=== PATIENT | female | born 1945 | race Caucasian/White ===

== ENCOUNTER 2024-08-07 09:09 | Outpatient (AMB) | payer MEDICARE, SELFPAY ==
--- OUTSIDE RECORDS SUMMARY | 2024-08-07 09:11 | XMS_ITS | Clinical Summary ---
Author Organization Unknown Care Team Providers Care Rewinder Operator Helper Name Role Phone ABNER MANUEL, MARTINE Unavailable Unavailable EFRAIN HERNANDEZ, ARLENE Unavailable Unavailable SPAFFORD OT, MALATHI Unavailable Unavailable ADIEL PT, LISETTE Unavailable Unavailable CLOONAN CASHIER TICKET SELLING, EDWARD Unavailable Unavailable CONDINO CORE MAKER/PICKENS, SOCORRO Unavailable Unav ailable FLORENCIA CONCRETE BATCH PLANT OPERATOR, KARLA Unavailable Unavailable ALONSO CONCRETE BATCH PLANT OPERATOR, CHI Unavailable Unavailable MBURU CASHIER TICKET SELLING, FRANKI Unavailable Unavailable LUIPPOLD CASHIER TICKET SELLING, RAINA Unavailable Unavailable Payers Payer Name Policy Type Policy Number Effective Date Expira tion Date [facility] [id number] Problems Condition Name Condition Details Condition Category Status Onset Date Resolution Date Last Treatment Date Treating Clinician Comments DISPL INTERTROCH FX R FEMUR, SUBS FOR CLOS FX W ROUTN HEAL Active 03-31 00:00: 00 PERIPROSTH FRACTURE AROUND INTERNAL PROSTH R HIP JT, SUBS Active 03-31 00:00: 00 OTH FRACTURE OF RIGHT PUBIS, SUBS FOR FX W ROUTN HEAL Active 03-31 00:00: 00 ACUTE PAIN DUE TO TRAUMA Active 03-31 00:00: 00 FIBROMYALGIA Active 03-31 00:00: 00 RHEUMATOID ARTHRITIS, UNSPECIFIED Active 08-08 00:00: 00 OTHER INTERVERTEBR AL DISC DEGENERATION , LUMBAR REGION Active 08-08 00:00: 00 HYPERTENSIVE CHRONIC KIDNEY DISEASE W STG 1-4/UNSP CHR KDNY Active 08-08 00:00: 00 CHRONIC KIDNEY DISEASE, STAGE 3 UNSPECIFIED Active 08-08 00:00: 00 IRON DEFICIENCY ANEMIA, UNSPECIFIED Active 08-08 00:00: 00 GASTRO-ESOPH AGEAL REFLUX DISEASE WITHOUT ESOPHAGITIS Active 08-08 00:00: 00 VITAMIN D DEFICIENCY, UNSPECIFIED Active 08-08 00:00: 00 HYPERLIPIDEM IA, UNSPECIFIED Active 08-08 00:00: 00 HYPOTHYROIDI SM, UNSPECIFIED Active 08-08 00:00: 00 HISTORY OF FALLING Active 03-31 00:00: 00 PERSONAL HISTORY OF URINARY (TRACT) INFECTIONS Active 03-31 00:00: 00 PRSNL HX OF TIA (TIA), AND CEREB INFRC W/O RESID DEFICITS Active 08-08 00:00: 00 PRESENCE OF ARTIFICIAL KNEE JOINT, BILATERAL Active 08-08 00:00: 00 PRESENCE OF ARTIFICIAL HIP JOINT, BILATERAL Active 08-08 00:00: 00 Allergies, Adverse Reactions, Alerts Allergy Name Allergy Type Status Severity Reaction(s) Onset Date Inactive Date Treating Clinician Comments PENICIILIN Propensity to adverse reactions Active 03-31 23:42: 40 MORPHINE SULFATE..... .. Propensity to adverse reactions Active 03-31 23:42: 53 ATORVASTATIN Propensity to adverse reactions Active 03-31 23:43: 16 PREGABALIN Propensity to adverse reactions Active 03-31 23:43: 34 CHLORTHALIDO NE Propensity to adverse reactions Active 03-31 23:43: 55 Medications Ordered Medication Name Filled Medication Name Start Date Stop Date Current Medication? Ordering Clinician Indication Dosage Frequency Signature (SIG) Comments Components Acetaminoph en Extra Strength 500 mg tablet 03-31 00:00: 00 Yes [id number] PAIN 2 tablet DIRECTED 2 tablet DIRECTED (route: oral) Med Classific ation: Analgesic , Anti-infl ammatory or Antipyret ic amlodipine 5 mg tablet 03-31 00:00: 00 Yes [id number] HTN 1 tablet DAILY 1 tablet DAILY (route: oral) Med Classific ation: Cardiovas cular Therapy Agents aspirin 25 mg-dipyrida mole 200 mg capsule,ext .release 12 hr multiphase 03-31 00:00: 00 Yes [id number] BLOOD THINNER 1 capsule 2 TIMES DAILY 1 capsule 2 TIMES DAILY (route: oral) Med Classific ation: Hematolog ical Agents baclofen 10 mg tablet 03-31 00:00: 00 Yes [id number] MUSCLE RELAXANT 1 tablet 2 TIMES DAILY 1 tablet 2 TIMES DAILY (route: oral) Med Classific ation: Locomotor System duloxetine 30 mg capsule,del ayed release 03-31 00:00: 00 Yes [id number] ANTIDEPRESS ANT 1 capsule DAILY 1 capsule DAILY (route: oral) Med Classific ation: Central Nervous System Agents esomeprazol e magnesium 40 mg capsule,del ayed release 03-31 00:00: 00 Yes [id number] GERD 1 capsule DAILY 1 capsule DAILY (route: oral) Med Classific ation: Gastroint estinal Therapy Agents furosemide 20 mg tablet 03-31 00:00: 00 05-08 23:59 :00 No [id number] WATER PILL 1 tablet DAILY 1 tablet DAILY (route: oral) Med Classific ation: Cardiovas cular Therapy Agents levothyroxi ne 137 mcg tablet 03-31 00:00: 00 Yes [id number] SUPPLEMENT 1 tablet DAILY 1 tablet DAILY (route: oral) Med Classific ation: Endocrine loratadine 10 mg tablet 03-31 00:00: 00 Yes [id number] ALLERGIES 1 tablet DAILY 1 tablet DAILY (route: oral) Med Classific ation: Respirato ry Therapy Agents mecobalamin (vitamin B12) 1,000 mcg disintegrat ing tablet,subl ingual 03-31 00:00: 00 Yes [id number] SUPPLEMENT 1 tablet DAILY 1 tablet DAILY (route: sublingual ) Med Classific ation: Electroly te Balance-N utritiona l Products pravastatin 40 mg tablet 03-31 00:00: 00 Yes [id number] LOWER CHOLESTEROL 1 tablet DAILY 1 tablet DAILY (route: oral) Med Classific ation: Cardiovas cular Therapy Agents Senna Lax 8.6 mg tablet 03-31 00:00: 00 Yes [id number] LAXATIVE 2 tablet BEDTIME 2 tablet BEDTIME (route: oral) Med Classific ation: Gastroint estinal Therapy Agents trimethopri m 100 mg tablet 03-31 00:00: 00 04-29 23:59 :00 No [id number] ANTIBIOTIC 1 tablet 2 TIMES DAILY 1 tablet 2 TIMES DAILY (route: oral) Med Classific ation: Anti-Infe ctive Agents amlodipine 5 mg tablet 04-29 00:00: 00 05-08 00:00 :00 No [id number] HTN 1 tablet DAILY 1 tablet DAILY (route: oral) Med Classific ation: Cardiovas cular Therapy Agents Celebrex 100 mg capsule 04-29 00:00: 00 Yes [id number] PAIN MANAGEMENT 1 capsule EVERY OTHER DAY 1 capsule EVERY OTHER DAY (route: oral) Med Classific ation: Analgesic , Anti-infl ammatory or Antipyret ic torsemide 20 mg tablet 2020-08 00:00: 00 Yes [id number] EDEMA 1 tablet DAILY 1 tablet DAILY (route: oral) Med Classific ation: Cardiovas cular Therapy Agents LIDOCAINE TOPICAL 10-18 00:00: 00 10-19 10:46 :11 No 5 % 5 % (route: ) Med Classific ation: ANESTHETI CS TELMISARTAN ORAL 09-15 00:00: 00 10-18 10:48 :00 No 40 mg 40 mg (route: ) Med Classific ation: CARDIOVAS CULAR THERAPY AGENTS Immunizations Ordered Immunization Name Filled Immunization Name Date Status Comments Refusal Reason DOSE #2, COVID-19 VACCINE 2020-11-06 00:00:00 DOSE #1, COVID-19 VACCINE 2020-10-06 00:00:00 Vital Signs Vital Name Observation Time Observation Value Commen ts Temperature 2021-05-27 11:27:00.000 97.8 [degF] Temperature 2021-05-21 16:21:00.000 97.5 [degF] Temperature 2021-05-19 07:41:00.000 97.7 [degF] Temperature 2021-05-15 13:09:00.000 97.9 [degF] Temperature 2021-05-08 10:27:00.000 97.4 [degF] Temperature 2021-05-05 09:28:00.000 98 [degF] Temperature 2021-04-30 12:31:00.000 98.2 [degF] Temperature 2021-04-29 12:21:00.000 97.8 [degF] Temperature 2021-04-23 10:20:00.000 97.5 [degF] Temperature 2021-04-22 11:09:00.000 98.5 [degF] Temperature 2021-04-21 08:30:56.000 97.3 [degF] Temperature 2021-04-15 12:37:00.000 97.8 [degF] Temperature 2021-04-10 09:20:09.000 97.6 [degF] Temperature 2021-04-07 13:19:14.000 97.8 [degF] Temperature 2021-04-06 14:01:10.000 98 [degF] Temperature 2021-04-03 10:58:00.000 96.8 [degF] Temperature 2021-04-02 13:59:40.000 97.4 [degF] Temperature 2021-04-02 11:37:10.000 97.7 [degF] Temperature 2021-03-31 13:20:00.000 97.8 [degF] Temperature 2021-03-31 09:52:00.000 98.2 [degF] Height 2021-03-31 13:20:00.000 63 [in_us] Pulse 2021-05-27 11:27:00.000 72 /min Pulse 2021-05-21 16:21:00.000 78 /min Pulse 2021-05-19 07:41:00.000 77 /min Pulse 2021-05-15 13:09:00.000 73 /min Pulse 2021-05-08 10:27:00.000 80 /min Pulse 2021-05-05 09:28:00.000 80 /min Pulse 2021-04-30 12:31:00.000 85 /min Pulse 2021-04-29 12:21:00.000 78 /min Pulse 2021-04-23 10:20:00.000 84 /min Pulse 2021-04-22 11:09:00.000 84 /min Pulse 2021-04-21 08:31:06.000 72 /min Pulse 2021-04-15 12:37:00.000 74 /min Pulse 2021-04-10 09:20:16.000 75 /min Pulse 2021-04-07 13:19:22.000 77 /min Pulse 2021-04-06 14:01:22.000 84 /min Pulse 2021-04-03 10:58:00.000 70 /min Pulse 2021-04-02 13:59:49.000 76 /min Pulse 2021-04-02 11:37:22.000 74 /min Pulse 2021-03-31 13:20:00.000 78 /min Pulse 2021-03-31 09:52:00.000 69 /min O2 Saturation (%) 2021-05-27 11:27:00.000 97 % O2 Saturation (%) 2021-05-21 16:21:00.000 98 % O2 Saturation (%) 2021-05-19 07:41:00.000 97 % O2 Saturation (%) 2021-05-08 10:27:00.000 97 % O2 Saturation (%) 2021-04-29 12:21:00.000 98 % O2 Saturation (%) 2021-04-22 11:09:00.000 97 % O2 Saturation (%) 2021-04-21 08:31:17.000 97 % O2 Saturation (%) 2021-04-10 09:20:29.000 97 % O2 Saturation (%) 2021-04-06 14:02:05.000 98 % O2 Saturation (%) 2021-04-03 10:58:00.000 99 % O2 Saturation (%) 2021-04-02 14:00:38.000 97 % O2 Saturation (%) 2021-03-31 13:20:00.000 99 % O2 Saturation (%) 2021-03-31 09:52:00.000 97 % Respirations 2021-05-27 11:27:00.000 17 /min Respirations 2021-05-21 16:21:00.000 17 /min Respirations 2021-05-19 07:41:00.000 18 /min Respirations 2021-05-15 13:09:00.000 18 /min Respirations 2021-05-08 10:27:00.000 17 /min Respirations 2021-05-05 09:28:00.000 18 /min Respirations 2021-04-30 12:31:00.000 18 /min Respirations 2021-04-29 12:21:00.000 17 /min Respirations 2021-04-23 10:20:00.000 18 /min Respirations 2021-04-22 11:09:00.000 17 /min Respirations 2021-04-21 08:31:11.000 18 /min Respirations 2021-04-15 12:37:00.000 18 /min Respirations 2021-04-10 09:20:22.000 18 /min Respirations 2021-04-07 13:19:41.000 18 /min Respirations 2021-04-06 14:01:33.000 17 /min Respirations 2021-04-03 10:58:00.000 18 /min Respirations 2021-04-02 13:59:55.000 18 /min Respirations 2021-04-02 11:37:29.000 18 /min Respirations 2021-03-31 13:20:00.000 18 /min Respirations 2021-03-31 09:52:00.000 18 /min Weight (lbs) 2021-04-29 12:21:00.000 172 [lb_av] Weight (lbs) 2021-03-31 13:20:00.000 179 [lb_av] Systolic Blood Pressure 2021-05-27 11:27:00.000 144 mm [Hg] Systolic Blood Pressure 2021-05-21 16:21:00.000 164 mm [Hg] Systolic Blood Pressure 2021-05-19 07:41:00.000 154 mm [Hg] Systolic Blood Pressure 2021-05-15 13:09:00.000 166 mm [Hg] Systolic Blood Pressure 2021-05-08 10:27:00.000 156 mm [Hg] Systolic Blood Pressure 2021-05-05 09:28:00.000 162 mm [Hg] Systolic Blood Pressure 2021-04-30 12:31:00.000 180 mm [Hg] Systolic Blood Pressure 2021-04-29 12:21:00.000 160 mm [Hg] Systolic Blood Pressure 2021-04-23 10:20:00.000 160 mm [Hg] Systolic Blood Pressure 2021-04-22 11:09:00.000 158 mm [Hg] Systolic Blood Pressure 2021-04-21 08:31:34.000 148 mm [Hg] Systolic Blood Pressure 2021-04-15 12:37:00.000 162 mm [Hg] Systolic Blood Pressure 2021-04-10 09:20:53.000 162 mm [Hg] Systolic Blood Pressure 2021-04-07 13:19:54.000 162 mm [Hg] Systolic Blood Pressure 2021-04-06 13:58:06.000 168 mm [Hg] Systolic Blood Pressure 2021-04-03 10:58:00.000 162 mm [Hg] Systolic Blood Pressure 2021-04-02 14:00:27.000 170 mm [Hg] Systolic Blood Pressure 2021-04-02 14:00:13.000 172 mm [Hg] Systolic Blood Pressure 2021-04-02 11:37:50.000 168 mm [Hg] Systolic Blood Pressure 2021-03-31 13:20:00.000 154 mm [Hg] Systolic Blood Pressure 2021-03-31 09:52:00.000 132 mm [Hg] Diastolic Blood Pressure 2021-05-27 11:27:00.000 84 mm [Hg] Diastolic Blood Pressure 2021-05-21 16:21:00.000 78 mm [Hg] Diastolic Blood Pressure 2021-05-19 07:41:00.000 76 mm [Hg] Diastolic Blood Pressure 2021-05-15 13:09:00.000 90 mm [Hg] Diastolic Blood Pressure 2021-05-08 10:27:00.000 86 mm [Hg] Diastolic Blood Pressure 2021-05-05 09:28:00.000 80 mm [Hg] Diastolic Blood Pressure 2021-04-30 12:31:00.000 84 mm [Hg] Diastolic Blood Pressure 2021-04-29 12:21:00.000 62 mm [Hg] Diastolic Blood Pressure 2021-04-23 10:20:00.000 88 mm [Hg] Diastolic Blood Pressure 2021-04-22 11:09:00.000 72 mm [Hg] Diastolic Blood Pressure 2021-04-21 08:31:34.000 86 mm [Hg] Diastolic Blood Pressure 2021-04-15 12:37:00.000 80 mm [Hg] Diastolic Blood Pressure 2021-04-10 09:20:53.000 80 mm [Hg] Diastolic Blood Pressure 2021-04-07 13:19:54.000 86 mm [Hg] Diastolic Blood Pressure 2021-04-06 13:58:06.000 94 mm [Hg] Diastolic Blood Pressure 2021-04-03 10:58:00.000 90 mm [Hg] Diastolic Blood Pressure 2021-04-02 14:00:27.000 82 mm [Hg] Diastolic Blood Pressure 2021-04-02 14:00:13.000 80 mm [Hg] Diastolic Blood Pressure 2021-04-02 11:37:50.000 88 mm [Hg] Diastolic Blood Pressure 2021-03-31 13:20:00.000 84 mm [Hg] Diastolic Blood Pressure 2021-03-31 09:52:00.000 70 mm [Hg] Plan of Treatment Planned Activity Planned Date Details Comments Future Scheduled Test SKILLED NU RSE TO ASSESS, EVALUATE, AND DEVELOP AN INDIVIDUALIZED PLAN OF CARE. AGENCY MAY ACCEPT ORDERS FROM CONSULTING PHYSICIANS MARTINE EMERSON TO OBSERVE/ASSESS RISK FOR FALLS AND INSTRUCT IN FALL PREVENTION, HOME SAFETY, MEDICATION MANAGEMENT, INFECTION PREVENTION, AND NUTRITION MANAGEMENT. SN MAY PERFORM O2 SATURATION LEVEL ON ADMISSION AND PRN FOR RESP CHANGES TO ASSESS PATIENT, WITH NOTIFICATION TO THE PHYSICIAN IF SATURATION IS 90% IN THE ABSENCE OF MORE SPECIFIC PARAMETERS FROM THE PHYSICIAN. AGENCY MAY PERFORM A RESUMPTION OF CARE VISIT FOLLOWING ANY HOSPITAL ADMISSION. SKILLED NURSE TO ASSESS/EVALUATE CO-MORBID CONDITIONS AND ANY NEW CONDITIONS THAT PRESENT THEMSELVES DURING THIS EPISODE TO IDENTIFY CHANGES AND INTERVENE TO MINIMIZE COMPLICATIONS. [code = SKILLED NURSE TO ASSESS, EVALUATE, AND DEVELOP AN INDIVIDUALIZED PLAN OF CARE. AGENCY MAY ACCEPT ORDERS FROM CONSULTING PHYSICIANS MARTINE EMERSON TO OBSERVE/ASSESS RISK FOR FALLS AND INSTRUCT IN FALL PREVENTION, HOME SAFETY, MEDICATION MANAGEMENT, INFECTION PREVENTION, AND NUTRITION MANAGEMENT. SN MAY PERFORM O2 SATURATION LEVEL ON ADMISSION AND PRN FOR RESP CHANGES TO ASSESS PATIENT, WITH NOTIFICATION TO THE PHYSICIAN IF SATURATION IS 90% IN THE ABSENCE OF MORE SPECIFIC PARAMETERS FROM THE PHYSICIAN. AGENCY MAY PERFORM A RESUMPTION OF CARE VISIT FOLLOWING ANY HOSPITAL ADMISSION. SKILLED NURSE TO ASSESS/EVALUATE CO-MORBID CONDITIONS AND ANY NEW CONDITIONS THAT PRESENT THEMSELVES DURING THIS EPISODE TO IDENTIFY CHANGES AND INTERVENE TO MINIMIZE COMPLICATIONS.] Future Scheduled Test MEDICATION MANAGEMENT; SKILLED NURSE TO REVIEW MEDICATIONS FOR INTERACTIONS, EFFECTIVENESS OF DRUG THERAPY, AND SIGNS/SYMPTOMS OF ADVERSE REACTIONS. MAY INSTRUCT AND REINFORCE MEDICATION TEACHING RELATED TO THE USE OF MEDICATIONS, DOSAGE, FREQUENCY, PURPOSE, SIDE EFFECTS, AND TO REPORT COMPLICATIONS. [code = MEDICATION MANAGEMENT; SKILLED NURSE TO REVIEW MEDICATIONS FOR INTERACTIONS, EFFECTIVENESS OF DRUG THERAPY, AND SIGNS/SYMPTOMS OF ADVERSE REACTIONS. MAY INSTRUCT AND REINFORCE MEDICATION TEACHING RELATED TO THE USE OF MEDICATIONS, DOSAGE, FREQUENCY, PURPOSE, SIDE EFFECTS, AND TO REPORT COMPLICATIONS.] Future Scheduled Test RISK FOR H OSPITALIZATION; SKILLED NURSE TO INSTRUCT PATIENT/CAREGIVER ON RISK FOR HOSPITALIZATION, TEACH SIGNS AND SYMPTOMS THAT PUT PATIENT AT RISK, WHEN TO NOTIFY NURSE OF COMPLICATIONS/DECLINE, AND WHEN TO CALL 911. SKILLED NURSE TO INSTRUCT PATIENT/CAREGIVER ON: SIGNS AND SYMPTOMS TO BE ON ALERT FOR EARLY INTERVENTION, PRIOR TO NEEDING EMERGENCY SERVICES CALL [facility] NURSE TO KEEP ELECTRICAL LINEMAN SYMPTOM REPORT FOR VISIBLE REFERENCE NOTIFY SKILLED NURSE/PHYSICIAN FOR DECLINE IN STATS WHEN AND HOW TO CALL HOME HEALTH AGENCY FACILITATE PHYSICIAN FOLLOW UP APPOINTMENT IDENTIFY SOCIOECONOMIC CONCERNS AND MAKE APPROPRIATE REFERRAL NEEDED [code = RISK FOR HOSPITALIZATION; SKILLED NURSE TO INSTRUCT PATIENT/CAREGIVER ON RISK FOR HOSPITALIZATION, TEACH SIGNS AND SYMPTOMS THAT PUT PATIENT AT RISK, WHEN TO NOTIFY NURSE OF COMPLICATIONS/DECLINE, AND WHEN TO CALL 911. SKILLED NURSE TO INSTRUCT PATIENT/CAREGIVER ON: SIGNS AND SYMPTOMS TO BE ON ALERT FOR EARLY INTERVENTION, PRIOR TO NEEDING EMERGENCY SERVICES CALL [facility] NURSE TO KEEP ELECTRICAL LINEMAN SYMPTOM REPORT FOR VISIBLE REFERENCE NOTIFY SKILLED NURSE/PHYSICIAN FOR DECLINE IN STATS WHEN AND HOW TO CALL HOME HEALTH AGENCY FACILITATE PHYSICIAN FOLLOW UP APPOINTMENT IDENTIFY SOCIOECONOMIC CONCERNS AND MAKE APPROPRIATE REFERRAL NEEDED] Future Scheduled Test CARDIOVASC ULAR SYSTEM; SKILLED NURSE TO ASSESS AND TEACH RELATED TO ALTERED CARDIOVASCULAR STATUS TO MINIMIZE COMPLICATIONS AND REDUCE HOSPITALIZATION. [code = CARDIOVASCULAR SYSTEM; SKILLED NURSE TO ASSESS AND TEACH RELATED TO ALTERED CARDIOVASCULAR STATUS TO MINIMIZE COMPLICATIONS AND REDUCE HOSPITALIZATION.] Future Scheduled Test HYPERTENSI ON MANAGEMENT; SKILLED NURSE TO ASSESS/TEACH WARNING SIGNS AND SYMPTOMS TO AVOID HOSPITALIZATION. [code = HYPERTENSION MANAGEMENT; SKILLED NURSE TO ASSESS/TEACH WARNING SIGNS AND SYMPTOMS TO AVOID HOSPITALIZATION.] Future Scheduled Test SKILLED NU RSE TO ASSESS FOR SIGNS AND SYMPTOMS OF SEPSIS AND/OR POST-SEPSIS SYNDROME AND INTERVENE TO MINIMIZE COMPLICATIONS. SKILLED NURSE TO PROVIDE SKILLED TEACHING TO PATIENT/CAREGIVER ON SEPSIS AND SELF-MANAGEMENT TECHNIQUES. SKILLED NURSE TO MONITOR PATIENT/CAREGIVER ADHERENCE TO MONITOR AND RECORD VITALS SIGNS INCLUDING TEMPERATURE, HEART RATE, RESPIRATIONS, AND SYMPTOMS. SKILLED NURSE TO PROVIDE CUSTODIAL TO ACCOMPLISH THE PATIENTS PERSONAL GOAL OF PREVENTION OF INFECTION [code = SKILLED NURSE TO ASSESS FOR SIGNS AND SYMPTOMS OF SEPSIS AND/OR POST-SEPSIS SYNDROME AND INTERVENE TO MINIMIZE COMPLICATIONS. SKILLED NURSE TO PROVIDE SKILLED TEACHING TO PATIENT/CAREGIVER ON SEPSIS AND SELF-MANAGEMENT TECHNIQUES. SKILLED NURSE TO MONITOR PATIENT/CAREGIVER ADHERENCE TO MONITOR AND RECORD VITALS SIGNS INCLUDING TEMPERATURE, HEART RATE, RESPIRATIONS, AND SYMPTOMS. SKILLED NURSE TO PROVIDE CUSTODIAL TO ACCOMPLISH THE PATIENTS PERSONAL GOAL OF PREVENTION OF INFECTION ] Future Scheduled Test PAIN MANAG EMENT; SKILLED NURSE TO OBSERVE, ASSESS, AND PROVIDE EDUCATION ON PAIN MANAGEMENT TECHNIQUES. [code = PAIN MANAGEMENT; SKILLED NURSE TO OBSERVE, ASSESS, AND PROVIDE EDUCATION ON PAIN MANAGEMENT TECHNIQUES.] Future Scheduled Test FALL REDUC TION MANAGEMENT; NURSING TO PROVIDE SKILLED ASSESSMENT, EDUCATION, AND INTERVENTION TO IDENTIFY FALL RISK FACTORS SUCH MEDICATIONS THAT MAY CAUSE DIZZINESS, CHRONIC DISEASES, PSYCHOLOGICAL FACTORS, AND EMPOWER/EDUCATE PATIENT/CAREGIVER TO MINIMIZE FALL RISK. [code = FALL REDUCTION MANAGEMENT; NURSING TO PROVIDE SKILLED ASSESSMENT, EDUCATION, AND INTERVENTION TO IDENTIFY FALL RISK FACTORS SUCH MEDICATIONS THAT MAY CAUSE DIZZINESS, CHRONIC DISEASES, PSYCHOLOGICAL FACTORS, AND EMPOWER/EDUCATE PATIENT/CAREGIVER TO MINIMIZE FALL RISK.] Future Scheduled Test PRN VISITS : PATIENT REQUIRES 2 PRN CUSTODIAL VISITS FOR COMPLICATIONS RELATED TO HYPERTENSION [code = PRN VISITS: PATIENT REQUIRES 2 PRN CUSTODIAL VISITS FOR COMPLICATIONS RELATED TO HYPERTENSION ] Future Scheduled Test AGENCY MAY PERFORM A RESUMPTION OF CARE VISIT FOLLOWING ANY HOSPITAL ADMISSION. PHYSICAL THERAPY TO EVALUATE, ASSESS AND MONITOR, PROVIDE SKILLED THERAPEUTIC INTERVENTION, ACTIVITY, EDUCATION, AND TRAINING TO ADDRESS: BED MOBILITY TRAINING (PT); TRANSFER TRAINING (PT) GAIT TRAINING (PT) NEUROMUSCULAR RE-EDUCATION / BALANCE RETRAINING (PT) THERAPEUTIC EXERCISES (PT) OXYGEN SATURATION (PT). NOTIFY MD IF 02SATS BELOW 90% AFTER 10 MIN OF REST. PELVIC FRACTURE SELF MANAGEMENT (PT) [code = AGENCY MAY PERFORM A RESUMPTION OF CARE VISIT FOLLOWING ANY HOSPITAL ADMISSION. PHYSICAL THERAPY TO EVALUATE, ASSESS AND MONITOR, PROVIDE SKILLED THERAPEUTIC INTERVENTION, ACTIVITY, EDUCATION, AND TRAINING TO ADDRESS: BED MOBILITY TRAINING (PT); TRANSFER TRAINING (PT) GAIT TRAINING (PT) NEUROMUSCULAR RE-EDUCATION / BALANCE RETRAINING (PT) THERAPEUTIC EXERCISES (PT) OXYGEN SATURATION (PT). NOTIFY MD IF 02SATS BELOW 90% AFTER 10 MIN OF REST. PELVIC FRACTURE SELF MANAGEMENT (PT)] Future Scheduled Test OCCUPATION AL THERAPY EVALUATION PERFORMED. NO ADDITIONAL VISITS REQUIRED. PROVIDED SKILLED INTERVENTION INCLUDING EDUCATION REGARDING ENERGY CONSERVATION TECHNIQUES, FALL PREVENTION STRATEGIES, AND CALL US FIRST PROCEDURES. [code = OCCUPATIONAL THERAPY EVALUATION PERFORMED. NO ADDITIONAL VISITS REQUIRED. PROVIDED SKILLED INTERVENTION INCLUDING EDUCATION REGARDING ENERGY CONSERVATION TECHNIQUES, FALL PREVENTION STRATEGIES, AND CALL US FIRST PROCEDURES. ] Goal 2021-05-27 Patient Goal - I WANT TO GET STRONGER Goal Provider Goal - A PLAN OF CARE WILL BE ESTABLISHED THAT MEETS THE PATIENTS NEEDS. PATIENT WILL DEMONSTRATE OXYGEN SATURATION WITHIN NORMAL LIMITS OR PATIENTS OPTIMAL LEVEL ESTABLISHED BY THE PHYSICIAN THROUGHOUT CARE. CHANGES TO CO-MORBID CONDITIONS AND ANY NEW CONDITIONS WILL BE IDENTIFIED AND REPORTED TO THE PHYSICIAN. Goal Provider Goal - PATIENT/CAREGIVER TO VERBALIZE, AND CONSISTENTLY DEMONSTRATE EFFECTIVE, SAFE MANAGEMENT OF MEDICATION INCLUDING KNOWLEDGE OF EFFECTIVENESS, POTENTIAL SIDE EFFECTS AND DRUG REACTIONS AND WHEN TO CONTACT THE APPROPRIATE CARE PROVIDER. PATIENT/CAREGIVER WILL BE ABLE TO VERBALIZE UNDERSTANDING OF MEDICATION REGIMEN AND ACCURATELY TAKE MEDICATIONS PRESCRIBED WITHOUT ADVERSE EFFECTS BY 05/29 Goal Provider Goal - PATIENT/CAREGIVER WILL VERBALIZE UNDERSTANDING OF SIGNS AND SYMPTOMS THAT PUT THE PATIENT AT RISK FOR HOSPITALIZATION, WHEN TO NOTIFY SN OF COMPLICATIONS/DECLINE AND WHEN TO CALL 911. Goal Provider Goal - PATIENT / CAREGIVER WILL VERBALIZE/DEMONSTRATE UNDERSTANDING OF MEASURES TO MANAGE ALTERED CARDIOVASCULAR STATUS BY 05/29 Goal Provider Goal - PATIENT / CAREGIVER WILL VERBALIZE/DEMONSTRATE AN ABILITY TO ADHERE TO SELF-MANAGEMENT OF HTN TO MINIMIZE COMPLICATIONS AND AVOID HOSPITALIZATION BY END OF EPISODE. Goal Provider Goal - SIGNS OF SEPSIS WILL BE IDENTIFIED PROMPTLY, AND INTERVENTIONS INITIATED TO MINIMIZE SEVERITY AND RISK OF HOSPITALIZATION. POST-SEPSIS SYNDROME INTERVENTIONS WILL BE REVIEWED WITH THE PATIENT/CAREGIVER, IF APPLICABLE. PATIENT / CAREGIVER WILL VERBALIZE/DEMONSTRATE AN ABILITY TO ADHERE TO SELF-MANAGEMENT AT DISCHARGE BY 05/29 Goal Provider Goal - PATIENT / CAREGIVER WILL VERBALIZE / DEMONSTRATE UNDERSTANDING OF PAIN CONTROL MEASURES BY 05/29 Goal Provider Goal - PATIENT/CAREGIVER ABLE TO IDENTIFY FALL RISK FACTORS AND IMPLEMENT STRATEGIES TO MINIMIZE FALL RISK. PATIENT/CAREGIVER WILL VERBALIZE/DEMONSTRATE AN ABILITY TO ADHERE TO FALL REDUCTION SELF MANAGEMENT AND LIFE-STYLE CHANGES AT DISCHARGE. PERSONAL GOAL(S) STATED BY PATIENT/CAREGIVER WILL BE MET BY 05/29 Goal Provider Goal - Goal Provider Goal - PATIENT WILL DEMO INDEP PERFORMANCE OF BED TRANSFER IN 4 WEEKS TO ALLOW SAFE RETURN TO PLOF PATIENT WILL DEMO INDEP PERFORMANCE OF HOUSEHOLD TRANSFERS WITH 4WW USE IN 4 WEEKS TO ALLOW SAFE NAVIGATION THROUGHOUT HOME ENVIRONMENT PATIENT WILL DEMO INDEP PERFORMANCE OF HOUSEHOLD GAIT UP TO 300 FEET IN 8 WEEKS WITH 4WW TO ALLOW SAFE NAVIGATION THROUGHOUT HOME ENVIRONMENT PATIENT WILL DEMO IMPROVED TUG SCORE TO 15 SECONDS AND 19 TINETTI SCORE IN 8 WEEKS TO PROMOTE IMPROVED BALANCE INPUT INTEGRATION PATIENT WILL DEMO INDEP PERFORMANCE OF STANDING THEREX AND BALANCE ACTIVITY IN 4 WEEKS TO PROMOTE LE STABILITY AND ACTIVITY TOLERANCE PATIENT WILL MAINTAIN OXYGEN SATURATION WITHIN PHYSICIAN ORDERED PARAMETERS THROUGHOUT EPISODE OF CARE PT GOAL: PATIENT WILL DEMONSTRATE OPTIMAL OUTCOMES INCLUDING DECREASED PAIN WITH NO COMPLICATIONS FOLLOWING PELVIC FRACTURE BY DISCHARGE. Goal Provider Goal - Reason for Visit INDEPENDENT WITH USE OF ASSISTIVE DEVICE Encounters Start Date/Time End Date/Time Encounter Type Admission Type Attending [facility] Care Department Encounter ID Discharge Date Discharge Status Discharge Condition Discharge Reason Percent Goals Met 2021-03-31 00:00:00 2021-05-27 00:00:00 Outpatient ARLENE FLOYD [facility] [id number] 2021-05-27 00:00:00 DISCHARGE TO HOME OR SELF CARE INDEPENDEN T WITH USE OF ASSISTIVE DEVICE HH OR PAL- GOALS MET 96.55
[2024-08-07 09:12] VITALS: BP 130/74; PULSE 86; O2SAT 94; BMI 27.7
--- NOTE | 2024-08-07 09:12 | MHC.OFFVIS ---
Vital Signs 08/07/24 09:12 Height 5 ft 4 in Weight 161 lb 6.054 oz BMI 27.7 BP 130/74 Blood Pressure Location Lt brachial Position Sitting Pulse 86 Pulse Source Pulse Oximeter Pulse Oximetry (%) 94 Oxygen Delivery Method Room Air Intake Visit Reasons: arthritis Intake Note: Patient presents for follow up on RA and fibromyalgia. Accompanied by: Daughter Allergies Latex, Natural Rubber Allergy (Mild, Verified 08/07/24 09:19) rash, itching morphine Allergy (Unknown, Unverified 08/07/24 09:19) Unknown pregabalin [From Lyrica] Allergy (Unknown, Unverified 08/07/24 09:19) Unknown Penicillins Adverse Reaction (Unknown, Unverified 08/07/24 09:19) Unknown warfarin Adverse Reaction (Unknown, Unverified 08/07/24 09:19) Unknown bee stings Allergy (Intermediate, Uncoded 08/07/24 09:19) Anaphylaxis lovonox Allergy (Mild, Uncoded 08/07/24 09:19) Hives HPI HPI arthritis: Details: She had eventiy number 7 on 07/26/2024. She had labs recently at [facility]. Morning stiffness hours. She has joint pains in her hands and elbows. Last prednisone prescription was in January. She saw provider [facility] in between appointments who did not make any changes with her regimen. She does not feel that Orencia is working. She has been on Orencia since 10/2023. [facility] Medical History (Updated 08/07/24 @ 23:09 by Teto Tran MD) History of blood transfusion Fibromyalgia Rheumatoid arthritis TIA (transient ischemic attack) Hypercholesterolemia Hypothyroid Systemic primary arterial hypertension Surgical History (Updated 08/03/24 @ 11:05 by Courtney Jean CMA) Hx of colonoscopy H/O: hysterectomy H/O total knee replacement History of total hip replacement Hx of cholecystectomy Social History (Updated 08/03/24 @ 11:09 by Courtney Jean CMA) Alcohol intake: current Patient Tobacco Use Status: Never used Tobacco Review of Systems Const All systems reviewed & are unremarkable except as noted in HPI and below Physical Exam Vital Signs: Last Vital Signs Pulse 86 08/07/24 09:12 BP 130/74 08/07/24 09:12 Pulse Ox 94 08/07/24 09:12 Oxygen Delivery Method Room Air 08/07/24 09:12 BMI result Body Mass Index 27.7 Const Other: General: Comfortable CVS: RRR Respiratory: clear to auscultation bilaterally. Good respiratory effort Skin: No lesions seen MSK: Tender to palpate bilateral MCPs. Chronic synovial thickening bilateral MCPs. Tender PIPs. Tender bilateral wrist. Tender bilateral elbows and bilateral shoulders. She had limited full flexion of bilateral elbows. Shoulder abduction right 90 degrees and left 110 degrees with good internal rotation and external rotation. Tender bilateral knees. Tender bilateral MTPs. Tender bilateral ankles. She was examined in wheelchair. Assessment & Plan Assessment & Plan (1) Rheumatoid arthritis: Comment: Diagnosed in 1994. She has been on Orencia subcutaneous injection since 11/26/2023. Previously failed sulfasalazine, hydroxychloroquine, methotrexate, Humira and Enbrel. Uncontrolled on Orencia subcutaneous injection. We discussed next steps in DMARD therapy. I will treat current symptoms of uncontrolled inflammatory arthritis with the prednisone course. She has history of requiring iron infusions. She recently saw retirement sales consultant and reports that H and H is stable in she will not need an iron infusion at this time. History of hyperlipidemia. We discussed DMARD therapy. Rinvoq is indicated. Discussed side effects, benefits and drug monitoring. Code(s): M06.9 - Rheumatoid arthritis, unspecified Category: Medical Qualifiers: Rheumatoid arthritis location: multiple sites Plan: Requesting recent lab results from [facility] Continue Orencia subcutaneous injection When lab results are back, I will start PA process for Rinvoq Prednisone course prescribed Return to clinic in 3 months (2) Other assisted (current) drug therapy: Code(s): Z79.899 - Other terminal manager (current) drug therapy Category: Medical Plan: See above (3) Osteoporosis: Comment: History of multiple compression fractures: Right humeral fracture and bilateral wrist fractures. Evenity was started 01/2024. She recently had 7th Evenity injection. Code(s): M81.0 - Age-related osteoporosis without current pathological fracture Category: Medical Qualifiers: Osteoporosis type: age-related Presence of current pathological fracture: without current pathological fracture Qualified Code(s): M81.0 - Age-related osteoporosis without current pathological fracture Plan: Recent labs requested from [facility] PA. Evenity we will need to be scheduled every 4 weeks with nurse visit Return to clinic in 3 months Need to request bone densities from [facility] next visit Medications: New prednisone Take 4 tablets daily 3 days, 3 tablets daily 3 days, 2 tablets daily 3 days, 1 tablet daily 3 days. Take prednisone with food. 5 mg PO DIRECTED 30 tabs 0RF Coding Level of Care Code Est Pt Level 4 (90172) Complex EM visit Add On G2211 Diagnoses Rheumatoid arthritis M06.9 Rheumatoid arthritis location: multiple sites Other terminal manager (current) drug therapy Z79.899 Age-related osteoporosis without current pathological fracture M81.0 Osteoporosis type: age-related Presence of current pathological fracture: without current pathological fracture
== END 2024-08-07 10:08 | disposition home or self-care (01) ==
PROVIDERS: PCP Family Medicine; Visit Provider Internal Medicine Rheumatology
DX: M06.9 Rheumatoid arthritis, unspecified (principal); Z79.899 Other long term (current) drug therapy; M81.0 Age-related osteoporosis without current pathological fracture
CPT/HCPCS: 99214; G2211

== ENCOUNTER → 2024-08-07 09:09 | Outpatient (BNVA) | payer MEDICARE, SELFPAY | PROVIDERS: PCP Family Medicine; Visit Provider Internal Medicine Rheumatology | DX: M06.9 Rheumatoid arthritis, unspecified (principal); M81.0 Age-related osteoporosis without current pathological fracture; Z79.899 Other long term (current) drug therapy | CPT/HCPCS: 99212 ==

== ENCOUNTER 2024-09-21 07:47 | Outpatient (AMB) | payer MEDICARE, SELFPAY ==
--- OUTSIDE RECORDS SUMMARY | 2024-09-21 07:49 | XMS_ITS | Encounter Summary ---
Author Organization [facility] Address [address] [place] [address] Care Team Providers Care Tank Builder Name Role Phone Elsy Sloan MD Primary Care Pr ovider Reason for Referral * Consultation (Routine) - Authorized Specialty Diagnoses / Procedures Referred By Yefri montgomery Referred To Contact Neurosurgery Diagnoses Facet arthropathy, cervical Alonzo Muniz PA [address] [place] [address] Phone: tel: fax: Jeanne Serra MD [address] [place] [address] Phone: tel: fax: Referral ID Status Reason Start Date Expiration Date Visits Requested Visits Authorized [id number] Authorized Specialty Services Required 09/19/2024 09/19/2025 12 12 * Imaging (Routine) - Pending Review Specialty Diagnoses / Procedures Referred By Yefri montgomery Referred To Contact Radiology Diagnoses Facet arthropathy, cervical Procedures MR Cervical Spine wo Contrast Alonzo Muniz PA [address] [place] [address] Phone: tel: fax: [facility] [address] [place] [address] Phone: tel: Referral ID Status Reason Start Date Expiration Date V isits Requested Visits Authorized [id number] Pending Review 08/29/2024 08/29/2025 1 1 * Imaging (Routine) - Pending Review Specialty Diagnoses / Procedures Referred By Contac t Referred To Contact Radiology Diagnoses History of transient ischemic attack (TIA) Other migraine without status migrainosus, not intractable Vertigo Procedures MR Brain wo Contrast Alonzo Muniz PA [address] [place] [address] Phone: tel: fax: [address] [address] Phone: tel: Referral ID Status Reason Start Date Expiration Date V isits Requested Visits Authorized [id number] Pending Review 08/29/2024 08/29/2025 1 1 * Consultation (Routine) - Pending Review Specialty Diagnoses / Procedures Referred By Contac t Referred To Contact Ophthalmology Diagnoses History of transient ischemic attack (TIA) Other migraine without status migrainosus, not intractable Vertigo Alonzo Muniz PA [address] [place] [address] Phone: tel: fax: Referral ID Status Reason Start Date Expiration Date Visits Requested Visits Authorized [id number] Pending Review Specialty Services Required 08/29/2024 08/29/2025 1 1 * Consultation (Urgent) - Authorized Specialty Diagnoses / Procedures Referred By Contac t Referred To Contact Neurology Diagnoses History of transient ischemic attack (TIA) Other migraine without status migrainosus, not intractable Vertigo Alonzo Muniz PA [address] [place] [address] Phone: tel: fax: ElYoselyn velasco MD [address] [facility] [address] [place] [address] Phone: tel: fax: Referral ID Status Reason Start Date Expiration Date Visits Requested Visits Authorized [id number] Authorized Specialty Services Required 08/29/2024 08/29/2025 1 1 Reason for Visit * Reason Comments Follow-up Encounter Details Date Type Department Care Team (Late st Contact Info) Description 08/29/2024 3:00 PM EST Office Visit Adult Medicine [facility] [address] [place] [address] Alonzo Muniz PA [address] [place] [address] Vertigo (Primary Dx); Other migraine without status migrainosus, not intractable; History of transient ischemic attack (TIA); History of diplopia; Facet arthropathy, cervical; Primary hypertension; Stage 3 chronic kidney disease, unspecified whether stage 3a or 3b CKD (CMS/HCC); Hypothyroidism, unspecified type; Other hyperlipidemia; Rheumatoid arthritis, involving unspecified site, unspecified whether rheumatoid factor present (CMS/HCC); Fibromyalgia; Spinal stenosis of lumbar region, unspecified whether neurogenic claudication present; Osteoporosis, unspecified osteoporosis type, unspecified pathological fracture presence; Gastroesophageal reflux disease, unspecified whether esophagitis present; Iron deficiency anemia, unspecified iron deficiency anemia type Social History Tobacco Use Types Packs/Day Years Used Date Smoking Tobacco: Never Smokeless Tobacco: Never Tobacco Cessation:Counseling Given: Not Answered Alcohol Use Standard Drinks/Week Comments Yes 0 (1 standard drink = 0.6 oz pur e alcohol) Housing Instability Answer Date Recorde d Are you worried that in the next 2 months you may not have stable housing? No 08/23/2024 Food Access & Nutrition Answer Date Rec orded Do you have access to a vari ety of food including fruits and vegetables? Yes 08/23/2024 Access to Healthcare Answer Date Record ed Within the last 3 months, ho w many times did you visit the emergency department for your medical care? 0 08/23/2024 Health Literacy Answer Date Recorded How often do you need to hav e someone help you when you read instructions, pamphlets, or other written material from your doctor or pharmacy? Never 08/23/2024 Caregiver: How often do you need to have someone help you when you read instructions, pamphlets, or other written material from your doctor or pharmacy? Not on file 08/23/2024 Financial Risk Answer Date Recorded How hard is it for you to pa y for the very basics like food, housing, medical care, and air conditioning / heating? Not very hard 08/23/2024 Transportation Answer Date Recorded Has the lack of transportati on kept you from meetings, work, or from getting things needed for daily living? No Has the lack of transportati on kept you from medical appointments or from getting medications? No 08/23/2024 Social Isolation Answer Date Recorded How often do you feel lonely or isolated from those around you? Sometimes 08/23/2024 Food Risk Answer Date Recorded Within the past 12 months we worried whether our food would run out before we got money to buy more. Never true 08/23/2024 Within the past 12 months th e food we bought just didn't last and we didn't have money to get more. Never true 08/23/2024 Dependent Care Answer Date Recorded Do you need help finding or paying for care for your loved ones. For example, child monitor or elderly care for an older adult? No 08/23/2024 Education Answer Date Recorded Do you think completing more education or training, like finishing a GED, going to college, or learning a trade, would be helpful for you? No 08/23/2024 Employment and Income Answer Date Recor ded During the last four weeks, have you been actively looking for work? No 08/23/2024 Living Situation Answer Date Recorded What is your living situation? 0 08/23/2024 Comments Unknown Sex and Gender Information Value Date Recorded Sex Assigned at Not on file Legal Sex Female 1:47 PM EST Gender Identity Not on file Sexual Orientation Not on file documented as of this encounter Last Filed Vital Signs Vital Sign Reading Time Taken Comments Blood Pressure 138/84 08/29/2024 3:15 PM EST Pulse 102 08/29/2024 2:59 PM EST Temperature 36.7 ??C (98 ??F) 08/29/2024 2:59 PM EST Respiratory Rate 12 08/29/2024 2:59 PM EST Oxygen Saturation 96% 08/29/2024 2:59 PM EST Inhaled Oxygen Concentration - - Weight - - Height 165.1 cm (5' 5 ) 08/29/2024 2:59 PM EST Body Mass Index - - documented in this encounter Ordered Prescriptions Prescription Sig Dispense Quantity Refills Last Filled Start Date End Date levothyroxine (SYNTHROID, LEVOTHROID) 137 mcg tablet Take 1 tablet (137 mcg total) by mouth 1 (one) time each day before breakfast. 90 tablet 1 08/29/2024 losartan (COZAAR) 25 mg tablet Take 1 tablet (25 mg total) by mouth 1 (one) time each day. 90 tablet 1 08/29/2024 pravastatin (PRAVACHOL) 40 mg tablet Take 1 tablet (40 mg total) by mouth at bedtime. 90 tablet 1 08/29/2024 esomeprazole (NexIUM) [address] capsule Take 1 capsule (40 mg total) by mouth 1 (one) time each day. Do not open capsule. 90 capsule 1 08/29/2024 baclofen (LIORESAL) 10 mg tablet Take 1 tablet (10 mg total) by mouth 3 (three) times a day. 270 tablet 1 08/29/2024 meclizine (ANTIVERT) 12.5 mg tablet Take 1 tablet (12.5 mg total) by mouth 3 (three) times a day if needed for dizziness (vertigo). 30 tablet 2 08/29/2024 documented in this encounter Progress Notes * JAIR Redmond - 08/29/2024 3:00 PM ESTAddended by: ALONZO MUNIZ on: 09/14/2024 12:42 PM Modules accepted: Orders * JAIR Redmond - 08/29/2024 3:00 PM EST CHIEF COMPLAINT: Follow-up IDENTIFIER: Payal Calero is a 79 y.o. old female. HPI: 79 year old female presents to office for medication review Last visit in adult medicine in February Patient states she has been attending PT for vertigo. She states she was told she has different types of vertigo (vertigo related to migraines and BPPV). She states she recently had Julio maneuver for BPPV last week and it was helpful. She states she developed vertigo from ear infection/labyrinthitis. She is seeing Tawnya Guerrero DPT at [facility] [place] Patient is requesting vertigo medication to have on hand if needed She is also interested in migraine medication potentially, typically taking Tylenol with some relief. She states she was told to avoid caffeine with headaches as it can cause worsening. She is on Aggrenox and has CKD (avoid NSAIDs) She is also requesting a referral to ophthalmology for an eye exam, she states her Centrifugal Station Operator said she should have eye exam due to history of skin cancer. She has also been noticing some visual changes (double vision) She has history of facet arthropathy, OA cervical spine. Sees Physiatry for injections. She feels her chronic neck pain contributes to migraine symptoms as well. Plans to review if more frequent injections with Physiatry would be an option She denies any visual changes, PEREZ, dizziness, numbness/tingling, CP, SOB in office today Hypertension - BP in office today initially 157/92, repeat 138/84 (manual), on losartan 25 mg dailyand amlodipine 10 mg daily CKD stage 3- recent renal function in normal range in March, follows with Nephrology (Kelley Cordova APRN) Hypothyroidism - last TSH 0.95 last month, on levothyroxine 137 mcg daily Hyperlipidemia - on pravastatin 40mg. Last lipid panel in December, LDL 136, total cholesterol 205 Patient has a history of RA, fibromyalgia, lumbar stenosis/DJD, she sees Rheumatology, Dr. Tran, prescribed Orencia, Cymbalta, baclofen. Also started on Evenity for osteoporosis. She also follows with Physiatry, Dr. Teran, for injections, that do provide relief. She ambulates with walker typically, is in wheelchair today GERD - on Nexium 40mg daily Patient has a history of iron deficiency anemia - last CBC in July with no anemia. Last iron infusion early 2023, recent visit with Dr. Cope last month, return to office as needed and monitoring of CBC/iron studies q4-6 months through primary care ROS: GENERAL: No malaise or fever HEENT: No changes in hearing or vision RESPIRATORY: No cough, wheezing or shortness of breath CARDIOVASCULAR: No chest pain, leg swelling or palpitations GI: No abdominal pain, diarrhea, constipation, blood in stool : No dysuria, frequency, incontinence, hematuria MUSCULOSKELETAL: No joint pain or swelling NEURO: No persistent headache, syncope, numbness All other systems reviewed and negative. PAST MEDICAL HISTORY: Patient Active Problem List Diagnosis Date Noted Migraine without status migrainosus, not intractable 08/30/2024 History of transient ischemic attack (TIA) 08/30/2024 Primary hypertension 08/30/2024 Vertigo 08/14/2024 Diaphragmatic hernia without obstruction or gangrene 02/17/2021 Generalized muscle weakness 02/17/2021 Low back pain 02/17/2021 Nondisplaced intertrochanteric fracture of right femur, sequela 02/17/2021 Other abnormalities of gait and mobility 02/17/2021 Unspecified fall, sequela 02/17/2021 Unspecified fracture of right femur, sequela 02/17/2021 Unsteadiness on feet 02/17/2021 Unspecified osteoarthritis, unspecified site 02/17/2021 Urinary tract infection, site not specified 02/17/2021 Obstructive sleep apnea 10/06/2019 Malignant melanoma ([facility]) 07/09/2019 Cervical stenosis of spinal canal 08/07/2018 Osteoporosis 07/19/2018 Cerebrovascular disease 07/07/2018 CKD (chronic kidney disease) stage 3, GFR 30-59 ml/min ([facility]) 07/07/2018 Diastolic dysfunction 07/07/2018 Facet arthropathy, cervical 07/07/2018 Fibromyalgia 07/07/2018 GERD (gastroesophageal reflux disease) 07/07/2018 Hyperlipidemia 07/07/2018 Hypothyroidism 07/07/2018 Iron deficiency anemia 07/07/2018 RA (rheumatoid arthritis) ([facility]) 07/07/2018 Raynauds disease 07/07/2018 Recurrent UTI 07/07/2018 Spondylosis of lumbar region without myelopathy or radiculopathy 07/07/2018 Thrombocytosis 07/07/2018 Vitamin D deficiency 07/07/2018 ACTIVE MEDICATIONS: Current Outpatient Medications Medication Instructions abatacept 125 mg/mL auto-injector 125 mL (15,625 mg total). acetaminophen (TYLENOL) 325 mg tablet Take 650 mg by mouth. amLODIPine (NORVASC) 10 mg, oral, Daily aspirin-dipyridamole (AGGRENOX) 25-200 mg per 12 hr capsule Take by mouth daily. baclofen (LIORESAL) 10 mg, oral, 3 times daily DULoxetine (CYMBALTA) 60 mg, oral, Daily, Do not crush or chew. EPINEPHrine 0.3 mg/0.3 mL syringe Inject as directed. esomeprazole (NEXIUM) 40 mg, oral, Daily, Do not open capsule. fexofenadine (ELIDA) 180 mg tablet 1 tablet, oral, Daily fluticasone propionate (FLONASE) 50 mcg/actuation nasal spray spray or apply inside Nose. hydrocortisone 1 % topical cream Apply topically. levothyroxine (SYNTHROID, LEVOTHROID) 137 mcg, oral, Every morning before breakfast lidocaine (LIDODERM) 5 % patch Apply topically. losartan (COZAAR) 25 mg, oral, Daily meclizine (ANTIVERT) 12.5 mg, oral, 3 times daily PRN pravastatin (PRAVACHOL) 40 mg, oral, Nightly romosozumab-[id number] (Evenity) Inject under the skin. ALLERGIES: Allergies Allergen Reactions Iodine Anaphylaxis Pregabalin Anaphylaxis, Dizziness, Swelling and Unknown Atorvastatin Other and Unknown Increased liver enzymes Banana Bee Venom Protein (Honey Bee) Itching and Swelling Chlorthalidone Other Hyponatremia Heparin Hives and Itching Other reaction(s): Hives/Urticaria Morphine Hives Penicillin V Hives Enoxaparin Itching and Rash PHYSICAL EXAM: Blood pressure 138/84, pulse 102, temperature 36.7 ??C (98 ??F), temperature source Temporal, resp.rate 12, height 1.651 m (65 ), SpO2 96%. Body mass index is 25.29 kg/m??. APPEARANCE: Alert and in no acute distress EYES: Conjunctiva and sclera normal. HEART: RRR with normal S1 and S2 LUNG: clear to auscultation, no wheezing, rales, or rhonchi EXTREMITIES: Extremities warm and well perfused without clubbing, cyanosis, or edema NEURO: Awake, alert and oriented x 3 LABS/IMAGING: Lab Results Component Value Date WBC 8.3 07/12/2024 HGB 12.5 07/12/2024 HCT 39.8 07/12/2024 MCV 98.8 (H) 07/12/2024 PLT 494 (H) 07/12/2024 IMPRESSION: 1. Vertigo 2. Other migraine without status migrainosus, not intractable 3. History of transient ischemic attack (TIA) 4. History of diplopia 5. Facet arthropathy, cervical 6. Primary hypertension 7. Stage 3 chronic kidney disease, unspecified whether stage 3a or 3b CKD ([facility]) 8. Hypothyroidism, unspecified type 9. Other hyperlipidemia 10. Rheumatoid arthritis, involving unspecified site, unspecified whether rheumatoid factor present([facility]) 11. Fibromyalgia 12. Spinal stenosis of lumbar region, unspecified whether neurogenic claudication present 13. Osteoporosis, unspecified osteoporosis type, unspecified pathological fracture presence 14. Gastroesophageal reflux disease, unspecified whether esophagitis present 15. Iron deficiency anemia, unspecified iron deficiency anemia type PLAN: Vertigo - attending PT with good effect. Prescription for meclizine 12.5mg TID PRN sent, advised medication can cause drowsiness Migraines - she reports migraine symptoms. Imitrex contraindicated due to history of cerebrovascular disease/history of TIA. Due to Aggrenox and CKD, avoid NSAIDs. Discussed given migraine and TIA history, would recommend Neurology consult, order placed Due to migraine symptoms, vertigo, history of TIA and reported diplopia, will place order for MRI head/brain and MRI cervical spine (due to reported chronic neck pain/worsening causing migraines) HTN - BP improved end of visit, continue current regimen (amlodipine and losartan) CKD - follow-up with Nephrology as directed Hypothyroidism - will repeat TSH prior to follow-up, continue levothyroxine Hyperlipidemia - will repeat fasting lipid panel, continue pravastatin RA, fibromyalgia, spinal stenosis, osteoporosis - continue regimen and follow-up with Rheumatology and Physiatry as directed GERD - continue Nexium History of iron deficiency - recent CBC with no anemia, per hematology, follow- up as needed and monitoring of CBC/iron q4-6 months through primary care Follow-up ~3-4 months with PCP Patient verbalized understanding and is in agreement with plan ADDITIONAL ORDERS: Orders Placed This Encounter Procedures MR Brain wo Contrast MR Cervical Spine wo Contrast Basic metabolic panel Complete blood count Ferritin Iron and TIBC Lipid panel with reflex to direct LDL Thyroid stimulating hormone with reflex to free t4 and free t3 Ambulatory referral to Neurology Ambulatory referral to Ophthalmology AMB REFERRAL TO NEUROLOGY AMB REFERRAL TO OPHTHALMOLOGY MR BRAIN WO CONTRAST MR CERVICAL SPINE WO CONTRAST JAIR Redmond on 08/30/2024 at 10:18 AM EST Today's documentation was made using voice recognition software.This note may contain grammatical errors secondary to this software. documented in this encounter Plan of Treatment Upcoming Encounters Date Type Department Care Team (Late st Contact Info) Description 10/04/2024 3:30 PM EST Consult Neurosurgery [facility] [address] [facility] [address] [place] [phone] Jeanne Serra MD [address] [place] [address] 10/16/2024 9:00 AM EDT Consult [facility] [address] [facility] [address] [place] [phone] Yoselyn Dalton MD [address] [phone] 12/27/2024 9:00 AM EDT Office Visit Adult [address] [address] Elsy Sloan MD [address] [place] [address] 07/23/2025 9:00 AM EST Office Visit [facility] Hematology Oncology [address] [place] [phone] Krishan Cope MD [address] [place] [address] Scheduled Orders Name Type Priority Associated Diagnoses Orde r Schedule Basic metabolic panel Lab Routine Primary hypertension Stage 3 chronic kidney disease, unspecified whether stage 3a or 3b CKD (CMS/HCC) Expected: 11/06/2024, Expires: 02/27/2025 Complete blood count Lab Routine Iron deficiency anemia, unspecified iron deficiency anemia type Expected: 11/06/2024, Expires: 02/27/2025 Ferritin Lab Routine Iron deficiency anemia, unspecified iron deficiency anemia type Expected: 11/06/2024, Expires: 02/27/2025 Iron and TIBC Lab Routine Iron deficiency anemia, unspecified iron deficiency anemia type Expected: 11/06/2024, Expires: 02/27/2025 Lipid panel with reflex to direct LDL Lab Routine Other hyperlipidemia Expected: 11/06/2024, Expires: 02/27/2025 Thyroid stimulating hormone with reflex to free t4 and free t3 Lab Routine Hypothyroidism, unspecified type Expected: 11/06/2024, Expires: 02/27/2025 Thyroid stimulating hormone with reflex to free t4 and free t3 Lab Routine Hypothyroidism, unspecified type 1 Occurrences starting 08/30/2024 until 11/28/2024 Scheduled Referrals Name Type Priority Associated Diagnoses Order Schedule Ambulatory referral to Neurology Outpatient Referral Routine History of transient ischemic attack (TIA) Other migraine without status migrainosus, not intractable Vertigo 1 Occurrences starting 08/29/2024 until 08/29/2025 Ambulatory referral to Ophthalmology Outpatient Referral Routine History of transient ischemic attack (TIA) Other migraine without status migrainosus, not intractable Vertigo 1 Occurrences starting 08/29/2024 until 08/29/2025 Ambulatory referral to Neurosurgery Outpatient Referral Routine Facet arthropathy, cervical 1 Occurrences starting 09/14/2024 until 09/14/2025 documented as of this encounter Results * MR Cervical Spine wo Contrast (09/07/2024 4:57 PM EST) Anatomical Region Laterality Modality C-spine, Spine Magnetic Resonan ce 09/08/2024 9:57 AM EST Impressions 09/08/2024 10:15 AM EST 1. ??Prominent anterolisthesis at C3-4, where the endplates and facet joints appear fused. ??There is moderate associated spinal stenosis. ??Assessment of the cord is limited by motion but there is suggestion of subtle associated cord signal abnormality. 2. ??Other degenerative changes at multiple levels as detailed above. -------- FINAL REPORT -------- Dictated By: Eugene Grubbs Dictated Date: 09/08/2024 09:57 ET Assigned Physician: Eugene Grubbs Reviewed and Electronically Signed By: Eugene Grubbs Signed Date: 09/08/2024 10:15 ET Workstation ID: [id number] Transcribed By: Self Edit Transcribed Date: 09/08/2024 10:09 ET Narrative 09/08/2024 10:15 AM EST PROCEDURE: MRI of the cervical spine without intravenous contrast. TECHNIQUE: Sagittal and axial multisequence MRI of the cervical spine without intravenous contrast administration. HISTORY: chronic neck pain, history of cervical DJD COMPARISON: 07/28/2018. FINDINGS: Small foci of T2 signal abnormality in the rula suggestive of chronic microvascular ischemic changes. ??Visualized portions of the brain and skull base are otherwise unremarkable. Tortuous retropharyngeal course of the carotid arteries. ??The paraspinous soft tissues are otherwise unremarkable. ??Prominent reversal of the typical cervical lordosis centered at C4. ??9 mm anterolisthesis at C3-4. ??Mild Modic endplate changes at C5-6 and C6-7. ??No concerning marrow infiltrative lesion. The cord is normal in caliber. ??Motion limits evaluation of the cord; question subtle signal abnormality at C3-4. Cervical disc levels: C2-3: Minimal endplate irregularity. ??Moderate bilateral facet arthropathy. ??Mild posterior ligamentous hypertrophy. ??No significant spinal or foraminal stenosis. C3-4: Prominent anterolisthesis. ??The endplates are partially fused. ??The facet joints are fused. ??Moderate spinal and severe bilateral foraminal stenosis. C4-5: Mild disc space height loss and endplate irregularity with small bilateral uncovertebral spurs and mild degenerative changes of the facet joints. ??Mild spinal stenosis. ??Moderate bilateral foraminal stenosis. C5-6: Moderate disc space height loss and endplate irregularity. ??Moderate anterior endplate osteophytes. ??Small bilateral uncovertebral spurs with a small symmetric disc osteophyte complex. ??Mild left facet arthropathy. ??Moderate left greater than right foraminal stenosis. ??No significant spinal stenosis. C6-7: Moderate disc space height loss and endplate irregularity. ??Small anterior endplate osteophytes. ??Minimal bilateral uncovertebral spurs, right greater than left, and a small symmetric disc osteophyte complex. ??Mild left facet arthropathy. ??Mild posterior ligamentous hypertrophy. ??No significant spinal stenosis. ??Moderate bilateral foraminal stenosis. C7-T1: Minimal anterolisthesis. ??Minimal endplate irregularity. ??Moderate right facet arthropathy. ??No spinal or foraminal stenosis. Procedure Note Eugene Grubbs MD - 09/08/2024 PROCEDURE: MRI of the cervical spine without intravenous contrast. TECHNIQUE: Sagittal and axial multisequence MRI of the cervical spinewithout intravenous contrast administration. HISTORY: chronic neck pain, history of cervical DJD COMPARISON: 07/28/2018. FINDINGS: Small foci of T2 signal abnormality in the rula suggestive of chronicmicrovascular ischemic changes. Visualized portions of the brain andskull base are otherwise unremarkable. Tortuous retropharyngeal course of the carotid arteries. The paraspinoussoft tissues are otherwise unremarkable. Prominent reversal of thetypical cervical lordosis centered at C4. 9 mm anterolisthesis at C3-4.Mild Modic endplate changes at C5-6 and C6-7. No concerning marrowinfiltrative lesion. The cord is normal in caliber. Motion limits evaluation of the cord;question subtle signal abnormality at C3-4. Cervical disc levels: C2-3: Minimal endplate irregularity. Moderate bilateral facetarthropathy. Mild posterior ligamentous hypertrophy. No significantspinal or foraminal stenosis. C3-4: Prominent anterolisthesis. The endplates are partially fused. Thefacet joints are fused. Moderate spinal and severe bilateral foraminalstenosis. C4-5: Mild disc space height loss and endplate irregularity with smallbilateral uncovertebral spurs and mild degenerative changes of the facetjoints. Mild spinal stenosis. Moderate bilateral foraminal stenosis. C5-6: Moderate disc space height loss and endplate irregularity. Moderateanterior endplate osteophytes. Small bilateral uncovertebral spurs with asmall symmetric disc osteophyte complex. Mild left facet arthropathy.Moderate left greater than right foraminal stenosis. No significantspinal stenosis. C6-7: Moderate disc space height loss and endplate irregularity. Smallanterior endplate osteophytes. Minimal bilateral uncovertebral spurs,right greater than left, and a small symmetric disc osteophyte complex.Mild left facet arthropathy. Mild posterior ligamentous hypertrophy. Nosignificant spinal stenosis. Moderate bilateral foraminal stenosis. C7-T1: Minimal anterolisthesis. Minimal endplate irregularity. Moderateright facet arthropathy. No spinal or foraminal stenosis. IMPRESSION: 1. Prominent anterolisthesis at C3-4, where the endplates and facetjoints appear fused. There is moderate associated spinal stenosis.Assessment of the cord is limited by motion but there is suggestion ofsubtle associated cord signal abnormality. 2. Other degenerative changes at multiple levels as detailed above. -------- FINAL REPORT -------- Dictated By: Eugene Grubbs Dictated Date: 09/08/2024 09:57 ET Assigned Physician: Eugene Grubbs Reviewed and Electronically Signed By: Eugene Grubbs Signed Date: 09/08/2024 10:15 ET Workstation ID: [id number] Transcribed By: Self Edit Transcribed Date: 09/08/2024 10:09 ET Alonzo [facility] IMG MRI PROCEDURES Final Resu lt * MR Brain wo Contrast (09/07/2024 4:57 PM EST) Anatomical Region Laterality Modality Head and Neck Magnetic Resonan ce 09/07/2024 5:16 PM EST Impressions 09/07/2024 5:24 PM EST NO MASS, HEMORRHAGE OR INFARCT. ?? -------- FINAL REPORT -------- Dictated By: Emmanuel Tran Dictated Date: 09/07/2024 17:16 ET Assigned Physician: Emmanuel Tran Reviewed and Electronically Signed By: Emmanuel Tran Signed Date: 09/07/2024 17:24 ET Workstation ID: [id number] Transcribed By: Self Edit Transcribed Date: 09/07/2024 17:16 ET Narrative 09/07/2024 5:24 PM EST PROCEDURE: MR BRAIN WO CONTRAST INDICATION: vertigo, migraines, history of TIA (2010) TECHNIQUE: ??Axial diffusion weighted, as well as T1 and T2-weighted multiplanar imaging without intravenous contrast. COMPARISON: ??No priors available. FINDINGS: ??There is no mass, mass effect, midline shift, intracranial hemorrhage, or acute infarction. No hydrocephalus. Normal flow voids. There are extensive T2/flair hyperintensities in the supratentorial white matter compatible with chronic microvascular ischemic changes. ??Internal auditory canals are unremarkable. Unremarkable orbits, orbital soft tissues, mastoid air cells. No acute calvarial abnormality. Unremarkable paranasal sinuses. ??Midline structures unremarkable. ??There is significant anterolisthesis of C3 on C4 with probable spinal stenosis at this level. Procedure Note Emmanuel Tran MD - 09/07/2024 PROCEDURE: MR BRAIN WO CONTRAST INDICATION: vertigo, migraines, history of TIA (2010) TECHNIQUE: Axial diffusion weighted, as well as T1 and T2-weightedmultiplanar imaging without intravenous contrast. COMPARISON: No priors available. FINDINGS: There is no mass, mass effect, midline shift, intracranialhemorrhage, or acute infarction. No hydrocephalus. Normal flow voids.There are extensive T2/flair hyperintensities in the supratentorial whitematter compatible with chronic microvascular ischemic changes. Internalauditory canals are unremarkable. Unremarkable orbits, orbital soft tissues, mastoid air cells. No acutecalvarial abnormality. Unremarkable paranasal sinuses. Midline structuresunremarkable. There is significant anterolisthesis of C3 on C4 withprobable spinal stenosis at this level. IMPRESSION: NO MASS, HEMORRHAGE OR INFARCT. -------- FINAL REPORT -------- Dictated By: Emmanuel Tran Dictated Date: 09/07/2024 17:16 ET Assigned Physician: Emmanuel Tran Reviewed and Electronically Signed By: Emmanuel Tran Signed Date: 09/07/2024 17:24 ET Workstation ID: [id number] Transcribed By: Self Edit Transcribed Date: 09/07/2024 17:16 ET [facility]on[facility] [place] PROCEDURES Final Resu lt documented in this encounter Visit Diagnoses Diagnosis Vertigo- Primary Dizziness and giddiness Other migraine without status migrainosus, not intractable History of transient ischemic attack (TIA) Transient ischemic attack (TIA), and cerebral infarction without residual deficits History of diplopia Facet arthropathy, cervical Primary hypertension Unspecified essential hypertension Stage 3 chronic kidney disease, unspecified whether stage 3a or 3b CKD ([facility]) Hypothyroidism, unspecified type Other hyperlipidemia Rheumatoid arthritis, involving unspecified site, unspecified whether rheumatoid factor present ([facility]) Fibromyalgia Unspecified myalgia and myositis Spinal stenosis of lumbar region, unspecified whether neurogenic claudication present Osteoporosis, unspecified osteoporosis type, unspecified pathological fracture presence Gastroesophageal reflux disease, unspecified whether esophagitis present Iron deficiency anemia, unspecified iron deficiency anemia type History of transient ischemic attack (TIA) Transient ischemic attack (TIA), and cerebral infarction without residual deficits Other migraine without status migrainosus, not intractable Vertigo Dizziness and giddiness Facet arthropathy, cervical documented in this encounter Discontinued Medications Medication Sig Discontinue Reason Start Date End Da te amLODIPine (NORVASC) 5 mg tablet Take 2 tablets (10 mg total) by mouth. 12/24/2020 08/29/2024 DULoxetine (CYMBALTA) [address] capsule Take 2 Capsules by mouth. 12/24/2020 08/29/2024 baclofen (LIORESAL) 10 mg tablet Take 1 Tablet by mouth 3 times daily. Reorder 12/24/2020 08/29/2024 esomeprazole (NexIUM) [address] capsule Take by mouth daily. Reorder 01/22/2021 08/29/2024 levothyroxine (SYNTHROID, LEVOTHROID) 137 mcg tablet Reorder 01/03/2024 08/29/2024 losartan (COZAAR) 25 mg tablet Reorder 12/13/2023 08/29/2024 pravastatin (PRAVACHOL) 40 mg tablet Reorder 01/03/2024 08/29/2024 documented as of this encounter Historical Medications * This list may reflect changes made after this encounter. DULoxetine (CYMBALTA) [address] capsule Take 1 capsule (60 mg total) by mouth 1 (one) time each day. Do not crush or chew. 08/29/2024 amLODIPine (NORVASC) 10 mg tablet Take 1 tablet (10 mg total) by mouth 1 (one) time each day. 08/29/2024 added in this encounter Additional Health Concerns Assessment Noted Time PHQ-9 Depression Total Score: 0 08/23/19 25 9:30 AM EST documented as of this encounter Care Teams Tank Builder Relationship Specialty Start Date End Date Elsy Sloan MD [address] [place] [address] PCP - General Internal Medicine 03/16/22 documented as of this encounter
--- OUTSIDE RECORDS SUMMARY | 2024-09-21 07:49 | XMS_ITS | Clinical Summary ---
Author Organization [facility] Address [address] [facility] [address] [place] [address] Phone Care Team Providers Care Probation Manager Name Role Phone Elsy Sloan Primary Care Provider Allergies Active Allergy Reactions Criticality Noted Date Comments Amlodipine Swelling 07/07/2018 Atorvastatin 07/07/2018 Other reaction(s): OTHER, Other (See Comments) Increased liver enzymes Increased liver enzymes Banana 03/04/2021 Chlorthalidone Other (see comments) 07/07/2018 Other reaction(s): OTHER Hyponatremia Hyponatremia Heparin Hives,Itching 04/28/2021 Iodine Anaphylaxis High 07/07/2018 Enoxaparin Rash Low 04/28/2021 Morphine Hives,Other (see comments) 07/07/2018 Other Itching,Swelling 07/07/2018 Penicillin G 04/28/2021 Penicillin V Hives,Other (see comments) 07/07/2018 Pregabalin Anaphylaxis,Other (s ee comments),Swelling High 07/07/2018 Medications acetaminophen (TYLENOL) 325 MG tablet Take 650 mg by mouth if needed 1 Active MULTIPLE VITAMIN PO Take 1 tablet by mouth 1 (one) time each day Active dipyridamole-as pirin (AGGRENOX) 25-200 MG per 12 hr capsule Take 1 capsule by mouth 2 (two) times a day 1 Active baclofen (LIORESAL) 10 MG tablet Take 10 mg by mouth 2 (two) times a day 1 Active DULoxetine (CYMBALTA) [address] capsule Take 60 mg by mouth 1 (one) time each day 1 Active esomeprazole (NexIUM) [address] capsule Take 40 mg by mouth 1 (one) time each day 1 Active pravastatin (PRAVACHOL) 40 MG tablet Take 40 mg by mouth at bed time 1 Active Fexofenadine-Ps eudoephedrine (ELIDA-D 12 HOUR PO) Take 1 tablet by mouth if needed Active hydrocortisone 2.5 % cream Apply 1 application topically 2 (two) times a day Active lidocaine (LIDODERM) 5 % patch Apply 1 patch topically 1 (one) time each day Remove & discard patch within 12 hours or as directed by MD. Active losartan (COZAAR) 25 MG tablet Take 25 mg by mouth 1 (one) time each day Active amLODIPine (NORVASC) 10 MG tabletIndicatio ns:Hypertension Take 1 tablet (10 mg total) by mouth 1 (one) time each day 90 tablet 3 4 12/20/19 25 Active abatacept (ORENCIA) 125 MG/ML injection Inject 125 mg under the skin 1 (one) time per week Active levothyroxine sodium (TIROSINT) 137 MCG capsule Take 137 mcg by mouth 1 (one) time each day Take as directed Active Active Problems Problem Noted Date Diagnosed Date Primary hyperparathyroidism 05/24/2024 Assessment & Plan (05/24/2024 9:36 PM EDT): Normal Ca with elevated PTH 140, increased from 67 Refer to Endocrinology for further evaluation Chronic kidney disease, stage 2 (mild) 4 Overview (05/24/2024): 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 Home Sleep Apnea Test: Date 10/02/2019; Wt 178#; BMI 30; FAUSTO 8, AI 1; HI 7; Unclassified apneas 0; Obstructive apneas 6; Central apneas 1; Mixed apneas 0; hypopneas 41; average oxygen saturation 92% (lowest 79% with saturations <88% for 5% or more of study) - Obstructive Sleep Apnea - mild; mostly hypopneas with some obstructive apneas; with sleep related hypoventilation by 2019 home sleep apnea test. [facility] Home Sleep Apnea Test: Date 10/02/2019; Wt 178#; BMI 30; FAUSTO 8, AI 1; HI 7; Unclassified apneas 0; Obstructive apneas 6; Central apneas 1; Mixed apneas 0; hypopneas 41; average oxygen saturation 92% (lowest 79% with saturations <88% for 5% or more of study) - Obstructive Sleep Apnea - mild; mostly hypopneas with some obstructive apneas; with sleep related hypoventilation by 2019 home sleep apnea test. Malignant melanoma 07/09/2019 Overview (04/28/2021): Jun 2019 MALIGNANT MELANOMA IN SITU, WITH RARE DERMAL MELANOCYTES SUGGESTIVE OF SUPERFICIAL INVASION (ELLA LEVEL I, [place] DEPTH 0.14 MM) Jun 2019 MALIGNANT MELANOMA IN SITU, WITH RARE DERMAL MELANOCYTES SUGGESTIVE OF SUPERFICIAL INVASION (ELLA LEVEL I, [place] DEPTH 0.14 MM) Fibromyalgia 07/07/2018 Gastroesophageal reflux disease 07/07/2018 Hyperlipidemia 07/07/2018 Hypertension 07/07/2018 Overview (12/20/2023): Follow low NA diet Avoid NSAIDs/OTC Decongestant medications Target BP <120/80 Assessment & Plan (05/24/2024 9:23 PM EDT): Blood pressure is elevated in the office, continues to be well controlled at home c/w Amlodipine 10 mg QD c/w Losartan 25 mg QD No Edema No mediations changes made Continue to monitor BP at home and bring in readings to next visit Assessment & Plan (12/20/2023 8:39 PM EDT): Blood pressure well controlled given reported home readings, a little higher in the office today Taking Amlodipine 10 mg QD and Losartan 25 mg QD No Edema No medication changes, continue to the same for now Monitor BP at home, record and bring readings in for review at the visits Iron deficiency anemia 07/07/2018 Overview (12/20/2023): Target Hgb 10-12 Monitor iron studies Assessment & Plan (05/24/2024 9:33 PM EDT): Hgb WNL Low TSAT 14%, Ferritin 51 Followed by Hematology for IV iron protocol prn Assessment & Plan (12/20/2023 8:42 PM EDT): Hgb within target at 10.2 as of today TSAT quite low at 4% - IV iron resuming In Hematology Hypothyroidism 07/07/2018 Recurrent urinary tract infection 07/07/2018 Overview (04/28/2021): Prophylaxis Prophylaxis Vitamin D deficiency 07/07/2018 Assessment & Plan (05/24/2024 9:44 PM EDT): Low Vitamin D 25 level On daily vitamin D3 1,000 unit supp Monitor level annually Assessment & Plan (12/20/2023 8:44 PM EDT): Vitamin D25 level low at 23 Start daily vitamin D3 Check level in 6 months Resolved Problems Problem Noted Date Diagnosed Date Resolved Date Chronic kidney disease stage 3 07/07/2018 12/20/2023 Immunizations Name Administration Dates Next Due Influenza Split High Dose Preservative Free IM 1 08/28/2018,06/10/2017 Influenza, MDCK, PF, Quadrivalent 08/17/2018 Pfizer SARS-COV-2 09/14/2020,08/24/2020 Pneumococcal Conjugate 13-Valent 06/14/2014 Pneumococcal Polysaccharide 06/02/2015 Family History Medical History Relation Comments Autoimmune disease Maternal Grandmother Stroke Maternal Grandmother Cancer Mother Heart disease Mother Hypertension Mother Cancer Mother's Brother Hypertension Mother's Brother Relation Status Comments Maternal Grandmother Mother Mother's Brother Social History Tobacco Use Types Packs/Day Years Used Date Smoking Tobacco: Never Smokeless Tobacco: Never Tobacco Cessation:Counseling Given: Not Answered Alcohol Use Standard Drinks/Week Comments Not Currently 0 (1 standard drink = 0.6 oz pur e alcohol) occasional/special occasions Comments Unknown Sex and Gender Information Value Date Recorded Sex Assigned at Not on file Legal Sex Female 3:23 PM EDT Gender Identity Not on file Sexual Orientation Not on file Last Filed Vital Signs Vital Sign Reading Time Taken Comments Blood Pressure 150/70 05/24/2024 3:59 PM EDT Pulse 91 05/24/2024 3:59 PM EDT Temperature - - Respiratory Rate - - Oxygen Saturation 98% 11/30/2023 8:12 AM EDT Inhaled Oxygen Concentration - - Weight 68.9 kg (152 lb) 05/24/2024 3:59 PM EDT Height - - Body Mass Index - - Plan of Treatment Upcoming Encounters Date Type Department Care Team (Late st Contact Info) Description 09/30/2024 Orders Only [facility] [address] [phone] Kelley Cordova ARNP [address] [phone] Chronic kidney disease, stage 2 (mild); Hypertension 11/19/2024 8:45 AM EDT Office Visit [facility] [address] [phone] Kelley Cordova ARNP [address] [phone] Health Maintenance Due Date Last Done Comments Pneumococcal Vaccine: 65+ Years Completed 06/02/2015, 06/14/2014 Influenza Vaccine Completed 05/02/2024, , 06/28/2019, Additional history exists Hepatitis B Vaccine Aged Out No longe r eligible based on patient's age to complete this topic Insurance [facility] [place] [employer] [place] [employer] Care Teams Probation Manager Relationship Specialty Start Date End Date Elsy Sloan PCP - General 10/27/22
--- OUTSIDE RECORDS SUMMARY | 2024-09-21 07:49 | XMS_ITS | Encounter Summary ---
Author Organization [facility] Address [address] [place] [address] Phone Care Team Providers Care Server Security Administrator Name Role Phone Elsy Sloan Primary Care Provider [phone] Encounter Details Date Type Department Care Team ([facility] Contact Info) Description 07/21/2022 Telephone [facility] [address] [facility] [address] [place] [address] Shaheed Hough MD [address] [place] [address], [address] [phone] Social History Tobacco Use Types Packs/Day Years Used Date Smoking Tobacco: Never Smokeless Tobacco: Never Alcohol Use Standard Drinks/Week Comments Not Currently 0 (1 standard drink = 0.6 oz pur e alcohol) occasional/special occasions Comments Unknown Sex and Gender Information Value Date Recorded Sex Assigned at Not on file Legal Sex Female 3:23 PM EDT Gender Identity Not on file Sexual Orientation Not on file documented as of this encounter Miscellaneous Notes * Telephone Encounter - Sylwia Moore - 07/21/2022 2:13 PM EST Pt called, she needs new lab orders, her's have . She was planning to get them done sometimetomorrow. Please let her know once created thank you documented in this encounter Plan of Treatment Upcoming Encounters Date Type Department Care Team (Late Contact Info) Description 09/30/2024 Orders Only [facility] [address] [phone] Kelley Cordova ARNP [address] [phone] Chronic kidney disease, stage 2 (mild); Hypertension 11/19/2024 8:45 AM EDT Office Visit [facility] [address] [phone] Kelley Cordova ARNP [address] [phone] documented as of this encounter Visit Diagnoses Not on filedocumented in this encounter Care Teams Server Security Administrator Relationship Specialty Start Date End Date Elsy Sloan PCP - General 10/27/22 documented as of this encounter
--- OUTSIDE RECORDS SUMMARY | 2024-09-21 07:49 | XMS_ITS | Encounter Summary ---
Author Organization [facility] Address [address] [place] [address] Care Team Providers Care Bisque Ware Dipper Name Role Phone Elsy Sloan MD Primary Care Pr ovider Encounter Details Date Type Department Care Team Description 02/21/2024 Social Work [facility] [address] [place] [address] [place] [facility] Social History Tobacco Use Types Packs/Day Years Used Date Smoking Tobacco: Never Smokeless Tobacco: Never Alcohol Use Standard Drinks/Week Comments Yes 0 (1 standard drink = 0.6 oz pur e alcohol) A glass of wine occasionally Sex and Gender Information Value Date Recorded Sex Assigned at Not on file Gender Identity Not on file Sexual Orientation Not on file Job Start Date Occupation Industry Not on file Not on file Not on file documented as of this encounter Plan of Treatment Not on file documented as of this encounter Visit Diagnoses Not on filedocumented in this encounter Care Teams Bisque Ware Dipper Relationship Specialty Start Date End Date Elsy Sloan MD [address] [place] [address] PCP - General 01/19/24 documented as of this encounter
--- OUTSIDE RECORDS SUMMARY | 2024-09-21 07:49 | XMS_ITS | Encounter Summary ---
Author Organization [facility] Address [address] [place] [address] Phone Care Team Providers Care Milled Rubber Tender Name Role Phone Srikanthchristo Elsy Primary Care Provider Encounter Details Date Type Department Care Team (Late st Contact Info) Description 12/02/2022 Telephone [facility] [address] [place] [address] Kelley Figueroa Social History Tobacco Use Types Packs/Day Years [...] encounter Miscellaneous Notes * Telephone Encounter - Maggi Santos - 12/02/2022 3:53 PM EDT done * Telephone Encounter - Kelley Figueroa - 12/02/2022 3:29 PM EDT Susan from [facility] says that this PT is scheduled for an iron infusion tomorrow 7am she needs the anaphylaxis form to be faxed to the office please, documented in this encounter Plan of Treatment Upcoming Encounters Date Type Department Care Team (Late st Contact Info) Description 09/30/2024 Orders Only [facility] [address] [phone] Kelley Cordova ARNP [address] [place] [phone] Chronic kidney disease, stage 2 (mild); Hypertension 11/19/2024 8:45 AM EDT Office Visit [facility] [address] [phone] Kelley Cordova ARNP [address] [place] [phone] documented as of this encounter Visit Diagnoses Not on filedocumented in this encounter Care Teams Milled Rubber Tender Relationship Specialty Start Date End Date Elsy Sloan PCP - General 10/27/22 documented as of this encounter
--- OUTSIDE RECORDS SUMMARY | 2024-09-21 07:49 | XMS_ITS | Encounter Summary ---
Author Organization [facility] Address [address] [place] [address] Phone Care Team Providers Care Internet Application Developer Name Role Phone Elsy Sloan Primary Care Provider Encounter Details Date Type Department Care Team (Late st Contact Info) Description 11/01/2022 Telephone [facility] [address] [facility] [address] [place] [phone] Sylwia Moore MA Social History Tobacco Use Types Packs/Day Years [...] Notes * Telephone Encounter - Sylwia Moore MA - 11/01/2022 8:42 AM EDT Pt called to let you know she completed her iron panel this past Tuesday. documented in this encounter Plan of Treatment Upcoming Encounters Date Type Department Care Team (Late st Contact Info) Description 09/30/2024 Orders Only [facility] [address] [facility] [address] [place] [phone] Kelley Cordova ARNP [address] [phone] Chronic kidney disease, stage 2 (mild); Hypertension 11/19/2024 8:45 AM EDT Office Visit [facility] [address] [phone] Kelley Cordova ARNP [address] [phone] documented as of this encounter Visit Diagnoses Not on filedocumented in this encounter Care Teams Internet Application Developer Relationship Specialty Start Date End Date Elsy Sloan PCP - General 10/27/22 documented as of this encounter
--- OUTSIDE RECORDS SUMMARY | 2024-09-21 07:49 | XMS_ITS | Encounter Summary ---
Author Organization [facility] [place] [address] Care Team Providers Care Water Supervisor Name Role Phone Elsy Sloan MD Primary Care Pr ovider Encounter Details Date Type Department Care Team ([facility] Contact Info) Description 09/19/2024 Telephone Adult Medicine [address] [phone] Zara Oconnell MA Social History Tobacco Use Types Packs/Day [...] care for your loved ones. For example, children's librarian or elderly care for an older adult? [...] on file documented as of this encounter Progress Notes * Zara Oconnell MA - 09/19/2024 5:01 PM EST Spoke with patient she is informed of results. She stated she does not want to do surgery. She is whiling to still see the neurosurgery to see what they have to say. * Zara Oconnell MA - 09/19/2024 5:01 PM EST ----- Message from JAIR Antonio sent at 09/14/2024 12:42 PM EST ----- Please inform patient that her recent MRI of the neck showed the vertebral bodies (bones of the neck) at the C3-4 level show abnormal alignment (one of the bones is slipping from position and sittingin a more forward position) and this is causing pressure on nearby structures potentially near the spinal cord. There were also chronic arthritic findings at multiple levels of the neck. There were no broken or compressed bones. Reviewed image with PCP. I have placed a referral to Neurosurgery for a consultation on MRI of the neck and please follow-up with Physiatry as discussed at last visit as well documented in this encounter Plan of Treatment Upcoming Encounters Date Type Department Care Team (Late st Contact Info) Description 10/04/2024 3:30 PM EST Consult Neurosurgery [facility] [address] [facility] [address] [place] [phone] Jeanne Serra MD 175 [place] [address] 10/16/2024 9:00 AM EDT Consult [facility] 175 [facility] [address] [place] [phone] Yoselyn Dalton MD [address] [phone] 12/27/2024 9:00 AM EDT Office Visit Adult Medicine [address] [address] Elsy Sloan MD [address] [place] [address] 07/23/2025 9:00 AM EST Office Visit [facility] Hematology Oncology [address] [place] [phone] Krishan Cope MD [address] [place] [address] documented as of this encounter Visit Diagnoses Not on filedocumented in this encounter Additional Health Concerns Assessment Noted Time PHQ-9 Depression Total Score: 0 08/23/19 25 9:30 AM EST documented as of this encounter Care Teams Water Supervisor Relationship Specialty Start Date End Date Elsy Sloan MD [address] [place], [place] PCP - General Internal Medicine 03/16/22 documented as of this encounter
--- OUTSIDE RECORDS SUMMARY | 2024-09-21 07:49 | XMS_ITS ---
Author Organization [facility] Address Unknown Allergies, Adverse Reactions, Alerts Substance Reaction Status Noted Date Resolved Date Pregabalin active Penicillin active Morphine active Chlorthalidone active Banana active 03/04/2021 Atorvastatin active Problems Problem Status Start Date End Date NONDISPLACED INTERTROCHANTER IC FRACTURE OF RIGHT FEMUR, SEQUELA (Primary) (S72.144S - ICD-10-CM) ACTIVE 02/17/2021 UNSPECIFIED FALL, INITIAL EN COUNTER (W19.XXXA - ICD-10-CM) RESOLVED 02/17/2021 02/18/2021 LOW BACK PAIN (M54.5 - ICD-10-CM) ACTIVE 021 UNSPECIFIED FALL, SEQUELA (W19.XXXS - ICD-10-CM) ACTIV E 02/17/2021 UNSPECIFIED FRACTURE OF RIGH T FEMUR, SEQUELA (S72.91XS - ICD-10-CM) ACTIVE 02/17/2021 RHEUMATOID ARTHRITIS, UNSPECIFIED (M06.9 - ICD-10-CM) ACTIVE 02/17/2021 MUSCLE WEAKNESS (GENERALIZED) (M62.81 - ICD-10-CM) ACT TYLER 02/17/2021 HISTORY OF FALLING (Z91.81 - ICD-10-CM) ACTIVE 0 02/17/2021 UNSTEADINESS ON FEET (R26.81 - ICD-10-CM) ACTIVE 02/17/2021 OTHER ABNORMALITIES OF GAIT AND MOBILITY (R26.89 - ICD-10-CM) ACTIVE 02/17/2021 UNSPECIFIED FRACTURE OF RIGH T FEMUR, INITIAL ENCOUNTER FOR CLOSED FRACTURE (S72.91XA - ICD-10-CM) RESOLVED 02/19/2021 02/20/2021 HYPOTHYROIDISM, UNSPECIFIED (E03.9 - ICD-10-CM) ACTIVE 02/17/2021 HYPERLIPIDEMIA, UNSPECIFIED (E78.5 - ICD-10-CM) ACTIVE 02/17/2021 VITAMIN D DEFICIENCY, UNSPECIFIED (E55.9 - ICD-10-CM) ACTIVE 02/17/2021 URINARY TRACT INFECTION, SIT E NOT SPECIFIED (N39.0 - ICD-10-CM) ACTIVE 02/17/2021 GASTRO-ESOPHAGEAL REFLUX DIS EASE WITHOUT ESOPHAGITIS (K21.9 - ICD-10-CM) ACTIVE 02/17/2021 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 Leftward axis 3. Late RS transition. Normal ECG. Intervals: HR: [address]: 186 ms QRS: 80 ms QT: 404 ms RR: 818 ms QTC: 447 ms Axes: P: 31 Deg QRS: -22 Deg T: 37 DegELECTRONICALLY SIGNED BY RONALD LEWIS M.D. 03/18/2021 1:38:14 PM EDT.Reason for Study: R63.5 ABNORMAL WEIGHT GAINPrincipal Result Goodwill Representative: RONALD LEWIS ([id number])Radio Talk Show Host: MILES KOHLER (MCRUZ)Picking Belt Operator Radio Talk Show Host: JENNIFER 03/18/2021 01:38 pm EDT * XRAY CHEST 1 VIEW Performed by: [facility] Component Value Range Date XRAY CHEST 1 VIEW XRAY CHEST 1 VIEWSee NoteFINDINGS: The heart is normal in size and configuration. The mediastinum is normal without adenopathy. The lung plaza are clear without mass, infiltrate, congestion, or effusion. Bony structures are without acute fracture or destructive lesions. Chronic changes to the right humerus is seen, including healed displaced fracture.CONCLUSION: No acute cardiopulmonary disease seen.ELECTRONICALLY SIGNED BY DINA WHEATLEY M.D. 03/18/2021 12:42:47 PM EDT.Reason for Study: R63.5 ABNORMAL WEIGHT GAINPrincipal Result Goodwill Representative: DINA WHEATLEY ([id number])Radio Talk Show Host: MILES KOHLER (MCRUZ)Picking Belt Operator Radio Talk Show Host: JENNIFER 03/18/2021 12:43 p m EDT Encounters Encounter Performer Performer Role Encounter Diagnoses Location Date Discharge - Discharged to home or self care - Private home/apt. with home health services [facility] 02/17/2021 06:32 pm EDT - 03/30/2021 12:55 pm EDT Immunizations Vaccine Date SARS-COV-2 (COVID-19) 09/14/2020 12:00 a m EST SARS-COV-2 (COVID-19) 08/24/2020 12:00 a m EST Social History
--- OUTSIDE RECORDS SUMMARY | 2024-09-21 07:49 | XMS_ITS | Encounter Summary ---
Author Organization [facility] Address [address] [place] [address] Care Team Providers Care Ceo And President Name Role Phone Elsy Sloan MD Primary Care Pr ovider Reason for Referral * Imaging (Routine) - Pending Review Specialty Diagnoses / Procedures Referred By Yefri montgomery Referred To Contact Radiology Diagnoses Facet arthropathy, cervical Procedures MR Cervical Spine wo Contrast Milady Muniz PA [address] [place] [address] Phone: tel: fax: [address] [address] Phone: tel: Referral ID Status Reason Start Date Expiration Date V isits Requested Visits Authorized [id number] Pending Review 08/29/2024 08/29/2025 1 1 Reason for Visit * Imaging (Routine) - Pending Review Specialty Diagnoses / Procedures Referred By Yefri montgomery Referred To Contact Radiology Diagnoses Facet arthropathy, cervical Procedures MR Cervical Spine wo Contrast Milady Muniz PA [address] [place] [address] Phone: tel: fax: [address] [address] Phone: tel: Referral ID Status Reason Start Date Expiration Date V isits Requested Visits Authorized [id number] Pending Review 08/29/2024 08/29/2025 1 1 Encounter Details Date Type Department Care Team (Latest Contact Info) Description 09/07/2024 3:37 PM EST - 09/07/2024 11:59 PM EST Hospital Encounter [facility] MRI [address] [place] [address] Facet arthropathy, cervical Discharge Disposition: Home or Self Care Social History Tobacco Use Types Packs/Day Years [...] Record ed Within the last 3 months, minal carrillo many times did you visit the emergency [...] care for your loved ones. 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 [...] on file documented as of this encounter Medications at Time of Discharge abatacept 125 mg/mL auto-injector 125 mL (15,625 mg total). 12/13/2023 acetaminophen (TYLENOL) 325 mg tablet Take 650 mg by mouth. 02/20/2021 amLODIPine (NORVASC) 10 mg tablet Take 1 tablet (10 mg total) by mouth 1 (one) time each day. 08/29/2024 aspirin-dipyrida mole (AGGRENOX) 25-200 mg per 12 hr capsule Take by mouth daily. 08/14/2020 baclofen (LIORESAL) 10 mg tablet Take 1 tablet (10 mg total) by mouth 3 (three) times a day. 270 tablet 1 08/29/2024 DULoxetine (CYMBALTA) [address] capsule Take 1 capsule (60 mg total) by mouth 1 (one) time each day. Do not crush or chew. 08/29/2024 EPINEPHrine 0.3 mg/0.3 mL syringe Inject as directed. esomeprazole (NexIUM) [address] capsule Take 1 capsule (40 mg total) by mouth 1 (one) time each day. Do not open capsule. 90 capsule 1 08/29/2024 fexofenadine (ELIDA) 180 mg tablet Take 1 tablet (180 mg total) by mouth 1 (one) time each day. 01/03/2024 fluticasone propionate (FLONASE) 50 mcg/actuation nasal spray spray or apply inside Nose. 02/25/2021 hydrocortisone 1 % topical cream Apply topically. 03/23/2021 levothyroxine (SYNTHROID, LEVOTHROID) 137 mcg tablet Take 1 tablet (137 mcg total) by mouth 1 (one) time each day before breakfast. 90 tablet 1 08/29/2024 lidocaine (LIDODERM) 5 % patch Apply topically. 02/18/2021 losartan (COZAAR) 25 mg tablet Take 1 tablet (25 mg total) by mouth 1 (one) time each day. 90 tablet 1 08/29/2024 meclizine (ANTIVERT) 12.5 mg tablet Take 1 tablet (12.5 mg total) by mouth 3 (three) times a day if needed for dizziness (vertigo). 30 tablet 2 08/29/2024 pravastatin (PRAVACHOL) 40 mg tablet Take 1 tablet (40 mg total) by mouth at bedtime. 90 tablet 1 08/29/2024 romosozumab-aqqg (Evenity) Inject under the skin. 01/03/2024 documented as of this encounter Discharge Disposition Disposition Code Departure Means Destination Home or Self Care documented in this encounter Plan of Treatment Upcoming Encounters Date Type Department Care Team (Late st Contact Info) Description 10/04/2024 3:30 PM EST Consult Neurosurgery [facility] 175 [facility] [address] [place] [phone] Jeanne Serra MD 175 [place] [address] 10/16/2024 9:00 AM EDT Consult [facility] 175 [facility] [address] [place] [phone] Yoselyn Dalton MD 175 [facility] [address] [place] [phone] 12/27/2024 9:00 AM EDT Office Visit Adult Medicine [address] [place] [address] Elsy Sloan MD [address] [place] [address] 07/23/2025 9:00 AM EST Office Visit [facility] Hematology Oncology [address] [place] [phone] Krishan Cope MD [address] [place] [address] documented as of this encounter Procedures Procedure Name Priority Date/Time Associated Diagnosis Comments MR CERVICAL SPINE WO CONTRAST Routine 09/07/2024 4:57 PM EST Facet arthropathy, cervical documented in this encounter Results * MR Cervical Spine [...] Signed Date: 09/08/2024 10:15 ET Workstation ID: [id number] Transcribed By: Self Edit Transcribed Date: 09/08/2024 [...] Signed Date: 09/08/2024 10:15 ET Workstation ID: [id number] Transcribed By: Self Edit Transcribed Date: 09/08/2024 10:09 ET Milady ADAM IMG MRI PROCEDURES Final Resu lt documented in this encounter Visit Diagnoses Diagnosis Facet arthropathy, cervical documented in this encounter Additional Health Concerns Assessment Noted Time PHQ-9 Depression Total Score: 0 08/23/19 25 9:30 AM EST documented as of this encounter Care Teams Ceo And President Relationship Specialty Start Date End Date Elsy Sloan MD [address] [place] [address] PCP - General Internal Medicine 03/16/22 documented as of this encounter
--- OUTSIDE RECORDS SUMMARY | 2024-09-21 07:49 | XMS_ITS | Encounter Summary ---
Author Organization [facility] Address [address] [place] [address] Phone Care Team Providers Care Stock Blender Name Role Phone Lynsey Sloanmaximopete Primary Care Provider Encounter Details Date Type Department Care Team (Late Contact Info) Description 07/26/2022 Telephone [facility] [address] [facility] [address] [place] [address] Shaheed Hough MD [address] [place] [address], [address] [phone] Social History Tobacco Use Types Packs/Day Years [...] * Telephone Encounter - Sylwia Moore - 07/26/2022 1:33 PM EST Pt called, she needs a new lab order for her appt on 10/27/22. Please mail thank you documented in this encounter Plan of Treatment Upcoming Encounters Date Type Department Care Team (Late st Contact Info) Description 09/30/2024 Orders Only [facility] [address] [facility] [address] [place] [address] Kelley Cordova ARNP [address] [phone] Chronic kidney disease, stage 2 (mild); Hypertension 11/19/2024 8:45 AM EDT Office Visit [facility] [address] [phone] Kelley Cordova ARNP [address] [phone] documented as of this encounter Visit Diagnoses Not on filedocumented in this encounter Care Teams Stock Blender Relationship Specialty Start Date End Date Elsy Sloan PCP - General 10/27/22 documented as of this encounter
--- OUTSIDE RECORDS SUMMARY | 2024-09-21 07:49 | XMS_ITS | Encounter Summary ---
Author Organization [facility] Address [address] [place] [address] Care Team Providers Care Dryland Farmer Name Role Phone Elsy Sloan MD Primary Care Pr ovider Reason for Visit * Reason Onset Date Comments Referral 08/30/2024 Encounter Details Date Type Department Care Team (Late st Contact Info) Description 08/30/2024 Telephone Adult Medicine [address] [phone] Elsy Sloan MD [address] [place] [phone] Referral Social History Tobacco Use Types Packs/Day Years [...] for your loved ones. 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 [...] as of this encounter Progress Notes * Pamelaalex Michael - 08/30/2024 10:48 AM EST [facility] is calling in regards to referral. They have stated that the patient has been going to [facility] for PT services and would like a renewal request sent to their AT location [address] [place] [address] [address], [place] [address] with fax number of [phone]. Also provided a phone number of [phone]. Also confirmed with patient that their Dr. Guerrero is at that location and was wondering if the referral canbe resent to [facility]. Please look at current referral (which is why concerns have been addressed). Please Advise. documented in this encounter Plan of Treatment Upcoming Encounters Date Type Department Care Team (Late st Contact Info) Description 10/04/2024 3:30 PM EST Consult Neurosurgery [facility] 175 [facility] [address] [place] [phone] Jeanne Serra MD 175 [place] [address] 10/16/2024 9:00 AM EDT Consult [facility] 175 [facility] [address] [place] [phone] Yoselyn Dalton MD 175 [facility] [address] [place] [phone] 12/27/2024 9:00 AM EDT Office Visit Adult Medicine [address] [phone] Elsy Sloan MD [address] [place] [address] 07/23/2025 9:00 AM EST Office Visit [facility] Hematology Oncology [address] [place] [phone] Krishan Cope MD [address] [place] [address] documented as of this encounter Visit Diagnoses Not on filedocumented in this encounter Additional Health Concerns Assessment Noted Time PHQ-9 Depression Total Score: 0 08/23/19 25 9:30 AM EST documented as of this encounter Care Teams Dryland Farmer Relationship Specialty Start Date End Date Elsy Sloan MD [address] [place] [address] PCP - General Internal Medicine 03/16/22 documented as of this encounter
--- OUTSIDE RECORDS SUMMARY | 2024-09-21 07:49 | XMS_ITS | Clinical Summary ---
Author Organization [address] Address [address] [place] [phone] Phone Care Team Providers Care Maintenance Clerk Name Role Phone Elsy Sloan MD Primary Care Pr ovider Allergies Active Allergy Reactions Criticality Noted Date Comments Atorvastatin Other,Unknown 07/07/2018 Increased liver enzymes Banana 03/04/2021 Bee Venom Protein (Honey Bee) Itching,Swelling 07/07/2018 Chlorthalidone Other 07/07/2018 Hyponatremia Enoxaparin Itching,Rash Low 04/28/2021 Heparin Hives,Itching 04/28/2021 Other reaction(s): Hives/Urticaria Iodine Anaphylaxis High 07/07/2018 Morphine Hives 07/07/2018 Penicillin V Hives 07/07/2018 Pregabalin Anaphylaxis,Dizzines s ,Swelling,Unknown High 07/07/2018 Medications abatacept 125 mg/mL auto-injector 125 mL (15,625 mg total). 12/13/19 24 Active acetaminophen (TYLENOL) 325 mg tablet Take 650 mg by mouth. 02/21/20 21 Active aspirin-dipyri damole (AGGRENOX) 25-200 mg per 12 hr capsule Take by mouth daily. 08/14/19 21 Active EPINEPHrine 0.3 mg/0.3 mL syringe Inject as directed. Active fexofenadine (ELIDA) 180 mg tablet Take 1 tablet (180 mg total) by mouth 1 (one) time each day. 01/03/20 Active fluticasone propionate (FLONASE) 50 mcg/actuation nasal spray spray or apply inside Nose. 02/26/20 Active hydrocortisone 1 % topical cream Apply topically. 03/23/20 Active lidocaine (LIDODERM) 5 % patch Apply topically. 02/19/20 Active romosozumab-aq qg (Evenity) Inject under the skin. 01/03/20 24 Active amLODIPine (NORVASC) 10 mg tablet Take 1 tablet (10 mg total) by mouth 1 (one) time each day. 08/29/19 25 Active meclizine (ANTIVERT) 12.5 mg tablet Take 1 tablet (12.5 mg total) by mouth 3 (three) times a day if needed for dizziness (vertigo). 30 tablet 2 08/29/19 25 Active baclofen (LIORESAL) 10 mg tablet Take 1 tablet (10 mg total) by mouth 3 (three) times a day. 270 tablet 1 08/29/19 25 Active DULoxetine (CYMBALTA) [address] capsule Take 1 capsule (60 mg total) by mouth 1 (one) time each day. Do not crush or chew. 08/29/19 25 Active esomeprazole (NexIUM) [address] capsule Take 1 capsule (40 mg total) by mouth 1 (one) time each day. Do not open capsule. 90 capsule 1 08/29/19 25 Active pravastatin (PRAVACHOL) 40 mg tablet Take 1 tablet (40 mg total) by mouth at bedtime. 90 tablet 1 08/29/19 25 Active losartan (COZAAR) 25 mg tablet Take 1 tablet (25 mg total) by mouth 1 (one) time each day. 90 tablet 1 08/29/19 25 Active levothyroxine (SYNTHROID, LEVOTHROID) 137 mcg tablet Take 1 tablet (137 mcg total) by mouth 1 (one) time each day before breakfast. 90 tablet 1 08/29/19 25 Active amLODIPine (NORVASC) 5 mg tablet Take 2 tablets (10 mg total) by mouth. 12/25/19 025 Discontinued baclofen (LIORESAL) 10 mg tablet Take 1 Tablet by mouth 3 times daily. 12/25/19 025 Discontinued(Re order) DULoxetine (CYMBALTA) [address] capsule Take 2 Capsules by mouth. 12/25/19 21 025 Discontinued esomeprazole (NexIUM) [address] capsule Take by mouth daily. 01/23/20 21 025 Discontinued(Re order) levothyroxine (SYNTHROID, LEVOTHROID) 137 mcg tablet 01/03/20 24 025 Discontinued(Re order) losartan (COZAAR) 25 mg tablet 12/13/19 24 025 Discontinued(Re order) pravastatin (PRAVACHOL) 40 mg tablet 01/03/20 025 Discontinued(Re order) Active Problems Problem Noted Date Diagnosed Date Migraine without status migrainosus, not intract able 08/30/2024 History of transient ischemic attack (TIA) 08/30 Primary hypertension 08/30/2024 Vertigo 08/14/2024 Diaphragmatic hernia without obstruction or gang naveed 02/17/2021 Generalized muscle weakness 02/17/2021 Low back pain 02/17/2021 Nondisplaced intertrochanter ic fracture of right femur, sequela 02/17/2021 Other abnormalities of gait and mobility 021 Unspecified fall, sequela 02/17/2021 Unspecified fracture of right femur, sequela Unsteadiness on feet 02/17/2021 Unspecified osteoarthritis, unspecified site Urinary tract infection, site not specified 02/05 Obstructive sleep apnea 10/06/2019 Overview (04/05/2024): [facility] Home Sleep Apnea Test: Date 10/02/2019; Wt [...] sleep apnea test. Malignant melanoma 07/09/2019 Overview (04/05/2024): Jun 2019 MALIGNANT MELANOMA IN SITU, WITH RARE DERMAL MELANOCYTES SUGGESTIVE OF SUPERFICIAL INVASION (ELLA LEVEL I, [place] DEPTH 0.14 MM) Cervical stenosis of spinal canal 08/07/2018 Overview (04/05/2024): S/p cervical MRI 07/28/2018 follows with orthopedics Osteoporosis 07/19/2018 Cerebrovascular disease 07/07/2018 Overview (04/05/2024): Moderate R, Moderate-severe L internal carotid stenosis Anterior cerebral art. Stenosis. Mod-severe R MCA stenosis 12/2010 CKD (chronic kidney disease) stage 3, GFR 30-59 ml/min 07/07/2018 Diastolic dysfunction 07/07/2018 Overview (04/05/2024): ECHO 02/2008 - murmur. Aortic sclerosis (NO stenosis) Facet arthropathy, cervical 07/07/2018 Fibromyalgia 07/07/2018 GERD (gastroesophageal reflux disease) 8 Hyperlipidemia 07/07/2018 Hypothyroidism 07/07/2018 Iron deficiency anemia 07/07/2018 Overview (04/05/2024): Unresponsive to oral supplements. Was getting Venofer infusions 2015- IV access problems. Iron infusion 03/2017, transfused 1 unit PRBCs, iron infusion 06/2017 Follows with hematology, many years ago she reports having a bone marrow biopsy done in [place] stating it was normal. 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 Vitamin D deficiency 07/07/2018 Encounters Date Type Department Care Team Description 09/19/2024 Telephone Adult [address] [place] [phone] Zara Oconnell MA 09/07/2024 3:37 PM EST - 09/07/2024 11:59 PM EST Hospital Encounter [facility] MRI [address] [place] [phone] Facet arthropathy, cervical Discharge Disposition: Home or Self Care 09/07/2024 3:36 PM EST - 09/07/2024 11:59 PM EST Hospital Encounter [facility] MRI [address] [place] [id number] History of transient ischemic attack (TIA); Other migraine without status migrainosus, not intractable; Vertigo Discharge Disposition: Home or Self Care 08/30/2024 Telephone Adult Medicine [address] [phone] Elsy Sloan MD Referral 08/29/2024 3:00 PM EST Office Visit Adult [address] [phone] Milady Muniz PA Vertigo (Primary Dx); Other migraine without status [...] deficiency anemia, unspecified iron deficiency anemia type 08/13/2024 Telephone Adult Medicine [address] [phone] Elsy Sloan MD Vertigo 07/19/2024 8:30 AM EST Office Visit [facility] Hematology Oncology [address] [place] [phone] Krishan Cope MD Iron deficiency anemia, unspecified iron deficiency anemia type (Primary Dx) from Last 3 Months Surgical History Surgery Date Site/Laterality Comments CHOLECYSTECTOMY PROCEDURE: HISTORICAL CHOLECYSTECTOMY APPENDECTOMY PROCEDURE: HISTORICAL APPENDECTOMY HYSTERECTOMY PROCEDURE: HISTORICAL HYSTERECTOMY TOTAL KNEE ARTHROPLASTY 1994 & 1995 Bilateral PROCEDURE: HISTORICAL TOTAL KNEE REPLACE HIP ARTHROPLASTY Left PROCEDURE: HISTORICAL HIP REPLACEMENT HIP ARTHROPLASTY 10/2003 Right PROCEDURE: HISTORICAL HIP REPLACEMENT OTHER SURGICAL HISTORY 01/2006 Right PROCEDURE: HISTORY OTHER; COMMENT: hip revision OTHER SURGICAL HISTORY 08/2006 Right PROCEDURE: HISTORY OTHER; COMMENT: closed reduction R hip COLONOSCOPY 11/2001 PROCEDURE: HISTORICAL COLONOSCOPY COLONOSCOPY 06/2016 PROCEDURE: HISTORICAL COLONOSCOPY OTHER SURGICAL HISTORY 02/2016 PROCEDURE: HISTORY OTHER; COMMENT: Capsule Endoscopy TOTAL KNEE ARTHROPLASTY 06/2017 Left PROCEDURE: HISTORICAL TOTAL KNEE REPLACE OTHER SURGICAL HISTORY PROCEDURE: HISTORY OTHER; COMMENT: Hernia repair x 2 Medical History Medical History Date Comments Thrombocytosis 07/07/2018 DX:Thrombocytosi s; COMMENT: Sees Oncology - 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 Stenosis. Mod-severe R MCA stenosis 12/2010 CKD (chronic kidney disease) stage 3, GFR 30-59 ml[facility]min [facility] 07/07/2018 DX:CKD (chronic kidney dise ase) stage 3, GFR 30-59 ml/min ([facility]) Diastolic dysfunction 07/07/2018 DX:Diastol ic dysfunction; COMMENT: ECHO 02/2008 - murmur. Aortic sclerosis (NO stenosis) Facet arthropathy, cervical 07/07/2018 DX:F acet arthropathy, cervical Fibromyalgia 07/07/2018 DX:Fibromyalgia GERD (gastroesophageal reflux disease) 8 DX:GERD (gastroesophageal reflux disease) Hiatal hernia 07/07/2018 DX:Hiatal hernia ; COMMENT: Large. Seen on capsule Endoscopy but not on EGD History of drug overdose 07/07/2018 DX:Hist ory of drug overdose; COMMENT: Narcotic - Lortab 11/2010, 12/2000, 09/2013 History of hip replacement, total, bilateral 07/07/2018 DX:History of hip replacemen t, total, bilateral History of syncope 07/07/2018 DX:History of syncope; COMMENT: 01/07/16 Due to UTI and NPO status History of total knee replac ement, bilateral 07/07/2018 DX:History of total knee replacement, bilateral Hyperlipidemia 07/07/2018 DX:Hyperlipidemi a Hypertension 07/07/2018 DX:Hypertension Hypothyroidism 07/07/2018 DX:Hypothyroidis m Iron deficiency anemia 07/07/2018 DX:Iron d eficiency anemia; COMMENT: Unresponsive to oral supplements. Was getting Venofer infusions 2015- IV access problems. Iron infusion 03/2017, transfused 1 unit PRBCs, iron infusion 06/2017 Osteoarthritis of multiple joints 07/07/2018 DX:Osteoarthritis of multiple joints RA (rheumatoid arthritis) ([facility]) 07/07/2018 DX:RA (rheumatoid arthritis) ([facility]) Raynauds disease 07/07/2018 DX:Raynauds dis ease Recurrent UTI 07/07/2018 DX:Recurrent UTI ; COMMENT: Prophylaxis Spondylosis of lumbar region without myelopathy or radiculopathy 07/07/2018 DX:Spondylosis of lumbar r egion without myelopathy or radiculopathy Vitamin D deficiency 07/07/2018 DX:Vitamin D deficiency Cervical stenosis of spinal canal 08/07/2018 DX:Cervical stenosis of spinal canal; COMMENT: S/p cervical MRI 07/28/2018 follows with orthopedics Malignant melanoma ([facility]) 07/09/2019 DX: Malignant melanoma ([facility]); COMMENT: Jun 2019 MALIGNANT MELANOMA IN SITU, WITH RARE DERMAL MELANOCYTES SUGGESTIVE OF SUPERFICIAL INVASION (ELLA LEVEL I, [place] DEPTH 0.14 MM) Family History Medical History Relation Name Comments Suicide Attempts Father Other: Heart Disease Mother COPD, C HF Relation Name Status Comments Father Mother Social History Tobacco Use Types Packs/Day Years [...] care for your loved ones. For example, professor of early childhood education or elderly care for an older adult? [...] on file Sexual Orientation Not on file Obstetrics History Last Filed Vital Signs Vital Sign Reading Time Taken Comments Blood Pressure 138/84 08/29/2024 3:15 PM EST Pulse 102 08/29/2024 2:59 PM EST Temperature 36.7 ??C (98 ??F) 08/29/2024 2:59 PM EST Respiratory Rate 12 08/29/2024 2:59 PM EST Oxygen Saturation 96% 08/29/2024 2:59 PM EST Inhaled Oxygen Concentration - - Weight 68.9 kg (152 lb) 07/19/2024 8:30 AM EST Height 165.1 cm (5' 5 ) 08/29/2024 2:59 PM EST Body Mass Index 25.29 03/06/2024 2:49 PM EDT Plan of Treatment Upcoming Encounters Date Type Department Care Team (Late st Contact Info) Description 10/04/2024 3:30 PM EST Consult Neurosurgery [facility] [address] [facility] [address] [place] [phone] Jeanne Serra MD [address] [place] [address] 10/16/2024 9:00 AM EDT Consult [facility] [address] [facility] [address] [place] [phone] Yoselyn Dalton MD [address] [phone] 12/27/2024 9:00 AM EDT Office Visit Adult Medicine [address] [phone] Elsy Sloan MD [address] [place] [phone] 07/23/2025 9:00 AM EST Office Visit [facility] Hematology Oncology [address] [place] [phone] Krishan Cope MD [address] [place] [address] Health Maintenance Due Date Last Done Comments Zoster Vaccines (1 of 2) 1966 RSV Immunization Patients 60+ Years Old (1 - 1-dose 75+ series) 2022 Colorectal Cancer Screening: Stool Based Tests (FOBT/FIT) 07/17/2022 Falls Risk Assessment 07/17/2022 Hepatitis C Screening 07/17/2022 Medicare Annual Wellness Visit 07/17/2022 Osteoporosis Screening (Bone Density Screening) 07/17/2022 COVID-19 Vaccine ( season) 2024 01/21/2023, 05/24/2022, 12/02/2021, Additional history exists Influenza Vaccine (#1) 2024 , 06/28/2019, 08/17/2018, Additional history exists Hypertension/CHF/CAD Annual BMP Blood Test 01/02/2025 01/03/2024 Depression Screening 08/23/2025 08/23/2024 Social Influencers of Health Screening 08/23/2025 08/23/2024 Cholesterol Screening (Lipid Panel) 01/02/2029 01/03/2024 DTaP,Tdap,and Td Vaccines (2 - Td or Tdap) 03/09/2033 03/09/2023 Pneumococcal Vaccine: 50+ Years Completed 06/02/2015, 06/14/2014 HIB Vaccines Aged Out No longer eligi ble based on patient's age to complete this topic HPV Vaccines Aged Out No longer eligi ble based on patient's age to complete this topic Hepatitis A Vaccines Aged Out No long er eligible based on patient's age to complete this topic Hepatitis B Vaccines Aged Out No long er eligible based on patient's age to complete this topic IPV Vaccines Aged Out No longer eligi ble based on patient's age to complete this topic MMR Vaccines Aged Out No longer eligi ble based on patient's age to complete this topic Meningococcal ACWY Vaccine Aged Out N o longer eligible based on patient's age to complete this topic Meningococcal B Vacine Aged Out No lo nger eligible based on patient's age to complete this topic RSV Immunization Patients Under 20 months Aged Out No longer eligible based on patient's age to complete this topic Varicella Vaccines Aged Out No longer eligible based on patient's age to complete this topic Procedures Procedure Name Priority Date/Time Associated Diagnosis Comments MR CERVICAL SPINE WO CONTRAST Routine 09/07/2024 4:57 PM EST Facet arthropathy, cervical MR BRAIN WO CONTRAST Routine 09/07/2024 4:57 PM EST History of transient ischemic attack (TIA) Other migraine without status migrainosus, not intractable Vertigo ..MISCELLANEOUS REFERENCE LAB TEST 07/19/2024 VITAMIN B12 Routine 07/12/2024 3:14 PM EST Hypothyroidism, unspecified Iron deficiency anemia secondary to inadequate dietary iron intake COMPLETE BLOOD COUNT Routine 07/12/2024 3:14 PM EST Hypothyroidism, unspecified Iron deficiency anemia secondary to inadequate dietary iron intake FERRITIN Routine 07/12/2024 3:14 PM EST Hypothyroidism, unspecified Iron deficiency anemia secondary to inadequate dietary iron intake IRON Routine 07/12/2024 3:14 PM EST Hypothyroidism, unspecified Iron deficiency anemia secondary to inadequate dietary iron intake RETICULOCYTE COUNT Routine 07/12/2024 3: 14 PM EST Hypothyroidism, unspecified Iron deficiency anemia secondary to inadequate dietary iron intake THYROID STIMULATING HORMONE WITH REFLEX TO FREE T4 AND FREE T3 Routine 07/12/2024 3:14 PM EST Hypothyroidism, unspecified from Last 3 Months Results * MR Cervical Spine wo Contrast [...] Signed Date: 09/08/2024 10:15 ET Workstation ID: [id number] Transcribed By: Self Edit Transcribed Date: 09/08/2024 [...] Signed Date: 09/08/2024 10:15 ET Workstation ID: [id number] Transcribed By: Self Edit Transcribed Date: 09/08/2024 10:09 ET Milady ADAM [facility] MRI PROCEDURES Final Resu lt * MR [...] Signed Date: 09/07/2024 17:24 ET Workstation ID: [id number] Transcribed By: Self Edit Transcribed Date: 09/07/2024 [...] Signed Date: 09/07/2024 17:24 ET Workstation ID: [id number] Transcribed By: Self Edit Transcribed Date: 09/07/2024 17:16 ET Milady ADAM IMG MRI PROCEDURES Final Resu lt * Miscellaneous reference lab test (07/19/2024) us Provider Onbase LAB BLOOD ORDERABLES Final Re sult * Thyroid stimulating hormone with reflex to free t4 and free t3 (07/12/2024 3:14 PM EST) TSH 0.95 0.40 - 4.00 mcIU/mL LAB CHEMISTRY METHOD 07/12/2024 6:53 PM EST [facility] Blood Venous blood specimen / Unknown Venipuncture / Unknown 07/12/2024 3:14 PM EST 07/12/2024 3:14 PM EST us Elsy Sloan MD LAB BLOOD ORDERA BLES Final Result Performing Organization Address City/[facility]/ZIP Co de Phone Number [facility] [address] [place] [address], [place] [phone] * Reticulocyte count (07/12/2024 3:14 PM EST) Retic Ct Abs 0.050 0.030 - 0.090 M/mcL LAB HEMETOLOGY METHOD 07/12/2024 6:37 PM [facility] Retic Ct Pct 1.3 0.7 - 1.7 % LAB HEMETOLOGY METHOD 07/12/2024 6:37 PM EST [facility] Immature Retic Fract 11.7 2.3 - 15.9 % LAB HEMETOLOGY METHOD 07/12/2024 6:37 PM EST [facility] Reticulocyte Hemoglobin 32.6 >29.0 pcg LAB HEMETOLOGY METHOD 07/12/2024 6:37 PM EST [facility] Blood Venous blood specimen / Unknown Venipuncture / Unknown 07/12/2024 3:14 PM EST 07/12/2024 3:14 PM EST us Krishan Cope MD LAB BLOOD ORDERABLES Final R esult [facility] [address] [place] [address], [place] [phone] * (ABNORMAL) Complete blood count (07/12/2024 3:14 PM EST) WBC 8.3 4.8 - 10.8 K/mcL LAB HEMETOLOGY METHOD 07/12/2024 6:37 PM [facility] RBC 4.00 3.80 - 4.80 M/mcL LAB HEMETOLOGY METHOD 07/12/2024 6:37 PM [facility] Hemoglobin 12.5 11.5 - 16.0 g/dL LAB HEMETOLOGY METHOD 07/12/2024 6:37 PM [facility] Hematocrit 39.8 35.0 - 47.0 % LAB HEMETOLOGY METHOD 07/12/2024 6:37 PM [facility] MCV 98.8(H) 79.0 - 98.0 FL LAB HEMETOLOGY METHOD 07/12/2024 6:37 PM [facility] MCH 31.0 27.0 - 32.0 pcg LAB HEMETOLOGY METHOD 07/12/2024 6:37 PM [facility] MCHC 31.4(L) 32.0 - 37.0 g/dL LAB HEMETOLOGY METHOD 07/12/2024 6:37 PM [facility] RDW 14.1 11.0 - 15.0 % LAB HEMETOLOGY METHOD 07/12/2024 6:37 PM [facility] Platelets 494(H) 130 - 400 K/mcL LAB HEMETOLOGY METHOD 07/12/2024 6:37 PM [facility] MPV 8.7 7.0 - 11.0 FL LAB HEMETOLOGY METHOD 07/12/2024 6:37 PM [facility] NRBC 0.0 <1.0 % LAB HEMETOLOGY METHOD 07/12/2024 6:37 PM [facility] NRBC Absolute 0.00 <0.10 K/mcL LAB HEMETOLOGY METHOD 07/12/2024 6:37 PM [facility] Blood Venous blood specimen / Unknown Venipuncture / Unknown 07/12/2024 3:14 PM EST 07/12/2024 3:14 PM EST us Krishan Cope MD LAB BLOOD ORDERABLES Final R esult Performing Organization Address [facility]/ZIP Co de Phone Number [facility] [address] [place] [address], [place] [phone] * (ABNORMAL) Iron (07/12/2024 3:14 PM EST) [facility] Iron 34(L) 40 - 150 mcg/dL LAB CHEMISTRY METHOD 07/12/2024 6:46 PM EST [facility] Blood Venous blood specimen / Unknown Venipuncture / Unknown 07/12/2024 3:14 PM EST 07/12/2024 3:14 PM EST us Krishan Cope MD LAB BLOOD ORDERABLES Final R esult Performing Organization Address [facility]/[place] Co de Phone Number [facility] [address] [place] [address], [place] [phone] * Ferritin (07/12/2024 3:14 PM EST) [facility] Ferritin 15 8 - 252 ng/mL LAB CHEMISTRY METHOD 07/12/2024 7:09 PM EST [facility] Blood Venous blood specimen / Unknown Venipuncture / Unknown 07/12/2024 3:14 PM EST 07/12/2024 3:14 PM EST us Krishan Cope MD LAB BLOOD ORDERABLES Final R esult Performing Organization Address [facility]/ZIP Co de Phone Number [facility] [address] [place] [address], [place] [phone] * Vitamin B12 (07/12/2024 3:14 PM EST) [facility] Vitamin B-12 427 250 - 900 pcg/mL LAB CHEMISTRY METHOD 07/12/2024 7:09 PM EST [facility] Blood Venous blood specimen / Unknown Venipuncture / Unknown 07/12/2024 3:14 PM EST 07/12/2024 3:14 PM EST us Krishan Cope MD LAB BLOOD ORDERABLES Final R esult [facility] [address] [place] [address], from Last 3 Months Insurance [employer] Advance Directives Documents on File Type Date Recorded Patient Service Now Developer Expl anation Health Care Decision (hx) 03/23/2021 AD MEYER DIRECTIVE Health Care Decision (hx) 02/18/2021 AD MEYER DIRECTIVE Health Care Decision (hx) 02/18/2021 AD MEYER DIRECTIVE Health Care Decision (hx) 02/18/2021 AD MEYER DIRECTIVE Health Care Decision (hx) 02/18/2021 AD MEYER DIRECTIVE Health Care Decision (hx) 02/18/2021 AD MEYER DIRECTIVE Health Care Decision (hx) 02/18/2021 AD MEYER DIRECTIVE Health Care Decision (hx) 02/18/2021 AD MEYER DIRECTIVE Health Care Decision (hx) 02/18/2021 AD MEYER DIRECTIVE Health Care Decision (hx) 02/18/2021 AD MEYER DIRECTIVE Health Care Decision (hx) 02/18/2021 AD MEYER DIRECTIVE Health Care Decision (hx) 02/18/2021 EMRY MEYER DIRECTIVE Care Teams Maintenance Clerk Relationship Specialty Start Date End Date Elsy Sloan MD [address] [place] [address] PCP - General Internal Medicine 03/16/22
--- OUTSIDE RECORDS SUMMARY | 2024-09-21 07:49 | XMS_ITS | Encounter Summary ---
Author Organization [facility] Address [address] [place] [address] Care Team Providers Care Paper Tester Name Role Phone Elsy Sloan MD Primary Care Pr ovider Reason for Referral * Imaging (Routine) - Pending Review Specialty Diagnoses / Procedures Referred By Yefri montgomery Referred To Contact Radiology Diagnoses History of transient ischemic attack (TIA) Other migraine without status migrainosus, not intractable Vertigo Procedures MR Brain wo Contrast Milady Muniz PA [address] [place] [address] Phone: tel: fax: [address] [address] Phone: tel: Referral ID Status Reason Start Date Expiration Date V isits Requested Visits Authorized [id number] Pending Review 08/29/2024 08/29/2025 1 1 Reason for Visit * Imaging (Routine) - Pending Review Specialty Diagnoses / Procedures Referred By Yefri montgomery Referred To Contact Radiology Diagnoses History of transient ischemic attack (TIA) Other migraine without status migrainosus, not intractable Vertigo Procedures MR Brain wo Contrast Milady Muniz PA [address] [place] [address] Phone: tel: fax:[phone] [facility] [address] [place] [address] Phone: tel: Referral ID Status Reason Start Date Expiration Date V isits Requested Visits Authorized [id number] Pending Review 08/29/2024 08/29/2025 1 1 Encounter Details Date Type Department Care Team (Latest Contact Info) Description 09/07/2024 3:36 PM EST - 09/07/2024 11:59 PM EST Hospital Encounter [facility] [address] [place] [phone] History of transient ischemic attack (TIA); Other migraine without status migrainosus, not intractable; Vertigo Discharge Disposition: Home or Self Care Social [...] ed Within the last 3 months, ho gerardo many times did you visit the emergency [...] for your loved ones. For example, children's minister or elderly care for an older adult? [...] Description 10/04/2024 3:30 PM EST Consult Neurosurgery [facility] [address] [facility] [address] [place] [address] Jeanne Serra MD [address] [place], [place] [phone] 10/16/2024 9:00 AM EDT Consult [facility] [address] [facility] [address] [place] [address] Yoselyn Dalton MD 175 [facility] [address] [place] [address] 12/27/2024 9:00 AM EDT Office Visit [facility] [address] [place], [place] [phone] Elsy Sloan MD [address] [place] [address] 07/23/2025 9:00 AM EST Office Visit [facility] Hematology Oncology [address] [place] [address] Krishan Cope MD [address] [place] [address] documented as of this encounter Procedures Procedure Name Priority Date/Time Associated Diagnosis Comments MR BRAIN WO CONTRAST Routine 09/07/2024 4:57 PM EST History of transient ischemic attack (TIA) Other migraine without status migrainosus, not intractable Vertigo documented in this encounter Results * MR Brain wo Contrast (09/07/2024 4:57 [...] Signed Date: 09/07/2024 17:24 ET Workstation ID: [id number] Transcribed By: Self Edit Transcribed Date: 09/07/2024 [...] Signed Date: 09/07/2024 17:24 ET Workstation ID: [id number] Transcribed By: Self Edit Transcribed Date: 09/07/2024 17:16 ET Milady ADAM IM MRI PROCEDURES Final Resu lt documented in this encounter Visit Diagnoses Diagnosis History of transient ischemic attack (TIA) Transient ischemic attack (TIA), and cerebral infarction without residual deficits Other migraine without status migrainosus, not intractable Vertigo Dizziness and giddiness documented in this encounter Additional Health Concerns Assessment Noted Time PHQ-9 Depression Total Score: 0 08/23/19 25 9:30 AM EST documented as of this encounter Care Teams Paper Tester Relationship Specialty Start Date End Date Elsy Sloan MD [address] [place], [place] PCP - General Internal Medicine 03/16/22 documented as of this encounter
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
[2024-09-21 07:52] VITALS: BP 124/66; PULSE 95; O2SAT 99; BMI 27.5
== END 2024-09-21 08:36 | disposition home or self-care (01) ==
PROVIDERS: PCP Family Medicine; Visit Provider Internal Medicine Rheumatology
DX: M06.9 Rheumatoid arthritis, unspecified (principal); Z79.899 Other long term (current) drug therapy; M81.0 Age-related osteoporosis without current pathological fracture
CPT/HCPCS: 99214; G2211

== ENCOUNTER → 2024-09-21 07:47 | Outpatient (BNVA) | payer MEDICARE, SELFPAY | PROVIDERS: PCP Family Medicine; Visit Provider Internal Medicine Rheumatology | DX: M06.9 Rheumatoid arthritis, unspecified (principal); M81.0 Age-related osteoporosis without current pathological fracture; Z51.81 Encounter for therapeutic drug level monitoring; Z79.899 Other long term (current) drug therapy; Z86.73 Personal history of transient ischemic attack (TIA), and cerebral infarction without residual deficits | CPT/HCPCS: 99212 ==

== ENCOUNTER → 2024-11-27 11:00 | Outpatient (BNVA) | payer MEDICARE, SELFPAY | PROVIDERS: PCP Family Medicine; Visit Provider Internal Medicine Rheumatology ==

== ENCOUNTER 2024-11-29 08:36 | Outpatient (AMB) | payer MEDICARE, SELFPAY ==
--- OUTSIDE RECORDS SUMMARY | 2024-11-29 09:00 | XMS_ITS | Continuity of Care Document ---
Author Organization [facility] Address [address] [facility] [address] [place] [address] Phone [phone] Care Team Providers Care Warehouse Freight Handler Name Role Phone Elsy Sloan Care Team Information Rece iver [phone] Social History Type Date Description Comments Sex Unknown Medical Devices Description No Information Available Encounters Description No Information Available Assessments Description No Information Available Plan of Treatment Future Appointment(s):* 03/28/2025 9:30 am - Shankar Sage M.D. at Main Office Functional Status Description No Information Available Mental Status Description No Information Available Referrals Description No Information Available
--- OUTSIDE RECORDS SUMMARY | 2024-11-29 09:00 | XMS_ITS | Encounter Summary ---
Author Organization [facility] Address [address] [place] [address] Care Team Providers Care Clinical Program Director Name Role Phone Elsy Sloan MD Primary Care Pr ovider Reason for Visit * Episode Based Medications (Routine) - Authorized Specialty Diagnoses / Procedures Referred By Yefri corado Referred To Contact Diagnoses Iron deficiency anemia, unspecified iron deficiency anemia type Krishan Cope MD [address] [place] [address] Phone: tel: fax: [facility] [address] [place] [phone] Phone: tel: fax: Referral ID Status Reason Start Date Expiration Date V isits Requested Visits Authorized [id number] Authorized 11/08/2024 11/08/2025 1 3 Encounter Details Date Type Department Care Team (Latest Contact Info) Description 11/27/2024 11:37 AM EDT Hospital Encounter [facility] [address] [place] [phone] Krishan Cope MD [address] [place] [address] Iron deficiency anemia, unspecified iron deficiency anemia type (Primary Dx) Social History Tobacco Use Types Packs/Day Years [...] for your loved ones. For example, child care development specialist or elderly care for an older adult? [...] Information Value Date Recorded Sex Assigned at Female 11/13/2024 1:47 PM EDT Legal Sex Female 1:47 PM EST Gender Identity Female 11/13/2024 1:47 PM EDT Sexual Orientation Choose not to disclose 2024 1:47 PM EDT documented as of this encounter Last Filed Vital Signs Vital Sign Reading Time Taken Comments Blood Pressure 113/56 11/27/2024 11:45 AM EDT Pulse 75 11/27/2024 11:45 AM EDT Temperature - - Respiratory Rate 18 11/27/2024 11:45 AM EDT Oxygen Saturation 100% 11/27/2024 11:45 AM EDT Inhaled Oxygen Concentration - - Weight - - Height - - Body Mass Index - - documented in this encounter Progress Notes * Yamel Champagne RN - 11/27/2024 11:45 AM EDT Patient arrives via wheelchair accompanied by daughter for Venofer infusion. Stable patient assessment. Patient has chronic pain especially in her right shoulder due to old injury. PIV inserted aftertwo attempts and warming patient's arms with blankets. Patient resting comfortably in chair with call castro in reach. Patient brought to the bathroom via wheelchair and two assist. 1450-Patient completed Venofer without incident. PIV removed-intact. Patient has follow-up appointments in place with her picker / packer as well a Dr. Cope. Patient stable upon discharge. documented in this encounter Plan of Treatment Upcoming Encounters Date Type Department Care Team (Late st Contact Info) Description 12/27/2024 9:00 AM EDT Office Visit Adult Medicine [facility] [address] [place] [phone] Elsy Sloan MD [address] [place] [address] 01/02/2025 1:30 PM EDT Office Visit [address] [place] [phone] Yoselyn Dalton MD [address] [phone] 07/23/2025 9:00 AM EST Office Visit [facility] Hematology Oncology [address] [place] [phone] Krishan Cope MD [address] [place] [address] documented as of this encounter Visit Diagnoses Diagnosis Iron deficiency anemia, unspecified iron deficiency anemia type- Primary documented in this encounter Administered Medications Inactive Administered Medications - up to 3 most recent administrations Medication Order MAR Action Action Date Dose Rate Site iron sucrose (VENOFER) 300 mg in sodium chloride 265 mL IVPB 300 mg, intravenous, at 176.7 mL/hr, Administer over 90 Minutes, Once, On Tue11/27/24 at 1215, For 1 doseIndications:Iron deficiency anemia, unspecified iron deficiency anemia type New Bag 11/27/2024 12:42 PM EDT 300 mg 176.7 mL/hr documented in this encounter Orders Medications Ordered That Amrit ht Not Have Been Administered Count Last Ordered Date First Ordered Date iron sucrose (VENOFER) 300 m g in sodium chloride 265 mL IVPB 1 11/27/2024 Appointment Requests Count Last Ordered Date Fi rst Ordered Date ONCBCN INFUSION APPOINTMENT REQUEST 03 documented in this encounter Additional Health Concerns Assessment Noted Time PHQ-9 Depression Total Score: 0 08/23/19 25 9:30 AM EST documented as of this encounter Care Teams Clinical Program Director Relationship Specialty Start Date End Date Elsy Sloan MD [address] [facility], [place] PCP - General Internal Medicine 03/16/22 documented as of this encounter
--- OUTSIDE RECORDS SUMMARY | 2024-11-29 09:00 | XMS_ITS ---
Author Organization [facility] Care Team Providers Care Melter Supervisor Oxygen Furnace Name Role Phone Tez Lambert Unavailable Unavailable Judy Antony Unavailable Unavailable Sandra Marin Unavailable Unavailable Joann Yen Unavailable Unavailable Jim Guevara Unavailable Unavailable Allergies and adverse reactions Code CodeSystem Substance Reaction Severity StartDate Concern Status 924736 RXNORM Pregabalin Unknown Unknown active 7984 RXNORM Penicillin Unknown Unknown active 7052 RXNORM Morphine Unknown Unknown active 2409 RXNORM Chlorthalidone Unknown Unknown active Banana Unknown 03/04/2021 active 36096 RXNORM Atorvastatin Unknown Unknown active Care Team Name Role Address Phone Organization Dates Sandra Marin PCP [address] [facility] [address], [place], [address], [place] (Office): [facility] 02/17/2021 - 03/30/2021 Tez Lambert Attending Physician [address] [facility] [address], [place], [address], [place] (Office): : [facility] 02/17/2021 - 03/30/2021 Judy Antony Attending Physician [address] [facility] [address], [place], [address], [facility] (Office): [facility] 02/17/2021 - 03/30/2021 oJann Yen Attending Physician [address] [facility] [address], [place], [address], [facility] (Office): [facility] 02/17/2021 - 03/30/2021 Jim Guevara Attending Physician [address] [facility] [address], [place], [address], [facility] (Office): : [facility] 02/17/2021 - 03/30/2021 Immunizations Immunization Status Vaccine Details Vaccine Code CodeSystem Jorge e Notes SARS-COV-2 (COVID-19) completed SARS-COV-2 (COVID-19) vaccine, mRNA, spike protein, LNP, preservative free, 30 mcg/0.3mL dose Mfg: [employer] Step 2 of Multi-step with next step required 208 CVX created date: 02/19/2021 administered date: 09/14/2020 SARS-COV-2 (COVID-19) completed SARS-COV-2 (COVID-19) vaccine, mRNA, spike protein, LNP, preservative free, 30 mcg/0.3mL dose Mfg: [employer] Step 1 of Multi-step with next step required 208 CVX created date: 02/19/2021 administered date: 08/24/2020 Mental Status Section Date Assessment Total Score Description 03/30/2021 BIMS 15 cognitively int act CAM 0 No delirium ind icated PHQ-9 00 02/23/2021 BIMS 14 cognitively int act CAM 0 No delirium ind icated PHQ-9 01 minimal depress ion Problems Problem # Description Date of onset Resolved Date Code CodeSystem Concern Status 1 UNSPECIFIED FRACTURE OF RIGHT FEMUR, INITIAL ENCOUNTER FOR CLOSED FRACTURE 1 02/20/[address] completed 2 DIAPHRAGMATIC HERNIA WITHOUT OBSTRUCTION OR GANGRENE [address] active 3 ESSENTIAL (PRIMARY) HYPERTENSION [address] active 4 FIBROMYALGIA [address] active 5 GASTRO-ESOPHAGEAL REFLUX DISEASE WITHOUT ESOPHAGITIS [address] active 6 HISTORY OF FALLING [address] active 7 HYPERLIPIDEMIA, UNSPECIFIED [address] active 8 HYPOTHYROIDISM, UNSPECIFIED [address] active 9 LOW BACK PAIN [address] active 10 MUSCLE WEAKNESS (GENERALIZED) [address] active 11 NONDISPLACED INTERTROCHANTERIC FRACTURE OF RIGHT FEMUR, SEQUELA [address] active 12 OTHER ABNORMALITIES OF GAIT AND MOBILITY [address] active 13 RHEUMATOID ARTHRITIS , UNSPECIFIED [address] active 14 TRANSIENT CEREBRAL ISCHEMIC ATTACK, UNSPECIFIED [address] active 15 UNSPECIFIED FALL, INITIAL ENCOUNTER 1 02/18/[address] completed 16 UNSPECIFIED FALL, SEQUELA [address] active 17 UNSPECIFIED FRACTURE OF RIGHT FEMUR, SEQUELA [address] active 18 UNSPECIFIED OSTEOARTHRITIS, UNSPECIFIED SITE [address] active 19 UNSTEADINESS ON FEET [address] active 20 URINARY TRACT INFECTION, SITE NOT SPECIFIED [address] active 21 VITAMIN D DEFICIENCY , UNSPECIFIED [address] active Reason for Referral No Reasons for Referral Entered Social History Social History Observation Description Start Date End Date Code Code System Current Smoking Status Tobacco smoking consumption unknown 833625910 SNOMED CT Sex Assigned At Female 1945 [address]-0 [facility] Vital Signs Code Code System Vitals Name Values and Units Timing Information 50184-9 [facility] Pain Level Value=2.0 03/30/2021 8867-4 [facility] Heart rate Value=67.0 Units=/min 21422-9 [facility] O2 % BldC Oximetry Value=97.0 Units= % 03/30/2021 8310-5 [facility] Body Temperature Value=98.1 Units=?? F 03/30/2021 8462-4 [facility] Blood Pressure-Diastolic Value=70 Un its=mmHg 03/30/2021 8480-6 [facility] Blood Pressure-Systolic Rhjgd=016 Un its=mmHg 03/30/2021 38552-1 [facility] Weight Bpsty=086.6 Units=Lbs 9279-1 [facility] Respiratory Rate Value=18.0 Units=/m in 03/29/2021 2339-0 [facility] Blood Sugar Value=97.0 Units=mg/dL 03/06/2021 8302-2 [facility] Height Value=62.0 Units=Inches 02/18/2021
--- OUTSIDE RECORDS SUMMARY | 2024-11-29 09:00 | XMS_ITS ---
Author Organization [facility] [address] [facility] Address [address] [place] [address] Phone Care Team Providers Care Tube Wrapper Name Role Phone Elsy Sloan MD Primary Care Pr ovider Active Problems Problem Noted Date Diagnosed Date [...] 02/05 Obstructive sleep apnea 10/06/2019 Overview (04/05/2024): [facility] [place] Home Sleep Apnea Test: Date 10/02/2019; Wt [...] 2019 home sleep apnea test. Malignant melanoma ([facility]24, [facility] V28) Overview (04/05/2024): Jun 2019 MALIGNANT MELANOMA IN SITU, WITH RARE DERMAL MELANOCYTES SUGGESTIVE OF SUPERFICIAL INVASION (ELLA LEVEL I, [place] DEPTH 0.14 MM) Cervical stenosis of spinal canal 08/07/2018 Overview (04/05/2024): S/p cervical MRI 07/28/2018 follows with orthopedics Assessment & Plan (10/19/2024 5:11 PM EDT): I reviewed the imaging findings in detail with Ms. Calero and her daughter. 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 She has been getting facet injections for localized neck pain by Dr. Teran for many years with reasonable results. She has no new symptoms and none that I would consider due to myelopathy. The difficulty with using her hands for ADLs is due to her rheumatoid arthritis. Her urinary incontinence dates back to 8 years ago after spinal anesthesia. At this point, she is content using a walker. We discussed ways to alleviate her posterior cervical pain centered around C7 with heat, ice, massage and possibly TENS unit. I believe this is all due to her forward head position and placing her in a collar would be ineffective. There is no role for surgery at this time nor which she wanted. She is welcome to contact us if there are any new questions or concerns. Osteoporosis 07/19/2018 Cerebrovascular disease 07/07/2018 Overview (04/05/2024): Moderate R, Moderate-severe L internal carotid stenosis Anterior cerebral art. Stenosis. Mod-severe R MCA stenosis 12/2010 CKD (chronic kidney disease) stage 3, GFR 30-59 ml/min ([facility] V24, [facility] V28) 07/07/2018 Diastolic dysfunction 07/07/2018 Overview (04/05/2024): ECHO [...] having a bone marrow biopsy done in [place] stating it was normal. 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 Other Current Plans IRON SUCROSE ( VENOFER ) 200 MG FOR 5 DOSES* Plan Start Date:11/13/2024 Plan Provider:Krishan Cope MD Linked Problems Iron deficiency anemia, unsp ecified iron deficiency anemia type Treatment Medications No medications scheduled. Past Plans Radiation Treatments * No radiation treatments are documented for this patient in [facility]. Treatments may have been administered in another system.
--- OUTSIDE RECORDS SUMMARY | 2024-11-29 09:00 | XMS_ITS | Encounter Summary ---
Author Organization [facility] Address [address] [address] Phone Care Team Providers Care Stone Dresser Name Role Phone Elsy Sloan Primary Care Provider Encounter Details Date Type Department Care Team (Late st Contact Info) Description 11/08/2024 Office Communication [facility] [address] [address] Kelley Cordova ARNP [address] [address] Social History Tobacco Use Types Packs/Day Years [...] as of this encounter Plan of Treatment Upcoming Encounters Date Type Department Care Team (Late st Contact Info) Description 05/21/2025 7:30 AM EDT Office Visit [facility] [address] [address] Kelley Cordova ARNP [address] [address] documented as of this encounter Visit Diagnoses Not on filedocumented in this encounter Care Teams Stone Dresser Relationship Specialty Start Date End Date Elsy Sloan PCP - General 10/27/22 documented as of this encounter
--- OUTSIDE RECORDS SUMMARY | 2024-11-29 09:00 | XMS_ITS | Encounter Summary ---
Author Organization [facility] Address [address] [place] [address] Phone Care Team Providers Care Sheet Metal Shop Helper Name Role Phone Elsy Sloan Primary Care Provider Encounter Details Date Type Department Care Team (Late Contact Info) Description 07/26/2022 Telephone [facility] [address] [facility] [address] [place] [address] Shaheed Hough MD [address] [place] [address], [address] [address] Social History Tobacco Use Types Packs/Day Years [...] Visit [facility] [address] [address] Kelley Cordova ARNP [address] [address] documented as of this encounter Visit Diagnoses Not on filedocumented in this encounter Care Teams Sheet Metal Shop Helper Relationship Specialty Start Date End Date Elsy Sloan PCP - General 10/27/22 documented as of this encounter
--- OUTSIDE RECORDS SUMMARY | 2024-11-29 09:00 | XMS_ITS | Encounter Summary ---
Author Organization [facility] Address [address] [place] [address] Phone Care Team Providers Care Reel Repairer Name Role Phone Elsy Sloan Primary Care Provider Encounter Details Date Type Department Care Team (Late st Contact Info) Description 07/21/2022 Telephone [facility] [address] [facility] [address] [place] [address] Shaheed Hough MD [address] [place] [address], [address] [address] Social History Tobacco Use Types Packs/Day Years [...] [facility]. [address] [phone] Kelley Cordova ARNP [address] [address] documented as of this encounter Visit Diagnoses Not on filedocumented in this encounter Care Teams Reel Repairer Relationship Specialty Start Date End Date Elsy Sloan PCP - General 10/27/22 documented as of this encounter
--- OUTSIDE RECORDS SUMMARY | 2024-11-29 09:00 | XMS_ITS | Clinical Summary ---
Author Organization [facility] Address [address] [facility] [address] [place] [address] Phone Care Team Providers Care Content Manager Name Role Phone Valeriodot Elsy Primary Care Provider Allergies Active Allergy Reactions [...] Take 650 mg by mouth if needed 02/21/20 21 Active MULTIPLE VITAMIN PO Take 1 tablet by mouth 1 (one) time each day Active dipyridamole- aspirin (AGGRENOX) 25-200 MG per 12 hr capsule Take 1 capsule by mouth 2 (two) times a day 08/14/19 21 Active baclofen (LIORESAL) 10 MG tablet Take 10 mg by mouth 2 (two) times a day 04/13/20 21 Active DULoxetine (CYMBALTA) [address] capsule Take 60 mg by mouth 1 (one) time each day 04/13/20 21 Active esomeprazole (NexIUM) [address] capsule Take 40 mg by mouth 1 (one) time each day 04/13/20 21 Active pravastatin (PRAVACHOL) 40 MG tablet Take 40 mg by mouth at bed time 01/23/20 21 Active hydrocortison e 2.5 % cream Apply 1 application topically 2 (two) times a day Active lidocaine (LIDODERM) 5 % patch Apply 1 patch topically 1 (one) time each day Remove & discard patch within 12 hours or as directed by . Active abatacept (ORENCIA) 125 MG/ML injection Inject 125 mg under the skin 1 (one) time per week Active levothyroxine sodium (TIROSINT) 137 MCG capsule Take 137 mcg by mouth 1 (one) time each day Take as directed Active Galcanezumab- gnlm 120 MG/ML solution auto-injector Inject 120 mg under the skin every 28 (twenty-eight) days 11/08/19 25 025 Active fexofenadine (ELIDA) 180 MG tablet Take 180 mg by mouth 1 (one) time each day Active losartan (COZAAR) 50 MG tablet Take 1 tablet (50 mg total) by mouth 1 (one) time each day 30 tablet 5 11/20/19 25 Active amLODIPine (NORVASC) 5 MG tabletIndicat ions:Hyperten tristen Take 1 tablet (5 mg total) by mouth 1 (one) time each day 30 tablet 5 11/20/19 25 Active Fexofenadine- Pseudoephedri ne (ELIDA-D 12 HOUR PO) Take 1 tablet by mouth if needed 025 Discontinued(Me d List Maintenance) losartan (COZAAR) 25 MG tablet Take 25 mg by mouth 1 (one) time each day 025 Discontinued amLODIPine (NORVASC) 10 MG tabletIndicat ions:Hyperten tristen Take 1 tablet (10 mg total) by mouth 1 (one) time each day 90 tablet 3 12/20/19 24 025 Discontinued Active Problems Problem Noted Date Diagnosed Date Proteinuria, not otherwise specified 11/19/2024 Primary hyperparathyroidism 05/24/2024 Assessment & Plan (05/24/2024 9:36 PM EDT): Normal Ca with elevated PTH 140, increased from 67 Refer to Endocrinology for further evaluation Chronic kidney disease, stage 2 (mild) 4 Assessment & Plan (05/24/2024 9:27 PM EDT): Creatinine remains stable Normal Lytes Stable mild microalbuminuria - 93 Assessment & Plan (12/20/2023 8:35 PM EDT): Stable Creat 0.91, eGFR 65 as of 11/30/23 Normal Lytes Normal Ca/PO4/PTH Levels Mild proteinuria, urine alb/creat ratio 42 Acute nontraumatic kidney injury 04/28/2021 Lumbago 02/17/2021 Obstructive sleep apnea 10/06/2019 Overview (04/28/2021): [facility] Home Sleep Apnea Test: Date 10/02/2019; Wt [...] hypoventilation by 2019 [address] [facility] Home Sleep Apnea Test: Date 10/02/2019; Wt [...] reflux disease 07/07/2018 Hyperlipidemia 07/07/2018 Hypertension 07/07/2018 Assessment & Plan (05/24/2024 9:23 PM EDT): [...] Chronic kidney disease stage 3 07/07/2018 12/20/2023 Encounters Date Type Department Care Team Description 11/19/2024 7:45 AM EDT Office Visit [facility] [address] [place] [phone] Kelley Cordova ARNP Chronic kidney disease, stage 2 (mild) (Primary Dx); Hypertension; Proteinuria, not otherwise specified; Iron deficiency anemia, not otherwise specified; Primary hyperparathyroidism (HCC) 11/08/2024 Office Communication [facility]. [address] [place] [phone] Kelley Cordova ARNP 09/30/2024 Orders Only [facility]. [facility] [address] [phone] Kelley Cordova ARNP Chronic kidney disease, stage 2 (mild); Hypertension from Last 3 Months Immunizations Immunization Administration Dates Next Due Influenza Split High [...] Sign Reading Time Taken Comments Blood Pressure 126/82 11/19/2024 7:49 AM EDT Pulse 87 11/19/2024 7:49 AM EDT Temperature - - Respiratory Rate - - Oxygen Saturation 98% 11/19/2024 7:49 AM EDT Inhaled Oxygen Concentration - - Weight 68.9 kg (152 lb) 05/24/2024 3:59 PM EDT Height - - Body Mass Index - - Plan of Treatment Upcoming Encounters Date Type Department Care Team (Late st Contact Info) Description 05/21/2025 7:30 AM EDT Office Visit [facility] [address] [address] Kelley Cordova ARNP [address] [address] Health Maintenance Due Date Last Done Comments Pneumococcal Vaccine: 50+ Years Completed 06/02/2015, 06/14/2014 Influenza Vaccine Completed 05/02/2024, , 06/28/2019, Additional history exists Hepatitis B Vaccine Aged Out No longe r eligible based on patient's age to complete this topic Procedures Procedure Name Priority Date/Time Associated Diagnosis Comments IRON PANEL (FE, TIBC, TSAT) Routine 11/07/2024 8:06 AM EDT Chronic kidney disease, stage 2 (mild) Hypertension FERRITIN Routine 11/07/2024 8:06 AM EDT Chronic kidney disease, stage 2 (mild) Hypertension CBC Routine 11/07/2024 8:06 AM EDT Chronic kidney disease, stage 2 (mild) Hypertension PROTEIN / CREATININE RATIO, URINE Routine 11/07/2024 8:06 AM EDT Chronic kidney disease, stage 2 (mild) Hypertension URINE ALBUMIN / CREATININE RATIO Routine 11/07/2024 8:06 AM EDT Chronic kidney disease, stage 2 (mild) Hypertension RENAL FUNCTION PANEL Routine 11/07/2024 8:06 AM EDT Chronic kidney disease, stage 2 (mild) Hypertension PTH, INTACT Routine 11/07/2024 8:06 AM EDT Chronic kidney disease, stage 2 (mild) Hypertension from Last 3 Months Results * (ABNORMAL) Iron Panel (Fe, TIBC, TSAT) (11/07/2024 8:06 AM EDT) TIBC 472(H) 250 - 450 ug/dL [facility] UIBC 457(H) 118 - 369 ug/dL [facility] Iron 15(L) 27 - 139 ug/dL [facility] Iron Saturation (TSat) 3(LL) 15 - 55 % [facility] Blood (Blood, Venous) 11/07/2024 8:06 AM EDT 11/07/2024 Kelley Art [facility] LAB BLOOD ORDERABLES Final Result [facility] [address] [place] [address] * (ABNORMAL) Urine Protein / creatinine ratio (11/07/2024 8:06 AM EDT) Creatinine, Ur 82.4 Not Estab. mg/dL [facility] Protein, Ur 53.8 Not Estab. mg/dL [facility] Urine Protein/Creati nine Ratio 653(H) 0 - 200 mg/g creat [facility] Urine (Urine, Clean Catch) 11/07/2024 8:06 AM EDT 11/07/2024 [facility] LAB URINE ORDERABLES Final Result Performing Organization Address [facility] de Phone Number [employer] [facility] [address] [place] [address] * (ABNORMAL) Urine Albumin / Creatinine Ratio (11/07/2024 8:06 AM EDT) Albumin, Urine 59.9 Not Estab. ug/mL [facility] Albumin/Creatin ine Ratio 73(H) 0 - 29 mg/g creat [facility] Comment: ? Normal: ?0 - ??29 ? Moderately increased: 30 - 300 ? Severely increased: ? >300 Urine (Urine, Clean Catch) 11/07/2024 8:06 AM EDT 11/07/2024 [facility] LAB URINE ORDERABLES Final Result Performing Organization Address [facility] de Phone Number [employer] [facility] [address] [place] [phone] * (ABNORMAL) CBC (11/07/2024 8:06 AM EDT) WBC 10.5 3.4 - 10.8 x10E3/uL [facility] Comment: Inadequately filled tube received. ??Whole blood to anticoagulant ratio may adversely affect results. RBC 3.40(L) 3.77 - 5.28 x10E6/uL [facility] Hemoglobin 8.8(L) 11.1 - 15.9 g/dL [facility] Hematocrit 29.7(L) 34.0 - 46.6 % [facility] MCV 87 79 - 97 fL [facility] MCH 25.9(L) 26.6 - 33.0 pg [facility] MCHC 29.6(L) 31.5 - 35.7 g/dL [facility] RDW 14.0 11.7 - 15.4 % [facility] Platelets 737(H) 150 - 450 x10E3/uL [facility] Blood (Blood, Venous) 11/07/2024 8:06 AM EDT 11/07/2024 [facility] LAB BLOOD ORDERABLES Final Result [facility] [address] [place] [address] * (ABNORMAL) PTH, intact (11/07/2024 8:06 AM EDT) PTH 77(H) 15 - 65 pg/mL [facility] Blood (Blood, Venous) 11/07/2024 8:06 AM EDT 11/07/2024 [employer] [facility] LAB BLOOD ORDERABLES Final Result [facility] [address] [place] [address] * (ABNORMAL) Ferritin (11/07/2024 8:06 AM EDT) Ferritin 14(L) 15 - 150 ng/mL [facility] Blood (Blood, Venous) 11/07/2024 8:06 AM EDT 11/07/2024 Kelley Cordova [facility] LAB BLOOD ORDERABLES Final Result [facility] [address] [place] [phone] * (ABNORMAL) Renal function panel (11/07/2024 8:06 AM EDT) Pathologist [facility] Glucose 98 70 - 99 mg/dL [facility] BUN 16 8 - 27 mg/dL [facility] Creatinine 1.10(H) 0.57 - 1.00 mg/dL [facility] eGFR CKD-EPI CR 2020 52(L) >59 mL/min/1.7 3 [facility] BUN/Creatinine Ratio 15 12 - 28 [facility] Sodium 139 134 - 144 mmol/L [facility] Potassium 5.0 3.5 - 5.2 mmol/L [facility] Chloride 98 96 - 106 mmol/L [facility] Bicarbonate (CO2) 18(L) 20 - 29 mmol/L [facility] Calcium 10.0 8.7 - 10.3 mg/dL [facility] Albumin 4.8 3.8 - 4.8 g/dL [facility] Phosphorus 3.7 3.0 - 4.3 mg/dL [facility] Blood (Blood, Venous) 11/07/2024 8:06 AM EDT 11/07/2024 [facility] LAB BLOOD ORDERABLES Final Result [facility] [address] [place] [phone] from Last 3 Months Insurance [facility] [employer] Care Teams Content Manager Relationship Specialty Start Date End Date Lynsey Sloansonia PCP - General 10/27/22
--- OUTSIDE RECORDS SUMMARY | 2024-11-29 09:00 | XMS_ITS | Encounter Summary ---
Author Organization [facility] Address [address] [place] [address] Care Team Providers Care Insole Bottom Filler Name Role Phone Elsy Sloan MD Primary Care Pr ovider Encounter Details Date Type Department Care Team Description 02/21/2024 Social Work [facility] Oncology Services [address] [place] [address] [facility] Social History Tobacco Use Types Packs/Day [...] on filedocumented in this encounter Care Teams Insole Bottom Filler Relationship Specialty Start Date End Date Elsy Sloan MD [address] [place] [address] PCP - General 01/19/24 documented as of this encounter
--- OUTSIDE RECORDS SUMMARY | 2024-11-29 09:00 | XMS_ITS | Clinical Summary ---
Author Organization [facility] [address] [facility] Address [address] [place] [address] Phone Care Team Providers Care Library Aide Name Role Phone Elsy Sloan MD Primary [...] Pregabalin Anaphylaxis,Dizzines s ,Swelling,Unknown High 07/07/2018 Medications acetaminophen (TYLENOL) 325 mg tablet Take 650 mg by mouth. 1 Active aspirin-dipyrid amole (AGGRENOX) 25-200 mg per 12 hr capsule Take by mouth daily. 1 Active EPINEPHrine 0.3 mg/0.3 mL syringe Inject as directed. Active fexofenadine (ELIDA) 180 mg tablet Take 1 tablet (180 mg total) by mouth 1 (one) time each day. 4 Active romosozumab-aqq g (Evenity) Inject under the skin. 4 Active amLODIPine (NORVASC) 10 mg tablet Take 5 mg by mouth 1 (one) time each day. 5 Active meclizine (ANTIVERT) 12.5 mg tablet Take 1 tablet (12.5 mg total) by mouth 3 (three) times a day if needed for dizziness (vertigo). 30 tablet 2 5 Active baclofen (LIORESAL) 10 mg tablet Take 1 tablet (10 mg total) by mouth 3 (three) times a day. 270 tablet 1 5 Active esomeprazole (NexIUM) [address] capsule Take 1 capsule (40 mg total) by mouth 1 (one) time each day. Do not open capsule. 90 capsule 1 5 Active pravastatin (PRAVACHOL) 40 mg tablet Take 1 tablet (40 mg total) by mouth at bedtime. 90 tablet 1 5 Active losartan (COZAAR) 25 mg tablet Take 1 tablet (25 mg total) by mouth 1 (one) time each day. 90 tablet 1 5 Active Additional Information Patient taking differently: 50 mgoral Daily, Reported on 11/27/2024 levothyroxine (SYNTHROID, LEVOTHROID) 137 mcg tablet Take 1 tablet (137 mcg total) by mouth 1 (one) time each day before breakfast. 90 tablet 1 5 Active hydrocortisone 2.5 % cream Apply 1 Application topically 2 (two) times a day. Active lidocaine (LIDODERM) 5 % patchIndication s:Facet arthropathy, cervical Apply topically 1 (one) time each day. Remove & discard patch within 12 hours or as directed by MD. 30 patch 5 Active fluticasone propionate (FLONASE) 50 mcg/actuation nasal spray Administer 1 spray into each nostril 2 (two) times a day. Shake gently. Before first use, prime pump. After use, clean tip and replace cap. 16 g 1 5 Active galcanezumab-gn lm (EMGALITY) 120 mg/mL injection penIndications: Chronic migraine without aura without status migrainosus, not intractable Inject 1 mL (120 mg total) under the skin every 28 (twenty-eight) days. 1 each 5 025 Active DULoxetine (CYMBALTA) [address] capsule Take 1 capsule (60 mg total) by mouth 1 (one) time each day. Do not crush or chew. 90 capsule 5 Active fluticasone propionate (FLONASE) 50 mcg/actuation nasal spray spray or apply inside Nose. 1 025 Discontin ued(Reord er) lidocaine (LIDODERM) 5 % patch Apply topically. 1 025 Discontin ued(Reord er) DULoxetine (CYMBALTA) [address] capsule Take 1 capsule (60 mg total) by mouth 1 (one) time each day. Do not crush or chew. 5 025 Discontin ued(Reord er) galcanezumab-gn lm (EMGALITY) 120 mg/mL injection pen Inject 1 mL (120 mg total) under the skin every 28 (twenty-eight) days. 025 Discontin ued(Reord er) Hospital, Clinic, or Other Facility Administered Medication Ordered Dose Route Frequency Start Date End Date Status galcanezumab-gnlm (EMGALITY) syringe 120 mgIndications:Intractable migraine with aura without status migrainosus 120 mg subQ Every 28 days 10/16/2024 Active Active Problems Problem Noted Date Diagnosed [...] 02/05 Obstructive sleep apnea 10/06/2019 Overview (04/05/2024): [facility] Home Sleep Apnea Test: [...] 2019 home sleep apnea test. Malignant melanoma ([facility] V24, [facility] V28) Overview (04/05/2024): Jun 2019 MALIGNANT MELANOMA [...] kidney disease) stage 3, GFR 30-59 ml/min ([facility] V24, [facility] V28) 07/07/2018 Diastolic dysfunction 07/07/2018 Overview (04/05/2024): [...] having a bone marrow biopsy done in [place] stating it was normal. 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 Vitamin D deficiency 07/07/2018 Encounters Date Type Department Care Team Description 11/27/2024 11:37 AM EDT Hospital Encounter [facility] [address] [place] [phone] Krishan Cope MD Iron deficiency anemia, unspecified iron deficiency anemia type (Primary Dx) 11/21/2024 11:28 AM EDT - 11/21/2024 11:59 PM EDT Hospital Encounter [facility] [address] [place] [phone] Krishan Cope MD Iron deficiency anemia, unspecified iron deficiency anemia type (Primary Dx) Discharge Disposition: Home or Self Care 11/13/2024 1:30 PM EDT - 11/13/2024 11:59 PM EDT Hospital Encounter [facility] [address] [facility] [address] [place] [phone] Krishan Cope MD Iron deficiency anemia, unspecified iron deficiency anemia type (Primary Dx) Discharge Disposition: Home or Self Care 11/08/2024 Telephone [facility] Oncology [address] [place] [phone] Krishan Cope MD 10/19/2024 2:15 PM EDT Consult Neurosurgery [facility] [address] [facility] [address] [place] [phone] Jeanne Serra MD Cervical stenosis of spinal canal (Primary Dx); Facet arthropathy, cervical 10/16/2024 9:00 AM EDT Consult [facility] [address] [facility] [address] [place] [phone] Yoselyn Dalton MD Intractable migraine with aura without status migrainosus (Primary Dx); History of transient ischemic attack (TIA); Other migraine without status migrainosus, not intractable; Vertigo; Vitamin D deficiency 10/01/2024 Telephone Adult Medicine [address] [phone] Sheri Osman RN Faxed Order ([facility] Physical Therapy Order# [id number]) 09/19/2024 Telephone Adult Medicine [address] [phone] Zara Oconnell MA 09/07/2024 3:37 PM EST - 09/07/2024 11:59 PM EST Hospital Encounter [facility] [address] [place] [address] Facet arthropathy, cervical Discharge Disposition: Home or Self Care 09/07/2024 3:36 PM EST - 09/07/2024 11:59 PM EST Hospital Encounter [facility] [address] [place] [address] History of transient ischemic attack (TIA); Other migraine without status migrainosus, not intractable; Vertigo Discharge Disposition: Home or Self Care from Last 3 Months Surgical History Surgery [...] kidney disease) stage 3, GFR 30-59 ml/min (CMS/HCC V24, CMS/HCC V28) 07/07/2018 DX:CKD (chronic kidney disea se) stage 3, GFR 30-59 ml/min (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 For example, child caregiver or elderly care for an older adult? [...] not to disclose 2024 1:47 PM EDT Obstetrics History Last Filed Vital Signs Vital Sign Reading Time Taken Comments Blood Pressure 113/56 11/27/2024 11:45 AM EDT Pulse 75 11/27/2024 11:45 AM EDT Temperature 36.8 ??C (98.3 ??F) 11/21/2024 11:34 AM E DT Respiratory Rate 18 11/27/2024 11:45 AM EDT [...] 9:00 AM EDT Office Visit Adult Medicine [facility] [address] [place] [phone] Elsy Sloan MD [address] [place] [address] 01/02/2025 1:30 PM EDT Office Visit [facility] [address] [phone] Yoselyn Dalton MD [address] [phone] 07/23/2025 9:00 AM EST Office Visit [facility] H[facility]ology Oncology [address] [place] [phone] Krishan Cope MD [address] [place] [address] Health Maintenance Due Date Last Done Comments Zoster Vaccines (1 of 2) 1964 RSV Immunization Adult Patients (1 - 1-dose 75+ series) 2022 Colorectal Cancer Screening: Stool Based Tests (FOBT/FIT) 07/17/2022 Hepatitis C Screening 07/17/2022 Medicare Annual Wellness Visit 07/17/2022 Osteoporosis Screening (Bone Density Screening) 07/17/2022 COVID-19 Vaccine ( season) 2024 01/21/2023, 05/24/2022, 12/02/2021, Additional history exists Hypertension/CHF/CAD Annual BMP Blood Test 01/02/2025 01/03/2024 Influenza Vaccine (Season Ended) 2025 07/11/2023, 06/28/2019, 08/17/2018, Additional history exists Depression Screening 08/23/2025 08/23/2024 Social Influencers of Health Screening 08/23/2025 08/23/2024 Falls Risk Assessment 11/21/2025 11/21/2024 Cholesterol Screening (Lipid Panel) 01/02/2029 01/03/2024 DTaP,Tdap,and [...] age to complete this topic Meningococcal B Vaccine Aged Out No l onger eligible based on patient's age to complete [...] migraine without status migrainosus, not intractable Vertigo from Last 3 Months Results * MR [...] Signed Date: 09/08/2024 10:15 ET Workstation ID: [id number] Transcribed By: Self Edit Transcribed Date: 09/08/2024 [...] Signed Date: 09/08/2024 10:15 ET Workstation ID: [id number] Transcribed By: Self Edit Transcribed Date: 09/08/2024 10:09 ET us Milady ADAM IM MRI PROCEDURES Final Resu lt * MR [...] Signed Date: 09/07/2024 17:24 ET Workstation ID: [id number] Transcribed By: Self Edit Transcribed Date: 09/07/2024 [...] Signed Date: 09/07/2024 17:24 ET Workstation ID: [id number] Transcribed By: Self Edit Transcribed Date: 09/07/2024 17:16 ET us Milady ADAM IMG MRI PROCEDURES Final Resu lt from Last 3 Months Insurance [employer] Advance Directives Documents on File Type Date Recorded 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
--- OUTSIDE RECORDS SUMMARY | 2024-11-29 09:00 | XMS_ITS | Encounter Summary ---
Author Organization [facility] Address [address] [place] [address] Phone Care Team Providers Care Salon Shampoo Assistant Name Role Phone Srikanthchristo Elsy Primary Care Provider [phone] Encounter Details Date Type Department Care Team (Late st Contact Info) Description 12/02/2022 Telephone [facility] [address] [place] [address] Kelley Figueroa Social History Tobacco [...] Office Visit [facility] [address] [phone] Kelley Cordova ARNP [address] [phone] documented as of this encounter Visit Diagnoses Not on filedocumented in this encounter Care Teams Salon Shampoo Assistant Relationship Specialty Start Date End Date Elsy Sloan PCP - General 10/27/22 documented as of this encounter
--- OUTSIDE RECORDS SUMMARY | 2024-11-29 09:00 | XMS_ITS | Clinical Summary ---
Author Organization [facility] Address [address] [place] [address] Care Team Providers Care Conductor/Engineer Name Role Phone Elsy Sloan MD Primary Care Pr ovider Allergies Active Allergy Reactions Criticality Noted Date Comments Atorvastatin Other (See Comments) 07/07/2018 Increased liver enzymes Banana 03/04/2021 Bee Venom Itching,Swelling 07/07/2018 Chlorthalidone Other (See Comments) 07/07/2018 Hyponatremia Enoxaparin Itching,Rash Low 04/28/2021 Heparin Hives,Itching 04/28/2021 Other reaction(s): Hives/Urticaria Iodine Anaphylaxis High 07/07/2018 Morphine Hives 07/07/2018 Penicillin V Hives 07/07/2018 Pregabalin Anaphylaxis,Swelling High 07/07/2018 Medications Medication Sig Dispensed Refills Start Date End Date Status acetaminophen (TYLENOL) 325 MG tablet Take 650 mg by mouth. 0 02/20/2021 Active amLODIPine (NORVASC) tablet 5 mg Take 2 tablets (10 mg total) by mouth. 0 12/24/2020 Active dipyridamole-aspirin (Aggrenox) 200-25 MG per 12 hr capsule Take by mouth daily. 0 08/14/2020 Active baclofen (LIORESAL) 10 MG tablet Take 1 tablet (10 mg total) by mouth 3 (three) times a day. 0 12/24/2020 Active DULoxetine (CYMBALTA) DR capsule 30 mg Take 2 capsules (60 mg total) by mouth daily. 0 12/24/2020 Active EPINEPHrine 0.3 MG/0.3ML SOSY Inject as directed. 0 Ac tive esomeprazole (NexIUM) 40 MG capsule Take by mouth daily. 0 01/22/2021 Active fluticasone (Flonase) 50 MCG/ACT nasal spray spray or apply inside Nose. 0 02/25/2021 Active hydrocortisone 1 % cream Apply topically. 0 03/23/2021 Active lidocaine (LIDODERM) 5 % Apply topically. 0 02/18/2021 Active abatacept (Orencia ClickJect) 125 MG/ML auto-injector 125 mL (15,625 mg total). 0 12/13/2023 Active ciprofloxacin-dexamet hasone (CIPRODEX) otic suspension 0 01/03/2024 Active fexofenadine (ELIDA) 180 MG tablet Take 1 tablet (180 mg total) by mouth daily. 0 01/03/2024 Active levothyroxine (SYNTHROID) tablet 137 mcg 0 01/03/2024 Active losartan (COZAAR) tablet 25 mg 0 12/13/2023 Active pravastatin (PRAVACHOL) tablet 40 mg 0 01/03/2024 Active romosozumab-aqqg (Evenity) 105 MG/1.17ML SOSY injection Inject under the skin. 0 01/03/2024 Active Active Problems Problem Noted Date Diagnosed Date Generalized muscle weakness 02/17/2021 Diaphragmatic hernia without obstruction or gang naveed 02/17/2021 History of falling 02/17/2021 Low back pain 02/17/2021 Nondisplaced intertrochanter ic fracture of right femur, sequela 02/17/2021 Unspecified osteoarthritis, unspecified site Other abnormalities of gait and mobility 021 Unspecified fall, sequela 02/17/2021 Unspecified fracture of right femur, sequela Unsteadiness on feet 02/17/2021 Urinary tract infection, site not specified 02/05 Obstructive sleep apnea 10/06/2019 Overview: [facility] Home Sleep Apnea Test: Date 10/02/2019; [...] home sleep apnea test. Malignant melanoma 07/09/2019 Overview: Jun 2019 MALIGNANT MELANOMA IN SITU, WITH RARE DERMAL MELANOCYTES SUGGESTIVE OF SUPERFICIAL INVASION (ELLA LEVEL I, [place] DEPTH 0.14 MM) Cervical stenosis of spinal canal 08/07/2018 Overview: S/p cervical MRI 07/28/2018 follows with orthopedics Osteoporosis 07/19/2018 CKD (chronic kidney disease) stage 3, GFR 30-59 ml/min 07/07/2018 Diastolic dysfunction 07/07/2018 Overview: ECHO 02/2008 - murmur. Aortic sclerosis (NO stenosis) Facet arthropathy, cervical 07/07/2018 Fibromyalgia 07/07/2018 GERD (gastroesophageal reflux disease) 8 History of drug overdose 07/07/2018 Overview: Narcotic - Lortab 11/2010, 12/2000, 09/2013 History of hip replacement, total, bilateral History of syncope 07/07/2018 Overview: 01/07/16 Due to UTI and NPO status History of total knee replacement, bilateral Hyperlipidemia 07/07/2018 Cerebrovascular disease 07/07/2018 Overview: Moderate R, Moderate-severe L internal carotid stenosis Anterior cerebral art. Stenosis. Mod-severe R MCA stenosis 12/2010 Hypothyroidism 07/07/2018 Iron deficiency anemia 07/07/2018 Overview: Unresponsive to oral supplements. Was getting Venofer infusions 2015- IV access problems. 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 Vitamin D deficiency 07/07/2018 Social History Tobacco Use Types Packs/Day Years [...] file Not on file Not on file Last Filed Vital Signs Vital Sign Reading Time Taken Comments Blood Pressure 152/63 02/01/2024 1:01 PM EDT Pulse 84 02/01/2024 1:01 PM EDT Temperature 36.7 ??C (98 ??F) 02/01/2024 1:01 PM EDT Respiratory Rate 18 01/19/2024 1:56 PM EDT Oxygen Saturation 100% 02/01/2024 1:01 PM EDT Inhaled Oxygen Concentration - - Weight 73.5 kg (162 lb) 01/25/2024 12:04 PM EDT Height - - Body Mass Index - - Plan of Treatment Health Maintenance Due Date Last Done Comments Hepatitis C Screening 1945 Depression Screening 1959 Preventative Health Evaluation 1965 Shingrix-Zoster Vaccine (1 of 2) 1966 Fall Risk Assessment 01/05/2012 Osteoporosis Screening (DEXA Scan) 01/05/2012 RSV Adult > 60+ Yrs or (1 - 1-dose 75+ series) 2022 COVID-19 Vaccine ( season) 2024 12/02/2021, 05/26/2021, 09/14/2020, Additional history exists Influenza Vaccine (#1) 2024 , 06/28/2019, 08/17/2018, Additional history exists DTap / Tdap / Td (2 - Td or Tdap) 03/09/2033 03/09/2023 Pneumococcal Vaccine Completed 06/02/2015, 06/14/20 14 Hepatitis B Vaccines Aged Out No long er eligible based on patient's age to complete this topic RSV Ped < 20 months Aged Out No longe r eligible based on patient's age to complete this topic Care Teams Conductor/Engineer Relationship Specialty Start Date End Date Elsy Sloan MD [address] [place] [address] PCP - General 01/19/24
--- OUTSIDE RECORDS SUMMARY | 2024-11-29 09:00 | XMS_ITS | Encounter Summary ---
Author Organization [facility] Address [address] [place] [address] Phone Care Team Providers Care Drying Tumbler Operator Name Role Phone Elsy Sloan Primary Care Provider Encounter Details Date Type Department Care Team (Late Contact Info) Description 11/01/2022 Telephone [facility] [address] [facility] [address] [place] [phone] Sylwia Moore MA Social History Tobacco Use [...] Visit [facility] [address] [facility] [address] [place] [phone] Kelley Cordova ARNP [address] [phone] documented as of this encounter Visit Diagnoses Not on filedocumented in this encounter Care Teams Drying Tumbler Operator Relationship Specialty Start Date End Date Elsy Sloan PCP - General 10/27/22 documented as of this encounter
--- NOTE | 2024-11-29 09:20 | AM.OFFVISNUR ---
Intake Visit Reasons: evenity injection Allergies Latex, Natural Rubber Allergy (Mild, Verified 09/21/24 07:56) rash, itching morphine Allergy (Unknown, Verified 09/21/24 07:56) Unknown pregabalin [From Lyrica] Allergy (Unknown, Verified 09/21/24 07:56) Unknown Penicillins Adverse Reaction (Unknown, Verified 09/21/24 07:56) Unknown warfarin Adverse Reaction (Unknown, Verified 09/21/24 07:56) Unknown bee stings Allergy (Intermediate, Uncoded 08/07/24 09:19) Anaphylaxis lovonox Allergy (Mild, Uncoded 08/07/24 09:19) Hives Office Meds romosozumab-aqqg 210 mg/2.34 mL(105 mg/1.17 mL x2)subcutaneous syringe Performing Provider: Teto Tarn MD Performing Location: [facility] Rheumatology Administered by: Anaid Mari RN on 11/29/24 09:21 Dose Route Admin Location Dispensed Lot Number Expiration Date [facility] [employer] 105 mg subcut left posterior arm 1.17 mL [id number] 12/05/26 55816-404-50 [facility] 105 mg subcut right posterior arm 1.17 mL [id number] 12/05/26 43331-071-73 [facility] Comments: Payal Calero accompanied by her daughter presents today for Evenity 210mg/2.34 mL injection for the treatment of osteoporosis. The patient has not had any recent fever or illness. The injection site to be used is without erythema, edema, and is clean, dry and intact. Evenity 210mg/2.34mL [facility] 42429-510-10 Lot # [id number] Expiration 12/05/2026 given in the Left posterior forearm and the Right posterior forearm. The patient tolerated the procedure well. We discussed follow-up precautions including but not limited to injection site soreness, redness, itching or swelling. The patient can call the office for consideration of treatment recommendations e.g., medication to reduce pain (e.g., Tylenol) or itching (e.g., Benadryl) if needed. Skin and mucosal symptoms such as generalized hives, itching, or flushing; swelling of lips, face, throat, or eyes. Respiratory symptoms such as nasal congestion, change in voice, sensation of throat closing, stridor, shortness of breath, wheeze, or cough. Gastrointestinal symptoms such as nausea, vomiting, diarrhea, cramping abdominal pain. Cardiovascular symptoms such as collapse, dizziness, tachycardia, hypotension are considered medical emergencies and the patient verbalizes that urgent medical attention (call 911) should be sought. The patient was observed for 30 minutes. No injection site reactions noted. The patient was discharged from the practice. Assessment & Plan Assessment & Plan Orders: Orders AMB Romosozumab Injection Patient Supplied Today M81.0 - Age-related osteoporosis without current pathological fracture Medications: New romosozumab-aqqg 210 mg (2.34 mL) subcut ONCE 2.34 mL 0RF M81.0 - Age-related osteoporosis without current pathological fracture Coding
== END 2024-11-29 09:14 | disposition home or self-care (01) ==
LOC: HO.RHES 08:36
PROVIDERS: PCP Family Medicine; Visit Provider Internal Medicine Rheumatology
DX: M81.0 Age-related osteoporosis without current pathological fracture (principal)

== ENCOUNTER → 2024-11-29 08:36 | Outpatient (BNVA) | payer MEDICARE, SELFPAY | PROVIDERS: PCP Family Medicine; Visit Provider Internal Medicine Rheumatology | DX: M81.0 Age-related osteoporosis without current pathological fracture (principal) | CPT/HCPCS: 96372; J3111 ==

== ENCOUNTER 2024-12-19 07:50 | Outpatient (AMB) | payer MEDICARE, SELFPAY ==
[2024-12-19 07:53] VITALS: BP 140/60; PULSE 76; O2SAT 97
--- NOTE | 2024-12-19 07:53 | MHC.OFFVIS ---
Vital Signs 12/19/24 07:53 Height 5 ft 4 in BP 140/60 H Blood Pressure Location Rt brachial Position Sitting Pulse 76 Pulse Source Pulse Oximeter Pulse Oximetry (%) 97 Oxygen Delivery Method Room Air Intake Visit Reasons: 3 month follow-up Intake Note: Patient presents for follow up on RA and fibromyalgia. Accompanied by: Daughter Allergies Latex, Natural Rubber Allergy (Mild, Verified 12/19/24 07:53) rash, itching morphine Allergy (Unknown, Verified 12/19/24 07:53) Unknown pregabalin [From Lyrica] Allergy (Unknown, Verified 12/19/24 07:53) Unknown Penicillins Adverse Reaction (Unknown, Verified 12/19/24 07:53) Unknown warfarin Adverse Reaction (Unknown, Verified 12/19/24 07:53) Unknown bee stings Allergy (Intermediate, Uncoded 08/07/24 09:19) Anaphylaxis lovonox Allergy (Mild, Uncoded 08/07/24 09:19) Hives HPI HPI 3 month follow-up: Details: MS 2-3 hours. Hands are swollen. Left thumb and middle finger are triggering. No recent infections. PFSH Medical History History of blood transfusion Fibromyalgia Rheumatoid arthritis TIA (transient ischemic attack) Hypercholesterolemia Hypothyroid Systemic primary arterial hypertension Surgical History Hx of colonoscopy H/O: hysterectomy H/O total knee replacement History of total hip replacement Hx of cholecystectomy Social History Alcohol intake: current Patient Tobacco Use Status: Never used Tobacco Physical Exam Vital Signs: Last Vital Signs Pulse 76 12/19/24 07:53 Pulse Ox 97 12/19/24 07:53 Oxygen Delivery Method Room Air 12/19/24 07:53 Const Other: General: Comfortable CVS: RRR Respiratory: clear to auscultation bilaterally. Good respiratory effort Skin: No lesions seen MSK: R wrist synovitis with tenderness on palpation. Tender all MCPs and PIP knees. Triggering of left thumb. Tender to palpate palmar aspect of 1st and 3rd MCP. No nodule palpated. She has ulnar deviation of bilateral MCPs with volar subluxation. She has a thumb. Tender right elbow. She had limited full flexion of bilateral elbows. Shoulder abduction right 90 degrees and left 110 degrees with good internal rotation and external rotation. Nontender lower extremities. She was examined in wheelchair. Bilateral ankle tenderness. Left ankle synovitis. Bilateral MTP synovitis with tenderness on palpation. Assessment & Plan Assessment & Plan (1) Rheumatoid arthritis: Comment: Uncontrolled inflammatory arthritis. Simponi subcutaneous injection has been approved. Diagnosed in 1994. 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 She has had possible 2 TIAs. ELLIS inhibitors (Rinvoq, Xeljanz, baricitinib) pose an increased risk of cardiovascular events and would not be indicated for patient. She has history of anemia requiring iron infusions and hyperlipidemia on pravastatin. Tocilizumab can contribute to increased risk of hypercholesterolemia and further contributing to anemia due to bone marrow suppression -contraindicated at this time. Simponi SC 12/19/2024-. History of avascular necrosis bilateral hips. Code(s): M06.9 - Rheumatoid arthritis, unspecified Category: Medical Qualifiers: Rheumatoid arthritis location: multiple sites Rheumatoid factor presence: unspecified presence Qualified Code(s): M06.9 - Rheumatoid arthritis, unspecified Plan: Simponi 50 mg subcutaneous injection every 4 weeks. Nurse visit today at [facility] [place]. Labs from 11/2024 reviewed. Labs 4 weeks after 1st dose (CBC, creatinine, AST, ALT, ESR, CRP). Prednisone course prescribed Return to clinic in 3 months (2) Other keno terminal operator (current) drug therapy: Code(s): Z79.899 - Other half-way (current) drug therapy Category: Medical Plan: Labs from 07/27/2024 sufficient. She has discontinued Orencia. Simponi subcutaneous injection 50 mg every 4 weeks prescription sent to [facility] [place] [place] pharmacy to process PA. (3) Osteoporosis: Comment: History of multiple compression fractures: Right humeral fracture and bilateral wrist fractures. Evenity was started 01/2024. She recently had 7th Evenity injection 07/26/2024. Evenity 8th injection 11/29/2024. Code(s): M81.0 - Age-related osteoporosis without current pathological fracture Category: Medical Qualifiers: Osteoporosis type: age-related Presence of current pathological fracture: without current pathological fracture Qualified Code(s): M81.0 - Age-related osteoporosis without current pathological fracture Plan: Continue Evenity SC monthly with nurse visit Continue vitamin D3 125 mcg daily Obtaining C telopeptide resullt from [facility] 11/2024 labs. We will obtain follow-up labs for bone turnover markers at a future visit, which need to be performed at [facility] [place] [place] 8-10am. DXA due after 11/03/2025 Medications: Refilled prednisone Take 4 tablets daily 3 days, 3 tablets daily 3 days, 2 tablets daily 3 days, 1 tablet daily 3 days. Take prednisone with food. 5 mg PO DIRECTED 30 tabs 0RF Coding Level of Care Code Est Pt Level 4 (12953) Complex EM visit Add On G2211 Diagnoses Rheumatoid arthritis involving multiple sites, unspecified whether rheumatoid factor present M06.9 Rheumatoid arthritis location: multiple sites Rheumatoid factor presence: unspecified presence Other half-way (current) drug therapy Z79.899 Age-related osteoporosis without current pathological fracture M81.0 Osteoporosis type: age-related Presence of current pathological fracture: without current pathological fracture
--- OUTSIDE RECORDS SUMMARY | 2024-12-19 07:54 | XMS_ITS | Encounter Summary ---
Author Organization [facility] Address [address] [place] [address] Phone Care Team Providers Care Laboratory Asst Name Role Phone Srikanthchristo Elsy Primary Care Provider Encounter Details Date Type Department Care Team (Late st Contact Info) Description 12/02/2022 Telephone [facility] [address] [place] [address] Kelley Figueroa Social History Tobacco [...] Office Visit [facility] [address]. [address] [address] Kelley Cordova ARNP [address] [address] documented as of this encounter Visit Diagnoses Not on filedocumented in this encounter Care Teams Laboratory Asst Relationship Specialty Start Date End Date Elsy Sloan PCP - General 10/27/22 documented as of this encounter
--- OUTSIDE RECORDS SUMMARY | 2024-12-19 07:54 | XMS_ITS | Encounter Summary ---
Author Organization [facility] Address [address] [place] [address] Care Team Providers Care Registered Clinical Dietitian Name Role Phone Elsy Sloan MD Primary Care Provider + Encounter Details Date Type Department Care Team Description 03/17/2023 Pt. Non Urgent Medical Question Adult Medicine [facility] [address] [place] [address] Elsy Sloan MD [address] [place], [place] [phone] Social History Tobacco Use Types Packs/Day Years Used Date Smoking Tobacco: Never Smokeless Tobacco: Never Alcohol Use Standard Drinks/Week Comments Yes 0 (1 standard drink = 0.6 oz pur e alcohol) very rare holidays Sex Assigned at Date Recorded Not on file Job Start Date Occupation Industry Not on file Not on file Not on file COVID-19 Exposure Response Date Recorded In the last 10 days, have yo u been in contact with someone who was confirmed or suspected to have Coronavirus/COVID-19? No / Unsure 03/09/2023 8:27 AM EDT documented as of this encounter Miscellaneous Notes * Telephone Encounter - Roro Child M.A. - 03/17/2023 3:52 PM EDTFrom: Payal Calero To: Shay Sloan Sent: 03/17/2023 3:13 PM EDT Subject: NPI referral to my insurance co. [facility] contacted me and they need your office to submit a referral for insurance purposes for Dr. alexis. Her NPI number is [id number]. They gave me an early June appointment [facility] office can reach [facility] with this referral. Thank you, Payal Calero documented in this encounter Plan of Treatment Not on file documented as of this encounter Visit Diagnoses Not on filedocumented in this encounter Care Teams Registered Clinical Dietitian Relationship Specialty Start Date End Date Elsy Sloan MD [address] [place] [address] PCP - General Internal Medicine 03/16/22 documented as of this encounter
--- OUTSIDE RECORDS SUMMARY | 2024-12-19 07:54 | XMS_ITS | Encounter Summary ---
Author Organization [facility] Address [address] [place] [address] Care Team Providers Care Cable Installer Repairer Name Role Phone Jennifer Urban MD Primary Care Provider Unavail Alexa Mcdonald MD Primary Care Provider [phone] Elsy Sloan MD Primary Care Provider + Encounter Details Date Type Department Care Team Description 05/04/2021 Pt. Non Urgent Medic al Question Adult Medicine [address] [address] Zena Headley PA Social History Tobacco Use Types Packs/Day Years Used Date Smoking Tobacco: Never Smokeless Tobacco: Never Alcohol Use Standard Drinks/Week Comments Yes 0 (1 standard drink = 0.6 oz pur e alcohol) ignacia Sex Assigned at Date Recorded Not on file Job Start Date Occupation Industry Not on file Not on file Not on file COVID-19 Exposure Response Date Recorded In the last month, have you been in contact with someone who was confirmed or suspected to have Coronavirus / COVID-19? No / Unsure 04/29/2021 8:47 AM EDT documented as of this encounter Miscellaneous Notes * Telephone Encounter - Sandra Vyas M.A. - 05/04/2021 9:49 AM EDTFrom: Payal Calero To: Ashish Burrows Sent: 05/04/2021 9:42 AM EDT Subject: Blood pressure My blood pressure has been much higher taking only the Amlodipine. It ranged from a low of 145/75 to 180/80. My physical therapist wouldn't let me do my exercises because it was too high. I went backto taking the Torsemide 20 mg and my BP ranges from 116/59 to 160/74 after exercise. I had a TIA ten years ago and don't want to have anoth er or a stroke. I realize my kidney function is an issue but I am don t want to struggle with these high blood pressure readings on Amlodipine only. Please letme know what you think. Thanks payal documented in this encounter Plan of Treatment Not on file documented as of this encounter Visit Diagnoses Not on filedocumented in this encounter Care Teams Cable Installer Repairer Relationship Specialty Start Date End Date Jennifer Urban MD PCP - General Internal Medicine 06/08/18 09/29/21 Alexa Rashid MD [address] [place] [address] PCP - General Internal Medicine 09/30/21 03/15/22 Elsy Sloan MD [address] [place] [address] PCP - General Internal Medicine 03/16/22 documented as of this encounter
--- OUTSIDE RECORDS SUMMARY | 2024-12-19 07:54 | XMS_ITS | Encounter Summary ---
Author Organization [employer] [facility] Address [address] [place] [address] Care Team Providers Care Freight Shipping Agent Name Role Phone Elsy Sloan MD Primary Care Provider + Encounter Details Date Type Department Care Team Description 05/01/2024 Endoscopy Registered Nurse Report Medical Records [address] [place] [address] Social History Tobacco Use Types Packs/Day Years [...] on filedocumented in this encounter Care Teams Freight Shipping Agent Relationship Specialty Start Date End Date Elsy Sloan MD [address] [place] [address] PCP - General Internal Medicine 03/16/22 documented as of this encounter
--- OUTSIDE RECORDS SUMMARY | 2024-12-19 07:54 | XMS_ITS | Encounter Summary ---
Author Organization [employer] [facility] Address [address] [place] [address] Care Team Providers Care Postal Supervisor Name Role Phone Jennifer Urban MD Primary Care Provider Unavail able Alexa Rashid MD Primary Care Provider [phone] Elsy Sloan MD Primary Care Provider + Encounter Details Date Type Department Care Team Description 07/15/2020 Pt. Non Urgent Medic al Question Physiatry - [address] [phone] Beni Aquino PA-C Social History Tobacco Use Types Packs/Day Years [...] or suspected to have Coronavirus / COVID-19? Unable to assess 07/09/2020 3:48 PM EST documented as of this encounter Plan of Treatment Not on file documented as of this encounter Visit Diagnoses Not on filedocumented in this encounter Care Teams Postal Supervisor Relationship Specialty Start Date End Date Jennifer Urban MD PCP - General Internal Medicine 06/08/18 09/29/21 Alexa Rashid MD [address] [place] [address] [phone] PCP - General Internal Medicine 09/30/21 03/15/22 Elsy Sloan MD [address] [place] [address] PCP - General Internal Medicine 03/16/22 documented as of this encounter
--- OUTSIDE RECORDS SUMMARY | 2024-12-19 07:54 | XMS_ITS | Encounter Summary ---
Author Organization [facility] [employer] [facility] Address [address] [place] [address] Care Team Providers Care Regulatory Auditor Name Role Phone Jennifer Urban MD Primary Care Provider Unavail able Alexa Rashid MD Primary Care Provider [phone] Elsy Sloan MD Primary Care Provider + Encounter Details Date Type Department Care Team Description 04/28/2021 Rough Planer Tender Report Medical Records [address] [place] [address] Shaheed Hough MD Social History Tobacco Use Types Packs/Day Years [...] AM EDT documented as of this encounter Plan of Treatment Not on file documented as of this encounter Visit Diagnoses Not on filedocumented in this encounter Care Teams Regulatory Auditor Relationship Specialty Start Date End Date Jennifer Urban MD PCP - General Internal Medicine 06/08/18 09/29/21 Alexa Rashid MD [address] [place] [address] [phone] PCP - General Internal Medicine 09/30/21 03/15/22 Elsy Sloan MD [address] [place] [address] PCP - General Internal Medicine 03/16/22 documented as of this encounter
--- OUTSIDE RECORDS SUMMARY | 2024-12-19 07:54 | XMS_ITS | Encounter Summary ---
Author Organization [employer] [facility] Address [address] [place] [address] Care Team Providers Care Information Security Name Role Phone Elsy Sloan MD Primary Care Provider + Encounter Details Date Type Department Care Team Description 08/18/2023 Certifed Refrigeration Operator Report Medical Records [address] [place] [address] Beni Aquino PA-C Social History Tobacco Use [...] on filedocumented in this encounter Care Teams Information Security Relationship Specialty Start Date End Date Elsy Sloan MD [address] [place] [address] PCP - General Internal Medicine 03/16/22 documented as of this encounter
--- OUTSIDE RECORDS SUMMARY | 2024-12-19 07:54 | XMS_ITS | Encounter Summary ---
Author Organization [facility] Address [address] [place] [address] Care Team Providers Care Pharmacy Technology Instructor Name Role Phone Alexa Rashid MD Primary Care Provider [phone] Elsy Sloan MD Primary Care Provider + Encounter Details Date Type Department Care Team Description 09/30/2021 Shear Assembler Report Medical Records [address] [place] [phone] [facility] Tobacco Use Types Packs/Day Years Used Date [...] on filedocumented in this encounter Care Teams Pharmacy Technology Instructor Relationship Specialty Start Date End Date Alexa Rashid MD [address] [place] [phone] PCP - General Internal Medicine 09/30/21 03/15/22 Elsy Sloan MD [address] [place] [address] PCP - General Internal Medicine 03/16/22 documented as of this encounter
--- OUTSIDE RECORDS SUMMARY | 2024-12-19 07:54 | XMS_ITS | Encounter Summary ---
Author Organization [facility] Address [address] [place] [address] Care Team Providers Care Radio Tester Name Role Phone Jennifer Urban MD Primary Care Provider Unavail Alexa Mcdonald MD Primary Care Provider [phone] Elsy Sloan MD Primary Care Provider + Reason for Visit * Reason Onset Date Comments Faxed Order 04/07/2021 Encounter Details Date Type Department Care Team Description 04/07/2021 Telephone Adult Medicine [address] [address] Jennifer Urban MD Faxed Order Social History Tobacco Use Types Packs/Day Years [...] have Coronavirus / COVID-19? Unable to assess 04/06/2021 8:43 AM EDT documented as of this encounter Miscellaneous Notes * Telephone Encounter - Margie Romero - 04/07/2021 11:51 AM EDT faxed order from [employer] #[id number] documented in this encounter Plan of Treatment Not on file documented as of this encounter Visit Diagnoses Not on filedocumented in this encounter Care Teams Radio Tester Relationship Specialty Start Date End Date Jennifer Urban MD PCP - General Internal Medicine 06/08/18 09/29/21 Alexa Rashid MD [address] [place] [address] PCP - General Internal Medicine 09/30/21 03/15/22 Elsy Sloan MD [address] [place] [address] PCP - General Internal Medicine 03/16/22 documented as of this encounter
--- OUTSIDE RECORDS SUMMARY | 2024-12-19 07:54 | XMS_ITS | Encounter Summary ---
Author Organization [employer] [facility] Address [address] [place] [address] Care Team Providers Care Systems Programmer Analyst Name Role Phone Elsy Sloan MD Primary Care Provider + Encounter Details Date Type Department Care Team Description 05/11/2022 Orders Only Adult Medicine [facility] [address] [place], [place] [phone] Elsy Sloan MD [address] [place], [place] [phone] Hypothyroidism, unspecified type (Primary Dx) Social History Tobacco Use [...] suspected to have Coronavirus/COVID-19? No / Unsure 05/11/2022 1:47 PM EDT documented as of this encounter Plan of Treatment Not on file documented as of this encounter Results * (ABNORMAL) THYROID PROFILE W/TSH (06/18/2022 8:48 AM EST) TSH CASCADE 0.12(L) 0.40 - 4.00 uIU/ml 06/18/2022 12:21 PM EST [facility] 06/18/2022 8:48 AM EST 06/18/2022 8:48 AM EST [facility]arrative [facility] - 06/18/2022 12:21 PM EST Release to patient->Immediate Elsy Sloan MD [facility] documented in this encounter Visit Diagnoses Diagnosis Hypothyroidism, unspecified type- Primary Hypothyroidism, unspecified type documented in this encounter Care Teams Systems Programmer Analyst Relationship Specialty Start Date End Date Elsy Sloan MD [address] [place] [phone] PCP - General Internal Medicine 03/16/22 documented as of this encounter
--- OUTSIDE RECORDS SUMMARY | 2024-12-19 07:54 | XMS_ITS | Encounter Summary ---
Author Organization [facility] Address [address] [place] [address] Care Team Providers Care New Accounts Banking Representative Name Role Phone Jennifer Urban MD Primary Care Provider Unavail able Alexa Rashid MD Primary Care Provider [phone] Elsy Sloan MD Primary Care Provider + Encounter Details Date Type Department Care Team Description 04/09/2021 Tribunal Member Report Medical Records [address] [place] [phone] Carlos Teran DO Social History Tobacco Use Types Packs/Day Years [...] on filedocumented in this encounter Care Teams New Accounts Banking Representative Relationship Specialty Start Date End Date Jennifer Urban MD PCP - General Internal Medicine 06/08/18 09/29/21 Alexa Rashid MD [address] [place] [phone] PCP - General Internal Medicine 09/30/21 03/15/22 Elsy Sloan MD [address] [place] [address] PCP - General Internal Medicine 03/16/22 documented as of this encounter
--- OUTSIDE RECORDS SUMMARY | 2024-12-19 07:54 | XMS_ITS | Encounter Summary ---
Author Organization [facility] Address [address] [place] [address] Care Team Providers Care Pelletizer Tender Name Role Phone Alexa Rashid MD Primary Care Provider [phone] Elsy Sloan MD Primary Care Provider + Encounter Details Date Type Department Care Team Description 12/24/2021 Refill Adult Medicine [address] [phone] Alexa Rashid MD [address] [place] [address] [phone] Social History Tobacco Use Types Packs/Day Years [...] encounter Miscellaneous Notes * Telephone Encounter - Autumn Nguyen - 12/24/2021 10:04 AM EDT [place]ne 04/29/21 Ov 02/15/22 documented in this encounter Plan of Treatment Not on file documented as of this encounter Visit Diagnoses Not on filedocumented in this encounter Care Teams Pelletizer Tender Relationship Specialty Start Date End Date Alexa Rashid MD [address] [place] [address] [place] [address] PCP - General Internal Medicine 09/30/21 03/15/22 Elsy Sloan MD [address] [place] [address] PCP - General Internal Medicine 03/16/22 documented as of this encounter
--- OUTSIDE RECORDS SUMMARY | 2024-12-19 07:54 | XMS_ITS | Encounter Summary ---
Author Organization [facility] Address [address] [place] [address] Care Team Providers Care Senior Advisory Name Role Phone Jennifer Urban MD Primary Care Provider Unavail Alexa Mcdonald MD Primary Care Provider [phone] Elsy Sloan MD Primary Care Provider + Reason for Visit * Reason Onset Date Comments Faxed Order 04/11/2021 Encounter Details Date Type Department Care Team Description 04/11/2021 Telephone Adult Medicine [address] [address] Jennifer rUban MD Faxed Order Social History Tobacco Use [...] encounter Miscellaneous Notes * Telephone Encounter - Bess Jiang - 04/11/2021 12:54 PM EDT faxed order from [employer] #[id number] documented in this encounter Plan of Treatment Not on file documented as of this encounter Visit Diagnoses Not on filedocumented in this encounter Care Teams Senior Advisory Relationship Specialty Start Date End Date Jennifer Urban MD PCP - General Internal Medicine 06/08/18 09/29/21 Alexa Rashid MD [address] [place] [address] PCP - General Internal Medicine 09/30/21 03/15/22 Elsy Sloan MD [address] [place] [address] PCP - General Internal Medicine 03/16/22 documented as of this encounter
--- OUTSIDE RECORDS SUMMARY | 2024-12-19 07:54 | XMS_ITS | Clinical Summary ---
Author Organization [facility] Address [address] [place] [address] Care Team Providers Care Laborer Cement Gun Placing Name Role Phone Elsy Sloan MD Primary [...] specified 02/05 Obstructive sleep apnea 10/06/2019 Overview: [facility] Home Sleep Apnea Test: Date 10/02/2019; [...] age to complete this topic Care Teams Laborer Cement Gun Placing Relationship Specialty Start Date End Date Elsy Sloan MD [address] [place] [address] PCP - General 01/19/24
--- OUTSIDE RECORDS SUMMARY | 2024-12-19 07:54 | XMS_ITS | Encounter Summary ---
Author Organization [facility] Address [address] [place] [address] Care Team Providers Care Cryptologic Technician Technical Name Role Phone Jennifer Urban MD Primary Care Provider Unavail Alexa Mcdonald MD Primary Care Provider Elsy Sloan MD Primary Care Provider + Reason for Visit * Reason Onset Date Comments VNA Call 04/01/2021 Encounter Details Date Type Department Care Team Description 04/01/2021 Telephone Triage [address] [place] [address] Jennifer Urban MD VNA Call Social History Tobacco Use Types Packs/Day Years [...] encounter Miscellaneous Notes * Telephone Encounter - Paulina Chua R.N. - 04/01/2021 5:08 PM EDT Pt has hosptial f/u with ritu desir 04/[address] urban 05/27 * Telephone Encounter - Arielle Hosikns - 04/01/2021 4:48 PM EDT VNA CALL Which VNA office is calling? [facility] Full name of caller: Elisa The caller is A nurse Is the caller at the patients home?: NO Reason for call: Patient is home from half-way with dx of fractured right femur and pelvis. Will be getting nursing, physical and occupational therapy Does caller need an urgent call back? NO Was CONTACT Telephone # obtained above?: YES Fax #: n/a documented in this encounter Plan of Treatment Not on file documented as of this encounter Visit Diagnoses Not on filedocumented in this encounter Care Teams Cryptologic Technician Technical Relationship Specialty Start Date End Date Jennifer Urban MD PCP - General Internal Medicine 06/08/18 09/29/21 Alexa Rashid MD [address] [place] [id number] PCP - General Internal Medicine 09/30/21 03/15/22 Elsy Sloan MD [address] [place] [id number] PCP - General Internal Medicine 03/16/22 documented as of this encounter
--- OUTSIDE RECORDS SUMMARY | 2024-12-19 07:54 | XMS_ITS | Encounter Summary ---
Author Organization [facility] Address [address] [place] [address] Care Team Providers Care Professional Nursing Tutor Name Role Phone Martine Urban MD Primary Care Provider Unavail Alexa Mcdonald MD Primary Care Provider [phone] Elsy Sloan MD Primary Care Provider + Reason for Visit * Reason Onset Date Comments Correctional Officer Feedback 06/12/2021 Dr. Chahal Encounter Details Date Type Department Care Team Description 06/12/2021 Telephone Physiatry - [address] [address] Richelle Aguilar MD [address] [place] [address] [place] [address] Correctional Officer Feedback (Dr. Chahal) Social History Tobacco Use Types Packs/Day Years [...] encounter Miscellaneous Notes * Telephone Encounter - Azalea Vuong - 06/15/2021 9:01 AM EST Auth Number #[id number] Visits 11 Start 06/25/2021-06/25/2022 Provider RICHELLE AGUILAR * Telephone Encounter - Gina Mcnulty - 06/12/2021 3:33 PM EDT Request for a referral to a [facility] Specialist for a patient with a [facility] PCP. If patient does NOT have a [facility] PCP they must obtain a referral from their PCP before being seen-do not submit request to Referrals department-contact patient. Specialty patient is being referred to: PHYSIATRY Name of Specialist patient is seeing: DR CHAHAL Reason/diagnosis for visit: right shoulder pain Date of appoinment: 06/25/21 If retro, date referral needs to start: N/A MARTINE URBAN Payor: [facility] / Plan: [employer] PREF HMO $10 [place] / Product Type: MEDICARE RISK documented in this encounter Plan of Treatment Not on file documented as of this encounter Visit Diagnoses Not on filedocumented in this encounter Care Teams Professional Nursing Tutor Relationship Specialty Start Date End Date Martine Urban MD PCP - General Internal Medicine 06/08/18 09/29/21 Alexa Rashid MD [address] [place] [id number] PCP - General Internal Medicine 09/30/21 03/15/22 Elsy Sloan MD [address] [place] [phone] PCP - General Internal Medicine 03/16/22 documented as of this encounter
--- OUTSIDE RECORDS SUMMARY | 2024-12-19 07:54 | XMS_ITS | Encounter Summary ---
Author Organization [facility] Address [address] [place] [address] Phone Care Team Providers Care Camelid Fiber Sorter Name Role Phone Lynsey Sloanmaximopete Primary Care Provider Encounter Details Date Type Department Care Team (Late st Contact Info) Description 07/21/2022 Telephone [facility] [address] [facility] [address] [place] [address] Shaheed Hough MD [address] [place] [address], [address] [address] Social History Tobacco Use Types Packs/Day Years [...] Visit [facility]. [address] [address] Kelley Cordova ARNP [address] [address] documented as of this encounter Visit Diagnoses Not on filedocumented in this encounter Care Teams Camelid Fiber Sorter Relationship Specialty Start Date End Date Elsy Sloan PCP - General 10/27/22 documented as of this encounter
--- OUTSIDE RECORDS SUMMARY | 2024-12-19 07:54 | XMS_ITS | Clinical Summary ---
Author Organization [facility] Address [address] [place] [address] Care Team Providers Care Card Decorator Name Role Phone Elsy Sloan MD Primary Care Provider + Allergies Active Allergy Reactions Severity Noted Date Comments Banana 03/04/2021 Bee Stings Itching/Pruritus,Swe lling/ Edema 07/07/2018 Chlorthalidone OTHER 07/07/2018 Hyponatremia Heparin Hives/Urticaria,Itch ing/Pr uritus 04/28/2021 Iodine Anaphylaxis High 07/07/2018 Atorvastatin OTHER 07/07/2018 Increased liver enzymes Lovenox Itching/Pruritus 06/25/2021 Pregabalin Swelling/Edema,Dizzy 07/07/2018 Morphine Hives/Urticaria 07/07/2018 Morphine Sulfate Hives/Urticaria 07/07/2018 Amlodipine Swelling/Edema 07/07/2018 Penicillin V Hives/Urticaria 07/07/2018 Medications Medication Sig Dispensed Refills Start Date End Date Status Multiple Vitamin (MULTIVITAMINS OR) Take 1 Tab by mouth daily. 0 Active acetaminophen (TYLENOL) 500 MG tablet Take 1-2 Tabs by mouth every 6 hours as needed for Pain. 0 Active lidocaine (XYLOCAINE) 5 % ointmentIndications:F ibromyalgia,Cervical stenosis of spinal canal APPLY TO AFFECTED AREA(S) TWO TIMES A DAY FOR PAIN 50 g 5 09/28/2023 Active Orencia ClickJect 125 MG/ML Solution Auto-injector Inject 125 mL as directed once a week. 0 12/13/2023 Active pravastatin (PRAVACHOL) 40 MG tabletIndications:Mix ed hyperlipidemia Take 1 Tablet by mouth daily. 90 Tablet 1 01/03/2024 Active fexofenadine (Shavon Allergy) 180 MG tabletIndications:All ergic rhinitis, unspecified seasonality, unspecified trigger Take 1 Tablet by mouth daily. 30 Tablet 12 01/03/2024 Active levothyroxine (Synthroid) 137 MCG tabletIndications:Hyp othyroidism, unspecified type Take 1 Tablet by mouth daily. Tuesday-tuesday. Take 2 tablets by mouth on Saturdays and Sundays only 94 Tablet 1 2024 Active losartan (COZAAR) 25 MG tabletIndications:Crys brennan hypertension,Stage 3a chronic kidney disease (HCC) Take 1 Tablet by mouth daily. 90 Tablet 1 02/13/2024 Active amlodipine (NORVASC) 5 MG tablet Take 2 Tablets by mouth. 0 12/24/2020 Active duloxetine (CYMBALTA) 30 MG capsule Take 2 Capsules by mouth. 0 12/24/2020 Active vitamin D (ERGOCALCIFEROL) 1.25 MG (41727 UT) capsule 0 12/12/2023 Act fiona Abatacept 125 MG/ML Solution Auto-injector 15,625 mg. 0 12/13/2023 Active dipyridamole-aspirin (AGGRENOX) 25-200 MG per 12 hr capsule Take 1 Capsule by mouth 2 times daily. 0 Active baclofen (LIORESAL) 10 MG tabletIndications:Fib romyalgia,Cervical stenosis of spinal canal Take 1 Tablet by mouth 3 times daily. 270 Tablet 1 03/08/2024 Active esomeprazole (NEXIUM) 40 MG capsule Take 1 Capsule by mouth every morning (before breakfast). 90 Capsule 1 03/08/2024 Active Active Problems Problem Noted Date Allergic rhinitis 01/03/2024 Obstructive sleep apnea mild FAUSTO 8 Overview: [facility] Home Sleep Apnea [...] hypoventilation by 2019 home sleep apnea test. History of malignant melanoma 07/09/2019 Overview: Jun 2019 MALIGNANT MELANOMA IN SITU, WITH RARE DERMAL MELANOCYTES SUGGESTIVE OF SUPERFICIAL INVASION (ELLA LEVEL I, [place] DEPTH 0.14 MM) Cervical stenosis of spinal canal 2017 Overview: S/p cervical MRI 07/28/2018 follows with orthopedics Osteoporosis 07/19/2018 History of total knee replacement, bilat eral 07/07/2018 History of hip replacement, total, bilat eral 07/07/2018 Hypothyroidism 07/07/2018 Hyperlipidemia 07/07/2018 Vitamin D deficiency 07/07/2018 Hypertension 07/07/2018 Diastolic dysfunction 07/07/2018 Overview: ECHO 02/2008 - murmur. Aortic sclerosis (NO stenosis) Recurrent UTI 07/07/2018 Overview: Prophylaxis Raynauds disease 07/07/2018 GERD (gastroesophageal reflux disease) 1 09/06/2017 Iron deficiency anemia 07/07/2018 Overview: Unresponsive to oral supplements. Was getting Venofer infusions 2015- IV access problems. Iron infusion 03/2017, transfused 1 unit PRBCs, iron infusion 06/2017 Follows with hematology, many years ago she reports having a bone marrow biopsy done in [place] stating it was normal. Hematology advised her to follow with gastroenterology and they are monitoring her labs Hiatal hernia 07/07/2018 Overview: Large. Seen on capsule Endoscopy but not on EGD RA (rheumatoid arthritis) 07/07/2018 Cerebrovascular disease 07/07/2018 Overview: Moderate R, Moderate-severe L internal carotid stenosis Anterior cerebral art. Stenosis. 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 Immunizations Name Administration Dates Next Due COVID-19 (Pfizer) 12/02/2021,,09/14/2020,08/24 Covid-19 Bivalent (Pfizer) 05/24/2022 Influenza Flu (PT Reported) 05/29/2022 Influenza Vaccine-preservati ve Free-quadrivalent 4 Years 08/17/2018 Influenza vaccine high dose age 65 and over 07/11/2023,06/28/2019,06/10/2017 Pneumoccoccal(Adult) Polysac charide PPSV23 06/02/2015 Pneumococcal Conjugate PCV-13 06/14/2014 Tdap 03/09/2023 Family History Medical History Relation Name Comments Suicide Father Heart Disease Mother COPD, CHF Relation Name Status Comments Father Mother Social [...] Sign Reading Time Taken Comments Blood Pressure 114/64 02/13/2024 8:52 AM EDT Pulse 89 02/13/2024 8:52 AM EDT Temperature 36.2 ??C (97.2 ??F) 03/06/2024 2:49 PM ED T Respiratory Rate 14 03/06/2024 2:49 PM EDT Oxygen Saturation 98% 06/25/2021 3:34 PM EST Inhaled Oxygen Concentration - - Weight 73.5 kg (162 lb) 02/13/2024 8:52 AM EDT P er patient Height 165.1 cm (5' 5 ) 03/06/2024 2:49 PM EDT Body Mass Index 26.96 02/13/2024 8:52 AM EDT Plan of Treatment Health Maintenance Due Date Last Done Comments MAMMOGRAM 1987 COLON CANCER SCREEN WITH STO OL CARD 1997 SHINGLES VACCINE (1 of 2) 1997 BONE DENSITY SCREENING 01/05/2012 FALL RISK ASSESSMENT 07/29/2023 07/29/2022 (Completed), 07/19/2018 Covid-19 Vaccine (2022-09 4 season) 2024 01/21/2023, 05/24/2022, 05/24/2022, Additional history exists DEPRESSION SCREEN 07/11/2024 07/11/2023, , 05/11/2022 (Completed), Additional history exists BMI CHECK/ADVISE 08/08/2024 01/03/2024 (Com pleted), 03/09/2023 (Completed), 12/24/2020, Additional history exists INFLUENZA (Season Ended) 2025 023, 05/29/2022, 06/28/2019 (Completed), Additional history exists CHOLESTEROL SCREENING 01/02/2029 01/03/2024 , 03/14/2023, 05/11/2022, Additional history exists DTAP/TDAP/TD (2 - Td or Tdap) 03/09/2033 03/09/2023 PNEUMOCOCCAL VACCINE Completed 06/02/2015, 06/14/20 14 Advance Directives For more information, please contact: [phone] Documents on File Type Date Recorded Patient Weir Fisherman Expl anation Health Care Proxy 07/30/2022 8:49 AM HEAL TH CARE PROXY Latest Code Status on File Code Status Date Activated Date Inactivated Comments Full Code 07/29/2022 9:42 AM HCP compl eted on 07/29/22 Care Teams Card Decorator Relationship Specialty Start Date End Date Elsy Sloan MD [address] [place] [address] [phone] PCP - General Internal Medicine 03/16/22
--- OUTSIDE RECORDS SUMMARY | 2024-12-19 07:54 | XMS_ITS | Encounter Summary ---
Author Organization [facility] Address [address] [place] [address] Care Team Providers Care Sandal Parts Assembler Name Role Phone Elsy Sloan MD Primary Care Provider + Encounter Details Date Type Department Care Team Description 02/28/2024 Orders Only Medical Records [address] [place] [address] Zev Lott DO [address] [facility] [address] [facility] [place] [address] Social History Tobacco Use Types Packs/Day Years [...] as of this encounter Progress Notes * Makenzie Pinto M.A. - 03/02/2024 4:02 PM EDT Seen by patient Payal Calero on 02/29/2024 9:11 AM * Zev Lott DO - 02/29/2024 7:37 AM EDT Please let the patient know that her stomach biopsies were normal. There is no evidence of inflammation, infection, precancer lesions or allergic conditions. Her stomach polyps were benign and not ofthe precancerous types. These are good news. The inflammation seen on endoscopy is likely acid reflux related inflammation without any precancerlesions such as Riley's esophagus. I strongly recommend that she follows up with Sherita in GI clinic as instructed while she takes Nexium as current. She might seek a consultation with general surgery to discuss possible treatment options in regards to her medium size hiatal hernia. documented in this encounter Plan of Treatment Not on file documented as of this encounter Procedures Procedure Name Priority Date/Time Associated Diagnosis Comments OUTSIDE PATHOLOGY Routine 02/24/2024 documented in this encounter Results * OUTSIDE PATHOLOGY (02/24/2024) Zev Lott DO OUTSIDE LAB documented in this encounter Visit Diagnoses Not on filedocumented in this encounter Care Teams Sandal Parts Assembler Relationship Specialty Start Date End Date Elsy Sloan MD [address] [place] [phone] PCP - General Internal Medicine 03/16/22 documented as of this encounter
--- OUTSIDE RECORDS SUMMARY | 2024-12-19 07:54 | XMS_ITS | Encounter Summary ---
Author Organization [facility] Address [address] [place] [address] Care Team Providers Care Adolescent Counselor Name Role Phone Jnenifer Urban MD Primary Care Provider Unavail able Alexa Rashid MD Primary Care Provider [phone] Elsy Sloan MD Primary Care Provider + Encounter Details Date Type Department Care Team Description 05/27/2021 Floral Arranger Report Medical Records [address] [place] [address] Avani Boyer [address] [place] [address] Social History Tobacco Use Types Packs/Day Years [...] on filedocumented in this encounter Care Teams Adolescent Counselor Relationship Specialty Start Date End Date Jennifer Urban MD PCP - General Internal Medicine 06/08/18 09/29/21 Alexa Rashid MD [address] [place] [address] [phone] PCP - General Internal Medicine 09/30/21 03/15/22 Elsy Sloan MD [address] [place] [id number] PCP - General Internal Medicine 03/16/22 documented as of this encounter
--- OUTSIDE RECORDS SUMMARY | 2024-12-19 07:54 | XMS_ITS | Encounter Summary ---
Author Organization [facility] Address [address] [place] [address] Care Team Providers Care Stitcher Hand Name Role Phone Elsy Sloan MD Primary Care Provider + Encounter Details Date Type Department Care Team Description 05/24/2023 Oxide Furnace Tender Report Medical Records [address] [place] [address] Beni Aquino PA-C Social History Tobacco Use [...] on filedocumented in this encounter Care Teams Stitcher Hand Relationship Specialty Start Date End Date Elsy Sloan MD [address] [place] [address] PCP - General Internal Medicine 03/16/22 documented as of this encounter
--- OUTSIDE RECORDS SUMMARY | 2024-12-19 07:54 | XMS_ITS | Clinical Summary ---
Author Organization [facility] Address [address] [facility] [address] [place] [address] Phone Care Team Providers Care Device Repair Technician Name Role Phone Valeriodot Elsy Primary Care Provider [phone] Allergies Active Allergy Reactions Criticality Noted Date [...] by mouth at bed time 1 Active hydrocortisone 2.5 % cream Apply 1 application topically 2 (two) times a day Active lidocaine (LIDODERM) 5 % patch Apply 1 patch topically 1 (one) time each day Remove & discard patch within 12 hours or as directed by MD. Active abatacept (ORENCIA) 125 MG/ML injection Inject 125 mg under the skin 1 (one) time per week Active levothyroxine sodium (TIROSINT) 137 MCG capsule Take 137 mcg by mouth 1 (one) time each day Take as directed Active fexofenadine (ELIDA) 180 MG tablet Take 180 mg by mouth 1 (one) time each day Active losartan (COZAAR) 50 MG tablet Take 1 tablet (50 mg total) by mouth 1 (one) time each day 30 tablet 5 5 Active amLODIPine (NORVASC) 5 MG tabletIndicatio ns:Hypertension Take 1 tablet (5 mg total) by mouth 1 (one) time each day 30 tablet 5 5 Active Galcanezumab-gn lm 120 MG/ML solution auto-injector Inject 120 mg under the skin every 28 (twenty-eight) days 5 12/08/19 25 Active Problems Problem Noted Date Diagnosed Date [...] 02/17/2021 Obstructive sleep apnea 10/06/2019 Overview (04/28/2021): [facility] Home Sleep Apnea Test: Date 10/02/2019; [...] hypoventilation by 2019 home sleep apnea test. [facility] Home Sleep Apnea Test: Date 10/02/2019; [...] EDT Office Visit [facility] [address] [place] [phone] Kelley Cordova ARNP Chronic kidney disease, stage 2 (mild) (Primary Dx); Hypertension; Proteinuria, not otherwise specified; Iron deficiency anemia, not otherwise specified; Primary hyperparathyroidism (HCC) 11/08/2024 Office Communication [facility] [address] [address] Kelley Cordova ARNP 09/30/2024 Orders Only [facility] [address] [phone] Kelley Cordova ARNP Chronic kidney disease, stage [...] Visit [facility] [address] [address] Kelley Cordova ARNP [address] [address] Health Maintenance Due Date Last Done Comments Pneumococcal Vaccine: 50+ Years Completed 06/02/2015, 06/14/2014 Influenza Vaccine Completed 05/02/2024, , 06/28/2019, Additional history exists Hepatitis B Vaccine Aged Out No longe r eligible based on patient's age to complete this topic Procedures Procedure Name Priority Date/Time Associated Diagnosis Comments BASIC METABOLIC PANEL Routine 11/29/2024 9:49 AM EDT Chronic kidney disease, stage 2 (mild) Hypertension IRON PANEL (FE, TIBC, TSAT) Routine 11/07/2024 [...] from Last 3 Months Results * (ABNORMAL) Basic metabolic panel (11/29/2024 9:49 AM EDT) Glucose 114(H) 70 - 99 mg/dL [facility] BUN 12 8 - 27 mg/dL [facility] Creatinine 0.79 0.57 - 1.00 mg/dL [facility] eGFR CKD-EPI CR 2020 77 >59 mL/min/1.7 3 [facility] BUN/Creatinine Ratio 15 12 - 28 [facility] Sodium 138 134 - 144 mmol/L [facility] Potassium 4.2 3.5 - 5.2 mmol/L [facility] Chloride 98 96 - 106 mmol/L [facility] Bicarbonate (CO2) 22 20 - 29 mmol/L [facility] Calcium 9.5 8.7 - 10.3 mg/dL [facility] Blood (Blood, Venous) 11/29/2024 9:49 AM EDT 11/29/2024 Kelley Cordova [facility] LAB BLOOD ORDERABLES Final Result [facility] [address] [place] [address] * (ABNORMAL) Iron Panel (Fe, TIBC, TSAT) (11/07/2024 8:06 AM EDT) TIBC 472(H) 250 - 450 ug/dL [facility] UIBC 457(H) 118 - 369 ug/dL [facility] Iron 15(L) 27 - 139 ug/dL [facility] Iron Saturation (TSat) 3(LL) 15 - 55 % [facility] Blood (Blood, Venous) 11/07/2024 8:06 AM EDT 11/07/2024 [facility] LAB BLOOD ORDERABLES Final Result Performing Organization Address [facility] Co de Phone Number [facility] [address] [place] [address] * (ABNORMAL) Urine Protein / creatinine ratio (11/07/2024 8:06 AM EDT) Creatinine, Ur 82.4 Not Estab. mg/dL [facility] Protein, Ur 53.8 Not Estab. mg/dL [facility] Urine Protein/Creati nine Ratio 653(H) 0 - 200 mg/g creat [facility] Urine (Urine, Clean Catch) 11/07/2024 8:06 AM EDT 11/07/2024 [facility] LAB URINE ORDERABLES Final Result Performing Organization Address [facility] de Phone Number [facility] [address] [place] [address] * (ABNORMAL) Urine Albumin / Creatinine Ratio (11/07/2024 8:06 AM EDT) Albumin, Urine 59.9 Not Estab. ug/mL [facility] Albumin/Creatin ine Ratio 73(H) 0 - 29 mg/g creat [facility] Comment: ? Normal: ?0 - ??29 ? Moderately increased: 30 - 300 ? Severely increased: ? >300 Urine (Urine, Clean Catch) 11/07/2024 8:06 AM EDT 11/07/2024 Kelley Cordova [facility] LAB URINE ORDERABLES Final Result [facility] [address] [place] [address] * (ABNORMAL) CBC (11/07/2024 8:06 AM EDT) WBC 10.5 3.4 - 10.8 x10E3/uL [facility] Comment: Inadequately filled tube received. ??Whole blood to anticoagulant ratio may adversely affect results. RBC 3.40(L) 3.77 - 5.28 x10E6/uL [facility] Hemoglobin 8.8(L) 11.1 - 15.9 g/dL [facility] Hematocrit 29.7(L) 34.0 - 46.6 % [facility] MCV 87 79 - 97 fL [facility] MCH 25.9(L) 26.6 - 33.0 pg [facility] MCHC 29.6(L) 31.5 - 35.7 g/dL [facility] RDW 14.0 11.7 - 15.4 % [facility] Platelets 737(H) 150 - 450 x10E3/uL [facility] Blood (Blood, Venous) 11/07/2024 8:06 AM EDT 11/07/2024 [facility] LAB BLOOD ORDERABLES Final Result Performing Organization Address [facility] Co de Phone Number [facility] [address] [place] [address] * (ABNORMAL) PTH, intact (11/07/2024 8:06 AM EDT) PTH 77(H) 15 - 65 pg/mL [facility] Blood (Blood, Venous) 11/07/2024 8:06 AM EDT 11/07/2024 [facility] LAB BLOOD ORDERABLES Final Result Performing Organization Address [facility] de Phone Number [facility] [address] [place] [address] * (ABNORMAL) Ferritin (11/07/2024 8:06 AM EDT) Ferritin 14(L) 15 - 150 ng/mL [facility] Blood (Blood, Venous) 11/07/2024 8:06 AM EDT 11/07/2024 [facility] LAB BLOOD ORDERABLES Final Result Performing Organization Address [facility] Co de Phone Number [facility] [address] [place] [address] * (ABNORMAL) Renal function panel (11/07/2024 8:06 AM EDT) Glucose 98 70 - 99 mg/dL [facility] BUN 16 8 - 27 mg/dL [facility] Creatinine 1.10(H) 0.57 - 1.00 mg/dL [facility] eGFR CKD-EPI CR 2020 52(L) >59 mL/min/1.7 3 [facility] BUN/Creatinine Ratio 15 12 - 28 [facility] Sodium 139 134 - 144 mmol/L [facility] Potassium 5.0 3.5 - 5.2 mmol/L [facility] Chloride 98 96 - 106 mmol/L [facility] Bicarbonate (CO2) 18(L) 20 - 29 mmol/L [facility] Calcium 10.0 8.7 - 10.3 mg/dL [facility] Albumin 4.8 3.8 - 4.8 g/dL [facility] Phosphorus 3.7 3.0 - 4.3 mg/dL [facility] Blood (Blood, Venous) 11/07/2024 8:06 AM EDT 11/07/2024 Kelley [facility]URO LAB BLOOD ORDERABLES Final Result [facility] [address] [place] [address] from Last 3 Months Insurance [facility] [place]AM [place] [phone] [employer] Care Teams Device Repair Technician Relationship Specialty Start Date End Date Elsy Sloan PCP - General 10/27/22
--- OUTSIDE RECORDS SUMMARY | 2024-12-19 07:54 | XMS_ITS | Encounter Summary ---
Author Organization [facility] Address [address] [place] [address] Phone Care Team Providers Care Sales And Merchandising Representative Name Role Phone Elsy Sloan Primary Care Provider [phone] Encounter Details Date Type Department Care Team (Late Contact Info) Description 07/26/2022 Telephone [facility] [address] [facility] [address] [place] [address] Shaheed Hough MD [address] [place] [address], [address] [address] Social History Tobacco Use Types Packs/Day Years [...] Visit [facility] [address] [address] Kelley Cordova ARNP [address] [address] documented as of this encounter Visit Diagnoses Not on filedocumented in this encounter Care Teams Sales And Merchandising Representative Relationship Specialty Start Date End Date Elsy Sloan PCP - General 10/27/22 documented as of this encounter
--- OUTSIDE RECORDS SUMMARY | 2024-12-19 07:54 | XMS_ITS | Encounter Summary ---
Author Organization [facility] Address [address] [place] [address] Phone Care Team Providers Care Clin Asst Name Role Phone Elsy Sloan Primary Care Provider Encounter Details Date Type Department Care Team (Late Contact Info) Description 11/01/2022 Telephone [facility] [address] [facility] [address] [place] [phone] Sylwia Moore MA Social History Tobacco Use [...] Visit [facility] [address] [facility] [address] [place] [phone] Kelley Cordova ARNP [address] [address] documented as of this encounter Visit Diagnoses Not on filedocumented in this encounter Care Teams Clin Asst Relationship Specialty Start Date End Date Elsy Sloan PCP - General 10/27/22 documented as of this encounter
--- OUTSIDE RECORDS SUMMARY | 2024-12-19 07:54 | XMS_ITS | Continuity of Care Document ---
Author Organization [facility] Address [address] [facility] [address] [place] [address] Phone [phone] Care Team Providers Care Logging Equipment Operator Name Role Phone Elsy Sloan Care Team Information Rece iver [phone] Social History Type Date Description Comments Sex Unknown Medical Devices Description No Information Available Encounters Description No Information Available Assessments Description No Information Available Plan of Treatment Future Appointment(s):* 03/28/2025 9:30 am - Shankar Sage M.D. at Main Office Functional Status Description No Information Available Mental Status Description No Information Available Referrals Description No Information Available
--- OUTSIDE RECORDS SUMMARY | 2024-12-19 07:54 | XMS_ITS | Encounter Summary ---
Author Organization [facility] Address [address] [place] [address] Care Team Providers Care Portable Power Tool Repairer Name Role Phone Elsy Sloan MD Primary Care Provider + Encounter Details Date Type Department Care Team Description 03/21/2023 Motion Graphics Artist Report Medical Records [address] [place] [address] Carlos Teran DO Social History Tobacco Use [...] on filedocumented in this encounter Care Teams Portable Power Tool Repairer Relationship Specialty Start Date End Date Elsy Sloan MD [address] [place], [place] [phone] PCP - General Internal Medicine 03/16/22 documented as of this encounter
--- OUTSIDE RECORDS SUMMARY | 2024-12-19 07:54 | XMS_ITS | Encounter Summary ---
Author Organization [facility] Address [address] [place] [address] Care Team Providers Care Livestock Ranch Hand Name Role Phone Elsy Sloan MD Primary Care Pr ovider Encounter Details Date Type Department Care Team Description 02/21/2024 Social Work [facility] Oncology Services [address] [place] [address] [facility] Social History Tobacco Use Types Packs/Day [...] on filedocumented in this encounter Care Teams Livestock Ranch Hand Relationship Specialty Start Date End Date Elsy Sloan MD [address] [place] [address] PCP - General 01/19/24 documented as of this encounter
--- OUTSIDE RECORDS SUMMARY | 2024-12-19 07:54 | XMS_ITS | Encounter Summary ---
Author Organization [email or web address] [facility] Address [address] [place] [address] Care Team Providers Care Certified Pest Control Technician Name Role Phone Elsy Sloan MD Primary Care Provider + Encounter Details Date Type Department Care Team Description 04/10/2024 Balloon Tester Report Medical Records [address] [place] [address] Beni Aquino PA-C Social History Tobacco Use [...] on filedocumented in this encounter Care Teams Certified Pest Control Technician Relationship Specialty Start Date End Date Elsy Sloan MD [address] [place] [address] PCP - General Internal Medicine 03/16/22 documented as of this encounter
--- OUTSIDE RECORDS SUMMARY | 2024-12-19 07:54 | XMS_ITS | Encounter Summary ---
Author Organization [employer] [facility] Address [address] [place] [address] Care Team Providers Care Geothermal Heat Pump Machinist Name Role Phone Jennifer Urban MD Primary Care Provider Unavail able Alexa Rashid MD Primary Care Provider [phone] Elsy Sloan MD Primary Care Provider + Encounter Details Date Type Department Care Team Description 06/23/2021 Client Program Manager Report Medical Records [address] [place] [address] Krishan Cope MD Social History Tobacco Use Types Packs/Day [...] have Coronavirus / COVID-19? No / Unsure 06/25/2021 3:21 PM EST documented as of this encounter Plan of Treatment Not on file documented as of this encounter Visit Diagnoses Not on filedocumented in this encounter Care Teams Geothermal Heat Pump Machinist Relationship Specialty Start Date End Date Jennifer Urban MD PCP - General Internal Medicine 06/08/18 09/29/21 Alexa Rashid MD [address] [place] [phone] PCP - General Internal Medicine 09/30/21 03/15/22 Elsy Sloan MD [address] [place] [address] PCP - General Internal Medicine 03/16/22 documented as of this encounter
--- OUTSIDE RECORDS SUMMARY | 2024-12-19 07:55 | XMS_ITS | Encounter Summary ---
Author Organization [facility] Address [address] [place] [address] Care Team Providers Care Meeting Coordinator Name Role Phone Elsy Sloan MD Primary Care Provider + Encounter Details Date Type Department Care Team Description 12/05/2023 Environmental Programs Manager Report Medical Records [address] [place] [address] Teto Tran MD Social History Tobacco Use Types Packs/Day [...] on filedocumented in this encounter Care Teams Meeting Coordinator Relationship Specialty Start Date End Date Elsy Sloan MD [address] [place] [id number] PCP - General Internal Medicine 03/16/22 documented as of this encounter
--- OUTSIDE RECORDS SUMMARY | 2024-12-19 07:55 | XMS_ITS | Encounter Summary ---
Author Organization [facility] Address [address] [place] [address] Care Team Providers Care Nurse Discharge Planner Name Role Phone Jennifer Urban MD Primary Care Provider Unavail able Alexa Rashid MD Primary Care Provider [phone] Elsy Sloan MD Primary Care Provider + Encounter Details Date Type Department Care Team Description 02/17/2021 Hospital Medical Records [address] [place] [address] Shantell Mercer PA [address] [place] [address] Social History Tobacco Use Types Packs/Day Years [...] on filedocumented in this encounter Care Teams Nurse Discharge Planner Relationship Specialty Start Date End Date Jennifer Urban MD PCP - General Internal Medicine 06/08/18 09/29/21 Alexa Rashid MD [address] [place] [phone] PCP - General Internal Medicine 09/30/21 03/15/22 Elsy Sloan MD [address] [place] [phone] PCP - General Internal Medicine 03/16/22 documented as of this encounter
--- OUTSIDE RECORDS SUMMARY | 2024-12-19 07:55 | XMS_ITS | Encounter Summary ---
Author Organization [facility] Address [address] [place] [address] Care Team Providers Care Utility Operator Name Role Phone Jennifer Urban MD Primary Care Provider Unavail Alexa Mcdonald MD Primary Care Provider [phone] Elsy Sloan MD Primary Care Provider + Reason for Visit * Reason Onset Date Comments Medication 11/29/2019 Encounter Details Date Type Department Care Team Description 11/29/2019 Telephone Physiatry - [address] [address] Carlos Teran DO Medication Social History Tobacco Use Types Packs/Day Years [...] encounter Miscellaneous Notes * Telephone Encounter - Jennifer Urban MD - 11/29/2019 10:52 AM EDT yes * Telephone Encounter - Marleny Swift L.P.N. - 11/29/2019 10:[address] Wilmar Aquino Ordered an L5-S1 interlaminar epidural injection for her back pain and a C7- T1 interlaminar epidural for her neck pain She is on celebrex and aggrenox Would she be able to hold the celebrex for 3 days prior to the injection and the aggrenox for 7 days prior to injection? Thank you Marleny RASMUSSEN documented in this encounter Plan of Treatment Not on file documented as of this encounter Visit Diagnoses Not on filedocumented in this encounter Care Teams Utility Operator Relationship Specialty Start Date End Date Jennifer Urban MD PCP - General Internal Medicine 06/08/18 09/29/21 Alexa Rashid MD [address] [place] [id number] PCP - General Internal Medicine 09/30/21 03/15/22 Elsy Sloan MD [address] [place] [phone] PCP - General Internal Medicine 03/16/22 documented as of this encounter
--- OUTSIDE RECORDS SUMMARY | 2024-12-19 07:55 | XMS_ITS | Encounter Summary ---
Author Organization [facility] Address [address] [place] [address] Care Team Providers Care Talent Sourcing Specialist Name Role Phone Jennifer Urban MD Primary Care Provider Unavail Alexa Mcdonald MD Primary Care Provider [phone] Elsy Sloan MD Primary Care Provider + Reason for Visit * Reason Onset Date Comments Mychart Rx Refill 10/28/2020 Encounter Details Date Type Department Care Team Description 10/28/2020 Refill Adult Medicine [address] [address] Jennifer Urban MD Mychart Rx Refill Social History Tobacco Use Types Packs/Day Years [...] have Coronavirus / COVID-19? No / Unsure 10/15/2020 9:04 AM EST documented as of this encounter Miscellaneous Notes * Telephone Encounter - Jennifer Urban MD - 10/28/2020 1:11 PM EDT Patient needs follow up and needs to have renal function monitored * Telephone Encounter - Gina Miguel M.A. - 10/28/2020 1:09 PM EDT Lab Results Component Value Date NA 137 05/15/2020 K 3.9 05/15/2020 CO2 29 05/15/2020 CL 100 05/15/2020 BUN 31 05/15/2020 CREAT 1.28 05/15/2020 GLU 96 05/15/2020 CA 9.2 05/15/2020 GFR 41 05/15/2020 Last appt with pcp 05/2020 documented in this encounter Plan of Treatment Not on file documented as of this encounter Visit Diagnoses Not on filedocumented in this encounter Care Teams Talent Sourcing Specialist Relationship Specialty Start Date End Date Jennifer Urban MD PCP - General Internal Medicine 06/08/18 09/29/21 Alexa Rashid MD [address] [place] [address] PCP - General Internal Medicine 09/30/21 03/15/22 Elsy Sloan MD [address] [place] [id number] PCP - General Internal Medicine 03/16/22 documented as of this encounter
--- OUTSIDE RECORDS SUMMARY | 2024-12-19 07:55 | XMS_ITS | Encounter Summary ---
Author Organization [facility] Address [address] [place] [address] Care Team Providers Care Drawing Tender Name Role Phone Jennifer Urban MD Primary Care Provider Unavail able Alexa Rashid MD Primary Care Provider [phone] Elsy Sloan MD Primary Care Provider + Encounter Details Date Type Department Care Team Description 01/24/2019 Release of Information Medical Records [address] [place] [address] Abstract, Provider Social History Tobacco Use Types Packs/Day Years Used Date Smoking Tobacco: Never Smokeless Tobacco: Never Sex Assigned at Date Recorded Not on file Job Start Date Occupation Industry Not on file Not on file Not on file documented as of this encounter Plan of Treatment Not on file documented as of this encounter Visit Diagnoses Not on filedocumented in this encounter Care Teams Drawing Tender Relationship Specialty Start Date End Date Jennifer Urban MD PCP - General Internal Medicine 06/08/18 09/29/21 Alexa Rashid MD [address] [place] [id number] PCP - General Internal Medicine 09/30/21 03/15/22 Elsy Sloan MD [address] [place] [id number] PCP - General Internal Medicine 03/16/22 documented as of this encounter
--- OUTSIDE RECORDS SUMMARY | 2024-12-19 07:55 | XMS_ITS | Encounter Summary ---
Author Organization [facility] Address [address] [place] [address] Care Team Providers Care Teacher Drama Name Role Phone Jennifer Urban MD Primary Care Provider Unavail able Alexa Rashid MD Primary Care Provider [phone] Elsy Sloan MD Primary Care Provider + Encounter Details Date Type Department Care Team Description 11/06/2018 Home Health Certification Medical Records [address] [place] [address] Avani Boyer [address] [place] [address] Social History Tobacco Use Types Packs/Day Years Used Date Smoking Tobacco: Never Smokeless Tobacco: Never Sex Assigned at Date Recorded Not on file Job Start Date Occupation Industry Not on file Not on file Not on file documented as of this encounter Plan of Treatment Not on file documented as of this encounter Visit Diagnoses Not on filedocumented in this encounter Care Teams Teacher Drama Relationship Specialty Start Date End Date Jennifer Urban MD PCP - General Internal Medicine 06/08/18 09/29/21 Alexa Rashid MD [address] [place] [address] PCP - General Internal Medicine 09/30/21 03/15/22 Elsy Sloan MD [address] [place] [phone] PCP - General Internal Medicine 03/16/22 documented as of this encounter
--- OUTSIDE RECORDS SUMMARY | 2024-12-19 07:55 | XMS_ITS | Encounter Summary ---
Author Organization [facility] Address [address] [place] [address] Care Team Providers Care Airport Representative Name Role Phone Elsy Sloan MD Primary Care Provider + Encounter Details Date Type Department Care Team Description 12/14/2022 Twisting Machine Operator Report Medical Records [address] [place] [address] Beni Aquino PA-C Social History Tobacco Use [...] on filedocumented in this encounter Care Teams Airport Representative Relationship Specialty Start Date End Date Elsy Sloan MD [address] [place] [address] PCP - General Internal Medicine 03/16/22 documented as of this encounter
--- OUTSIDE RECORDS SUMMARY | 2024-12-19 07:55 | XMS_ITS | Encounter Summary ---
Author Organization [facility] Address [address] [place] [address] Care Team Providers Care Rugby League Footballer Name Role Phone Jennifer Urban MD Primary Care Provider Unavail able Alexa Rashid MD Primary Care Provider [phone] Elsy Sloan MD Primary Care Provider + Encounter Details Date Type Department Care Team Description 02/06/2020 Pt. Non Urgent Medic al Question Adult Medicine [address] [address] Ariela Mayberry PA-C Social History Tobacco Use Types Packs/Day [...] on filedocumented in this encounter Care Teams Rugby League Footballer Relationship Specialty Start Date End Date Jennifer Urban MD PCP - General Internal Medicine 06/08/18 09/29/21 Alexa Rashid MD [address] [place] [address] [phone] PCP - General Internal Medicine 09/30/21 03/15/22 Elsy Sloan MD [address] [place] [phone] PCP - General Internal Medicine 03/16/22 documented as of this encounter
--- OUTSIDE RECORDS SUMMARY | 2024-12-19 07:55 | XMS_ITS | Encounter Summary ---
Author Organization [employer] [facility] Address [address] [place] [address] Care Team Providers Care Tire Mechanic Name Role Phone Jennifer Urban MD Primary Care Provider Unavail able Alexa Rashid MD Primary Care Provider [phone] Elsy Sloan MD Primary Care Provider + Reason for Referral * EXTERNAL (Urgent) - Authorized/Booked Specialty Diagnoses / Procedures Referred By Contkonstantin t Referred To Contact Neurosurgery Diagnoses Spinal stenosis at L4-L5 level Procedures REFERRAL TO NEUROSURGERY (IN NETWORK) Beni Aquino PA-C [facility] Migdalia Galeano MD [address] [facility] [address] [place] [address] Referral ID Status Reason Start Date Expiration Date V isits Requested Visits Authorized SEE NOTE Authorized/B ooked 12/22/2018 03/27/2019 1 1 Encounter Details Date Type Department Care Team Description 12/22/2018 Orders Only Physiatry - [place] [address] [place] [address] Beni Aquino PA-C Spinal stenosis at L4-L5 level (Primary Dx) Social History Tobacco Use Types Packs/Day Years Used Date Smoking Tobacco: Never Smokeless Tobacco: Never Sex Assigned at Date Recorded Not on file Job Start Date Occupation Industry Not on file Not on file Not on file documented as of this encounter Plan of Treatment Not on file documented as of this encounter Visit Diagnoses Diagnosis Spinal stenosis at L4-L5 level- Primary documented in this encounter Care Teams Tire Mechanic Relationship Specialty Start Date End Date Jennifer Urban MD PCP - General Internal Medicine 06/08/18 09/29/21 Alexa Rashid MD [address] [place] [address] PCP - General Internal Medicine 09/30/21 03/15/22 Elsy Sloan MD [address] [place] [address] PCP - General Internal Medicine 03/16/22 documented as of this encounter
--- OUTSIDE RECORDS SUMMARY | 2024-12-19 07:55 | XMS_ITS | Encounter Summary ---
Author Organization [facility] Address [address] [place] [address] Care Team Providers Care Lockstitch Collar Setter Name Role Phone Jennifer Urban MD Primary Care Provider Unavail able Alexa Rashid MD Primary Care Provider [phone] Elsy Sloan MD Primary Care Provider + Encounter Details Date Type Department Care Team Description 01/17/2019 Carpenter/Labor Report Medical Records [address] [place] [address] Migdalia Galeano MD Social History Tobacco Use Types Packs/Day [...] on filedocumented in this encounter Care Teams Lockstitch Collar Setter Relationship Specialty Start Date End Date Jennifer Urban MD PCP - General Internal Medicine 06/08/18 09/29/21 Alexa Rashid MD [address] [place] [address] PCP - General Internal Medicine 09/30/21 03/15/22 Elsy Sloan MD [address] [place] [address] PCP - General Internal Medicine 03/16/22 documented as of this encounter
--- OUTSIDE RECORDS SUMMARY | 2024-12-19 07:55 | XMS_ITS | Clinical Summary ---
Author Organization [facility] [address] [facility] Address [address] [place] [address] Phone Care Team Providers Care Geothermal System Installer Name Role Phone Elsy Sloan MD Primary [...] replace cap. 16 g 1 5 Active DULoxetine (CYMBALTA) [address] capsule Take 1 capsule (60 mg total) by mouth 1 (one) time each day. Do not crush or chew. 90 capsule 5 Active galcanezumab-gn lm (EMGALITY) 120 mg/mL injection pen Inject 1 mL (120 mg total) under the skin every 28 (twenty-eight) days. Active galcanezumab-gn lm (EMGALITY) 120 mg/mL injection penIndications: Chronic migraine without aura without status migrainosus, not intractable Inject 1 mL (120 mg total) under the skin every 28 (twenty-eight) days. 1 each 5 5 025 Active DULoxetine (CYMBALTA) [address] capsule Take 1 capsule (60 mg total) by mouth 1 (one) time each day. Do not crush or chew. 5 025 Discontin ued(Reord er) galcanezumab-gn lm (EMGALITY) 120 mg/mL injection penIndications: Chronic migraine without aura without status migrainosus, not intractable Inject 1 mL (120 mg total) under the skin every 28 (twenty-eight) days. 1 each 5 025 Discontin ued(Reord er) Hospital, Clinic, or [...] 02/05 Obstructive sleep apnea 10/06/2019 Overview (04/05/2024): [facility] Home Sleep Apnea Test: Date 10/02/2019; [...] 2019 home sleep apnea test. Malignant melanoma ([facility] V24, [facility] V28) Overview (04/05/2024): Jun 2019 MALIGNANT [...] kidney disease) stage 3, GFR 30-59 ml/min ([facility] V24, [facility] V28) 07/07/2018 Diastolic dysfunction 07/07/2018 Overview [...] having a bone marrow biopsy done in [place] stating it was normal. 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 Vitamin D deficiency 07/07/2018 Encounters Date Type Department Care Team Description 11/27/2024 11:37 AM EDT - 11/27/2024 11:59 PM EDT Hospital Encounter [facility] [address] [place] [phone] Krishan Cope MD Iron deficiency anemia, unspecified iron deficiency anemia type (Primary Dx) Discharge Disposition: Home or Self Care 11/21/2024 11:28 AM EDT - 11/21/2024 11:59 PM EDT Hospital Encounter [facility] [address] [place] [phone] Krishan Cope MD Iron deficiency anemia, unspecified iron deficiency anemia type (Primary Dx) Discharge Disposition: Home or Self Care 11/13/2024 1:30 PM EDT - 11/13/2024 11:59 PM EDT Hospital Encounter [facility] [address] [place] [phone] Krishan Cope MD Iron deficiency anemia, unspecified iron deficiency anemia type (Primary Dx) Discharge Disposition: Home or Self Care 11/08/2024 Telephone [facility] Hematology Oncology [address] [place] [phone] Krishan Cope MD 10/19/2024 2:15 PM EDT Consult Neurosurgery [facility] [address] [place] [phone] Jeanne Serra MD Cervical stenosis of spinal canal (Primary Dx); Facet arthropathy, cervical 10/16/2024 9:00 AM EDT Consult [facility] [address] [facility] [address] [place] [phone] Yoselyn Dalton MD Intractable migraine with aura without status migrainosus (Primary Dx); History of transient ischemic attack (TIA); Other migraine without status migrainosus, not intractable; Vertigo; Vitamin D deficiency 10/01/2024 Telephone Adult [address] [phone] Sheri Osman RN Faxed Order ([facility] Physical Therapy Order# [id number]) from Last 3 Months Surgical History Surgery [...] kidney disease) stage 3, GFR 30-59 ml/min ([facility] V24, [facility] V28) 07/07/2018 DX:CKD (chronic kidney disea se) stage 3, GFR 30-59 ml/min ([facility]) Diastolic dysfunction 07/07/2018 DX:Diastol ic dysfunction; [...] of multiple joints RA (rheumatoid arthritis) ([facility]/H[facility] V24, [facility] V28) 07/07/2018 DX:RA (rheumatoid arthritis) ([facility]) Raynauds disease 07/07/2018 DX:Raynauds dis ease Recurrent UTI 07/07/2018 DX:Recurrent UTI ; COMMENT: Prophylaxis Spondylosis of lumbar region without myelopathy or radiculopathy 07/07/2018 DX:Spondylosis of lumbar r egion without myelopathy or radiculopathy Vitamin D deficiency 07/07/2018 DX:Vitamin D deficiency Cervical stenosis of spinal canal 08/07/2018 DX:Cervical stenosis of spinal canal; COMMENT: S/p cervical MRI 07/28/2018 follows with orthopedics Malignant melanoma ([facility] V24, [facility] V28) 07/09/2019 DX:Malignant melanoma ([facility]); COMMENT: Jun 2019 MALIGNANT MELANOMA IN SITU, [...] care for your loved ones. For example, exceptional children's teacher or elderly care for an older [...] 9:00 AM EDT Office Visit Adult Medicine [facility] [address] [place] [address] Elsy Sloan MD [address] [place] [address] 01/02/2025 1:30 PM EDT Office Visit [facility] [address] [phone] Yoselyn Dalton MD [address] [phone] 07/23/2025 9:00 AM EST Office Visit [facility] Hematology Oncology [address] [place] [phone] Krishan Cope MD [address] [place] [address] Health Maintenance Due Date Last Done Comments [...] patient's age to complete this topic Insurance [employer] Advance Directives Documents on File Type Date Recorded Patient Marketing And Public Relations Manager Expl anation Health Care Decision (hx) 03/23/2021 [...] (hx) 02/18/2021 AD MEYER DIRECTIVE Care Teams Geothermal System Installer Relationship Specialty Start Date End Date Elsy Sloan MD [address] [place], [place] PCP - General Internal Medicine 03/16/22
--- OUTSIDE RECORDS SUMMARY | 2024-12-19 07:55 | XMS_ITS | Encounter Summary ---
Author Organization [facility] Address [address] [place] [address] Care Team Providers Care Epoxy Specialist Name Role Phone Jennifer Urban MD Primary Care Provider Unavail able Alexa Rashid MD Primary Care Provider [phone] Elsy Sloan MD Primary Care Provider + Encounter Details Date Type Department Care Team Description 11/01/2018 Pt. Non Urgent Medic al Question Physiatry - [address] [address] Beni Aquino PA-C Social History Tobacco Use [...] on filedocumented in this encounter Care Teams Epoxy Specialist Relationship Specialty Start Date End Date Jennifer Urban MD PCP - General Internal Medicine 06/08/18 09/29/21 Alexa Rashid MD [address] [place] [phone] PCP - General Internal Medicine 09/30/21 03/15/22 Elsy Sloan MD [address] [place] [address] PCP - General Internal Medicine 03/16/22 documented as of this encounter
--- OUTSIDE RECORDS SUMMARY | 2024-12-19 07:55 | XMS_ITS | Encounter Summary ---
Author Organization [facility] Address [address] [place] [address] Care Team Providers Care Machine Installer Name Role Phone Jennifer Urban MD Primary Care Provider Unavail Alexa Mcdonald MD Primary Care Provider [phone] Elsy Sloan MD Primary Care Provider + Encounter Details Date Type Department Care Team Description 10/05/2019 Pt. Non Urgent Medic al Question Adult Medicine [address] [address] Jennifer Urban MD Social History Tobacco Use Types Packs/Day Years Used Date Smoking Tobacco: Never Smokeless Tobacco: Never Sex Assigned at Date Recorded Not on file Job Start Date Occupation Industry Not on file Not on file Not on file documented as of this encounter Miscellaneous Notes * Telephone Encounter - Negro Jang C.M.A. - 10/05/2019 2:30 PM ESTFrom: Payal Calero To: Jennifer Urban MD Sent: 10/05/2019 2:14 PM EST Subject: Prescription po!icy re:Coronavirus Has [facility] developed a procedure for patients to procure more than 30 supply of Rx in lightof the virus ?My .prescriptions are 30 day refills and I would like to get them in 90 day fillups. I just filled them but want to know how your office will handle should there be shortages because many are .manufactured in [place]. documented in this encounter Plan of Treatment Not on file documented as of this encounter Visit Diagnoses Not on filedocumented in this encounter Care Teams Machine Installer Relationship Specialty Start Date End Date Jennifer Urban MD PCP - General Internal Medicine 06/08/18 09/29/21 Alexa Rashid MD [address] [place] [address] PCP - General Internal Medicine 09/30/21 03/15/22 Elsy Sloan MD [address] [place] [address] PCP - General Internal Medicine 03/16/22 documented as of this encounter
--- OUTSIDE RECORDS SUMMARY | 2024-12-19 07:55 | XMS_ITS | Encounter Summary ---
Author Organization [employer] [facility] Address [address] [place] [address] Care Team Providers Care Dedicated Truck Driver Name Role Phone Jennifer Urban MD Primary Care Provider Unavail able Alexa Rashid MD Primary Care Provider [phone] Elsy Sloan MD Primary Care Provider + Encounter Details Date Type Department Care Team Description 07/25/2019 Telephone Medical Records [address] [place] [address] Abstract, Provider Social History Tobacco Use Types [...] on filedocumented in this encounter Care Teams Dedicated Truck Driver Relationship Specialty Start Date End Date Jennifer Urban MD PCP - General Internal Medicine 06/08/18 09/29/21 Alexa Rashid MD [address] [place] [address] PCP - General Internal Medicine 09/30/21 03/15/22 Elsy Sloan MD [address] [place] [address] PCP - General Internal Medicine 03/16/22 documented as of this encounter
--- OUTSIDE RECORDS SUMMARY | 2024-12-19 07:55 | XMS_ITS | Encounter Summary ---
Author Organization [facility] Address [address] [place] [address] Care Team Providers Care Business Representative Name Role Phone Jennifer Urban MD Primary Care Provider Unavail able Alexa Rashid MD Primary Care Provider [phone] Elsy Sloan MD Primary Care Provider + Reason for Referral * Non ADITYA (Routine) - Authorized/Booked Specialty Diagnoses / Procedures Referred By Yefri montgomery Referred To Contact Pulmonology Procedures REFERRAL TO PULMONOLOGY Jennifer Urbna MD [address] [place] [address] Tristan Funes MD [address] [place] [address] Referral ID Status Reason Start Date Expiration Date V isits Requested Visits Authorized [id number] Authorized/B ooked 10/08/2019 10/07/2020 12 12 Encounter Details Date Type Department Care Team Description 10/08/2019 Orders Only Adult Medicine [address] [address] Jennifer Urban MD Social History Tobacco Use [...] on filedocumented in this encounter Care Teams Business Representative Relationship Specialty Start Date End Date Jennifer Urban MD PCP - General Internal Medicine 06/08/18 09/29/21 Alexa Rashid MD [address] [place] [address] PCP - General Internal Medicine 09/30/21 03/15/22 Elsy Sloan MD [address] [place] [address] PCP - General Internal Medicine 03/16/22 documented as of this encounter
--- OUTSIDE RECORDS SUMMARY | 2024-12-19 07:55 | XMS_ITS | Encounter Summary ---
[facility] Address [address] [place] [address] Care Team Providers Care Element Setter Name Role Phone Jennifer Urban MD Primary Care Provider Unavail Alexa Mcdonald MD Primary Care Provider [phone] Elsy Sloan MD Primary Care Provider + Encounter Details Date Type Department Care Team Description 08/21/2019 Refill Adult Medicine [address] [address] Ariela Mayberry PA-C Social History Tobacco Use Types Packs/Day Years Used Date Smoking Tobacco: Never Smokeless Tobacco: Never Sex Assigned at Date Recorded Not on file Job Start Date Occupation Industry Not on file Not on file Not on file documented as of this encounter Miscellaneous Notes * Telephone Encounter - Gian Miguel M.A. - 08/21/2019 10:05 AM EST Lab Results Component Value Date NA 134 11/08/2018 K 4.6 11/08/2018 CO2 21 11/08/2018 CL 103 11/08/2018 BUN 20 11/08/2018 CREAT 0.99 11/08/2018 GLU 93 11/08/2018 CA 9.8 11/08/2018 GFR 55 11/08/2018 Last ov 08/15/19 documented in this encounter Plan of Treatment Not on file documented as of this encounter Visit Diagnoses Not on filedocumented in this encounter Care Teams Element Setter Relationship Specialty Start Date End Date Jennifer Urban MD PCP - General Internal Medicine 06/08/18 09/29/21 Alexa Rashid MD [address] [place] [address] PCP - General Internal Medicine 09/30/21 03/15/22 Elsy Sloan MD [address] [place] [address] PCP - General Internal Medicine 03/16/22 documented as of this encounter
--- OUTSIDE RECORDS SUMMARY | 2024-12-19 07:55 | XMS_ITS | Encounter Summary ---
Author Organization [facility] Address [address] [place] [address] Care Team Providers Care Manager Ent Name Role Phone Jennifer Urban MD Primary Care Provider Unavail Alexa Mcdonald MD Primary Care Provider [phone] Elsy Sloan MD Primary Care Provider + Reason for Visit * Reason Onset Date Comments Testing 05/01/2019 DXA bone density study 1+ sits axial skel Encounter Details Date Type Department Care Team Description 05/01/2019 Telephone Adult Medicine [address] [phone] Josselin Fernando DO Testing (DXA bone density study 1+ sits axial skel) Social History Tobacco Use Types Packs/Day Years Used Date Smoking Tobacco: Never Smokeless Tobacco: Never Sex Assigned at Date Recorded Not on file Job Start Date Occupation Industry Not on file Not on file Not on file documented as of this encounter Miscellaneous Notes * Telephone Encounter - Shayna David M.A. - 05/02/2019 5:29 PM EDT Order cancelled. * Telephone Encounter - Josselin Chatterjee DO - 05/02/2019 12:48 PM EDT Okay to cancel and will discuss at next visit * Telephone Encounter - Shayna David M.A. - 05/01/2019 6:36 PM EDT DXA bone density study 1+ sits axial skel was ordered on 07/19/18, do you want to complete the order or cancel it? Please route message back to me. documented in this encounter Plan of Treatment Not on file documented as of this encounter Visit Diagnoses Not on filedocumented in this encounter Care Teams Manager Ent Relationship Specialty Start Date End Date Jennifer Urban MD PCP - General Internal Medicine 06/08/18 09/29/21 Alexa Rashid MD [address] [place] [address] PCP - General Internal Medicine 09/30/21 03/15/22 Elsy Sloan MD [address] [place] [address] PCP - General Internal Medicine 03/16/22 documented as of this encounter
--- OUTSIDE RECORDS SUMMARY | 2024-12-19 07:55 | XMS_ITS | Encounter Summary ---
Author Organization [facility] Address [address] [place] [address] Care Team Providers Care Undercutter Name Role Phone Elsy Sloan MD Primary Care Provider + Encounter Details Date Type Department Care Team Description 01/05/2024 Orders Only Medical Records [address] [place] [address] [facility] Social History Tobacco Use Types Packs/Day Years [...] Name Priority Date/Time Associated Diagnosis Comments OUTSIDE EKG Routine 10/20/2023 documented in this encounter Results * OUTSIDE EKG (10/20/2023) [facility] CARDIOLOGY documented in this encounter Visit Diagnoses Not on filedocumented in this encounter Care Teams Undercutter Relationship Specialty Start Date End Date Elsy Sloan MD [address] [place], [place] [phone] PCP - General Internal Medicine 03/16/22 documented as of this encounter
--- OUTSIDE RECORDS SUMMARY | 2024-12-19 07:55 | XMS_ITS ---
Author Organization [facility] [address] [facility] Address [address] [place] [address] Phone Care Team Providers Care Cementer Helper Name Role Phone Elsy Sloan MD Primary [...] 02/05 Obstructive sleep apnea 10/06/2019 Overview (04/05/2024): [facility] Home Sleep Apnea Test: Date 10/02/2019; Wt [...] 2019 home sleep apnea test. Malignant melanoma ([facility], [facility] V28) Overview (04/05/2024): Jun 2019 MALIGNANT MELANOMA [...] kidney disease) stage 3, GFR 30-59 ml/min ([facility] V24, [facility] V28) 07/07/2018 Diastolic dysfunction 07/07/2018 Overview (04/05/2024): [...] having a bone marrow biopsy done in [place] stating it was normal. Hematology advised her to follow with gastroenterology and they are monitoring her labs RA (rheumatoid arthritis) ([facility] V24, [facility] V28) 07/07/2018 Raynauds disease 07/07/2018 Recurrent UTI [...] treatments are documented for this patient in [facility]. Treatments may have been administered in another system.
--- OUTSIDE RECORDS SUMMARY | 2024-12-19 07:55 | XMS_ITS | Encounter Summary ---
Author Organization [facility] Address [address] [place] [address] Care Team Providers Care Heating And Ventilating Tender Name Role Phone Jennifer Urban MD Primary Care Provider Unavail able Alexa Rashid MD Primary Care Provider [phone] Elsy Sloan MD Primary Care Provider + Encounter Details Date Type Department Care Team Description 09/26/2018 Telephone Adult [address] [address] Jennifer rUban MD Social History Tobacco Use Types Packs/Day Years Used Date Smoking Tobacco: Never Smokeless Tobacco: Never Sex Assigned at Date Recorded Not on file Job Start Date Occupation Industry Not on file Not on file Not on file documented as of this encounter Miscellaneous Notes * Telephone Encounter - Jennifer Urban MD - 09/26/2018 1:59 PM EST ----- Message from Josselin Chatterjee DO sent at 09/26/2018 1:34 PM EST ----- Vinicioi, saw you for new patient visit in August and is following up next week. I havent' changed her thyroid regimen documented in this encounter Plan of Treatment Not on file documented as of this encounter Visit Diagnoses Not on filedocumented in this encounter Care Teams Heating And Ventilating Tender Relationship Specialty Start Date End Date Jennifer Urban MD PCP - General Internal Medicine 06/08/18 09/29/21 Alexa Rashid MD [address] [place] [address] PCP - General Internal Medicine 09/30/21 03/15/22 Elsy Sloan MD [address] [place] [phone] PCP - General Internal Medicine 03/16/22 documented as of this encounter
--- OUTSIDE RECORDS SUMMARY | 2024-12-19 07:55 | XMS_ITS | Encounter Summary ---
Author Organization [facility] Address [address] [place] [address] Care Team Providers Care Convict Guard Name Role Phone Elsy Sloan MD Primary Care Provider + Encounter Details Date Type Department Care Team Description 10/28/2023 Advanced Practice Professional Report Medical Records [address] [place] [address] Carlos Teran DO Social History Tobacco Use [...] on filedocumented in this encounter Care Teams Convict Guard Relationship Specialty Start Date End Date Elsy Sloan MD [address] [place] [address] PCP - General Internal Medicine 03/16/22 documented as of this encounter
--- OUTSIDE RECORDS SUMMARY | 2024-12-19 07:55 | XMS_ITS | Encounter Summary ---
Author Organization [facility] Address [address] [place] [address] Care Team Providers Care Campus Dean Name Role Phone Elsy Sloan MD Primary Care Provider + Reason for Visit * Reason Onset Date Comments Mychart Rx Refill 11/04/2022 Encounter Details Date Type Department Care Team Description 11/04/2022 Pt. Non Urgent Medical Question Adult Medicine [address] [address] Elsy Sloan MD [address] [place] [address] Hypothyroidism, unspecified type Social History Tobacco Use Types Packs/Day [...] encounter Miscellaneous Notes * Telephone Encounter - Kellee Lambert M.A. - 11/04/2022 9:40 AM EDTFrom: Payal Calero To: Shay Sloan Sent: 11/04/2022 7:52 AM EDT Subject: Thyroid medication refill. C I could not process a refill on the web site and its important that I continue this medication. I have 5 days left. documented in this encounter Plan of Treatment Not on file documented as of this encounter Visit Diagnoses Diagnosis Hypothyroidism, unspecified type documented in this encounter Care Teams Campus Dean Relationship Specialty Start Date End Date Elsy Sloan MD [address] [place] [address] PCP - General Internal Medicine 03/16/22 documented as of this encounter
--- OUTSIDE RECORDS SUMMARY | 2024-12-19 07:55 | XMS_ITS | Encounter Summary ---
Author Organization [employer] [facility] Address [address] [place] [address] Care Team Providers Care Special Education Bus Driver Name Role Phone Jennifer Urban MD Primary Care Provider Unavail able Alexa Rashid MD Primary Care Provider [phone] Elsy Sloan MD Primary Care Provider + Encounter Details Date Type Department Care Team Description 08/14/2018 Pt. Non Urgent Medic al Question Physiatry - [address] [address] Beni Aquino PA-C Social History Tobacco Use [...] on filedocumented in this encounter Care Teams Special Education Bus Driver Relationship Specialty Start Date End Date Jennifer Urban MD PCP - General Internal Medicine 06/08/18 09/29/21 Alexa Rashid MD [address] [place] [address] [phone] PCP - General Internal Medicine 09/30/21 03/15/22 Elsy Sloan MD [address] [place] [address] PCP - General Internal Medicine 03/16/22 documented as of this encounter
--- OUTSIDE RECORDS SUMMARY | 2024-12-19 07:55 | XMS_ITS | Encounter Summary ---
Author Organization [facility] Address [address] [place] [address] Care Team Providers Care Account Support Associate Name Role Phone Jennifer Urban MD Primary Care Provider Unavail able Alexa Rashid MD Primary Care Provider [phone] Elsy Sloan MD Primary Care Provider + Encounter Details Date Type Department Care Team Description 08/19/2019 Refill Adult Medicine [address] [address] Ariela Mayberry PA-C Social History Tobacco Use Types Packs/Day Years Used Date Smoking Tobacco: Never Smokeless Tobacco: Never Sex Assigned at Date Recorded Not on file Job Start Date Occupation Industry Not on file Not on file Not on file documented as of this encounter Miscellaneous Notes * Telephone Encounter - Joyce Santiago M.A. - 08/20/2019 10:04 AM EST Last office visit 08/15/19 Losartan filled on 07/25/19 with 5 refills No results found for: 25OHD, 25HYDROXYVIT documented in this encounter Plan of Treatment Not on file documented as of this encounter Visit Diagnoses Not on filedocumented in this encounter Care Teams Account Support Associate Relationship Specialty Start Date End Date Jennifer Urban MD PCP - General Internal Medicine 06/08/18 09/29/21 Alexa Rashid MD [address] [place] [address] PCP - General Internal Medicine 09/30/21 03/15/22 Elsy Sloan MD [address] [place] [address] PCP - General Internal Medicine 03/16/22 documented as of this encounter
--- OUTSIDE RECORDS SUMMARY | 2024-12-19 07:55 | XMS_ITS | Encounter Summary ---
Author Organization [facility] Address [address] [place] [address] Care Team Providers Care Anthropologist Name Role Phone Jennifer Urban MD Primary Care Provider Unavail Alexa Mcdonald MD Primary Care Provider [phone] Elsy Sloan MD Primary Care Provider + Reason for Visit * Reason Onset Date Comments VNA Call 10/19/2018 Encounter Details Date Type Department Care Team Description 10/19/2018 Telephone Adult [address] [phone] Jennifer Urban MD VNA Call Social History Tobacco Use Types Packs/Day Years Used Date Smoking Tobacco: Never Smokeless Tobacco: Never Sex Assigned at Date Recorded Not on file Job Start Date Occupation Industry Not on file Not on file Not on file documented as of this encounter Miscellaneous Notes * Telephone Encounter - Karolyn Bee - 10/19/2018 12:36 PM EDT [facility]NA CALL Which [facility] office is calling? [facility] Full name of caller: Khushbu [phone] The caller is A nurse Is the caller at the patients home?: NO Reason for call: FYI- patient was admitted for nursing care/ effective 10/19/2018 Does caller need an urgent call back? NO Was CONTACT Telephone # obtained above?: YES Fax #: documented in this encounter Plan of Treatment Not on file documented as of this encounter Visit Diagnoses Not on filedocumented in this encounter Care Teams Anthropologist Relationship Specialty Start Date End Date Jennifer Urban MD PCP - General Internal Medicine 06/08/18 09/29/21 Alexa Rashid MD [address] [place] [address] PCP - General Internal Medicine 09/30/21 03/15/22 Elsy Slona MD [address] [place] [address] PCP - General Internal Medicine 03/16/22 documented as of this encounter
--- OUTSIDE RECORDS SUMMARY | 2024-12-19 07:55 | XMS_ITS | Encounter Summary ---
Author Organization [facility] Address [address] [place] [address] Care Team Providers Care Electronic Publications Specialist Name Role Phone Elsy Sloan MD Primary Care Provider + Encounter Details Date Type Department Care Team Description 09/27/2023 Garment Sorter Report Medical Records [address] [place] [address] Beni Aquino PA-C Social History Tobacco Use [...] on filedocumented in this encounter Care Teams Electronic Publications Specialist Relationship Specialty Start Date End Date Elsy Sloan MD [address] [place] [address] PCP - General Internal Medicine 03/16/22 documented as of this encounter
--- OUTSIDE RECORDS SUMMARY | 2024-12-19 07:55 | XMS_ITS | Encounter Summary ---
Author Organization [facility] Address [address] [place] [address] Care Team Providers Care Draw Off Worker Name Role Phone Jennifer Urban MD Primary Care Provider Unavail able Alexa Rashid MD Primary Care Provider [phone] Elsy Sloan MD Primary Care Provider + Encounter Details Date Type Department Care Team Description 06/23/2020 Orders Only Adult Medicine [address] [address] Jennifer Urban MD Hypothyroidism, unspecified type (Primary Dx) Social History [...] have Coronavirus / COVID-19? Unable to assess 06/16/2020 7:56 AM EST documented as of this encounter Plan of Treatment Not on file documented as of this encounter Results * THYROID PROFILE W/TSH (04/24/2021 2:51 PM EDT) TSH CASCADE 2.18 0.40 - 4.00 uIU/ml 04/24/2021 7:38 PM EDT [facility] 04/24/2021 2:51 PM EDT 04/24/2021 2:52 PM EDT Narrative [facility] - 04/24/2021 7:38 PM EDT Release to patient->Immediate Jennifer Urban MD LAB [facility] documented in this encounter Visit Diagnoses Diagnosis Hypothyroidism, unspecified type- Primary Essential hypertension Unspecified essential hypertension Hypothyroidism, unspecified type documented in this encounter Care Teams Draw Off Worker Relationship Specialty Start Date End Date Jennifer Urban MD PCP - General Internal Medicine 06/08/18 09/29/21 Alexa Rashid MD [address] [place] [address] PCP - General Internal Medicine 09/30/21 03/15/22 Elsy Sloan MD [address] [place] [address] PCP - General Internal Medicine 03/16/22 documented as of this encounter
--- OUTSIDE RECORDS SUMMARY | 2024-12-19 07:55 | XMS_ITS | Encounter Summary ---
Author Organization [facility] Address [address] [place] [address] Care Team Providers Care Scientific Research Manager Name Role Phone Elsy Sloan MD Primary Care Provider + Reason for Visit * Reason Onset Date Comments Mychart Rx Refill 12/01/2022 Prior Authorization 12/01/2022 Encounter Details Date Type Department Care Team Description 12/01/2022 Refill Adult Medicine [address] [address] Elsy Sloan MD [address] [place] [address] [phone] Mychart Rx Refill; Prior Authorization Social History Tobacco Use Types Packs/Day Years [...] encounter Miscellaneous Notes * Telephone Encounter - Paige Glover M.A. - 12/03/2022 4:51 PM EDT AUTH APPROVED EXP 12/01/24 FAXED TO SEMJA Glover Prior Auth Dep Ext [id number] * Telephone Encounter - Paige Glover M.A. - 12/01/2022 1:14 PM EDT AUTH SENT WITH [facility] DX:[id number] Paige Glover Prior Auth Dep Ext [id number] * Telephone Encounter - Kellee Lambert M.A. - 12/01/2022 10:33 AM EDT Lidocaine refill not appropriate as this was filled 11/04 #30 w/5 refills. However, per [facility] ms pt states this nds prior auth. Will route to [facility]. documented in this encounter Plan of Treatment Not on file documented as of this encounter Visit Diagnoses Diagnosis Fibromyalgia Mylagia and myositis, unspecified Cervical stenosis of spinal canal Spinal stenosis in cervical region documented in this encounter Care Teams Scientific Research Manager Relationship Specialty Start Date End Date Elsy Sloan MD [address] [place] [address] PCP - General Internal Medicine 03/16/22 documented as of this encounter
--- OUTSIDE RECORDS SUMMARY | 2024-12-19 07:55 | XMS_ITS | Encounter Summary ---
Author Organization [facility] Address [address] [address] Phone Care Team Providers Care Wire Bender Hand Name Role Phone Elsy Sloan Primary Care Provider Encounter Details Date Type Department Care Team (Late st Contact Info) Description 11/08/2024 Office Communication [facility] [address] [phone] Kelley Cordova ARNP [address] [address] Social History Tobacco Use Types [...] Office Visit [facility] [address] [address] Kelley Cordova ARNP [address] [address] documented as of this encounter Visit Diagnoses Not on filedocumented in this encounter Care Teams Wire Bender Hand Relationship Specialty Start Date End Date Elsy Sloan PCP - General 10/27/22 documented as of this encounter
--- OUTSIDE RECORDS SUMMARY | 2024-12-19 07:55 | XMS_ITS | Encounter Summary ---
Author Organization [facility] Address [address] [place] [address] Care Team Providers Care Director Of Blood Name Role Phone Jennifer Urban MD Primary Care Provider Unavail Alexa Mcdonald MD Primary Care Provider [phone] Elsy Sloan MD Primary Care Provider + Reason for Visit * Reason Onset Date Comments medication problems 04/05/2019 Encounter Details Date Type Department Care Team Description 04/05/2019 Telephone Adult Medicine [address] [address] Jennifer Urban MD medication problems Social History Tobacco Use Types Packs/Day Years Used Date Smoking Tobacco: Never Smokeless Tobacco: Never Sex Assigned at Date Recorded Not on file Job Start Date Occupation Industry Not on file Not on file Not on file documented as of this encounter Miscellaneous Notes * Telephone Encounter - Joyce Santiago M.A. - 04/11/2019 11:01 AM EDT Please sign, The pharmacy has the 20 mg tabs and can fill for take 2 tabs daily The pt never called us back and the pharmacy called saying the pt wants to citrus picker their rx. * Telephone Encounter - Tiffani Whelan M.A. - 04/05/2019 12:22 PM EDT LM to return our call [phone] * Telephone Encounter - Ariela Mayberry PA-C - 04/05/2019 12:19 PM EDT We can try sending it to a different pharmacy to see if it is available elsewhere, otherwise I can send in two 20 mg tabs. Please let me know what patient would prefer * Telephone Encounter - Joyce Santiago M.A. - 04/05/2019 12:16 PM EDT Please review, telmisartan 40 mg is not available. * Telephone Encounter - Sierra Sierra - 04/05/2019 9:16 AM EDT Who is calling? A pharmacist: Pharmacy: [facility] Pharmacist Name: n/a Pharmacy Phone # fax [phone] Name of the medication telmisartan 40 mg What is the specific problem or interaction? Med not available / Requesting alternative If the patient is having a problem with taking the med - how long has the problem been going on? N/A documented in this encounter Plan of Treatment Not on file documented as of this encounter Visit Diagnoses Not on filedocumented in this encounter Care Teams Director Of Blood Relationship Specialty Start Date End Date Jennifer Urban MD PCP - General Internal Medicine 06/08/18 09/29/21 Alexa Rashid MD [address] [place] [address] PCP - General Internal Medicine 09/30/21 03/15/22 Elsy Sloan MD [address] [place] [address] PCP - General Internal Medicine 03/16/22 documented as of this encounter
--- OUTSIDE RECORDS SUMMARY | 2024-12-19 07:55 | XMS_ITS | Encounter Summary ---
Author Organization [facility] Address [address] [place] [address] Care Team Providers Care Demonstrator Knitting Name Role Phone Jennifer Urban MD Primary Care Provider Unavail Alexa Mcdonald MD Primary Care Provider [phone] Elsy Sloan MD Primary Care Provider + Reason for Visit * Reason Onset Date Comments Mychart Rx Refill 04/14/2020 Encounter Details Date Type Department Care Team Description 04/14/2020 Refill Adult Medicine [address] [address] Ariela Mayberry PA-C Mychart Rx Refill Social History Tobacco Use [...] have Coronavirus / COVID-19? Unable to assess 04/09/2020 8:23 AM EDT documented as of this encounter Miscellaneous Notes * Telephone Encounter - Ariela Mayberry PA-C - 04/15/2020 8:33 AM EDT Vitamin D level ordered, please advise patient to come in and have this completed * Telephone Encounter - Gina Miguel M.A. - 04/15/2020 8:05 AM EDT Lab Results Component Value Date NA 130 03/28/2020 K 4.3 03/28/2020 CO2 25 03/28/2020 CL 98 03/28/2020 BUN 20 03/28/2020 CREAT 1.03 03/28/2020 GLU 100 03/28/2020 CA 8.9 03/28/2020 GFR 53 03/28/2020 PT HAS NOT HAD A VIT D LAB, and is requesting 50,000iu refill Last appt with Ariela 02/12/20 documented in this encounter Plan of Treatment Not on file documented as of this encounter Results * (ABNORMAL) 25 HYDROXY INCLUDES FRACTIONS IF PERFORMED (05/15/2020 1:14 PM EDT) VITAMIN D, 25-HYDROXY 114(H) 30 - 80 ng/mL 05/15/2020 4:48 PM EDT [facility] Comment:RECHECKED 05/15/2020 1:14 PM EDT 05/15/2020 1:19 PM EDT Ariela Mayberry PA-C LAB [facility] documented in this encounter Visit Diagnoses Diagnosis Vitamin D deficiency- Primary Unspecified vitamin D deficiency documented in this encounter Care Teams Demonstrator Knitting Relationship Specialty Start Date End Date Jennifer Urban MD PCP - General Internal Medicine 06/08/18 09/29/21 Alexa Rashid MD [address] [place] [address] PCP - General Internal Medicine 09/30/21 03/15/22 Elsy Sloan MD [address] [place] [address] PCP - General Internal Medicine 03/16/22 documented as of this encounter
--- OUTSIDE RECORDS SUMMARY | 2024-12-19 07:55 | XMS_ITS | Encounter Summary ---
Author Organization [facility] Address [address] [place] [address] Care Team Providers Care Lithographic Printing Machinist Name Role Phone Jennifer Urban MD Primary Care Provider Unavail Alexa Mcdonald MD Primary Care Provider [phone] Elsy Sloan MD Primary Care Provider + Encounter Details Date Type Department Care Team Description 08/02/2018 Orders Only Adult Medicine [address] [address] Josselin Fernando DO Pyuria (Primary Dx); Hypothyroidism, unspecified type Social History Tobacco Use Types Packs/Day Years Used Date Smoking Tobacco: Never Smokeless Tobacco: Never Sex Assigned at Date Recorded Not on file Job Start Date Occupation Industry Not on file Not on file Not on file documented as of this encounter Plan of Treatment Scheduled Orders Name Type Priority Associated Diagnoses Orde r Schedule URINALYSIS, ROUTINE Lab Routine Pyuria Expected: 08/02/2018, Expires: 08/02/2019 URINE, CULTURE Lab Routine Pyuria Expected: 08/02/2018, Expires: 08/02/2019 documented as of this encounter Results * (ABNORMAL) TSH (09/26/2018 8:33 AM EST) TSH 0.01(L) 0.40 - 4.00 uIU/ml 09/26/2018 12:26 PM EST [facility] 09/26/2018 8:33 AM EST 09/26/2018 8:35 AM EST Josselin Chatterjee DO LAB [facility] documented in this encounter Visit Diagnoses Diagnosis Pyuria- Primary Other nonspecific finding on examination of urine Hypothyroidism, unspecified type documented in this encounter Care Teams Lithographic Printing Machinist Relationship Specialty Start Date End Date Jennifer Urban MD PCP - General Internal Medicine 06/08/18 09/29/21 Alexa Rashid MD [address] [place] [address] PCP - General Internal Medicine 09/30/21 03/15/22 Elsy Sloan MD [address] [place] [address] PCP - General Internal Medicine 03/16/22 documented as of this encounter
== END 2024-12-19 08:25 | disposition home or self-care (01) ==
LOC: HO.RHES 07:51
PROVIDERS: PCP Family Medicine; Visit Provider Internal Medicine Rheumatology
DX: M06.9 Rheumatoid arthritis, unspecified (principal); Z79.899 Other long term (current) drug therapy; M81.0 Age-related osteoporosis without current pathological fracture
CPT/HCPCS: 99214; G2211

== ENCOUNTER → 2024-12-19 07:50 | Outpatient (BNVA) | payer MEDICARE, SELFPAY | PROVIDERS: PCP Family Medicine; Visit Provider Internal Medicine Rheumatology | DX: M06.9 Rheumatoid arthritis, unspecified (principal); M81.0 Age-related osteoporosis without current pathological fracture; Z79.899 Other long term (current) drug therapy | CPT/HCPCS: 99212 ==

== ENCOUNTER 2025-03-05 12:49 | Outpatient (REF) | payer MEDICARE, SELFPAY ==
[2025-03-05 18:24] LABS: Alanine Aminotransferase 11 U/L (0-31); Aspartate Amino Transferase 19 U/L (5-31)
== END 2025-03-05 12:50 | disposition home or self-care (01) ==
LOC: HO.HKASLDS 12:49
PROVIDERS: PCP Family Medicine; Visit Provider Internal Medicine Rheumatology
DX: M06.9 Rheumatoid arthritis, unspecified (principal); M81.0 Age-related osteoporosis without current pathological fracture; Z79.899 Other long term (current) drug therapy
CPT/HCPCS: 36415; 84450; 84460; 96372; 99212; J3111

== ENCOUNTER 2025-03-05 12:49 | Outpatient (AMB) | payer MEDICARE, SELFPAY ==
--- NOTE | 2025-03-05 13:23 | AM.OFFVISNUR ---
Intake Visit Reasons: evenity #10 Allergies Latex, Natural Rubber Allergy (Mild, Verified 12/19/24 07:53) rash, itching morphine Allergy (Unknown, Verified 12/19/24 07:53) Unknown pregabalin (From Lyrica) Allergy (Unknown, Verified 12/19/24 07:53) Unknown Penicillins Adverse Reaction (Unknown, Verified 12/19/24 07:53) Unknown warfarin Adverse Reaction (Unknown, Verified 12/19/24 07:53) Unknown bee stings Allergy (Intermediate, Uncoded 08/07/24 09:19) Anaphylaxis lovonox Allergy (Mild, Uncoded 08/07/24 09:19) Hives Office Meds romosozumab-aqqg 210 mg/2.34 mL(105 mg/1.17 mL x2)subcutaneous syringe Performing Provider: Teto Tran MD Performing Location: [facility] Rhe[facility]ology Administered by: Anaid Mari RN on 03/05/25 13:25 Dose Route Admin Location Dispensed Lot Number Expiration Date [facility] Pest Control Worker Helper 105 mg subcut Left posterior arm 1.17 mL [id number] 05/07/27 12540-717-99 [employer] 105 mg subcut Right posterior arm 1.17 mL [id number] 05/07/27 61441-853-03 [employer] Total Dispensed Waste 2.34 mL 0 % Comments: Payal Calero presents today for #10 Evenity (romosozumab) 2 x 105 mg/1.17 mL subcutaneous injection for the treatment of osteoporosis. The patient has not had any recent fever or illness. The injection site to be used is without erythema, edema, and is clean, dry and intact. The patient tolerated the procedure well. We discussed follow-up precautions, including but not limited to injection site soreness, redness, itching or swelling. The patient can call the office for consideration of treatment recommendations e.g., medication to reduce pain (e.g., Tylenol) or itching (e.g., Benadryl) if needed. Skin and mucosal symptoms such as generalized hives, itching, or flushing; swelling of lips, face, throat, or eyes. Respiratory symptoms such as nasal congestion, change in voice, sensation of throat closing, stridor, shortness of breath, wheeze, or cough. Gastrointestinal symptoms such as nausea, vomiting, diarrhea, cramping abdominal pain. Cardiovascular symptoms such as collapse, dizziness, tachycardia, hypotension are considered medical emergencies and the patient verbalizes that urgent medical attention (call 911) should be sought. No injection site reactions noted. Assessment & Plan Assessment & Plan Orders: Orders AMB Romosozumab Injection Patient Supplied Today M06.9 - Rheumatoid arthritis, unspecified Coding
--- OUTSIDE RECORDS SUMMARY | 2025-03-05 13:36 | XMS_ITS ---
Author Name [facility] Organization Unknown Care Team Organization Name Specialty Phone Email Start Date End Da te [facility] MERE FOSTER [email or web address] 10/13/2022 4 [facility] Termed, PROVIDER Primary Care 06/15/202203/08 4
--- OUTSIDE RECORDS SUMMARY | 2025-03-05 13:36 | XMS_ITS ---
Continuity of Care Document (CCD) Created on: March 05, 2025 Payal Calero External Reference #: [id number] : [id number] Sex: Female Author Organization [facility] Address [address] [place] [address] Phone [phone] Care Team Providers Care Compliance Quality Performance Analyst Name Role Phone Elsy Sloan Care Team Information Rece iver [phone] Social History Type Date Description Comments Sex Female Sex Unknown Medical Devices Description No Information Available Encounters Description No Information Available Assessments Description No Information Available Plan of Treatment Future Appointment(s):* 03/28/2025 9:30 am - Shankar Sage M.D. at Main Office Functional Status Description No Information Available Mental Status Description No Information Available Referrals Description No Information Available
--- OUTSIDE RECORDS SUMMARY | 2025-03-05 13:36 | XMS_ITS | Clinical Summary ---
Author Organization [facility] Address [address] [place] [address] Care Team Providers Care Cell Reliner Name Role Phone Elsy Sloan MD Primary [...] specified 02/05 Obstructive sleep apnea 10/06/2019 Overview: [facility] Home Sleep Apnea Test: Date [...] RARE DERMAL MELANOCYTES SUGGESTIVE OF SUPERFICIAL INVASION (ELAL LEVEL I, [place] DEPTH 0.14 MM) Cervical [...] 84 02/01/2024 1:01 PM EDT Temperature 36.7 C (98 F) 02/01/2024 1:01 PM EDT Respiratory Rate 18 [...] 09/14/2020, Additional history exists Influenza Vaccine (#1) 2025 , 06/28/2019, 08/17/2018, Additional history exists DTap / Tdap / Td (2 - Td or Tdap) 03/09/2033 03/09/2023 Pneumococcal Vaccine Completed 06/02/2015, 06/14/20 14 Hepatitis B Vaccines Aged Out No long er eligible based on patient's age to complete this topic RSV Ped < 20 months Aged Out No longe r eligible based on patient's age to complete this topic Care Teams Cell Reliner Relationship Specialty Start Date End Date Elsy Sloan MD [address] [place] [address] PCP - General 01/19/24
--- OUTSIDE RECORDS SUMMARY | 2025-03-05 13:36 | XMS_ITS | Clinical Summary ---
Author Organization [facility] [address] [place] [address] [place] [phone] Phone Care Team Providers Care [employer] Name Role Phone Elsy Sloan MD Primary [...] 650 mg by mouth. 02/21/20 21 Active fexofenadine (ELIDA) 180 mg tablet Take 1 tablet (180 mg total) by mouth 1 (one) time each day. 01/03/20 24 Active romosozumab-aqqg (Evenity) 01/03/20 24 Active meclizine (ANTIVERT) 12.5 mg tablet Take 1 tablet (12.5 mg total) by mouth 3 (three) times a day if needed for dizziness (vertigo). 30 tablet 2 08/29/19 25 Active pravastatin (PRAVACHOL) 40 mg tablet Take 1 tablet (40 mg total) by mouth at bedtime. 90 tablet 1 08/29/19 25 Active hydrocortisone 2.5 % cream Apply 1 Application topically 2 (two) times a day. Active lidocaine (LIDODERM) 5 % patchIndications :Facet arthropathy, cervical Apply topically 1 (one) time each day. Remove & discard patch within 12 hours or as directed by MD. 30 patch 11/06/19 25 Active fluticasone propionate (FLONASE) 50 mcg/actuation nasal spray Administer 1 spray into each nostril 2 (two) times a day. Shake gently. Before first use, prime pump. After use, clean tip and replace cap. 16 g 1 11/06/19 25 Active amLODIPine (NORVASC) 5 mg tablet Take 1 tablet (5 mg total) by mouth 1 (one) time each day. Active EPINEPHrine (EPIPEN) 0.3 mg/0.3 mL injectionIndicat ions:Allergy to bee sting Inject 0.3 mL (0.3 mg total) into the thigh if needed for anaphylaxis. 1 each 2 12/28/19 25 Active Simponi 50 mg/0.5 mL pen injector injection Inject 0.5 mL (50 mg total) under the skin. 12/27/19 25 Active losartan (Cozaar) 50 mg tabletIndication s:Primary hypertension Take 1 tablet (50 mg total) by mouth 1 (one) time each day. 90 each 1 12/28/19 25 025 Active aspirin-dipyrida mole (AGGRENOX) 25-200 mg per 12 hr capsule Take 1 capsule by mouth at bedtime. 90 each 1 12/28/19 25 025 Active busPIRone (BUSPAR) 5 mg tabletIndication s:Anxiety Take 1 tablet (5 mg total) by mouth 2 (two) times a day. 180 each 1 12/28/19 25 025 Active DULoxetine (CYMBALTA) [address] capsuleIndicatio ns:Fibromyalgia, Anxiety and depression,Anxie ty Take 1 capsule (60 mg total) by mouth 1 (one) time each day. Do not crush or chew. 90 capsule 1 12/28/19 25 Active baclofen (LIORESAL) 10 mg tablet Take 1 tablet (10 mg total) by mouth 3 (three) times a day. 270 tablet 1 07/22/20 25 Active esomeprazole (NexIUM) [address] capsule Take 1 capsule (40 mg total) by mouth 1 (one) time each day. Do not open capsule. 90 capsule 1 02/27/20 25 Active levothyroxine (SYNTHROID, LEVOTHROID) 137 mcg tablet Take 1 tablet (137 mcg total) by mouth 1 (one) time each day before breakfast. 90 tablet 1 02/27/20 25 Active galcanezumab-gnl m (EMGALITY) 120 mg/mL injection pen Inject 1 mL (120 mg total) under the skin every 28 (twenty-eight) days. 3 Pen 3 03/01/20 25 Active cyanocobalamin (Vitamin B-12) 500 mcg tablet Take 1 tablet (500 mcg total) by mouth 1 (one) time each day. 30 each 03/01/20 25 026 Active baclofen (LIORESAL) 10 mg tablet Take 1 tablet (10 mg total) by mouth 3 (three) times a day. 270 tablet 1 08/29/19 025 Discontin ued(Reord er) esomeprazole (NexIUM) [address] capsule Take 1 capsule (40 mg total) by mouth 1 (one) time each day. Do not open capsule. 90 capsule 1 08/29/19 025 Discontin ued(Reord er) levothyroxine (SYNTHROID, LEVOTHROID) 137 mcg tablet Take 1 tablet (137 mcg total) by mouth 1 (one) time each day before breakfast. 90 tablet 1 08/29/19 25 025 Discontin ued(Reord er) galcanezumab-gnl m (EMGALITY) 120 mg/mL injection pen Inject 1 mL (120 mg total) under the skin every 28 (twenty-eight) days. 025 Discontin ued(Reord er) Hospital, Clinic, or Other Facility Administered Medication Ordered Dose Route Frequency Start Date End Date Status galcanezumab-gnlm (EMGALITY) syringe 120 mgIndications:Intr actable migraine with aura without status migrainosus 120 mg subQ Every 28 days 10/16/2024 03/01/2025 Dis continued Active Problems Problem Noted Date Diagnosed Date Systolic murmur 12/27/2024 Assessment & Plan (12/27/2024 4:53 PM EDT): She has a chronic systolic murmur and diastolic dysfunction/aortic sclerosis without stenosis on her old echocardiogram. Will update echocardiogram Orders: Transthoracic echocardiogram (TTE) complete with PRN contrast, bubble, strain, and 3D order panel; Future Migraine without status migrainosus, not intract able 08/30/2024 Assessment & Plan (12/27/2024 4:53 PM EDT): Continue follow up with neurology. Continue Emgality History of transient ischemic attack (TIA) 08/30 Assessment & Plan (12/27/2024 4:53 PM EDT): Primary hypertension 08/30/2024 Assessment & Plan (12/27/2024 4:53 PM EDT): Continue amlodipine 5 mg daily on losartan 50 mg daily Blood pressure is well-controlled Orders: losartan (Cozaar) 50 mg tablet; Take 1 tablet (50 mg total) by mouth 1 (one) time each day. Vertigo 08/14/2024 Diaphragmatic hernia without obstruction or gang naveed 02/17/2021 Generalized muscle weakness 02/17/2021 Nondisplaced intertrochanter ic fracture of right femur, sequela 02/17/2021 Other abnormalities of gait and mobility 021 Unspecified fall, sequela 02/17/2021 Unspecified fracture of right femur, sequela Unsteadiness on feet 02/17/2021 Unspecified osteoarthritis, unspecified site Obstructive sleep apnea 10/06/2019 Overview (04/05/2024): [facility] Home Sleep Apnea Test: Date 10/02/2019; [...] 2019 home sleep apnea test. Malignant melanoma ([facility] V24, [facility] V28) Overview (04/05/2024): Jun 2019 MALIGNANT [...] any new questions or concerns. Osteoporosis 07/19/2018 Assessment & Plan (12/27/2024 4:53 PM EDT): Continue follow up with Dr. Tran. 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 Stenosis. Mod-severe R MCA stenosis 12/2010 Assessment & Plan (12/27/2024 4:53 PM EDT): Continue Aggrenox daily CKD (chronic kidney disease) stage 3, GFR 30-59 ml/min ([facility] V24, [facility] V28) 07/07/2018 Assessment & Plan (12/27/2024 4:53 PM EDT): Continue routine nephrology follow-up. Recently completed labs in November which showed improved renal function. GFR 77 Diastolic dysfunction 07/07/2018 Overview (04/05/2024): ECHO 02/2008 - murmur. Aortic sclerosis (NO stenosis) Facet arthropathy, cervical 07/07/2018 Fibromyalgia 07/07/2018 Assessment & Plan (12/27/2024 4:53 PM EDT): Continue duloxetine daily Orders: DULoxetine (CYMBALTA) [address] capsule; Take 1 capsule (60 mg total) by mouth 1 (one) time each day. Do not crush or chew. GERD (gastroesophageal reflux disease) 8 Hyperlipidemia 07/07/2018 Assessment & Plan (12/27/2024 4:53 PM EDT): Pending fasting lipids which were ordered by colleague in August. She will return for labs Continue pravastatin 40 mg nightly Hypothyroidism 07/07/2018 Assessment & Plan (12/27/2024 4:53 PM EDT): Continue levothyroxine 137 mcg daily Iron deficiency anemia 07/07/2018 Overview (04/05/2024): Unresponsive to oral supplements. Was getting Venofer infusions 2016- IV access problems. Iron infusion 03/2017, transfused 1 unit PRBCs, iron infusion 06/2017 Follows with hematology, many years ago she reports having a bone marrow biopsy done in [place] stating it was normal. Hematology advised her to follow with gastroenterology and they are monitoring her labs Assessment & Plan (12/27/2024 4:53 PM EDT): Status post iron infusions. Due for repeat CBC which she will complete RA (rheumatoid arthritis) ([facility] V24, [facility] V28) 07/07/2018 Assessment & Plan (12/27/2024 4:53 PM EDT): Continue follow up with Dr. 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 Vitamin D deficiency 07/07/2018 Resolved Problems Problem Noted Date Diagnosed Date Resolved Date Low back pain 02/17/2021 12/27/2024 Urinary tract infection, site not specified 02/17/2021 12/27/2024 Encounters Date Type Department Care Team Description 03/01/2025 8:30 AM EDT Telemedicine [facility] [address] [place] [phone] Yoselyn Dalton MD Cerebrovascular disease (Primary Dx); Cervical stenosis of spinal canal; Intractable migraine with aura without status migrainosus; Vertigo 02/14/2025 [facility] [address] [place] [phone] JewettYuli burt [facility] 02/13/2025 Telephone Adult Medicine [address] [phone] Elsy Sloan MD Referral (Ophthalmology Insurance Referral) 01/30/2025 Telephone Adult Medicine [address] [phone] Elsy Sloan MD 12/27/2024 9:00 AM EDT Office Visit Adult Medicine [address] [phone] Elsy Sloan MD Annual wellness visit (Primary Dx); Stage 3a chronic kidney disease ([facility]/HCC V24, [facility] V28); Primary hypertension; Need for hepatitis C screening test; Iron deficiency anemia, unspecified iron deficiency anemia type; Mixed hyperlipidemia; Hypothyroidism, unspecified type; Cerebrovascular disease; History of transient ischemic attack (TIA); Allergy to bee sting; Fibromyalgia; Anxiety and depression; Anxiety; Systolic murmur; Rheumatoid arthritis involving both hands with positive rheumatoid factor (CMS/HCC V24, [facility] V28); Age-related osteoporosis without current pathological fracture; Migraine without aura and without status migrainosus, not intractable; Colon cancer screening from Last 3 Months Immunizations Name Administration Dates Next Due Influenza Quadravalent, MDCK , 0.5ml, preservative free (Flucelvax) 6mo and older 08/17/2018 Influenza trivalent, 0.5mL (Fluad) 65yo and olde r 06/28/2019 Influenza trivalent, 0.5mL ( Fluzone High-dose) 65yo and older 07/11/2023,06/10/2017 [employer] SARS-CoV-2 COVID-19, mRNA, LNP-S, preservative free 05/26/2021 Pneumococcal conjugate 13 va lent (Prevnar 13, PCV13) 2mo and older 06/14/2014 Pneumococcal polysaccharide 23 valent (Pneumovax 23) 2yo and older 06/02/2015 Tdap Tetanus diptheria acell ular pertussis (Boostrix; Adacel) 7yo and older 03/09/2023 Surgical History Surgery Date Site/Laterality Comments CHOLECYSTECTOMY [...] disea se) stage 3, GFR 30-59 ml/min ([facility]) Diastolic dysfunction 07/07/2018 DX:Diastol ic dysfunction; [...] V24, CMS/HCC V28) 07/07/2018 DX:RA (rheumatoid arthritis) ([facility]) Raynauds disease 07/07/2018 DX:Raynauds dis ease [...] (ELLA LEVEL I, [place] DEPTH 0.14 MM) Low back pain 02/17/2021 Family History Medical History Relation Name Comments [...] you may not have stable housing? No 12/24/2024 Food Access & Nutrition Answer Date Rec orded Do you have access to a vari ety of food including fruits and vegetables? Yes 12/24/2024 Access to Healthcare Answer Date Record ed Within the last 3 months, ho w many times did you visit the emergency department for your medical care? 0 12/24/2024 Health Literacy Answer Date Recorded How often do you need to hav e someone help you when you read instructions, pamphlets, or other written material from your doctor or pharmacy? Rarely 12/24/2024 Caregiver: How often do you need to have someone help you when you read instructions, pamphlets, or other written material from your doctor or pharmacy? Not on file 12/24/2024 Financial Risk Answer Date Recorded How hard is it for you to pa y for the very basics like food, housing, medical care, and air conditioning / heating? Not very hard 12/24/2024 Transportation Answer Date Recorded Has the lack of transportati on kept you from meetings, work, or from getting things needed for daily living? No Has the lack of transportati on kept you from medical appointments or from getting medications? No 12/24/2024 Social Isolation Answer Date Recorded How often do you feel lonely or isolated from those around you? Sometimes 12/24/2024 Food Risk Answer Date Recorded Within the past 12 months we worried whether our food would run out before we got money to buy more. Never true 12/24/2024 Within the past 12 months th e food we bought just didn't last and we didn't have money to get more. Never true 12/24/2024 Dependent Care Answer Date Recorded Do you need help finding or paying for care for your loved ones. For example, exceptional children's teacher or elderly care for an older adult? No 12/24/2024 Education Answer Date Recorded Do you think completing more education or training, like finishing a GED, going to college, or learning a trade, would be helpful for you? No 12/24/2024 Employment and Income Answer Date Recor ded During the last four weeks, have you been actively looking for work? No 12/24/2024 Living Situation Answer Date Recorded What is your living situation? 0 12/24/2024 Comments Unknown Sex and Gender Information Value Date Recorded Sex Assigned at Female 11/13/2024 1:47 PM EDT Legal Sex Female 1:47 PM EST Gender Identity Female 11/13/2024 1:47 PM EDT Sexual Orientation Choose not to disclose 2024 1:47 PM EDT Obstetrics History Last Filed Vital Signs Vital Sign Reading Time Taken Comments Blood Pressure 126/71 12/27/2024 9:02 AM EDT Pulse 91 12/27/2024 9:02 AM EDT Temperature 36.9 C (98.5 F) 12/27/2024 9:02 AM EDT Respiratory Rate 16 12/27/2024 9:02 AM EDT Oxygen Saturation 100% 11/27/2024 11:45 AM EDT Inhaled Oxygen Concentration - - Weight 71.2 kg (157 lb) 12/27/2024 9:02 AM EDT Height 162.6 cm (5' 4 ) 12/27/2024 9:02 AM EDT Body Mass Index 26.95 12/27/2024 9:02 AM EDT Plan of Treatment Upcoming Encounters Date Type Department Care Team (Late st Contact Info) Description 04/09/2025 3:30 PM EDT Ancillary Procedure [facility] [address] [facility] [address] [place] [phone] 04/30/2025 5:00 PM EDT Office Visit Adult Medicine [facility] [address] [place] [phone] Milady Muniz PA [address] [place] [address] 06/26/2025 3:30 PM EST Office Visit [facility] [address] [facility] [address] [place] [phone] Katelynn Le PA [address] [address] 07/23/2025 9:00 AM EST Office Visit [facility] Hematology Oncology [address] [place] [phone] Krishan Cope MD [address] [place] [address] Health Maintenance Due Date Last Done Comments Zoster Vaccines (1 of 2) 1964 RSV Immunization Adult Patients (1 - 1-dose 75+ series) 2022 Colorectal Cancer Screening: Stool Based Tests (FOBT/FIT) 07/17/2022 COVID-19 Vaccine ( season) 2024 01/21/2023, 05/24/2022, 12/02/2021, Additional history exists Influenza Vaccine (#1) 2025 , 06/28/2019, 08/17/2018, Additional history exists Social Influencers of Health Screening 12/24/2025 12/24/2024 Falls Risk Assessment 12/27/2025 12/27/2024 , 12/27/2024, 11/21/2024 Medicare Annual Wellness Visit 12/27/2025 12/27/2024 Hypertension/CHF/CAD Annual BMP Blood Test 01/29/2026 01/29/2025, 11/29/2024, 01/03/2024 Cholesterol Screening (Lipid Panel) 01/29/2030 01/29/2025, 01/03/2024 DTaP,Tdap,and Td Vaccines (2 - Td or Tdap) 03/09/2033 03/09/2023 Osteoporosis Screening (Bone Density Screening) 12/27/2033 12/28/2023 Pneumococcal Vaccine: 50+ Years Completed 06/02/2015, 06/14/2014 Hepatitis C Screening Completed 01/29/2025 Depression Screening Completed 03/01/2025 HIB Vaccines Aged Out No longer eligi [...] Associated Diagnosis Comments BASIC METABOLIC PANEL Routine 01/29/2025 10:24 AM EDT Primary hypertension Stage 3 chronic kidney disease, unspecified whether stage 3a or 3b CKD (CMS/HCC V24, [facility] V28) COMPLETE BLOOD COUNT Routine 01/29/2025 10:24 AM EDT Iron deficiency anemia, unspecified iron deficiency anemia type FERRITIN Routine 01/29/2025 10:24 AM EDT Iron deficiency anemia, unspecified iron deficiency anemia type IRON AND TIBC Routine 01/29/2025 10:24 AM EDT Iron deficiency anemia, unspecified iron deficiency anemia type LIPID PANEL WITH REFLEX TO DIRECT LDL Routine 01/29/2025 10:24 AM EDT Other hyperlipidemia THYROID STIMULATING HORMONE WITH REFLEX TO FREE T4 AND FREE T3 Routine 01/29/2025 10:24 AM EDT Hypothyroidism, unspecified type SEDIMENTATION RATE Routine 01/29/2025 10 :24 AM EDT History of transient ischemic attack (TIA) Other migraine without status migrainosus, not intractable Vertigo Intractable migraine with aura without status migrainosus VITAMIN B12 Routine 01/29/2025 10:24 AM EDT History of transient ischemic attack (TIA) Other migraine without status migrainosus, not intractable Vertigo Intractable migraine with aura without status migrainosus VITAMIN D 25 HYDROXY Routine 01/29/2025 10:24 AM EDT History of transient ischemic attack (TIA) Other migraine without status migrainosus, not intractable Vertigo Intractable migraine with aura without status migrainosus Vitamin D deficiency HEPATITIS C ANTIBODY Routine 01/29/2025 10:24 AM EDT Need for hepatitis C screening test from Last 3 Months Results * Hepatitis C antibody (01/29/2025 10:24 AM EDT) Hepatitis C Antibody Negative Negative LAB CHEMISTRY METHOD 01/29/2025 5:33 PM EDT [facility] Blood Venous blood specimen / Unknown Venipuncture / Unknown 01/29/2025 10:24 AM EDT 01/29/2025 10:24 AM EDT Elsy Sloan MD LAB BLOOD ORDERA BLES Final Result [facility] [address] [place] [address], [place] [phone] * Thyroid stimulating hormone with reflex to free t4 and free t3 (01/29/2025 10:24 AM EDT) TSH 1.96 0.40 - 4.00 mcIU/mL LAB CHEMISTRY METHOD 01/29/2025 4:56 PM EDT [facility] Blood Venous blood specimen / Unknown Venipuncture / Unknown 01/29/2025 10:24 AM EDT 01/29/2025 10:24 AM EDT us Milady ADAM LAB BLOOD ORDERABLES Final Re sult [facility] [address] [place] [address], [place] [phone] * (ABNORMAL) Lipid panel with reflex to direct LDL (01/29/2025 10:24 AM EDT) Pathologist [facility] Cholesterol 191 0 - 200 mg/dL LAB CHEMISTRY METHOD 01/29/2025 2:56 PM EDT [facility] Triglycerides 105 0 - 150 mg/dL LAB CHEMISTRY METHOD 01/29/2025 2:56 PM EDT [facility] HDL 63 >=40 mg/dL LAB CHEMISTRY METHOD 01/29/2025 2:56 PM T [facility] LDL Calculated 107(H) 0 - 100 mg/dL LAB CHEMISTRY METHOD 01/29/2025 2:56 PM T [facility] VLDL Cholesterol Oren 21 mg/dL LAB CHEMISTRY METHOD 01/29/2025 2:56 PM EDT [facility] Non HDL Chol. (LDL+VLDL) 128 <145 mg/dL LAB CHEMISTRY METHOD 01/29/2025 2:56 PM EDT [facility] Chol/HDL Ratio 3.0 0.0 - 4.4 LAB CHEMISTRY [facility]29[facility]2025 [facility] Venous blood specimen / Unknown Venipuncture / Unknown 01/29/2025 10:24 AM EDT 01/29/2025 10:24 AM EDT us Milady ADAM LAB BLOOD ORDERABLES Final Re sult Performing Organization Address [facility]/ZIP Co de Phone Number [facility] [address] [place] [address], * (ABNORMAL) Iron and TIBC (01/29/2025 10:24 AM EDT) Iron 29(L) 40 - 150 mcg/dL LAB CHEMISTRY METHOD 01/29/2025 2:56 PM EDT [facility] TIBC 397 250 - 450 mcg/dL LAB CHEMISTRY METHOD 01/29/2025 2:56 PM EDT [facility] Iron Saturation 7(L) 15 - 50 % LAB CHEMISTRY METHOD 01/29/2025 2:56 PM EDT [facility] Blood Venous blood specimen / Unknown Venipuncture / Unknown 01/29/2025 10:24 AM EDT 01/29/2025 10:24 AM EDT Milady ADAM LAB BLOOD ORDERABLES Final Re sult Performing Organization Address [facility] de Phone Number [facility] [address] [place] [address], * Vitamin D 25 hydroxy (01/29/2025 10:24 AM EDT) Vit D, 25-Hydroxy 37.7 30.0 - 80.0 ng/mL LAB CHEMISTRY METHOD 01/29/2025 4:55 PM EDT [facility] Blood Venous blood specimen / Unknown Venipuncture / Unknown 01/29/2025 10:24 AM EDT 01/29/2025 10:24 AM EDT us Yoselyn Dalton MD LAB BLOOD ORDERABLES Fin al Result Performing Organization Address City/[facility]/ZIP Co de Phone Number [facility] [address] [place] [address], * (ABNORMAL) Sedimentation rate (01/29/2025 10:24 AM EDT) Sed Rate 34(H) 0 - 30 mm/hr LAB HEMETOLOGY METHOD 01/29/2025 1:54 PM EDT [facility] Blood Venous blood specimen / Unknown Venipuncture / Unknown 01/29/2025 10:24 AM EDT 01/29/2025 10:24 AM EDT Yoselyn Dalton MD LAB BLOOD ORDERABLES Fin al Result Performing Organization Address [facility]/ZIP Co de Phone Number [facility] [address] [place] [address], [place] [phone] * (ABNORMAL) Complete blood count (01/29/2025 10:24 AM EDT) [facility] WBC 7.0 4.8 - 10.8 K/mcL LAB HEMETOLOGY METHOD 01/29/2025 1:36 PM EDT [facility] RBC 4.00 3.80 - 4.80 M/mcL LAB HEMETOLOGY METHOD 01/29/2025 1:36 PM EDT [facility] Hemoglobin 11.1(L) 11.5 - 16.0 g/dL LAB HEMETOLOGY METHOD 01/29/2025 1:36 PM EDT [facility] Hematocrit 36.7 35.0 - 47.0 % LAB HEMETOLOGY METHOD 01/29/2025 1:36 PM EDT [facility] MCV 90.8 79.0 - 98.0 FL LAB HEMETOLOGY METHOD 01/29/2025 1:36 PM EDT [facility] MCH 27.5 27.0 - 32.0 pcg LAB HEMETOLOGY METHOD 01/29/2025 1:36 PM EDT [facility] MCHC 30.2(L) 32.0 - 37.0 g/dL LAB HEMETOLOGY METHOD 01/29/2025 1:36 PM EDT [facility] RDW 19.4(H) 11.0 - 15.0 % LAB HEMETOLOGY METHOD 01/29/2025 1:36 PM EDT [facility] Platelets 549(H) 130 - 400 K/mcL LAB HEMETOLOGY METHOD 01/29/2025 1:36 PM EDT [facility] MPV 8.8 7.0 - 11.0 FL LAB HEMETOLOGY METHOD 01/29/2025 1:36 PM EDT [facility] NRBC 0.0 <1.0 % LAB HEMETOLOGY METHOD 01/29/2025 1:36 PM EDT [facility] NRBC Absolute 0.00 <0.10 K/mcL LAB HEMETOLOGY METHOD 01/29/2025 1:36 PM EDT [facility] Blood Venous blood specimen / Unknown Venipuncture / Unknown 01/29/2025 10:24 AM EDT 01/29/2025 10:24 AM EDT Milady ADAM LAB BLOOD ORDERABLES Final Re sult [facility] [address] [place] [address], * Ferritin (01/29/2025 10:24 AM EDT) Ferritin 19 8 - 252 ng/mL LAB CHEMISTRY METHOD 01/29/2025 2:56 PM EDT [facility] Blood Venous blood specimen / Unknown Venipuncture / Unknown 01/29/2025 10:24 AM EDT 01/29/2025 10:24 AM EDT Milady ADAM LAB BLOOD ORDERABLES Final Re sult [facility] [address] [place] [address], [place] [phone] * Vitamin B12 (01/29/2025 10:24 AM EDT) [facility] Vitamin B-12 346 250 - 900 pcg/mL LAB CHEMISTRY METHOD 01/29/2025 4:24 PM EDT [facility] Blood Venous blood specimen / Unknown Venipuncture / Unknown 01/29/2025 10:24 AM EDT 01/29/2025 10:24 AM EDT Yoselyn Dalton MD LAB BLOOD ORDERABLES Fin al Result Performing Organization Address City/[facility]/ZIP Co de Phone Number [facility] [address] [place] [address], [place] [phone] * Basic metabolic panel (01/29/2025 10:24 AM EDT) [facility] Sodium 136 133 - 145 mmol/L LAB CHEMISTRY METHOD 01/29/2025 2:56 PM EDT [facility] Potassium 4.6 3.5 - 5.5 mmol/L LAB CHEMISTRY METHOD 01/29/2025 2:56 PM EDT [facility] Chloride 103 96 - 110 mmol/L LAB CHEMISTRY METHOD 01/29/2025 2:56 PM EDT [facility] CO2 25 21 - 32 mmol/L LAB CHEMISTRY METHOD 01/29/2025 2:56 PM EDT [facility] Anion Gap 8 3 - 11 LAB CHEMISTRY METHOD 01/29/2025 2:56 PM EDT [facility] Glucose 99 70 - 100 mg/dL LAB CHEMISTRY METHOD 01/29/2025 2:56 PM EDT [facility] BUN 14 5 - 25 mg/dL LAB CHEMISTRY METHOD 01/29/2025 2:56 PM EDT [facility] Creatinine 0.90 0.50 - 1.10 mg/dL LAB CHEMISTRY METHOD 01/29/2025 2:56 PM EDT [facility] eGFR 66 >=60 mL/min/1. 73m2 LAB CHEMISTRY METHOD 01/29/2025 2:56 PM EDT [facility] Comment:Calculation based on the Chronic Kidney Disease Epidemiology Collaboration (CKD-EPI) equation refit without adjustment for race. 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
--- OUTSIDE RECORDS SUMMARY | 2025-03-05 13:37 | XMS_ITS | Encounter Summary ---
Author Organization [facility] Address [address] [place] [address] Phone Care Team Providers Care Undercar Specialist Name Role Phone Lynsey Sloanmaximopete Primary Care Provider Encounter Details Date Type Department Care Team (Late st Contact Info) Description 07/21/2022 Telephone [facility] [address] [facility] [address] [place] [address] Shaheed Hough MD [address] [place] [address], [address] [address] Social History Tobacco Use Types Packs/Day Years [...] [facility]. [address] [address] Kelley Cordova ARNP [address] [address] documented as of this encounter Visit Diagnoses Not on filedocumented in this encounter Care Teams Undercar Specialist Relationship Specialty Start Date End Date Elsy Sloan PCP - General 10/27/22 documented as of this encounter
== END 2025-03-05 14:05 | disposition home or self-care (01) ==
PROVIDERS: PCP Family Medicine; Visit Provider Internal Medicine Rheumatology
DX: M06.9 Rheumatoid arthritis, unspecified (principal)

== ENCOUNTER 2025-03-05 15:54 | Outpatient (AMB) | payer MEDICARE, SELFPAY ==
--- NOTE | 2025-03-05 15:58 | A.OFFVIS_ITS ---
Intake Visit Reasons: follow up Allergies Latex, Natural Rubber Allergy (Mild, Verified 12/19/24 07:53) rash, itching morphine Allergy (Unknown, Verified 12/19/24 07:53) Unknown pregabalin (From Lyrica) Allergy (Unknown, Verified 12/19/24 07:53) Unknown Penicillins Adverse Reaction (Unknown, Verified 12/19/24 07:53) Unknown warfarin Adverse Reaction (Unknown, Verified 12/19/24 07:53) Unknown bee stings Allergy (Intermediate, Uncoded 08/07/24 09:19) Anaphylaxis lovonox Allergy (Mild, Uncoded 08/07/24 09:19) Hives HPI HPI follow up: Details: After last dose 2 weeks ago she noted decreased joint pain and stiffness. Morning stiffness is minutes. Joint swelling has resolved. She still has pain but it is more tolerable. No recent infections. [facility] Medical History History of blood transfusion Fibromyalgia Rheumatoid arthritis TIA (transient ischemic attack) Hypercholesterolemia Hypothyroid Systemic primary arterial hypertension Surgical History Hx of colonoscopy H/O: hysterectomy H/O total knee replacement History of total hip replacement Hx of cholecystectomy Social History Alcohol intake: current Patient Tobacco Use Status: Never used Tobacco Physical Exam Const Other: General: Comfortable CVS: RRR Respiratory: clear to auscultation bilaterally. Good respiratory effort Skin: No lesions seen MSK: She was examined in wheelchair. Tender bilateral wrists, MCPs, PIP knees, IPs. She has ulnar deviation of bilateral MCPs with volar subluxation. Tender bilateral shoulders. She had limited full flexion of bilateral elbows. Shoulder abduction right 90 degrees and left 110 degrees with good internal rotation and external rotation. Bilateral ankle tenderness. Bilateral MTP tenderness. No synovitis. Assessment & Plan Assessment & Plan (1) Rheumatoid arthritis: Comment: Inflammatory arthritis has improved on Simponi subcutaneous injection. Synovitis has resolved. Expect more time for full benefit. Rheumatology history: Diagnosed in 1994. 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 She has had possible 2 TIAs. ELLIS inhibitors (Rinvoq, Xeljanz, baricitinib) pose an increased risk of cardiovascular events and would not be indicated for patient. She has history of anemia requiring iron infusions and hyperlipidemia on pravastatin. Tocilizumab can contribute to increased risk of hypercholesterolemia and further contributing to anemia due to bone marrow suppression -contraindicated at this time. Simponi SC 12/19/2024-. History of avascular necrosis bilateral hips. Code(s): M06.9 - Rheumatoid arthritis, unspecified Category: Medical Qualifiers: Rheumatoid arthritis location: multiple sites Rheumatoid factor presence: unspecified presence Qualified Code(s): M06.9 - Rheumatoid arthritis, unspecified Plan: Continue Simponi 50 mg subcutaneous injection every 4 weeks Labs for drug monitoring ordered ordered on high-risk medication -LFTs. Labs from January 2025 reviewed. 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 Evenity was given 01/23/2024, 02/22/2024, 03/28/2024, 04/30/2024. She had 7th Evenity injection 07/26/2024. Evenity resumed at [facility] 11/29/2024, 01/03/2025, 01/29/2025, 03/05/2025. Code(s): M81.0 - Age-related osteoporosis without current pathological fracture Category: Medical Qualifiers: Osteoporosis type: age-related Presence of current pathological fracture: without current pathological fracture Qualified Code(s): M81.0 - Age-related osteoporosis without current pathological fracture Plan: Continue Evenity SC monthly with nurse visit next month (last dose). Continue vitamin D3 125 mcg daily We will obtain follow-up labs for bone turnover markers at a future visit, which need to be performed at [facility] 8-10am. DXA due after 11/03/2025 Orders: Orders AMB Romosozumab Injection Patient Supplied Today M06.9 - Rheumatoid arthritis, unspecified Medications: New romosozumab-aqqg 210 mg (2.34 mL) subcut ONCE 2.34 mL 0RF M06.9 - Rheumatoid arthritis, unspecified Changed From golimumab (Simponi) PA needed. First dose administered in office with nurse teaching visit (patient needs to schedule). Labs due 4 weeks after first dose. 50 mg (0.5 mL) subcut Q4W 0.5 mL 2RF To golimumab (Simponi) 50 mg (0.5 mL) subcut Q4W 0.5 mL 2RF Coding Level of Care Code Est Pt Level 4 (83987) Complex EM visit Add On G2211 Diagnoses Rheumatoid arthritis involving multiple sites, unspecified whether rheumatoid factor present M06.9 Rheumatoid arthritis location: multiple sites Rheumatoid factor presence: unspecified presence Other penitentiary (current) drug therapy Z79.899 Age-related osteoporosis without current pathological fracture M81.0 Osteoporosis type: age-related Presence of current pathological fracture: without current pathological fracture
== END 2025-03-05 15:54 | disposition home or self-care (01) ==
LOC: HO.RHES 15:54
PROVIDERS: PCP Family Medicine; Visit Provider Internal Medicine Rheumatology
DX: M06.9 Rheumatoid arthritis, unspecified (principal); Z79.899 Other long term (current) drug therapy; M81.0 Age-related osteoporosis without current pathological fracture
CPT/HCPCS: 99214; G2211

== ENCOUNTER 2025-04-18 07:49 | Outpatient (REF) | payer MEDICARE, SELFPAY | END 2025-04-18 07:50 | disposition home or self-care (01) | LOC: HO.HKASLDS 07:49 | PROVIDERS: PCP Family Medicine; Visit Provider Internal Medicine Rheumatology | DX: Z13.89 Encounter for screening for other disorder (principal) | CPT/HCPCS: 96372; 99212; J3111 ==

== ENCOUNTER 2025-04-18 07:49 | Outpatient (AMB) | payer MEDICARE, SELFPAY ==
--- NOTE | 2025-04-18 07:51 | MHC.OFFVIS ---
Vital Signs 04/18/25 07:55 BP 120/74 Blood Pressure Location Lt brachial Position Sitting Pulse 68 Pulse Source Pulse Oximeter Pulse Oximetry (%) 98 Oxygen Delivery Method Room Air Intake Visit Reasons: 3 Months/ evenity #11 Intake Note: Patient presents today for an OA follow up. Accompanied by: Daughter Allergies Latex, Natural Rubber Allergy (Mild, Verified 04/18/25 07:54) rash, itching morphine Allergy (Unknown, Verified 04/18/25 07:54) Unknown pregabalin (From Lyrica) Allergy (Unknown, Verified 04/18/25 07:54) Unknown Penicillins Adverse Reaction (Unknown, Verified 04/18/25 07:54) Unknown warfarin Adverse Reaction (Unknown, Verified 04/18/25 07:54) Unknown bee stings Allergy (Intermediate, Uncoded 08/07/24 09:19) Anaphylaxis lovonox Allergy (Mild, Uncoded 08/07/24 09:19) Hives HPI HPI 3 Months/ evenity #11: Details: 10 days before Simponi injection she is experiencing increased joint pain in her hands and especially in her feet. Pain in her feet are affecting her at night. She has a hard time going to sleep. She uses Tylenol 4000 mg daily for overall pain including neck and lower back pain. No increased stiffness. [facility] Medical History History of blood transfusion Fibromyalgia Rheumatoid arthritis TIA (transient ischemic attack) Hypercholesterolemia Hypothyroid Systemic primary arterial hypertension Surgical History Hx of colonoscopy H/O: hysterectomy H/O total knee replacement History of total hip replacement Hx of cholecystectomy Social History Alcohol intake: current Patient Tobacco Use Status: Never used Tobacco Physical Exam Vital Signs: Last Vital Signs Pulse 68 04/18/25 07:55 BP 120/74 04/18/25 07:55 Pulse Ox 98 04/18/25 07:55 Oxygen Delivery Method Room Air 04/18/25 07:55 Const Other: General: Comfortable CVS: systolic murmur, RR Respiratory: clear to auscultation bilaterally. Good respiratory effort Skin: No lesions seen MSK: She was examined in wheelchair. Tender bilateral wrists, MCPs, PIP, IPs. She has ulnar deviation of bilateral MCPs with volar subluxation. Tender bilateral shoulders. She had limited full flexion of bilateral elbows. Shoulder abduction right 90 degrees and left 110 degrees. Left normal internal rotation of shoulders. Bilateral normal external rotation of shoulders. Bilateral ankle tenderness. Synovitis of bilateral MTPs. Tender toes on palpation. Office Meds romosozumab-aqqg 210 mg/2.34 mL(105 mg/1.17 mL x2)subcutaneous syringe Performing Provider: Teto Tran MD Performing Location: [facility] Administered by: Anaid Mari RN on 04/18/25 08:17 Dose Route Admin Location Dispensed Lot Number Expiration Date [facility] [employer] 105 mg subcut posterior upper arm left 1.17 mL [id number] 05/07/27 105 mg subcut 1.17 mL [id number] 05/07/27 20650-024-01 [employer] 105 mg subcut posterior upper arm right 1.17 mL [id number] 05/07/27 46460-857-64 [employer] Total Dispensed Waste 3.51 mL 0 % Comments: Mrs. Calero presents for her Evenity (romosozumab-aqqg) #11 injection for the treatment of osteoporosis. The patient has not had any recent fever or illness. The injection site to be used is without erythema, edema, and is clean, dry, and intact. We discussed post-injection after care. The patient tolerated the procedure well. Assessment & Plan Assessment & Plan (1) Rheumatoid arthritis: Comment: Inflammatory arthritis has improved on Simponi subcutaneous injection. Benefit on Simponi is not lasting the full month. We discussed next steps in treatment with adding conventional DMARDs. In the past she had side effects on methotrexate but remembers being on high dose at the time. She had body hair loss and abdominal pain on methotrexate. Discussed side effects, benefits and drug monitoring on leflunomide. Rheumatology history: Diagnosed in 1994. 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 She has had possible 2 TIAs. ELLIS inhibitors (Rinvoq, Xeljanz, baricitinib) pose an increased risk of cardiovascular events and would not be indicated for patient. She has history of anemia requiring iron infusions and hyperlipidemia on pravastatin. Tocilizumab can contribute to increased risk of hypercholesterolemia and further contributing to anemia due to bone marrow suppression -contraindicated at this time. Simponi SC 12/19/2024-. History of avascular necrosis bilateral hips. Code(s): M06.9 - Rheumatoid arthritis, unspecified Category: Medical Qualifiers: Rheumatoid arthritis location: multiple sites Rheumatoid factor presence: unspecified presence Qualified Code(s): M06.9 - Rheumatoid arthritis, unspecified Plan: Continue Simponi 50 mg subcutaneous injection every 4 weeks Labs for drug monitoring and high-risk medication ordered. After lab results are back, I will send prescription for leflunomide 10 mg daily. She will need labs 4 weeks after starting leflunomide with CBC, creatinine, AST, ALT. Return to clinic in 3 months (2) Other penitentiary (current) drug therapy: Code(s): Z79.899 - Other penitentiary (current) drug therapy Category: Medical Plan: see above (3) Osteoporosis: Comment: History of multiple compression fractures: Right humeral fracture and bilateral wrist fractures. Evenity was given 01/23/2024, 02/22/2024, 03/28/2024, 04/30/2024. She had 7th Evenity injection 07/26/2024. Evenity resumed at [facility] 11/29/2024, 01/03/2025, 01/29/2025, 03/05/2025, 04/2025. Treatment with anti resorptive agent Reclast is indicated to consolidate benefits from evenity. we discussed side effects of Reclast. Code(s): M81.0 - Age-related osteoporosis without current pathological fracture Category: Medical Qualifiers: Osteoporosis type: age-related Presence of current pathological fracture: without current pathological fracture Qualified Code(s): M81.0 - Age-related osteoporosis without current pathological fracture Plan: Labs ordered to assess bone turnover markers, calcium and vitamin-D. I will start PA process for Reclast after lab results are back. Continue vitamin D3 125 mcg daily. January 2025 [id number]-[id number]-P level is sufficient. 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
--- OUTSIDE RECORDS SUMMARY | 2025-04-18 07:52 | XMS_ITS | Encounter Summary ---
Author Organization [facility] Address [address] [place] [address] Care Team Providers Care Projection Printer Name Role Phone Elsy Sloan MD Primary Care Pr ovider Encounter Details Date Type Department Care Team Description 02/21/2024 Social Work [facility] On[facility] Services [address] [place] [address] [facility] Social History Tobacco Use Types Packs/Day Years [...] on filedocumented in this encounter Care Teams Projection Printer Relationship Specialty Start Date End Date Elsy Sloan MD [address] [place] [address] PCP - General 01/19/24 documented as of this encounter
--- OUTSIDE RECORDS SUMMARY | 2025-04-18 07:52 | XMS_ITS | Continuity of Care Document ---
Author Organization [facility] Address [address] [facility] [address] [place] [address] Phone [phone] Care Team Providers Care Telephone Installer Name Role Phone Elsy Sloan Care Team Information Rece iver [phone] Social History Type Date Description Comments Sex Female Sex Unknown Medical Devices Description No Information Available Encounters Description No Information Available Assessments Description No Information Available Plan of Treatment Future Appointment(s):* 07/17/2025 1:45 pm - Shankar Sage M.D. at Main Office Functional Status Description No Information Available Mental Status Description No Information Available Referrals Description No Information Available
--- OUTSIDE RECORDS SUMMARY | 2025-04-18 07:52 | XMS_ITS | Clinical Summary ---
Author Organization [facility] [address] [place] [address] [place] [phone] Phone Care Team Providers Care Japanese Professor Name Role Phone Elsy Sloan MD Primary [...] 24 Active romosozumab-aqqg (Evenity) 01/03/20 24 Active pravastatin (PRAVACHOL) 40 mg tablet Take [...] (three) times a day. 270 tablet 1 02/27/20 25 Active esomeprazole (NexIUM) [address] [...] 1 (one) time each day. 30 each 11 03/01/20 25 026 Active ubrogepant (UBRELVY) 100 mg tablet Take 1 tablet (100 mg total) by mouth 1 (one) time if needed for migraine. 9 tablet 2 03/14/20 25 Active meclizine (ANTIVERT) 12.5 mg tablet Take 1 tablet (12.5 mg total) by mouth 3 (three) times a day if needed for dizziness (vertigo). 30 tablet 5 03/27/20 25 Active meclizine (ANTIVERT) 12.5 mg tablet Take 1 tablet (12.5 mg total) by mouth 3 (three) times a day if needed for dizziness (vertigo). 30 tablet 2 08/29/19 25 025 Discontin u([facility]) Hospital, Clinic, or Other Facility Administered Medication Ordered Dose Route Frequency Start Date End Date Status perflutren lipid microsphere (DEFINITY) 1.3 mL in sodium chloride 0.9% 8.7 mL injection 10 mL IV Once in imaging 04/09/2025 04/09/2025 End ed Active Problems Problem Noted Date Diagnosed Date [...] site Obstructive sleep apnea 10/06/2019 Overview (04/05/2024): [facility] Home Sleep Apnea Test: Date 10/02/2019; [...] 2019 home sleep apnea test. 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 Stenosis. Mod-severe R MCA stenosis 12/2010 Assessment & Plan (12/27/2024 4:53 PM EDT): Continue Aggrenox daily CKD (chronic kidney disease) stage 3, GFR 30-59 ml/min ([facility] V24, [facility] V28) 07/07/2018 Assessment & Plan (12/27/2024 [...] having a bone marrow biopsy done in [place] stating it was normal. Hematology advised her to follow with gastroenterology and they are monitoring her labs Assessment & Plan (12/27/2024 4:53 PM EDT): Status post iron infusions. Due for repeat CBC which she will complete RA (rheumatoid arthritis) (CMS/HCC V24, CMS/HCC V28) 07/07/2018 Assessment & Plan (12/27/2024 4:53 PM EDT): Continue follow up with Dr. Tran Continue simponi once a month Raynauds disease 07/07/2018 Recurrent [...] Encounters Date Type Department Care Team Description 04/09/2025 3:30 PM EDT Ancillary Procedure [facility] [address] [facility] [address] [place] [phone] Systolic murmur 03/27/2025 Telephone Adult Medicine [address] [phone] Elsy Sloan MD 03/06/2025 Telephone Adult Medicine [address] [phone] Elsy Sloan MD 03/01/2025 8:30 AM EDT Telemedicine [facility] [address] [facility] [address] [place] [phone] Yoselyn Dalton MD Cerebrovascular disease (Primary Dx); Cervical stenosis of spinal canal; Intractable migraine with aura without status migrainosus; Vertigo 02/14/2025 Social Work [facility] [address] 2[address] [place] [phone] Yuli Bailey LMSW 02/13/2025 Telephone Adult Medicine [address] [phone] Elsy Sloan MD 01/30/2025 Telephone Adult Medicine [address] [phone] Elsy Sloan MD from Last 3 Months Immunizations Name Administration Dates Next Due Influenza Quadravalent, MDCK , 0.5ml, preservative free (Flucelvax) 6mo and older 08/17/2018 Influenza trivalent, 0.5mL (Fluad) 65yo and olde r 06/28/2019 Influenza trivalent, 0.5mL ( Fluzone High-dose) 65yo and older 07/11/2023,06/10/2017 Pfizer SARS-CoV-2 COVID-19, mRNA, LNP-S, preservative free 05/26/2021 [...] disea se) stage 3, GFR 30-59 ml/min ([facility]) Diastolic dysfunction 07/07/2018 DX:Diastol ic dysfunction; [...] of multiple joints RA (rheumatoid arthritis) ([facility] [place]/[facility] V24, [facility] V28) 07/07/2018 DX:RA (rheumatoid arthritis) ([facility]) Raynauds disease 07/07/2018 DX:Raynauds dis ease Recurrent UTI 07/07/2018 DX:Recurrent UTI ; COMMENT: Prophylaxis 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 For example, school child care attendant or elderly care for an older adult? [...] Sign Reading Time Taken Comments Blood Pressure 140/72 04/09/2025 3:34 PM EDT Pulse 91 12/27/2024 9:02 AM EDT Temperature 36.9 C (98.5 F) 12/27/2024 9:02 AM EDT Respiratory Rate 16 12/27/2024 9:02 AM EDT Oxygen Saturation 100% 11/27/2024 11:45 AM EDT Inhaled Oxygen Concentration - - Weight 72.6 kg (160 lb) 04/09/2025 3:34 PM EDT Height 162.6 cm (5' 4 ) 04/09/2025 3:34 PM EDT Body Mass Index 27.46 04/09/2025 3:34 PM EDT Plan of Treatment Upcoming Encounters Date Type Department Care Team (Late st Contact Info) Description 04/30/2025 5:00 PM EDT Office Visit Adult Medicine [address] [phone] Milady Muniz PA [address] [place] [address] 06/26/2025 3:30 PM EST Office Visit [facility] [address] [facility] [address] [place] [address] Katelynn Le PA [address] [address] 07/23/2025 9:00 AM EST Office Visit [facility] Hematology Oncology [address] [place] [phone] Krishan Cope MD [address] [place] [address] Health Maintenance Due Date Last Done Comments Zoster Vaccines (1 of 2) 1964 RSV Immunization Adult Patients (1 - 1-dose 75+ series) 2022 Colorectal Cancer Screening: Stool Based Tests (FOBT/FIT) 07/17/2022 COVID-19 Vaccine ( season) 2025 01/21/2023, 05/24/2022, 12/02/2021, Additional history exists Influenza [...] Procedure Name Priority Date/Time Associated Diagnosis Comments TRANSTHORACIC ECHOCARDIOGRAM (TTE) COMPLETE W/ CONTRAST Routine 04/09/2025 4:31 PM EDT Systolic murmur BASIC METABOLIC PANEL Routine 01/29/2025 10:24 AM EDT Primary hypertension Stage 3 chronic kidney disease, unspecified whether stage 3a or 3b CKD (CMS/HCC V24, CMS/[facility] V28) COMPLETE BLOOD COUNT Routine 01/29/2025 [...] test from Last 3 Months Results * (ABNORMAL) TRANSTHORACIC ECHOCARDIOGRAM (TTE) COMPLETE W/ CONTRAST (04/09/2025 4:31 PM EDT) Left Atrium Minor Exeter 5.8 cm CV PACS Left Atrium Major Exeter 4.4 cm CV PACS LA Area Sys (A2C) 18 cm2 CV PACS LA Area Sys (A4C) 13 cm2 CV PACS RA Area 8.3 cm2 CV PACS RA 2D Volume 14 mL CV PACS AV Mean Gradient 10 mmHg CV PACS Ao VTI 42.8 cm CV PACS AV Peak Noé 2.2 m/s CV PACS AV Peak Gradient 19 mmHg CV PACS AV Area Continuity Equation 1.8 cm2 CV PACS AV Area Peak Velocity 1.7 cm2 CV PACS Aortic Sinus Valsalva 2.7 cm CV PACS LVIDD 3.3(A) 3.8 - 5.2 cm CV PACS LVIDS 2.2 2.2 - 3.5 cm CV PACS LVOT Diameter 2.0 cm CV PACS LVOT Mean Noé 0.8 m/s CV PACS LVOT Mean Grad 3 mmHg CV PACS LVOT Peak VTI 24.7 cm CV PACS LVOT Peak Noé 1.2 m/s CV PACS LVOT Peak Gradient 6 mmHg CV PACS MV E' Tissue Velocity Lateral 7 cm/s CV PACS MV E' Tissue Velocity Septal 6 cm/s CV PACS LVOT Area 3.1 cm2 CV PACS LVOT Stroke Volume 78 mL CV PACS MV Deceleration Archer 3.7 m/s2 CV PACS E Wave Deceleration Time 222 119 - 242 ms CV PACS MV PHT 64 ms CV PACS MV Peak A Noé 1.40 m/s CV PACS MV Peak E Noé 0.80 m/s CV PACS MV Area PHT 3.4 cm2 CV PACS RV Diastolic Basal Dimension 3.3 2.5 - 4.1 cm CV PACS RV S' 13 cm/s CV PACS TAPSE 20 mm CV PACS E/E' Ratio Septal 13 CV PACS E/E' Ratio Averaged 12 CV PACS LVOT Stroke Index 44 mL/m2 CV PACS LVOT:AV VTI Index 0.58 CV PACS FS 33 % CV PACS LVOT flow 251 mL/s CV PACS RA 2D Volume Index 8 15 - 27 mL/m2 CV PACS JESSIE Index (VTI) 1.02 cm2/m2 CV PACS JESSIE Index (Pk Noé) 0.96 cm2/m2 CV PACS LVIDD Index 1.85 cm/m2 CV PACS LVIDS Index 1.24 cm/m2 CV PACS AV Velocity Ratio 0.55 CV PACS E/A Ratio 0.6 0.8 - 2.0 CV PACS E/E' Ratio Lateral 11 CV PACS BSA 1.81 m2 CV PACS RV Free Wall Peak S' 13 cm/s CV PACS RA Major Exeter 4.1 cm CV PACS RA Major Exeter Index 2.3 2.2 - 2.8 cm/m2 CV PACS AV Area 2D 1.7 cm2 CV PACS JESSIE Index (2D) 0.96 cm2/m2 CV PACS AV Area Index 1.0 CV PACS Est. RA Pressure 3 mmHg CV PACS Anatomical Region Laterality Modality Ultrasound Narrative 04/10/2025 10:24 AM EDT Left ventricle cavity size is normal. Wall thickness was not well visualized. Systolic function is normal with an ejection fraction of 65-70%. There is midcavity gradient, 27 mmHg at rest and 83 mmHg with Valsalva maneuver. There are no regional LV wall motion abnormalities. Right ventricle cavity is normal. Right ventricular systolic function is normal. No hemodynamically significant valvular disease. No prior study for comparison. Left Ventricle Left ventricle cavity size is normal. Wall thickness was not well visualized. Systolic function is normal with an ejection fraction of 65-70%. There is midcavity gradient, 27 mmHg at rest and 83 mmHg with Valsalva maneuver. There are no regional LV wall motion abnormalities. There is age appropriate left ventricular diastolic function. Right Ventricle Right ventricle cavity appears normal. Systolic function is normal. Left Atrium Left atrium cavity size is normal. Right Atrium Right atrium cavity is normal. IVC/SVC Inferior vena cava structure is normal. RA pressures is estimated to be 3 mmHg (IVC diameter <21 mm and decreases >50% during inspiration). Mitral Valve The leaflets are mildly thickened. There is annular calcification. There is trace regurgitation. There is no evidence of mitral valve stenosis. Tricuspid Valve The leaflets exhibit normal excursion. There is no regurgitation. Cannot assess RVSP. Aortic Valve The aortic valve is trileaflet. The leaflets are thickened. There is no regurgitation or stenosis. Pulmonic Valve Pulmonic valve structure is normal. There is no pulmonic valve regurgitation. Ascending Aorta The aortic sinus is normal in size. Pericardium There is no pericardial effusion. Study Details Overall the study quality was technically difficult. Definity contrast was given to enhance imaging. Study was difficult due to: poor endocardial visualization, patient body habitus and poor acoustic windows. Elsy Sloan MD CV ECHO PROCEDUR ES Final Result * Hepatitis C antibody (01/29/2025 10:24 AM EDT) Hepatitis C Antibody Negative Negative LAB CHEMISTRY METHOD 01/29/2025 5:33 PM EDT [facility] Blood Venous blood specimen / Unknown Venipuncture / Unknown 01/29/2025 10:24 AM EDT 01/29/2025 10:24 AM EDT Elsy Sloan MD LAB BLOOD ORDERA BLES Final Result [facility] [address] [place] [address], [place] [phone] * Thyroid stimulating hormone with reflex to free t4 and free t3 (01/29/2025 10:24 AM EDT) TSH 1.96 0.40 - 4.00 mcIU/mL LAB CHEMISTRY METHOD 01/29/2025 4:56 PM EDT [facility] Blood Venous blood specimen / Unknown Venipuncture / Unknown 01/29/2025 10:24 AM EDT 01/29/2025 10:24 AM EDT us Milady ADAM LAB BLOOD ORDERABLES Final Re sult [facility] [address] [place] [address], [place] [phone] * (ABNORMAL) Lipid panel with reflex to direct LDL (01/29/2025 10:24 AM EDT) Cholesterol 191 0 - 200 mg/dL LAB CHEMISTRY METHOD 01/29/2025 2:56 PM EDT [facility] Triglycerides 105 0 - 150 mg/dL LAB CHEMISTRY METHOD 01/29/2025 2:56 PM EDT [facility] HDL 63 >=40 mg/dL LAB CHEMISTRY METHOD 01/29/2025 2:56 PM T [facility] LDL Calculated 107(H) 0 - 100 mg/dL LAB CHEMISTRY METHOD 01/29/2025 2:56 PM EDT [facility] VLDL Cholesterol Oren 21 mg/dL LAB CHEMISTRY METHOD 01/29/2025 2:56 PM EDT [facility] Non HDL Chol. (LDL+VLDL) 128 <145 mg/dL LAB CHEMISTRY METHOD 01/29/2025 2:56 PM EDT [facility] Chol/HDL Ratio 3.0 0.0 - 4.4 LAB CHEMISTRY METHOD 01/29/2025 2:56 PM T [facility] Blood Venous blood specimen / Unknown Venipuncture / Unknown 01/29/2025 10:24 AM EDT 01/29/2025 10:24 AM EDT Milady ADAM LAB BLOOD ORDERABLES Final Re sult Performing Organization Address [facility]/ZIP Co de Phone Number [facility] [address] [place] [address], * (ABNORMAL) Iron and TIBC (01/29/2025 10:24 AM EDT) Iron 29(L) 40 - 150 mcg/dL LAB CHEMISTRY METHOD 01/29/2025 2:56 PM EDT [facility] TIBC 397 250 - 450 mcg/dL LAB CHEMISTRY METHOD 01/29/2025 2:56 PM EDT [facility] Iron Saturation 7(L) 15 - 50 % LAB CHEMISTRY METHOD 01/29/2025 2:56 PM EDT [facility] Blood Venous blood specimen / Unknown Venipuncture / Unknown 01/29/2025 10:24 AM EDT 01/29/2025 10:24 AM EDT Milady ADAM LAB BLOOD ORDERABLES Final Re sult Performing Organization Address [facility] de Phone Number [facility] [address] [place] [address], * Vitamin D 25 hydroxy (01/29/2025 10:24 AM EDT) Vit D, 25-Hydroxy 37.7 30.0 - 80.0 ng/mL LAB CHEMISTRY METHOD 01/29/2025 4:55 PM EDT [facility] Blood Venous blood specimen / Unknown Venipuncture / Unknown 01/29/2025 10:24 AM EDT 01/29/2025 10:24 AM EDT us Yoselyn Dalton MD LAB BLOOD ORDERABLES Fin al Result Performing Organization Address [facility]/ZIP Co de Phone Number [facility] [address] [place] [address], * (ABNORMAL) Sedimentation rate (01/29/2025 10:24 AM EDT) Sed Rate 34(H) 0 - 30 mm/hr LAB HEMETOLOGY METHOD 01/29/2025 1:54 PM EDT [facility] Blood Venous blood specimen / Unknown Venipuncture / Unknown 01/29/2025 10:24 AM EDT 01/29/2025 10:24 AM EDT Yoselyn Dalton MD LAB BLOOD ORDERABLES Fin al Result Performing Organization Address [facility] Co de Phone Number [facility] [address] [place] [address], * (ABNORMAL) Complete blood count (01/29/2025 10:24 AM EDT) [facility] WBC 7.0 4.8 - 10.8 K/mcL LAB HEMETOLOGY METHOD 01/29/2025 1:36 PM EDT [facility] RBC 4.00 3.80 - 4.80 M/mcL LAB HEMETOLOGY METHOD 01/29/2025 1:36 PM EDT [facility] Hemoglobin 11.1(L) 11.5 - 16.0 g/dL LAB HEMETOLOGY METHOD 01/29/2025 1:36 PM EDT [facility] Hematocrit 36.7 35.0 - 47.0 % LAB HEMETOLOGY METHOD 01/29/2025 1:36 PM EDT [facility] MCV 90.8 79.0 - 98.0 FL LAB HEMETOLOGY METHOD 01/29/2025 1:36 PM EDT [facility] MCH 27.5 27.0 - 32.0 pcg LAB HEMETOLOGY METHOD 01/29/2025 1:36 PM EDT [facility] MCHC 30.2(L) 32.0 - 37.0 g/dL LAB HEMETOLOGY METHOD 01/29/2025 1:36 PM EDT [facility] RDW 19.4(H) 11.0 - 15.0 % LAB HEMETOLOGY METHOD 01/29/2025 1:36 PM EDT [facility] Platelets 549(H) 130 - 400 K/mcL LAB HEMETOLOGY METHOD 01/29/2025 1:36 PM EDT [facility] MPV 8.8 7.0 - 11.0 FL LAB HEMETOLOGY METHOD 01/29/2025 1:36 PM EDT [facility] NRBC 0.0 <1.0 % LAB HEMETOLOGY METHOD 01/29/2025 1:36 PM EDT [facility] NRBC Absolute 0.00 <0.10 K/mcL LAB HEMETOLOGY METHOD 01/29/2025 1:36 PM EDT [facility] Blood Venous blood specimen / Unknown Venipuncture / Unknown 01/29/2025 10:24 AM EDT 01/29/2025 10:24 AM EDT us Milady ADAM LAB BLOOD ORDERABLES Final Re sult [facility] [address] [place] [address], * Ferritin (01/29/2025 10:24 AM EDT) Ferritin 19 8 - 252 ng/mL LAB CHEMISTRY METHOD 01/29/2025 2:56 PM EDT [facility] Blood Venous blood specimen / Unknown Venipuncture / Unknown 01/29/2025 10:24 AM EDT 01/29/2025 10:24 AM EDT us Milady ADAM LAB BLOOD ORDERABLES Final Re sult [facility] [address] [place] [address], [place] [phone] * Vitamin B12 (01/29/2025 10:24 AM EDT) [facility] Vitamin B-12 346 250 - 900 pcg/mL LAB CHEMISTRY METHOD 01/29/2025 4:24 PM EDT [facility] Blood Venous blood specimen / Unknown Venipuncture / Unknown 01/29/2025 10:24 AM EDT 01/29/2025 10:24 AM EDT Yoselyn Dalton MD LAB BLOOD ORDERABLES Fin al Result Performing Organization Address City/[facility]/ZIP Co de Phone Number [facility] [address] [place] [address], [place] [phone] * Basic metabolic panel (01/29/2025 10:24 AM EDT) [facility] Sodium 136 133 - 145 mmol/L LAB CHEMISTRY METHOD 01/29/2025 2:56 PM EDT [facility] Potassium 4.6 3.5 - 5.5 mmol/L LAB CHEMISTRY METHOD 01/29/2025 2:56 PM EDT [facility] Chloride 103 96 - 110 mmol/L LAB CHEMISTRY METHOD 01/29/2025 2:56 PM EDT [facility] CO2 25 21 - 32 mmol/L LAB CHEMISTRY METHOD 01/29/2025 2:56 PM EDT [facility] Anion Gap 8 3 - 11 LAB CHEMISTRY METHOD 01/29/2025 2:56 PM EDT [facility] Glucose 99 70 - 100 mg/dL LAB CHEMISTRY METHOD 01/29/2025 2:56 PM EDT [facility] BUN 14 5 - 25 mg/dL LAB CHEMISTRY METHOD 01/29/2025 2:56 PM EDT [facility] Creatinine 0.90 0.50 - 1.10 mg/dL LAB CHEMISTRY METHOD 01/29/2025 2:56 PM EDT [facility] eGFR 66 >=60 mL/min/1. 73m2 LAB CHEMISTRY METHOD 01/29/2025 2:56 PM EDT [facility] Comment:Calculation based on the Chronic Kidney Disease Epidemiology Collaboration (CKD-EPI) equation refit without adjustment for race. BUN/Creatinine Ratio 15.6 LAB CHEMISTRY METHOD 01/29/2025 2:56 PM EDT [facility] Calcium 8.8 8.5 - 10.5 mg/dL LAB CHEMISTRY METHOD 01/29/2025 2:56 PM EDT [facility] Blood Venous blood specimen / Unknown Venipuncture / Unknown 01/29/2025 10:24 AM EDT 01/29/2025 10:24 AM EDT us Milady ADAM LAB BLOOD ORDERABLES Final Re sult [facility] [address] [place] [address], [place] [phone] from Last 3 Months Insurance [employer] Advance Directives Documents on File Type Date Recorded Patient Community Living Instructor Expl anation Health Care Decision (hx) 03/23/2021 [...] (hx) 02/18/2021 AD MEYER DIRECTIVE Care Teams Japanese Professor Relationship Specialty Start Date End Date Elsy Sloan MD [address] [place], [place] PCP - General Internal Medicine 03/16/22
--- OUTSIDE RECORDS SUMMARY | 2025-04-18 07:52 | XMS_ITS | Encounter Summary ---
Author Organization [facility] Address [address] [place] [address] Phone Care Team Providers Care Stitcher Feeder Name Role Phone Elsy Sloan Primary Care Provider Encounter Details Date Type Department Care Team (Late Contact Info) Description 11/01/2022 Telephone [facility] [address] [facility] [address] [place] [phone] Sylwia Moore MA Social History Tobacco Use [...] Care Team (Late st Contact Info) Description 05/05/2025 Orders Only [facility] [address] [facility] [address] [place] [phone] Kelley Cordova ARNP [address] [phone] Chronic kidney disease, stage 2 (mild); Hypertension 05/21/2025 7:30 AM EDT Office Visit [facility] [address] [phone] Kelley Cordova ARNP [address] [phone] documented as of this encounter Visit Diagnoses Not on filedocumented in this encounter Care Teams Stitcher Feeder Relationship Specialty Start Date End Date Elsy Sloan PCP - General 10/27/22 documented as of this encounter
--- OUTSIDE RECORDS SUMMARY | 2025-04-18 07:52 | XMS_ITS | Encounter Summary ---
Author Organization [facility] Address [address] [place] [address] Phone Care Team Providers Care Assistant Auditor Name Role Phone Lynsey Sloanmaximopete Primary Care Provider Encounter Details Date Type Department Care Team (Late Contact Info) Description 07/26/2022 Telephone [facility] [address] [facility] [facility] [address] [place] [address] Shaheed Hough MD [address] [place] [address], [address] [phone] Social History Tobacco Use Types Packs/Day Years [...] Department Care Team (Late Contact Info) Description 05/05/2025 Orders Only [facility] [address] [facility] [address] [place] [address] Kelley Cordova ARNP [address] [phone] Chronic kidney disease, stage 2 (mild); Hypertension 05/21/2025 7:30 AM EDT Office Visit [facility] [address] [phone] Kelley Cordova ARNP [address] [phone] documented as of this encounter Visit Diagnoses Not on filedocumented in this encounter Care Teams Assistant Auditor Relationship Specialty Start Date End Date Elsy Sloan PCP - General 10/27/22 documented as of this encounter
--- OUTSIDE RECORDS SUMMARY | 2025-04-18 07:52 | XMS_ITS ---
Author Organization [facility] [address] [facility] Address [address] [place] [address] Phone Care Team Providers Care Panel Edge Sealer Name Role Phone Elsy Sloan MD Primary [...] site Obstructive sleep apnea 10/06/2019 Overview (04/05/2024): [facility] Home Sleep Apnea Test: Date 10/02/2019; [...] 2019 home sleep apnea test. 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 Stenosis. Mod-severe R MCA stenosis 12/2010 Assessment & Plan (12/27/2024 4:53 PM EDT): Continue Aggrenox daily CKD (chronic kidney disease) stage 3, GFR 30-59 ml/min (CMS/[facility] V24, CMS/HCC V28) 07/07/2018 Assessment & Plan [...] crush or chew. GERD (gastroesophageal reflux disease) 11/30/201 8 Hyperlipidemia 07/07/2018 Assessment & Plan (12/27/2024 [...] having a bone marrow biopsy done in [place] stating it was normal. Hematology advised her [...] treatments are documented for this patient in [facility]. Treatments may have been administered in another system. Resolved Problems Problem Noted Date Diagnosed Date Resolved Date Low back pain 02/17/2021 12/27/2024 Urinary tract infection, site not specified 02/17/2021 12/27/2024
--- OUTSIDE RECORDS SUMMARY | 2025-04-18 07:52 | XMS_ITS | Encounter Summary ---
Author Organization [facility] Address [address] [place] [address] Phone Care Team Providers Care Electrician Deck Name Role Phone Srikanthchristo Omayravincentrasta Primary Care Provider Encounter Details Date Type Department Care Team (Late st Contact Info) Description 12/02/2022 Telephone [facility] [address] [place] [address] Kelley Figueroa Social History Tobacco [...] Only [facility] [address] [phone] Kelley Cordova ARNP [address] [place] [phone] Chronic kidney disease, stage 2 (mild); Hypertension 05/21/2025 7:30 AM EDT Office Visit [facility] [address] [address] Kelley Cordova ARNP [address] [place] [phone] documented as of this encounter Visit Diagnoses Not on filedocumented in this encounter Care Teams Electrician Deck Relationship Specialty Start Date End Date Elsy Sloan PCP - General 10/27/22 documented as of this encounter
--- OUTSIDE RECORDS SUMMARY | 2025-04-18 07:52 | XMS_ITS | Clinical Summary ---
Author Organization [facility] Address [address] [place] [address] Care Team Providers Care Zipper Measurer Name Role Phone Elsy Sloan MD Primary [...] specified 02/05 Obstructive sleep apnea 10/06/2019 Overview: [facility] Home Sleep Apnea Test: Date 10/02/2019; Wt [...] 75+ series) 2022 COVID-19 Vaccine ( season) 2025 12/02/2021, 05/26/2021, 09/14/2020, Additional history exists Influenza [...] age to complete this topic Care Teams Zipper Measurer Relationship Specialty Start Date End Date Elsy Sloan MD [address] [place] [address] PCP - General 01/19/24
--- OUTSIDE RECORDS SUMMARY | 2025-04-18 07:52 | XMS_ITS | Encounter Summary ---
Author Organization [facility] Address [address] [place] [address] Phone Care Team Providers Care Supervisor Inspecting Name Role Phone Elsy Sloan Primary Care Provider Encounter Details Date Type Department Care Team ([facility] Contact Info) Description 07/21/2022 Telephone [facility] [address] [facility] [address] [place] [address] Shaheed Hough MD [address] [place] [address], [address] [address] Social History Tobacco Use Types Packs/Day Years [...] [facility] [address] [phone] Kelley Cordova ARNP [address] [phone] Chronic kidney disease, stage 2 (mild); Hypertension 05/21/2025 7:30 AM EDT Office Visit [facility] [address] [phone] Kelley Cordova ARNP [address] [phone] documented as of this encounter Visit Diagnoses Not on filedocumented in this encounter Care Teams Supervisor Inspecting Relationship Specialty Start Date End Date Elsy Sloan PCP - General 10/27/22 documented as of this encounter
--- OUTSIDE RECORDS SUMMARY | 2025-04-18 07:52 | XMS_ITS | Encounter Summary ---
Author Organization [facility] Address [address] [place] [address] Care Team Providers Care Medical Superintendent Name Role Phone Elsy Sloan MD Primary Care Pr ovider Reason for Referral * Consultation (Routine) - Authorized Specialty Diagnoses / Procedures Referred By Yefri montgomery Referred To Contact Cardiology Diagnoses Cardiac murmur, unspecified Elsy Sloan MD [address] [place] [address] Phone: tel: fax: [facility] - [facility] [address] [facility] [address] [place] [address] Phone: tel: fax: Referral ID Status Reason Start Date Expiration Date Visits Requested Visits Authorized [id number] Authorized Specialty Services Required 03/27/2025 03/27/2026 5 5 Reason for Visit * Reason Onset Date Comments Referral 03/27/2025 Cardiology Insur ance Referral Encounter Details Date Type Department Care Team ([facility] st Contact Info) Description 03/27/2025 Telephone Adult Medicine [facility] [address] [place], [place] [phone] Elsy Sloan MD [address] [place] [address] Social History Tobacco Use Types Packs/Day Years [...] for your loved ones. For example, children's author or elderly care for an older adult? [...] PM EDT documented as of this encounter Progress Notes * Kelly Reich - 03/27/2025 11:14 AM EDT What insurance does the patient have today? Payor: [email or web address]/@[email or web address]@ Referrals cannot be processed if the insurance is not accurate. If the insurance listed above is NO BILLING INFORMATION FOUND FOR THIS ENCOUNTER then the patients correct insurance must be obtainedand registered in [facility] or their referral can not be processed. Name of person calling to request this referral? Fax Referred To Provider (Include first and last name): [facility] NPI (if known): [id number] Order/Specialty requested cardiology Chief Complaint (Note: This is not a body part or a procedure): R01.1 Has the patient seen provider for this problem/Dx before? Referred To Provider Address: Referred To Provider Referred To Provider Does patient have an appointment scheduled?: yes If yes, what is the date of the appointment?: 04/09/25 Is this a retro request? no Number of visits requested: 6 Is this appointment related to: MVA or worker compensation? no documented in this encounter Plan of Treatment Upcoming Encounters Date Type Department Care Team (Late st Contact Info) Description 04/30/2025 5:00 PM EDT Office Visit [facility] [address] [place] [address] Milayd Muniz PA [address] [place] [address] 06/26/2025 3:30 PM EST Office Visit [facility] [address] [phone] Katelynn Le PA [address] [address] 07/23/2025 9:00 AM EST Office Visit [facility] Hematology Oncology [address] [place] [phone] Krishan Cope MD [address] [place] [address] Scheduled Referrals Name Type Priority Associated Diagnoses Orde r Schedule Ambulatory referral to Cardiology Outpatient Referral Routine Cardiac murmur, unspecified Expected: 03/27/2025, Expires: 03/27/2026 documented as of this encounter Visit Diagnoses Diagnosis Cardiac murmur, unspecified- Primary documented in this encounter Additional Health Concerns Assessment Noted Time PHQ-9 Depression Total Score: 1 03/01/20 25 8:14 AM EDT A fall risk assessment has been complete d for the patient 12/27/2024 9:02 AM EDT documented as of this encounter Care Teams Medical Superintendent Relationship Specialty Start Date End Date Elsy Sloan MD [address] [place], [place] PCP - General Internal Medicine 03/16/22 documented as of this encounter
--- OUTSIDE RECORDS SUMMARY | 2025-04-18 07:52 | XMS_ITS | Clinical Summary ---
Author Organization [facility] Address [address] [facility] [address] [place] [address] Phone Care Team Providers Care Bonbon Cream Warmer Name Role Phone Valeriodot Elsy Primary Care Provider [phone] Allergies Active Allergy Reactions Criticality Noted Date [...] each day 30 tablet 5 5 Active Active Problems Problem Noted Date Diagnosed [...] 02/17/2021 Obstructive sleep apnea 10/06/2019 Overview (04/28/2021): [facility] Home Sleep Apnea Test: Date 10/02/2019; Wt [...] hypoventilation by 2019 home sleep apnea test. [facility] Home Sleep Apnea Test: Date 10/02/2019; Wt [...] kidney disease stage 3 07/07/2018 12/20/2023 Immunizations Immunization Administration Dates Next Due Influenza [...] Orders Only [facility] [address] [phone] Kelley Cordova ARNP [address] [phone] Chronic kidney disease, stage 2 (mild); Hypertension 05/21/2025 7:30 AM EDT Office Visit [facility] [address] [phone] Kelley Cordova ARNP [address] [phone] Health Maintenance Due Date Last Done Comments Influenza Vaccine (#1) 2025 4, 07/11/2023, 06/28/2019, Additional history exists Pneumococcal Vaccine: 50+ Years Completed 06/02/2015, 06/14/2014 Hepatitis B Vaccine Aged Out No longe r eligible based on patient's age to complete this topic Insurance [facility] [employer] Care Teams Bonbon Cream Warmer Relationship Specialty Start Date End Date Elsy Sloan PCP - General 10/27/22
[2025-04-18 07:55] VITALS: BP 120/74; PULSE 68; O2SAT 98
== END 2025-04-18 08:37 | disposition home or self-care (01) ==
LOC: HO.RHES 07:50
PROVIDERS: PCP Family Medicine; Visit Provider Internal Medicine Rheumatology
DX: M06.9 Rheumatoid arthritis, unspecified (principal); Z79.899 Other long term (current) drug therapy; M81.0 Age-related osteoporosis without current pathological fracture
CPT/HCPCS: 99214; G2211

== ENCOUNTER 2025-04-19 07:05 | Outpatient (REF) | payer MEDICARE, SELFPAY ==
--- OUTSIDE RECORDS SUMMARY | 2025-04-19 07:09 | XMS_ITS | Clinical Summary ---
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 Stenosis. Mod-severe R MCA stenosis 12/2010 Assessment & Plan (12/27/2024 4:53 PM EDT): Continue Aggrenox daily CKD (chronic kidney disease) stage 3, GFR 30-59 ml/min ([facility] V24, [facility] V28) 07/07/2018 Assessment & Plan [...] having a bone marrow biopsy done in [place] stating it was normal. Hematology advised her [...] Description 04/09/2025 3:30 PM EDT Ancillary Procedure [facility] [address] [facility] [address] [place] [phone] Systolic murmur 03/27/2025 Telephone Adult Medicine [address] [phone] Elsy Sloan MD 03/06/2025 Telephone Adult Medicine [address] [phone] Elsy Sloan MD 03/01/2025 8:30 AM EDT Telemedicine [facility] 175 [facility] [address] [place] [phone] Yoselyn Dalton MD Cerebrovascular disease (Primary Dx); Cervical stenosis of spinal canal; Intractable migraine with aura without status migrainosus; Vertigo 02/14/2025 Social Work [facility] [address] [facility] [address] [place] [phone] Yuli Bailey LMSW 02/13/2025 Telephone Adult Medicine [address] [phone] Elsy Sloan MD 01/30/2025 Telephone Adult Medicine [address] [phone] Elsy Sloan MD from Last 3 Months [...] disea se) stage 3, GFR 30-59 ml/min ([facility]) Diastolic dysfunction 07/07/2018 DX:Diastol ic [...] of multiple joints RA (rheumatoid arthritis) ([facility] [place]/[facility] V24, [facility] V28) 07/07/2018 DX:RA (rheumatoid arthritis) ([facility]) Raynauds disease 07/07/2018 DX:Raynauds dis ease Recurrent UTI 07/07/2018 DX:Recurrent UTI ; COMMENT: Prophylaxis 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 For example, children's service supervisor or elderly care for an older adult? [...] 5:00 PM EDT Office Visit Adult Medicine [address] [phone] Milady Muniz PA [address] [place] [address] 06/26/2025 3:30 PM EST Office Visit [facility] 175 [facility] [address] [place] [address] Katelynn Le PA [address] [address] 07/23/2025 9:00 AM EST Office Visit [facility] Hematology Oncology [address] [place] [phone] Krishan Cope MD [address] [place] [address] Health Maintenance Due Date Last Done Comments [...] stage 3a or 3b CKD (CMS/HCC V24, [facility] V28) COMPLETE BLOOD COUNT Routine [...] (04/09/2025 4:31 PM EDT) Left Atrium Minor Lena 5.8 cm CV PACS Left Atrium Major Lena 4.4 cm CV PACS LA Area Sys [...] Volume 78 mL CV PACS MV Deceleration Butts 3.7 m/s2 CV PACS E Wave Deceleration [...] S' 13 cm/s CV PACS RA Major Lena 4.1 cm CV PACS RA Major Lena Index 2.3 2.2 - 2.8 cm/m2 CV [...] LAB CHEMISTRY METHOD 01/29/2025 5:33 PM EDT [facility] Blood Venous blood specimen / Unknown Venipuncture / Unknown 01/29/2025 10:24 AM EDT 01/29/2025 10:24 AM EDT Elsy Sloan MD LAB BLOOD ORDERA BLES Final Result [facility] [address] [place] [address], [place] [phone] * Thyroid stimulating hormone with reflex to free t4 and free t3 (01/29/2025 10:24 AM EDT) TSH 1.96 0.40 - 4.00 mcIU/mL LAB CHEMISTRY METHOD 01/29/2025 4:56 PM EDT [facility] Blood Venous blood specimen / Unknown Venipuncture / Unknown 01/29/2025 10:24 AM EDT 01/29/2025 10:24 AM EDT us Milady ADAM LAB BLOOD ORDERABLES Final Re sult [facility] [address] [place] [address], [place] [phone] * (ABNORMAL) Lipid panel with reflex to direct LDL (01/29/2025 10:24 AM EDT) Cholesterol 191 0 - 200 mg/dL LAB CHEMISTRY METHOD 01/29/2025 2:56 PM EDT [facility] Triglycerides 105 0 - 150 mg/dL LAB CHEMISTRY METHOD 01/29/2025 2:56 PM EDT [facility] HDL 63 >=40 mg/dL LAB CHEMISTRY METHOD 01/29/2025 2:56 PM T [facility] LDL Calculated 107(H) 0 - 100 mg/dL LAB CHEMISTRY METHOD 01/29/2025 2:56 PM EDT [facility] VLDL Cholesterol Oren 21 mg/dL LAB CHEMISTRY METHOD 01/29/2025 2:56 PM EDT [facility] Non HDL Chol. (LDL+VLDL) 128 <145 mg/dL LAB CHEMISTRY METHOD 01/29/2025 2:56 PM EDT [facility] Chol/HDL Ratio 3.0 0.0 - 4.4 LAB CHEMISTRY METHOD 01/29/2025 2:56 PM T [facility] Blood Venous blood specimen / Unknown Venipuncture / Unknown 01/29/2025 10:24 AM EDT 01/29/2025 10:24 AM EDT Milady ADAM LAB BLOOD ORDERABLES Final Re sult Performing Organization Address [facility]/ZIP Co de Phone Number [facility] [address] [place] [address], * (ABNORMAL) Iron and TIBC (01/29/2025 10:24 AM EDT) Iron 29(L) 40 - 150 mcg/dL LAB CHEMISTRY METHOD 01/29/2025 2:56 PM EDT [facility] TIBC 397 250 - 450 mcg/dL LAB CHEMISTRY METHOD 01/29/2025 2:56 PM EDT [facility] Iron Saturation 7(L) 15 - 50 % LAB CHEMISTRY METHOD 01/29/2025 2:56 PM EDT [facility] Blood Venous blood specimen / Unknown Venipuncture / Unknown 01/29/2025 10:24 AM EDT 01/29/2025 10:24 AM EDT Milady ADAM LAB BLOOD ORDERABLES Final Re sult Performing Organization Address [facility] Phone Number [facility] [address] [place] [address], * Vitamin D 25 hydroxy (01/29/2025 10:24 AM EDT) Vit D, 25-Hydroxy 37.7 30.0 - 80.0 ng/mL LAB CHEMISTRY METHOD 01/29/2025 4:55 PM EDT [facility] Blood Venous blood specimen / Unknown Venipuncture / Unknown 01/29/2025 10:24 AM EDT 01/29/2025 10:24 AM EDT us Yoselyn Dalton MD LAB BLOOD ORDERABLES Fin al Result Performing Organization Address [facility]/ZIP Co de Phone Number [facility] [address] [place] [address], * (ABNORMAL) Sedimentation rate (01/29/2025 10:24 AM EDT) Sed Rate 34(H) 0 - 30 mm/hr LAB HEMETOLOGY METHOD 01/29/2025 1:54 PM EDT [facility] Blood Venous blood specimen / Unknown Venipuncture / Unknown 01/29/2025 10:24 AM EDT 01/29/2025 10:24 AM EDT Yoselyn Dalton MD LAB BLOOD ORDERABLES Fin al Result Performing Organization Address [facility] Co de Phone Number [facility] [address] [place] [address], * (ABNORMAL) Complete blood count (01/29/2025 10:24 AM EDT) [facility] WBC 7.0 4.8 - 10.8 K/mcL LAB HEMETOLOGY METHOD 01/29/2025 1:36 PM EDT [facility] RBC 4.00 3.80 - 4.80 M/mcL LAB HEMETOLOGY METHOD 01/29/2025 1:36 PM EDT [facility] Hemoglobin 11.1(L) 11.5 - 16.0 g/dL LAB HEMETOLOGY METHOD 01/29/2025 1:36 PM EDT [facility] Hematocrit 36.7 35.0 - 47.0 % LAB HEMETOLOGY METHOD 01/29/2025 1:36 PM EDT [facility] MCV 90.8 79.0 - 98.0 FL LAB HEMETOLOGY METHOD 01/29/2025 1:36 PM EDT [facility] MCH 27.5 27.0 - 32.0 pcg LAB HEMETOLOGY METHOD 01/29/2025 1:36 PM EDT [facility] MCHC 30.2(L) 32.0 - 37.0 g/dL LAB HEMETOLOGY METHOD 01/29/2025 1:36 PM EDT [facility] RDW 19.4(H) 11.0 - 15.0 % LAB HEMETOLOGY METHOD 01/29/2025 1:36 PM EDT [facility] Platelets 549(H) 130 - 400 K/mcL LAB HEMETOLOGY METHOD 01/29/2025 1:36 PM EDT [facility] MPV 8.8 7.0 - 11.0 FL LAB HEMETOLOGY METHOD 01/29/2025 1:36 PM EDT [facility] NRBC 0.0 <1.0 % LAB HEMETOLOGY METHOD 01/29/2025 1:36 PM EDT [facility] NRBC Absolute 0.00 <0.10 K/mcL LAB HEMETOLOGY METHOD 01/29/2025 1:36 PM EDT [facility] Blood Venous blood specimen / Unknown Venipuncture / Unknown 01/29/2025 10:24 AM EDT 01/29/2025 10:24 AM EDT us Milady ADAM LAB BLOOD ORDERABLES Final Re sult [facility] [address] [place] [address], * Ferritin (01/29/2025 10:24 AM EDT) Ferritin 19 8 - 252 ng/mL LAB CHEMISTRY METHOD 01/29/2025 2:56 PM EDT [facility] Blood Venous blood specimen / Unknown Venipuncture / Unknown 01/29/2025 10:24 AM EDT 01/29/2025 10:24 AM EDT us Milady ADAM LAB BLOOD ORDERABLES Final Re sult [facility] [address] [place] [address], [place] [phone] * Vitamin B12 (01/29/2025 10:24 AM EDT) [facility] Vitamin B-12 346 250 - 900 pcg/mL LAB CHEMISTRY METHOD 01/29/2025 4:24 PM EDT [facility] Blood Venous blood specimen / Unknown Venipuncture / Unknown 01/29/2025 10:24 AM EDT 01/29/2025 10:24 AM EDT Yoselyn Dalton MD LAB BLOOD ORDERABLES Fin al Result Performing Organization Address City/[facility]/ZIP Co de Phone Number [facility] [address] [place] [address], [place] [phone] * Basic metabolic panel (01/29/2025 10:24 AM EDT) [facility] Sodium 136 133 - 145 mmol/L LAB CHEMISTRY METHOD 01/29/2025 2:56 PM EDT [facility] Potassium 4.6 3.5 - 5.5 mmol/L LAB CHEMISTRY METHOD 01/29/2025 2:56 PM EDT [facility] Chloride 103 96 - 110 mmol/L LAB CHEMISTRY METHOD 01/29/2025 2:56 PM EDT [facility] CO2 25 21 - 32 mmol/L LAB CHEMISTRY METHOD 01/29/2025 2:56 PM EDT [facility] Anion Gap 8 3 - 11 LAB CHEMISTRY METHOD 01/29/2025 2:56 PM EDT [facility] Glucose 99 70 - 100 mg/dL LAB CHEMISTRY METHOD 01/29/2025 2:56 PM EDT [facility] BUN 14 5 - 25 mg/dL LAB CHEMISTRY METHOD 01/29/2025 2:56 PM EDT [facility] Creatinine 0.90 0.50 - 1.10 mg/dL LAB CHEMISTRY METHOD 01/29/2025 2:56 PM EDT [facility] eGFR 66 >=60 mL/min/1. 73m2 LAB CHEMISTRY METHOD 01/29/2025 2:56 PM EDT [facility] Comment:Calculation based on the Chronic Kidney Disease Epidemiology Collaboration (CKD-EPI) equation refit without adjustment for race. BUN/Creatinine Ratio 15.6 LAB CHEMISTRY METHOD 01/29/2025 2:56 PM EDT [facility] Calcium 8.8 8.5 - 10.5 mg/dL LAB CHEMISTRY METHOD 01/29/2025 2:56 PM EDT [facility] Blood Venous blood specimen / Unknown Venipuncture / Unknown 01/29/2025 10:24 AM EDT 01/29/2025 10:24 AM EDT us Milady ADAM LAB BLOOD ORDERABLES Final Re sult [facility] [address] [place] [address], [place] [phone] from Last 3 Months Insurance * Guarantor: Payal Calero Account Type Relation to Patient Date of Phone Billing Address Personal/Family Self 1945 [address] [facility] [address] [place] [address] [employer] Advance Directives Documents on File Type Date Recorded 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
--- OUTSIDE RECORDS SUMMARY | 2025-04-19 07:09 | XMS_ITS | Encounter Summary ---
Author Organization [facility] Address [address] [place] [address] Phone Care Team Providers Care Electrical Fitter Name Role Phone Srikanthchristo Elsy Primary Care Provider Encounter Details Date Type Department Care Team (Late st Contact Info) Description 12/02/2022 Telephone [facility] [address] [place] [address] Kelley Figueroa Social History Tobacco [...] Orders Only [facility] [address] [phone] Kelley Cordova ARNP [address] [place] [phone] Chronic kidney disease, stage 2 (mild); Hypertension 05/21/2025 7:30 AM EDT Office Visit [facility] [address] [phone] Kelley Cordova ARNP [address] [place] [phone] documented as of this encounter Visit Diagnoses Not on filedocumented in this encounter Care Teams Electrical Fitter Relationship Specialty Start Date End Date Elsy Sloan PCP - General 10/27/22 documented as of this encounter
--- OUTSIDE RECORDS SUMMARY | 2025-04-19 07:09 | XMS_ITS | Continuity of Care Document ---
Author Organization [facility] Address [address] [facility] [address] [place] [address] Phone [phone] Care Team Providers Care Area Operations Director Name Role Phone Elsy Sloan Care Team Information Rece iver [phone] Social History Type Date Description Comments Sex [...]
--- OUTSIDE RECORDS SUMMARY | 2025-04-19 07:09 | XMS_ITS | Encounter Summary ---
Author Organization [facility] Address [address] [place] [address] Phone Care Team Providers Care Reservoir Engineering Advisor Name Role Phone Elsy Sloan Primary Care Provider [phone] Encounter Details Date Type Department Care Team (Late Contact Info) Description 11/01/2022 Telephone [facility] [address] [facility] [address] [place] [phone] Sylwia Moore [place] Social History Tobacco Use [...] [facility] [address] [facility] [address] [place] [phone] Kelley Cordova ARNP [address] [address] Chronic kidney disease, stage 2 (mild); Hypertension 05/21/2025 7:30 AM EDT Office Visit [facility] [address] [address] Kelley Cordova ARNP [address] [address] documented as of this encounter Visit Diagnoses Not on filedocumented in this encounter Care Teams Reservoir Engineering Advisor Relationship Specialty Start Date End Date Elsy Sloan PCP - General 10/27/22 documented as of this encounter
--- OUTSIDE RECORDS SUMMARY | 2025-04-19 07:09 | XMS_ITS | Clinical Summary ---
Author Organization [facility] Address [address] [place] [address] Care Team Providers Care Quarter Lining Smoother Name Role Phone Elsy Sloan MD Primary [...] 02/05 Obstructive sleep apnea 10/06/2019 Overview: [facility] Home Sleep Apnea Test: Date [...] age to complete this topic Care Teams Quarter Lining Smoother Relationship Specialty Start Date End Date Elsy Sloan MD [address] [place] [address] PCP - General 01/19/24
--- OUTSIDE RECORDS SUMMARY | 2025-04-19 07:09 | XMS_ITS | Encounter Summary ---
Author Organization [facility] Address [address] [place] [address] Phone Care Team Providers Care Binder Roller Name Role Phone Lynsey Sloanmaximopete Primary Care Provider Encounter Details Date Type Department Care Team (Late Contact Info) Description 07/26/2022 Telephone [facility] [address] [facility] [address] [place] [address] Shaheed Hough MD [address] [place] [address], [address] [address] Social History Tobacco Use Types Packs/Day Years [...] [facility] [address] [facility] [address] [place] [address] Kelley Cordova ARNP [address] [phone] Chronic kidney disease, stage 2 (mild); Hypertension 05/21/2025 7:30 AM EDT Office Visit [facility] [address] [phone] Kelley Cordova ARNP [address] [phone] documented as of this encounter Visit Diagnoses Not on filedocumented in this encounter Care Teams Binder Roller Relationship Specialty Start Date End Date Elsy Sloan PCP - General 10/27/22 documented as of this encounter
--- OUTSIDE RECORDS SUMMARY | 2025-04-19 07:09 | XMS_ITS ---
Author Organization [facility] [address] [facility] Address [address] [place] [address] Phone Care Team Providers Care Wheat Grower Name Role Phone Elsy Sloan MD Primary [...] site Obstructive sleep apnea 10/06/2019 Overview (04/05/2024): [facility] Home Sleep Apnea Test: Date [...] 2019 home sleep apnea test. 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 Stenosis. Mod-severe R MCA stenosis 12/2010 Assessment & Plan (12/27/2024 4:53 PM EDT): Continue Aggrenox daily CKD (chronic kidney disease) stage 3, GFR 30-59 ml/min (CMS/[facility] V24, CMS/HCC V28) 07/07/2018 Assessment & Plan [...] having a bone marrow biopsy done in [place] stating it was normal. Hematology advised her [...] treatments are documented for this patient in [facility]. Treatments may have been administered in another system. Resolved Problems Problem Noted Date Diagnosed Date Resolved Date Low back pain 02/17/2021 12/27/2024 Urinary tract infection, site not specified 02/17/2021 12/27/2024
--- OUTSIDE RECORDS SUMMARY | 2025-04-19 07:09 | XMS_ITS | Encounter Summary ---
Author Organization [facility] Address [address] [place] [address] Care Team Providers Care Freight Receiver Name Role Phone Elsy Sloan MD Primary Care Pr ovider Reason for Referral * Consultation (Routine) - Authorized Specialty Diagnoses / Procedures Referred By Yefri montgomery Referred To Contact Cardiology Diagnoses Cardiac murmur, unspecified Elsy Sloan MD [address] [place] [address] Phone: tel: fax: [facility] [address] [facility] [address] [place] [address] Phone: tel: fax: Referral ID Status Reason Start Date Expiration Date Visits Requested Visits Authorized [id number] Authorized Specialty Services Required 03/27/2025 03/27/2026 5 5 Reason for Visit * Reason Onset Date Comments Referral 03/27/2025 Cardiology Insur ance Referral Encounter Details Date Type Department Care Team ([facility] st Contact Info) Description 03/27/2025 Telephone Adult Medicine [facility] [address] [place], [place] [phone] Elsy Sloan MD [address] [place] [address] Social History Tobacco Use Types Packs/Day Years [...] care for your loved ones. For example, director maternal child or elderly care for an older adult? [...] insurance does the patient have today? Payor: [facility]/@[email or web address]@ Referrals cannot be processed if the insurance is not accurate. If the insurance listed above is NO BILLING INFORMATION FOUND FOR THIS ENCOUNTER then the patients correct insurance must be obtainedand registered in [facility] or their referral can not be processed. Name of person calling to request this referral? Fax Referred To Provider (Include first and last name): [facility] NPI (if known): [id number] Order/Specialty requested cardiology Chief Complaint (Note: This [...] 5:00 PM EDT Office Visit Adult Medicine [facility] [address] [place] [address] Milady Muniz PA [address] [place] [address] 06/26/2025 3:30 PM EST Office Visit [facility] [address] [phone] Katelynn Le PA [address] [address] 07/23/2025 9:00 AM EST Office Visit [facility] Hematology Oncology [address] [place] [phone] Krishan Cope MD [address] [place] [address] Scheduled Referrals Name Type Priority Associated Diagnoses [...] documented as of this encounter Care Teams Freight Receiver Relationship Specialty Start Date End Date Elsy Sloan MD [address] [place], [place] PCP - General Internal Medicine 03/16/22 documented as of this encounter
--- OUTSIDE RECORDS SUMMARY | 2025-04-19 07:09 | XMS_ITS | Encounter Summary ---
Author Organization [facility] Address [address] [place] [address] Care Team Providers Care Hemstitcher Name Role Phone Elsy Sloan MD Primary Care Pr ovider Encounter Details Date Type Department Care Team Description 02/21/2024 Social Work [facility] Oncology Services [address] [place] [address] [facility] Social History Tobacco Use Types Packs/Day [...] on filedocumented in this encounter Care Teams Hemstitcher Relationship Specialty Start Date End Date Elsy Sloan MD [address] [place] [address] PCP - General 01/19/24 documented as of this encounter
--- OUTSIDE RECORDS SUMMARY | 2025-04-19 07:09 | XMS_ITS | Clinical Summary ---
Author Organization [facility] Address [address] [facility] [address] [place] [address] Phone Care Team Providers Care Bd Special Education Teacher Name Role Phone Valeriodot Elsy Primary Care [...] 02/17/2021 Obstructive sleep apnea 10/06/2019 Overview (04/28/2021): [facility] Home Sleep Apnea Test: Date [...] hypoventilation by 2019 home sleep apnea test. [facility] Home Sleep Apnea Test: Date [...] Orders Only [facility] [address] [phone] Kelley Cordova ARNP [address] [phone] Chronic kidney disease, stage 2 (mild); Hypertension 05/21/2025 7:30 AM EDT Office Visit [facility] [address] [phone] Kelley Cordova ARNP [address] [phone] Health Maintenance Due Date Last Done Comments Influenza Vaccine (#1) 2025 4, 07/11/2023, 06/28/2019, Additional history exists Pneumococcal Vaccine: 50+ Years Completed 06/02/2015, 06/14/2014 Hepatitis B Vaccine Aged Out No longe r eligible based on patient's age to complete this topic Insurance [facility] [employer] Medicare [employer] Medicare Care Teams Bd Special Education Teacher Relationship Specialty Start Date End Date Elsy Sloan PCP - General 10/27/22
--- OUTSIDE RECORDS SUMMARY | 2025-04-19 07:09 | XMS_ITS | Encounter Summary ---
Author Organization [facility] Address [address] [place] [address] Phone Care Team Providers Care Ham Smoker Name Role Phone Elsy Sloan Primary Care Provider Encounter Details Date Type Department Care Team ([facility] Contact Info) Description 07/21/2022 Telephone [facility] [address] [facility] [address] [place] [address] Shaheed Hough MD [address] [place] [address], [address] [address] Social History Tobacco Use Types Packs/Day Years [...] Only [facility] [address] [phone] Kelley Cordoav ARNP [address] [address] Chronic kidney disease, stage 2 (mild); Hypertension 05/21/2025 7:30 AM EDT Office Visit [facility] [address] [address] Kelley Cordova ARNP [address] [address] documented as of this encounter Visit Diagnoses Not on filedocumented in this encounter Care Teams Ham Smoker Relationship Specialty Start Date End Date Elsy Sloan PCP - General 10/27/22 documented as of this encounter
[2025-04-19 08:16] LABS: MANUAL DIFF FLAG NO
[2025-04-19 08:29] LABS: Hematocrit 30.0 % (37.0-47.0); Hematocrit 30.5 % (37.0-47.0); Hemoglobin 9.5 g/dl (12.0-16.0); Imm Gran Abs Auto 0.01 X10*3/uL (0.00-0.03); Imm Gran Abs Auto 0.02 X10*3/uL (0.00-0.03); Imm Gran Pct Auto 0.2 % (0.0-0.4); Imm Gran Pct Auto 0.3 % (0.0-0.4); Lymphocytes Absolute Auto 2.0 X10*3/uL (1.2-4.9); Mean Corpuscular HGB Conc 31.1 g/dl (31.0-35.0); Mean Corpuscular HGB Conc 31.7 g/dl (31.0-35.0); Mean Corpuscular Hemoglobin 25.9 pg (27.0-33.0); Mean Corpuscular Hemoglobin 26.1 pg (27.0-33.0); Mean Corpuscular Volume 82.4 fL (80.0-98.0); Mean Corpuscular Volume 83.1 fL (80.0-98.0); NRBC Abs Auto 0.000 X10*3/uL (0.0-0.012); NRBC Pct Auto 0.0 /100WBC (0.0-0.2); Platelet Count 560 X10*3/uL (160-400); Platelet Count 563 X10*3/uL (160-400); Red Blood Count 3.64 X10*6/uL (4.20-5.50); Red Blood Count 3.67 X10*6/uL (4.20-5.50); White Blood Count 5.6 X10*3/uL (4.8-10.8); White Blood Count 5.7 X10*3/uL (4.8-10.8)
[2025-04-19 09:09] LABS: Alanine Aminotransferase 9 U/L (0-31); Albumin Level 4.3 g/dL (3.5-5.0); Aspartate Amino Transferase 21 U/L (5-31); Calcium 9.1 mg/dL (8.4-10.2); Estimated Glomerular Filt Rate > 60
[2025-04-19 09:16] LABS: Anion Gap 16 (12-20); Blood Urea Nitrogen 14 mg/dL (9-16); Calcium 9.2 mg/dL (8.4-10.2); Carbon Dioxide 26 mmol/L (22-29); Chloride 96 mmol/L (96-108); Estimated Glomerular Filt Rate > 60; Iron 19 mcg/dL (30-160); Percent Iron Saturation 5 % (15-50); Potassium 4.1 mmol/L (3.3-5.1); Sodium 134 mmol/L (135-145); Total Iron Binding Capacity 360 mcg/dL (228-428); Unsaturated Iron Binding 341 ug/dL
[2025-04-19 09:31] LABS: Ferritin 11 ng/mL (10-250)
[2025-04-19 09:34] LABS: Parathyroid Hormone Intact 165.7 pg/mL (8.7-77.1)
[2025-04-19 10:19] LABS: Microalbum/Creatinine Ratio Ur 142.2 ug/mg cr (<30); Total Protein Urine Random < 7 mg/dL (<12)
[2025-04-23 22:18] LABS: Collagen Type I C-Telopeptide 1196 pg/mL (see note)
== END 2025-04-19 07:06 | disposition home or self-care (01) ==
LOC: HO.LAB 07:05
PROVIDERS: Internal Medicine Nephrology; PCP Family Medicine; Visit Provider Internal Medicine Rheumatology
DX: M81.0 Age-related osteoporosis without current pathological fracture (principal); Z79.899 Other long term (current) drug therapy; Z79.60 Long term (current) use of unspecified immunomodulators and immunosuppressants
CPT/HCPCS: 36415; 80051; 82040; 82043; 82310; 82523; 82565; 82570; 82728; 83540; 83970; 84075; 84156; 84450; 84460; 84520; 85025; 85652; 86140

== ENCOUNTER 2025-05-21 08:20 | Outpatient (AMB) | payer MEDICARE, SELFPAY ==
--- OUTSIDE RECORDS SUMMARY | 2025-05-21 07:30 | XMS_ITS | Encounter Summary ---
Author Organization [facility] Address [address] [address] Phone Care Team Providers Care Hang Gliding Instructor Name Role Phone Lynsey Sloanmaximopete Primary Care Provider Reason for Visit * Reason Comments Chronic Kidney Disease Encounter Details Date Type Department Care Team (Late st Contact Info) Description 05/21/2025 7:30 AM EDT Office Visit [facility] [address] [address] Kelley Cordova ARNP [address] [address] Chronic kidney disease, stage 2 (mild) (Primary Dx); Hypo-osmolality and hyponatremia; Hypertension; Iron deficiency anemia, not otherwise specified Social History Tobacco Use Types Packs/Day Years [...] Sign Reading Time Taken Comments Blood Pressure 118/60 05/21/2025 7:57 AM EDT Pulse 80 05/21/2025 7:34 AM EDT Temperature - - Respiratory Rate - - Oxygen Saturation 96% 05/21/2025 7:34 AM EDT Inhaled Oxygen Concentration - - Weight 71.7 kg (158 lb) 05/21/2025 7:34 AM EDT Height - - Body Mass Index - - documented in this encounter Patient Instructions * Patient Instructions* Kelley Cordova ARNP - 05/21/2025 7:30 AM EDT Blood pressure monitoring education: Monitor home blood pressure values after sitting for 5 minutes with back and arm support. Keep a log. Bring your log and blood pressure cuff to your next visit. documented in this encounter Plan of Treatment Upcoming Encounters Date Type Department Care Team (Late st Contact Info) Description 11/11/2025 7:30 AM EDT Office Visit [facility] [address] [address] Kelley Cordova ARNP [address] [address] Scheduled Orders Name Type Priority Associated Diagnoses Orde r Schedule Basic metabolic panel Lab Routine Chronic kidney disease, stage 2 (mild) Hypo-osmolality and hyponatremia Hypertension Expected: 05/21/2025, Expires: 06/21/2026 CBC Lab Routine Chronic kidney disease, stage 2 (mild) Expected: 05/21/2025, Expires: 06/21/2026 PTH, intact Lab Routine Chronic kidney disease, stage 2 (mild) Hypo-osmolality and hyponatremia Hypertension Iron deficiency anemia, not otherwise specified Expected: 11/03/2025, Expires: 12/05/2025 Renal function panel Lab Routine Chronic kidney disease, stage 2 (mild) Hypo-osmolality and hyponatremia Hypertension Iron deficiency anemia, not otherwise specified Expected: 11/03/2025, Expires: 12/05/2025 CBC Lab Routine Chronic kidney disease, stage 2 (mild) Hypo-osmolality and hyponatremia Hypertension Iron deficiency anemia, not otherwise specified Expected: 11/03/2025, Expires: 12/05/2025 Urine Protein / creatinine ratio Lab Routine Chronic kidney disease, stage 2 (mild) Hypo-osmolality and hyponatremia Hypertension Iron deficiency anemia, not otherwise specified Expected: 11/03/2025, Expires: 12/05/2025 Urine Albumin / Creatinine Ratio Lab Routine Chronic kidney disease, stage 2 (mild) Hypo-osmolality and hyponatremia Hypertension Iron deficiency anemia, not otherwise specified Expected: 11/03/2025, Expires: 12/05/2025 documented as of this encounter Visit Diagnoses Diagnosis Chronic kidney disease, stage 2 (mild)- Primary Hypo-osmolality and hyponatremia Hypertension Iron deficiency anemia, not otherwise specified documented in this encounter Care Teams Hang Gliding Instructor Relationship Specialty Start Date End Date Elsy Sloan PCP - General 10/27/22 documented as of this encounter
--- OUTSIDE RECORDS SUMMARY | 2025-05-21 08:30 | XMS_ITS | Clinical Summary ---
Author Organization [facility] Address [address] [place] [address] Care Team Providers Care Parts Administrator Name Role Phone Elsy Sloan MD Primary [...] specified 02/05 Obstructive sleep apnea 10/06/2019 Overview: [facility] Home Sleep Apnea Test: Date [...] age to complete this topic Care Teams Parts Administrator Relationship Specialty Start Date End Date Elsy Sloan MD [address] [place] [address] PCP - General 01/19/24
--- OUTSIDE RECORDS SUMMARY | 2025-05-21 08:30 | XMS_ITS | Encounter Summary ---
Author Organization [facility] Address [address] [place] [address] Care Team Providers Care Barrel Maker Name Role Phone Elsy Sloan MD Primary Care Pr ovider Encounter Details Date Type Department Care Team Description 02/21/2024 Social Work [facility] Oncology Services [address] [place] [address] [place] [facility] Social History Tobacco Use Types [...] on filedocumented in this encounter Care Teams Barrel Maker Relationship Specialty Start Date End Date Elsy Sloan MD [address] [place] [address] PCP - General 01/19/24 documented as of this encounter
--- OUTSIDE RECORDS SUMMARY | 2025-05-21 08:30 | XMS_ITS | Continuity of Care Document ---
Author Organization [facility] Address [address] [facility] [address] [place] [address] Phone [phone] Care Team Providers Care Furnace Packer Name Role Phone Elsy Sloan Care Team Information Rece iver [phone] Social History Type Date Description Comments Sex [...]
--- OUTSIDE RECORDS SUMMARY | 2025-05-21 08:31 | XMS_ITS | Encounter Summary ---
Author Organization [facility] Address [address] [place] [address] Phone Care Team Providers Care Digital Proofing And Platemaker Name Role Phone Elsy Sloan Primary Care Provider Encounter Details Date Type Department Care Team (Late Contact Info) Description 11/01/2022 Telephone [facility] [address] [facility] [address] [place] [phone] Sylwia Moore [place] Social History Tobacco Use [...] Department Care Team (Late Contact Info) Description 11/11/2025 7:30 AM EDT Office Visit [facility] [address] [facility] [address] [place] [phone] Kelley Cordova ARNP [address] [address] documented as of this encounter Visit Diagnoses Not on filedocumented in this encounter Care Teams Digital Proofing And Platemaker Relationship Specialty Start Date End Date Elsy Sloan PCP - General 10/27/22 documented as of this encounter
--- OUTSIDE RECORDS SUMMARY | 2025-05-21 08:31 | XMS_ITS | Clinical Summary ---
Author Organization [facility] Address [address] [facility] [address] [place] [address] Phone Care Team Providers Care Steel Welder Name Role Phone Valeriodot Elsy Primary Care [...] each day 30 tablet 5 5 Active Simponi 50 MG/0.5ML solution auto-injector Inject 50 mg under the skin every 30 (thirty) days 5 Active Ubrogepant 100 MG tablet Take 100 mg by mouth if needed 5 Active busPIRone (BUSPAR) 5 MG tablet Take 5 mg by mouth in the morning and 5 mg in the evening. 5 06/25/20 25 Active Active Problems Problem Noted Date Diagnosed Date Hypo-osmolality and hyponatremia 05/21/2025 Proteinuria, not otherwise specified 11/19/2024 Primary hyperparathyroidism 05/24/2024 Assessment & Plan (05/24/2024 9:36 PM EDT): Normal Ca with elevated PTH 140, increased from 67 Refer to Endocrinology for further evaluation Chronic kidney disease, stage 2 (mild) Assessment & Plan (05/24/2024 9:27 PM EDT): Creatinine remains stable Normal Lytes Stable mild microalbuminuria - 93 Assessment & Plan (12/20/2023 8:35 PM EDT): Stable Creat 0.91, eGFR 65 as of 11/30/23 Normal Lytes Normal Ca/PO4/PTH Levels Mild proteinuria, urine alb/creat ratio 42 Acute nontraumatic kidney injury 04/28/2021 Lumbago 02/17/2021 Obstructive sleep apnea 10/06/2019 Overview (04/28/2021): [facility] Home Sleep Apnea Test: Date 10/02/2019; [...] hypoventilation by 2019 home sleep apnea test. [facility] Home Sleep Apnea Test: Date 10/02/2019; [...] Encounters Date Type Department Care Team Description 05/21/2025 7:30 AM EDT Office Visit [facility] [address] [phone] Kelley Cordova ARNP Chronic kidney disease, stage 2 (mild) (Primary Dx); Hypo-osmolality and hyponatremia; Hypertension; Iron deficiency anemia, not otherwise specified 05/05/2025 Orders Only [facility] [place] [id number] [phone] Kelley Cordova ARNP Chronic kidney disease, stage [...] Office Visit [facility] [address] [address] Art KelleyNJ [address] [address] Health Maintenance Due Date Last Done Comments Influenza Vaccine (#1) 2025 , 07/11/2023, 06/28/2019, Additional history exists Pneumococcal Vaccine: 50+ Years Completed 06/02/2015, 06/14/2014 Hepatitis B Vaccine Aged Out No longe r eligible based on patient's age to complete this topic Procedures Procedure Name Priority Date/Time Associated Diagnosis Comments ALBUMIN, URINE, RANDOM Routine 04/19/2025 8:34 AM EDT PROTEIN / CREATININE RATIO, URINE Routine 04/19/2025 8:34 AM EDT Chronic kidney disease, stage 2 (mild) Hypertension PTH, INTACT (HC) Routine 04/19/2025 8:14 AM EDT CALCIUM Routine 04/19/2025 8:14 AM EDT CREATININE, BLOOD Routine 04/19/2025 8:1 4 AM EDT BUN Routine 04/19/2025 8:14 AM EDT ELECTROLYTE PANEL Routine 04/19/2025 8:1 4 AM EDT CBC AND DIFFERENTIAL Routine 04/19/2025 8:14 AM EDT IRON PANEL (FE, TIBC, TSAT) Routine 04/19/2025 8:14 AM EDT Chronic kidney disease, stage 2 (mild) Hypertension FERRITIN Routine 04/19/2025 8:14 AM EDT Chronic kidney disease, stage 2 (mild) Hypertension from Last 3 Months Results * Urine Protein / creatinine ratio (04/19/2025 8:34 AM EDT) Protein Urine Random <7 <12 mg/dL See order comments Protein/Creatin ine Ratio, Urine TNP <0.2 See order comments Comment: Unable to calculate urine protein creatinine ratio due to low creatinine or protein result. Urine specimen (specimen) Urine specimen obtained by clean catch procedure / Unknown 04/19/2025 8:34 AM EDT 04/19/2025 8:34 AM EDT [employer] [facility] URINE ORDERABLES Final Result Performing Organization Address [facility] de Phone Number SNOW See order comments [place] [address] * (ABNORMAL) Albumin, urine, random (04/19/2025 8:34 AM EDT) Creatinine, Urine 12.65 mg/dL Se e order comments Urine Microalbumin 18.0 mg/L See order comments Microalbumin/Crea tinine Ratio 142.2(H) <30 ug/mg cr See order comments Comment: Albumin/Creatinine Ratio Reference Ranges: Normal: < 30 ug/mg creatinine Microalbuminuria: 30 - 300 ug/mg creatinine Clinical Albuminuria: > 300 ug/mg creatinine 04/19/2025 8:34 AM EDT 04/19/2025 8:34 AM EDT [employer] [facility] URINE ORDERABLES Final Result Performing Organization Address [facility] Co de Phone Number [facility] See order comments [place] [address] * Creatinine (04/19/2025 8:14 AM EDT) Creatinine Serum 0.79 0.5 - 1.4 mg/dL See order comments eGFR (Calc) >60 See orde r comments Comment: Chronic Kidney Disease: Estimated GFR < 60 mL/min/1.73m2 Severe Kidney Disease: Estimated GFR < 15 mL/min/1.73m2 04/19/2025 8:14 AM EDT 04/19/2025 8:14 AM EDT [facility] Cordova [facility] LAB BLOOD ORDERABLES Final Result Performing Organization Address [facility] Phone Number [place]OW See order comments [place] [address] * (ABNORMAL) PTH, Intact (04/19/2025 8:14 AM EDT) Parathyroid Hormone, Intact 165.7(H) 8.7 - 77.1 pg/mL See order comments 04/19/2025 8:14 AM EDT 04/19/2025 8:14 AM EDT [facility] LAB HISTORICAL-CONVERSIONS- UNSOLICITED RESULTS Final Result Performing Organization Address [facility] Phone Number [place]OW See order comments [place] [address] * (ABNORMAL) Iron Panel (Fe, TIBC, TSAT) (04/19/2025 8:14 AM EDT) Iron 19(L) 30 - 160 mcg/dL See order comments TIBC 360 228 - 428 mcg/dL See order comments Iron Saturation (TSat) 5(L) 15 - 50 % See order comments UIBC 341 ug/dL See order comments Blood specimen (specimen) Venous blood / Unknown 04/19/2025 8:14 AM EDT 04/19/2025 8:14 AM EDT [facility] LAB BLOOD ORDERABLES Final Result Performing Organization Address [facility] de Phone Number SNOW See order comments [place] [address] * (ABNORMAL) CBC and Differential (04/19/2025 8:14 AM EDT) WBC 5.7 4.8 - 10.8 X10*3/uL See order comments RBC 3.67(L) 4.20 - 5.50 X10*6/uL See order comments Hgb 9.5(L) 12.0 - 16.0 g/dl See order comments Hematocrit 30.5(L) 37.0 - 47.0 % See order comments MCV 83.1 80.0 - 98.0 fL See order comments MCH 25.9(L) 27.0 - 33.0 pg See order comments MCHC 31.1 31.0 - 35.0 g/dl See order comments RDW 15.1 11.0 - 16.0 % See order comments Platelets 563(H) 160 - 400 X10*3/uL See order comments MPV 8.7(L) 9.4 - 12.3 fL See order comments Neutrophils % Auto 48.0 45 - 73 % See order comments Immature Granulocytes 0.3 0.0 - 0.4 % See order comments Lymphocytes Relative 35.0 20 - 40 % See order comments Monocytes 11.7(H) 2 - 11 % See order comments Eosinophils Relative 4.0 0 - 4 % See order comments Basophils Relative 1.0 0 - 2 % See order comments nRBC Count 0.0 0.0 - 0.2 /100WBC See order comments Neutrophils Absolute 2.7 2.0 - 8.3 x10*3/uL See order comments Immature Grans (Absolute) 0.02 0.00 - 0.03 X10*3/uL See order comments Lymphocytes Absolute 2.0 1.2 - 4.9 X10*3/uL See order comments Monocytes Absolute 0.7 0.1 - 1.2 X10*3/uL See order comments Eosinophils Absolute 0.2 0.0 - 0.4 X10*3/uL See order comments Basophils Absolute 0.1 0.0 - 0.2 X10*3/uL See order comments NRBC Absolute 0.000 0.0 - 0.012 X10*3/uL See order comments 04/19/2025 8:14 AM EDT 04/19/2025 8:14 AM EDT Kelley Cordova [facility] LAB BLOOD ORDERABLES Final Result [place] See order comments [place] [address] * BUN (04/19/2025 8:14 AM EDT) BUN 14 9 - 16 mg/dL See order comments 04/19/2025 8:14 AM EDT 04/19/2025 8:14 AM EDT [facility] LAB BLOOD ORDERABLES Final Result Performing Organization Address [facility] Phone Number [place]OW See order comments [place] [address] * Ferritin (04/19/2025 8:14 AM EDT) Pathologist [facility] Ferritin 11 10 - 250 ng/mL See order comments Blood specimen (specimen) Venous blood / Unknown 04/19/2025 8:14 AM EDT 04/19/2025 8:14 AM EDT [facility] LAB BLOOD ORDERABLES Final Result Performing Organization Address [facility] Phone [facility] See order comments [place] [address] * Calcium (04/19/2025 8:14 AM EDT) Pathologist [facility] Calcium 9.2 8.4 - 10.2 mg/dL See order comments 04/19/2025 8:14 AM EDT 04/19/2025 8:14 AM EDT [facility] LAB BLOOD ORDERABLES Final Result Performing Organization Address [facility] Phone Number [place] See order comments [place] [address] * (ABNORMAL) Electrolyte panel (04/19/2025 8:14 AM EDT) Sodium 134(L) 135 - 145 mmol/L See order comments Potassium 4.1 3.3 - 5.1 mmol/L See order comments Chloride 96 96 - 108 mmol/L See order comments Bicarbonate (CO2) 26 22 - 29 mmol/L See order comments Anion Gap 16 12 - 20 See order comments 04/19/2025 8:14 AM EDT 04/19/2025 8:14 AM EDT Kelley Cordova [place] LAB BLOOD ORDERABLES Final Result [place] See order comments [place] [address] from Last 3 Months Insurance [facility] [employer] Care Teams Steel Welder Relationship Specialty Start Date End Date Elsy Sloan PCP - General 10/27/22
--- OUTSIDE RECORDS SUMMARY | 2025-05-21 08:31 | XMS_ITS | Clinical Summary ---
Author Organization [facility] [address] [place] [address] [place] [phone] Phone Care Team Providers Care Defense Attorney Name Role Phone Elsy Sloan MD Primary [...] Take 650 mg by mouth. 1 Active fexofenadine (ELIDA) 180 mg tablet Take 1 tablet (180 mg total) by mouth 1 (one) time each day. 4 Active romosozumab-aqqg (Evenity) 4 Active pravastatin (PRAVACHOL) 40 mg tablet Take 1 tablet (40 mg total) by mouth at bedtime. 90 tablet 1 5 Active hydrocortisone 2.5 [...] replace cap. 16 g 1 5 Active amLODIPine (NORVASC) 5 mg tablet Take 1 tablet (5 mg total) by mouth 1 (one) time each day. Active EPINEPHrine (EPIPEN) 0.3 mg/0.3 mL injectionIndicat ions:Allergy to bee sting Inject 0.3 mL (0.3 mg total) into the thigh if needed for anaphylaxis. 1 each 2 5 Active Simponi 50 mg/0.5 mL pen injector injection Inject 0.5 mL (50 mg total) under the skin. 5 Active losartan (Cozaar) 50 mg tabletIndication s:Primary hypertension Take 1 tablet (50 mg total) by mouth 1 (one) time each day. 90 each 1 5 06/25/20 25 Active aspirin-dipyrida mole (AGGRENOX) 25-200 mg per 12 hr capsule Take 1 capsule by mouth at bedtime. 90 each 1 5 06/25/20 25 Active busPIRone (BUSPAR) 5 mg tabletIndication s:Anxiety Take 1 tablet (5 mg total) by mouth 2 (two) times a day. 180 each 1 5 06/25/20 25 Active DULoxetine (CYMBALTA) [address] capsuleIndicatio ns:Fibromyalgia, Anxiety and depression,Anxie ty Take 1 capsule (60 mg total) by mouth 1 (one) time each day. Do not crush or chew. 90 capsule 1 5 Active baclofen (LIORESAL) 10 mg tablet Take 1 tablet (10 mg total) by mouth 3 (three) times a day. 270 tablet 1 5 Active esomeprazole (NexIUM) [address] capsule Take 1 capsule (40 mg total) by mouth 1 (one) time each day. Do not open capsule. 90 capsule 1 5 Active levothyroxine (SYNTHROID, LEVOTHROID) 137 mcg tablet Take 1 tablet (137 mcg total) by mouth 1 (one) time each day before breakfast. 90 tablet 1 5 Active galcanezumab-gnl m (EMGALITY) 120 mg/mL injection pen Inject 1 mL (120 mg total) under the skin every 28 (twenty-eight) days. 3 Pen 3 5 Active cyanocobalamin (Vitamin B-12) 500 mcg tablet Take 1 tablet (500 mcg total) by mouth 1 (one) time each day. 30 each 11 5 03/01/20 26 Active ubrogepant (UBRELVY) 100 mg tablet Take 1 tablet (100 mg total) by mouth 1 (one) time if needed for migraine. 9 tablet 2 5 Active meclizine (ANTIVERT) 12.5 mg tablet Take 1 tablet (12.5 mg total) by mouth 3 (three) times a day if needed for dizziness (vertigo). 30 tablet 5 5 Active Active Problems [...] site Obstructive sleep apnea 10/06/2019 Overview (04/05/2024): [facility] Home Sleep Apnea Test: Date [...] 2019 home sleep apnea test. 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 Stenosis. Mod-severe R MCA stenosis 12/2010 Assessment & Plan (12/27/2024 4:53 PM EDT): Continue Aggrenox daily CKD (chronic kidney disease) stage 3, GFR 30-59 ml/min (CMS/HCC V24, CMS/HCC V28) 07/07/2018 Assessment & [...] having a bone marrow biopsy done in [place] stating it was normal. Hematology advised her [...] Description 04/09/2025 3:30 PM EDT Ancillary Procedure [facility] [address] [place] [phone] Systolic murmur 03/27/2025 Telephone Adult Medicine [address] [phone] Elsy Sloan MD 03/06/2025 Telephone Adult Medicine [address] [phone] Elsy Sloan MD 03/01/2025 8:30 AM EDT Telemedicine [facility] [address] [facility] [address] [place] [address] Yoselyn Dalton MD Cerebrovascular disease (Primary Dx); Cervical stenosis of spinal canal; Intractable migraine with aura without status migrainosus; Vertigo from Last 3 Months Immunizations Immunization Administration Dates Next Due Influenza Quadravalent, MDCK [...] kidney disease) stage 3, GFR 30-59 ml/min ([facility]/HCC V24, CMS/HCC V28) 07/07/2018 DX:CKD (chronic kidney disea se) stage 3, GFR 30-59 ml/min ([facility]) Diastolic dysfunction 07/07/2018 DX:Diastol ic [...] (CMS/HCC V24, CMS/HCC V28) 07/09/2019 DX:Malignant melanoma ([facility]); COMMENT: Jun 2019 MALIGNANT MELANOMA IN [...] for your loved ones. For example, child adolescent psychiatrist or elderly care for an older adult? [...] Date Recorded What is your living situation? Unrecognized valu e 12/24/2024 Comments Unknown Sex and Gender Information [...] Care Team (Late st Contact Info) Description 06/26/2025 3:30 PM EST Office Visit [facility] [address] [phone] Katelynn Le PA [address] [address] 07/23/2025 9:00 AM EST Office Visit [facility] Hematology Oncology [address] [place] [phone] Krishan Cope MD [address] [place] [address] Health Maintenance Due Date Last Done Comments [...] Routine 04/09/2025 4:31 PM EDT Systolic murmur HEPATITIS C ANTIBODY Routine 01/29/2025 10:24 AM EDT Need for hepatitis C screening test BASIC METABOLIC PANEL Routine 01/29/2025 10:24 AM EDT Primary hypertension Stage 3 chronic kidney disease, unspecified whether stage 3a or 3b CKD (CMS/HCC V24, CMS/HCC V28) LIPID PANEL WITH REFLEX TO DIRECT LDL Routine 01/29/2025 10:24 AM EDT Other hyperlipidemia from Last 3 Months or Most Recently Relevant to Health Maintenance Results * (ABNORMAL) TRANSTHORACIC ECHOCARDIOGRAM (TTE) COMPLETE W/ CONTRAST (04/09/2025 4:31 PM EDT) Left Atrium Minor [place] 5.8 cm CV PACS Left Atrium Major [place] 4.4 cm CV PACS LA Area Sys [...] Diameter 2.0 cm CV PACS LVOT Mean Oné 0.8 m/s CV PACS LVOT Mean Grad [...] Volume 78 mL CV PACS MV Deceleration [place] 3.7 m/s2 CV PACS E Wave Deceleration [...] S' 13 cm/s CV PACS RA Major [place]enton 4.1 cm CV PACS RA Major [place] Index 2.3 2.2 - 2.8 cm/m2 CV [...] Hepatitis C antibody (01/29/2025 10:24 AM EDT) [facility] Hepatitis C Antibody Negative Negative LAB CHEMISTRY METHOD 01/29/2025 5:33 PM EDT [facility] Blood Venous blood specimen / Unknown Venipuncture / Unknown 01/29/2025 10:24 AM EDT 01/29/2025 10:24 AM EDT Elsy Sloan MD LAB BLOOD ORDERA BLES Final Result [facility] [address] [place] [address], [place] [phone] * (ABNORMAL) Lipid panel with reflex to direct LDL (01/29/2025 10:24 AM EDT) [facility] Cholesterol 191 0 - 200 mg/dL LAB CHEMISTRY METHOD 01/29/2025 2:56 PM EDT [facility] Triglycerides 105 0 - 150 mg/dL LAB CHEMISTRY METHOD 01/29/2025 2:56 PM EDT [facility] HDL 63 >=40 mg/dL LAB CHEMISTRY METHOD 01/29/2025 2:56 PM EDT [facility] LDL Calculated 107(H) 0 - 100 mg/dL LAB CHEMISTRY METHOD 01/29/2025 2:56 PM EDT [facility] VLDL Cholesterol Oren 21 mg/dL LAB CHEMISTRY METHOD 01/29/2025 2:56 PM EDT [facility] Non HDL Chol. (LDL+VLDL) 128 <145 mg/dL LAB CHEMISTRY METHOD 01/29/2025 2:56 PM EDT [facility] Chol/HDL Ratio 3.0 0.0 - 4.4 LAB CHEMISTRY METHOD 01/29/2025 2:56 PM T [facility] Blood Venous blood specimen / Unknown Venipuncture / Unknown 01/29/2025 10:24 AM EDT 01/29/2025 10:24 AM EDT us Milady ADAM LAB BLOOD ORDERABLES Final Re sult [facility] [address] [place] [address], [place] [phone] * Basic metabolic panel (01/29/2025 10:24 AM EDT) Sodium 136 133 - 145 mmol/L LAB CHEMISTRY METHOD 01/29/2025 2:[address] [facility] Potassium 4.6 3.5 - 5.5 mmol/L LAB CHEMISTRY METHOD 01/29/2025 2:[address] [facility] Chloride 103 96 - 110 mmol/L LAB CHEMISTRY METHOD 01/29/2025 2:[address] [facility] CO2 25 21 - 32 mmol/L LAB CHEMISTRY METHOD 01/29/2025 2:[address] [facility] Anion Gap 8 3 - 11 LAB CHEMISTRY METHOD 01/29/2025 2:[address] [facility] Glucose 99 70 - 100 mg/dL LAB CHEMISTRY METHOD 01/29/2025 2:[address] [facility] BUN 14 5 - 25 mg/dL LAB CHEMISTRY METHOD 01/29/2025 2:[address] [facility] Creatinine 0.90 0.50 - 1.10 mg/dL LAB CHEMISTRY METHOD 01/29/2025 2:56 PM EDT [facility] eGFR 66 >=60 mL/min/1. 73m2 LAB CHEMISTRY METHOD 01/29/2025 2:56 PM EDT [facility] Comment:Calculation based on the Chronic Kidney Disease Epidemiology Collaboration (CKD-EPI) equation refit without adjustment for race. BUN/Creatinine Ratio 15.6 LAB CHEMISTRY METHOD 01/29/2025 2:56 PM EDT [facility] Calcium 8.8 8.5 - 10.5 mg/dL LAB CHEMISTRY METHOD 01/29/2025 2:56 PM EDT [facility] Blood Venous blood specimen / Unknown Venipuncture / Unknown 01/29/2025 10:24 AM EDT 01/29/2025 10:24 AM EDT us Milady ADAM LAB BLOOD ORDERABLES Final Re sult [facility] [address] [place] [address], from Last 3 Months or Most Recently Relevant to Health Maintenance Insurance [employer] Advance Directives Documents on File Type Date Recorded Patient Environmental Services Floor Tech Expl anation Health Care Decision (hx) 03/23/2021 [...] (hx) 02/18/2021 AD MEYER DIRECTIVE Care Teams Defense Attorney Relationship Specialty Start Date End Date Elsy Sloan MD [address] [place] [address] PCP - General Internal Medicine 03/16/22
--- OUTSIDE RECORDS SUMMARY | 2025-05-21 08:31 | XMS_ITS | Encounter Summary ---
Author Organization [facility] Address [address] [place] [address] Phone Care Team Providers Care Net Mender Name Role Phone Lynsey Sloanmaximopete Primary Care Provider Encounter Details Date Type Department Care Team (Late Contact Info) Description 07/26/2022 Telephone [facility] [address] [facility] [address] [place] [address] Shaheed Hough MD [address] [place] [address], [address] [phone] Social History Tobacco Use Types Packs/Day Years [...] Visit [facility] [address] [phone] Kelley Cordova ARNP [address] [phone] documented as of this encounter Visit Diagnoses Not on filedocumented in this encounter Care Teams Net Mender Relationship Specialty Start Date End Date Elsy Sloan PCP - General 10/27/22 documented as of this encounter
--- OUTSIDE RECORDS SUMMARY | 2025-05-21 08:31 | XMS_ITS | Encounter Summary ---
Author Organization [facility] Address [address] [place] [address] Phone Care Team Providers Care Conservation Educator Name Role Phone Lynsey Sloanmaximopete Primary Care Provider Encounter Details Date Type Department Care Team (Late st Contact Info) Description 07/21/2022 Telephone [facility] [address] [facility] [address] [place] [address] Shaheed Hough MD [address] [place] [address], [address] [phone] Social History Tobacco Use Types Packs/Day Years [...] Visit [facility] [address] [phone] Kelley Cordova ARNP [address] [phone] documented as of this encounter Visit Diagnoses Not on filedocumented in this encounter Care Teams Conservation Educator Relationship Specialty Start Date End Date Elsy Sloan PCP - General 10/27/22 documented as of this encounter
--- OUTSIDE RECORDS SUMMARY | 2025-05-21 08:32 | XMS_ITS | Encounter Summary ---
Author Organization [facility] Address [address] [place] [address] Phone Care Team Providers Care Housekeeping/Laundry Supervisor Name Role Phone Srikanthchristo Elsy Primary Care Provider [phone] Encounter Details Date Type Department Care Team (Late st Contact Info) Description 12/02/2022 Telephone [facility] [address] [place] [address] Kelley Figueroa Social History Tobacco [...] Office Visit [facility] [address] [phone] Kelley Cordova ARNP [address] [phone] documented as of this encounter Visit Diagnoses Not on filedocumented in this encounter Care Teams Housekeeping/Laundry Supervisor Relationship Specialty Start Date End Date Elsy Sloan PCP - General 10/27/22 documented as of this encounter
--- OUTSIDE RECORDS SUMMARY | 2025-05-21 08:32 | XMS_ITS ---
Author Organization [facility] [address] [facility] Address [address] [place] [address] Phone Care Team Providers Care Compliance Nurse Name Role Phone Elsy Sloan MD Primary [...] site Obstructive sleep apnea 10/06/2019 Overview (04/05/2024): [facility] Home Sleep Apnea Test: Date 10/02/2019; [...] 2019 home sleep apnea test. Malignant melanoma (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 Stenosis. Mod-severe R MCA stenosis 12/2010 Assessment & Plan (12/27/2024 4:53 PM EDT): Continue Aggrenox daily CKD (chronic kidney disease) stage 3, GFR 30-59 ml/min (CMS/[facility] V24, CMS/HCC V28) 07/07/2018 Assessment & [...] having a bone marrow biopsy done in [place] stating it was normal. Hematology advised her [...] essential thrombocytosis Vitamin D deficiency 07/07/2018 Current Treatment and Therapy Plans No current plan information found. Other Current Plans IRON SUCROSE ( VENOFER ) 200 MG FOR 5 DOSES* Plan Start Date:11/13/2024 Plan Provider:Krishan Cope MD Linked Problems Iron deficiency anemia, unsp ecified iron deficiency anemia type Treatment Medications No medications scheduled. Past Treatment and Therapy Plans Resolved Problems Problem Noted Date Diagnosed Date Resolved Date Low back pain 02/17/2021 12/27/2024 Urinary tract infection, site not specified 02/17/2021 12/27/2024
--- NOTE | 2025-05-21 08:37 | AM.OFFVISNUR ---
Intake Visit Reasons: Evenity #12 Allergies Latex, Natural Rubber Allergy (Mild, Verified 04/18/25 07:54) rash, itching morphine Allergy (Unknown, Verified 04/18/25 07:54) Unknown pregabalin (From Lyrica) Allergy (Unknown, Verified 04/18/25 07:54) Unknown Penicillins Adverse Reaction (Unknown, Verified 04/18/25 07:54) Unknown warfarin Adverse Reaction (Unknown, Verified 04/18/25 07:54) Unknown bee stings Allergy (Intermediate, Uncoded 08/07/24 09:19) Anaphylaxis lovonox Allergy (Mild, Uncoded 08/07/24 09:19) Hives Office Meds romosozumab-aqqg 210 mg/2.34 mL(105 mg/1.17 mL x2)subcutaneous syringe Performing Provider: Teto Tran MD [place] [facility] [place] [facility] Administered by: Christel Martinez RN on 05/21/25 08:20 Dose Route Admin Location Dispensed Lot Number Expiration Date [facility] Agricultural Extension Officer 105 mg subcut right posterior arm 1.17 mL [id number] 07/07/27 06357-920-15 AMGEN 105 mg subcut left posterior arm 1.17 mL [id number] 07/07/27 14796-753-78 AMGEN Total Dispensed Waste 2.34 mL 0 % Comments: Payal Calero presents today for #12 Evenity (romosozumab) 2 x 105 mg/1.17 mL subcutaneous injection for the treatment of osteoporosis. The patient has not had any recent fever or illness. The injection site to be used is without erythema, edema, and is clean, dry and intact. The patient tolerated the procedure well. We discussed follow-up precautions, including but not limited to injection site soreness, redness, itching or swelling. The patient can call the office for consideration of treatment recommendations e.g., medication to reduce pain (e.g., Tylenol) or itching (e.g., Benadryl) if needed. Skin and mucosal symptoms such as generalized hives, itching, or flushing; swelling of lips, face, throat, or eyes. Respiratory symptoms such as nasal congestion, change in voice, sensation of throat closing, stridor, shortness of breath, wheeze, or cough. Gastrointestinal symptoms such as nausea, vomiting, diarrhea, cramping abdominal pain. Cardiovascular symptoms such as collapse, dizziness, tachycardia, hypotension are considered medical emergencies and the patient verbalizes that urgent medical attention (call 911) should be sought. No injection site reactions noted. Assessment & Plan Assessment & Plan Orders: Orders AMB Romosozumab Injection Patient Supplied Today M81.0 - Age-related osteoporosis without current pathological fracture Coding
== END 2025-05-21 08:46 | disposition home or self-care (01) ==
LOC: HO.RHES 08:20
PROVIDERS: PCP Family Medicine; Visit Provider Internal Medicine Rheumatology
DX: M81.0 Age-related osteoporosis without current pathological fracture (principal)

== ENCOUNTER → 2025-05-21 08:20 | Outpatient (BNVA) | payer MEDICARE, SELFPAY | PROVIDERS: PCP Family Medicine; Visit Provider Internal Medicine Rheumatology | DX: M81.0 Age-related osteoporosis without current pathological fracture (principal) | CPT/HCPCS: 96372; J3111 ==

== ENCOUNTER 2025-06-10 15:58 | Outpatient (REF) | payer MEDICARE, SELFPAY ==
--- OUTSIDE RECORDS SUMMARY | 2025-06-10 17:03 | XMS_ITS | Encounter Summary ---
Author Organization [facility] Address [address] [place] [address] Care Team Providers Care Developmental Mathematics Professor Name Role Phone Elsy Sloan MD Primary Care Pr ovider Encounter Details Date Type Department Care Team Description 02/21/2024 Social Work [facility] Oncology Services [address] [place] [address] [place] [facility] Social History Tobacco Use Types Packs/Day Years [...] on filedocumented in this encounter Care Teams Developmental Mathematics Professor Relationship Specialty Start Date End Date Elsy Sloan MD [address] [place] [address] PCP - General 01/19/24 documented as of this encounter
--- OUTSIDE RECORDS SUMMARY | 2025-06-10 17:03 | XMS_ITS | Clinical Summary ---
Author Organization [facility] [address] [place] [address] [place] [phone] Phone Care Team Providers Care Ladle Puller Name Role Phone Elsy Sloan MD Primary [...] as directed by MD. 30 patch 11/06/19 Active fluticasone propionate (FLONASE) 50 mcg/actuation nasal [...] 180 each 1 12/28/19 25 025 Active baclofen (LIORESAL) 10 mg tablet Take [...] (vertigo). 30 tablet 5 03/27/20 25 Active DULoxetine (CYMBALTA) [address] capsuleIndicatio ns:Fibromyalgia, Anxiety and depression,Anxie ty Take 1 capsule (60 mg total) by mouth 1 (one) time each day. Do not crush or chew. 90 capsule 06/05/20 25 Active DULoxetine (CYMBALTA) [address] capsuleIndicatio ns:Fibromyalgia, Anxiety and depression,Anxie ty Take 1 capsule (60 mg total) by mouth 1 (one) time each day. Do not crush or chew. 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 Stenosis. Mod-severe R MCA stenosis 12/2010 Assessment & Plan (12/27/2024 4:53 PM EDT): Continue Aggrenox daily CKD (chronic kidney disease) stage 3, GFR 30-59 ml/min ([facility] V24, [facility] V28) 07/07/2018 Assessment & Plan (12/27/2024 [...] Description 04/09/2025 3:30 PM EDT Ancillary Procedure [facility] [address] [place] [phone] Systolic murmur 03/27/2025 Telephone Adult Medicine [id number] [place] [phone] Elsy Sloan MD from Last 3 Months Immunizations Immunization Administration [...] disea se) stage 3, GFR 30-59 ml/min ([facility]) Diastolic dysfunction 07/07/2018 DX:Diastol ic dysfunction; [...] of multiple joints RA (rheumatoid arthritis) ([facility] [place]/[facility] V24, [facility]/HCC V28) 07/07/2018 DX:RA (rheumatoid arthritis) ([facility]) Raynauds disease 07/07/2018 DX:Raynauds dis ease Recurrent UTI 07/07/2018 DX:Recurrent UTI ; COMMENT: Prophylaxis 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 For example, children's institution attendant or elderly care for an older [...] Description 06/26/2025 3:30 PM EST Office Visit [facility] [address] [facility] [address] [place] [address] Katelynn Le PA [address] [place] [address] 07/23/2025 9:00 AM EST Office Visit [facility] Hematology Oncology [address] [place] [address] Krishan Cope MD [address] [place] [address] Health Maintenance Due Date Last Done Comments [...] (04/09/2025 4:31 PM EDT) Left Atrium Minor [place] 5.8 cm CV PACS Left Atrium Major [place] 4.4 cm CV PACS LA Area Sys [...] Volume 78 mL CV PACS MV Deceleration [place] 3.7 m/s2 CV PACS E Wave Deceleration [...] S' 13 cm/s CV PACS RA Major [place] 4.1 cm CV PACS RA Major [place] Index 2.3 2.2 - 2.8 cm/m2 CV [...] Hepatitis C antibody (01/29/2025 10:24 AM EDT) Pathologist [facility] Hepatitis C Antibody Negative Negative LAB CHEMISTRY METHOD 01/29/2025 5:33 PM EDT [facility] Blood Venous blood specimen / Unknown Venipuncture / Unknown 01/29/2025 10:24 AM EDT 01/29/2025 10:24 AM EDT Elsy Sloan MD LAB BLOOD ORDERA BLES Final Result [facility] [address] [place] [address], [place] [phone] * (ABNORMAL) Lipid panel with reflex to direct LDL (01/29/2025 10:24 AM EDT) [facility] Cholesterol 191 0 - 200 mg/dL LAB CHEMISTRY METHOD 01/29/2025 2:56 PM EDT [facility] Triglycerides 105 0 - 150 mg/dL LAB CHEMISTRY METHOD 01/29/2025 2:56 PM EDT [facility] HDL 63 >=40 mg/dL LAB CHEMISTRY METHOD 01/29/2025 2:56 PM EDT [facility] LDL Calculated 107(H) 0 - 100 mg/dL LAB CHEMISTRY METHOD 01/29/2025 2:56 PM EDT [facility] VLDL Cholesterol Oren 21 mg/dL LAB CHEMISTRY METHOD 01/29/2025 2:56 PM EDT [facility] Non HDL Chol. (LDL+VLDL) 128 <145 mg/dL LAB CHEMISTRY METHOD 01/29/2025 2:56 PM EDT [facility] Chol/HDL Ratio 3.0 0.0 - 4.4 LAB CHEMISTRY METHOD 01/29/2025 2:56 PM [facility] Blood Venous blood specimen / Unknown Venipuncture / Unknown 01/29/2025 10:24 AM EDT 01/29/2025 10:24 AM EDT us Milady ADAM LAB BLOOD ORDERABLES Final Re sult [facility] [address] [place] [address], * Basic metabolic panel (01/29/2025 10:24 AM EDT) Sodium 136 133 - 145 mmol/L LAB CHEMISTRY METHOD 01/29/2025 2:56 PM [facility] Potassium 4.6 3.5 - 5.5 mmol/L LAB CHEMISTRY METHOD 01/29/2025 2:56 PM [facility] Chloride 103 96 - 110 mmol/L LAB CHEMISTRY METHOD 01/29/2025 2:56 PM [facility] CO2 25 21 - 32 mmol/L LAB CHEMISTRY METHOD 01/29/2025 2:56 PM [facility] Anion Gap 8 3 - 11 LAB CHEMISTRY METHOD 01/29/2025 2:56 PM [facility] Glucose 99 70 - 100 mg/dL LAB CHEMISTRY METHOD 01/29/2025 2:56 PM [facility] BUN 14 5 - 25 mg/dL LAB CHEMISTRY METHOD 01/29/2025 2:56 PM [facility] Creatinine 0.90 0.50 - 1.10 mg/dL LAB CHEMISTRY METHOD 01/29/2025 2:56 PM [facility] eGFR 66 >=60 mL/min/1. 73m2 LAB CHEMISTRY METHOD 01/29/2025 2:56 PM [facility] Comment:Calculation based on the Chronic Kidney Disease Epidemiology Collaboration (CKD-EPI) equation refit without adjustment for race. BUN/Creatinine Ratio 15.6 LAB CHEMISTRY METHOD 01/29/2025 2:56 PM EDT [facility] Calcium 8.8 8.5 - 10.5 mg/dL LAB CHEMISTRY METHOD 01/29/2025 2:56 PM EDT [facility] Blood Venous blood specimen / Unknown Venipuncture / Unknown 01/29/2025 10:24 AM EDT 01/29/2025 10:24 AM EDT us Milady ADAM LAB BLOOD ORDERABLES Final Re sult [facility] [address] [place] [address], from Last 3 Months or Most Recently Relevant to Health Maintenance Insurance [employer] Advance Directives Documents on File Type Date Recorded Patient Thread Machine Operator Expl anation Health Care Decision (hx) [...] (hx) 02/18/2021 AD MEYER DIRECTIVE Care Teams Ladle Puller Relationship Specialty Start Date End Date Elsy Sloan MD [address] [place] [address] PCP - General Internal Medicine 03/16/22
--- OUTSIDE RECORDS SUMMARY | 2025-06-10 17:03 | XMS_ITS | Clinical Summary ---
Author Organization [facility] Address [address] [place] [address] Care Team Providers Care Continuous Mining Machine Company Miner Name Role Phone Elsy Sloan MD Primary [...] specified 02/05 Obstructive sleep apnea 10/06/2019 Overview: [facility] Home Sleep Apnea Test: Date 10/02/2019; Wt [...] age to complete this topic Care Teams Continuous Mining Machine Company Miner Relationship Specialty Start Date End Date Elsy Sloan MD [address] [place] [address] PCP - General 01/19/24
--- OUTSIDE RECORDS SUMMARY | 2025-06-10 17:03 | XMS_ITS | Continuity of Care Document ---
Author Organization [facility] Address [address] [facility] [address] [place] [address] Phone [phone] Care Team Providers Care Lithographic Platemaker Name Role Phone Elsy Sloan Care Team Information Rece iver [phone] Social History Type Date Description Comments Sex [...]
--- OUTSIDE RECORDS SUMMARY | 2025-06-10 17:04 | XMS_ITS ---
Author Organization [facility] [address] [facility] Address [address] [place] [address] Phone Care Team Providers Care Executive Director Of Nursing Name Role Phone Elsy Sloan MD Primary [...] site Obstructive sleep apnea 10/06/2019 Overview (04/05/2024): [facility] Home Sleep Apnea Test: Date 10/02/2019; Wt [...] 2019 home sleep apnea test. Malignant melanoma ([facility] V24, [facility]/HCC V28) Overview (04/05/2024): Jun 2019 MALIGNANT MELANOMA [...] with DEXA scan done last year somehow skein dyer Cerebrovascular disease 07/07/2018 Overview (04/05/2024): Moderate R, Moderate-severe L internal carotid stenosis Anterior cerebral art. Stenosis. Mod-severe R MCA stenosis 12/2010 Assessment & Plan (12/27/2024 4:53 PM EDT): Continue Aggrenox daily CKD (chronic kidney disease) stage 3, GFR 30-59 ml/min ([facility] V24, CMS/HCC V28) 07/07/2018 Assessment & Plan [...]
[2025-06-10 18:39] LABS: Baso%MD 1.0 %; Eos%MD 2.7 %; Hematocrit 27.9 % (37.0-47.0); Hemoglobin 8.4 g/dl (12.0-16.0); IG%MD 0.3 %; Lymph%MD 42.2 %; Mean Corpuscular HGB Conc 30.1 g/dl (31.0-35.0); Mean Corpuscular Hemoglobin 24.2 pg (27.0-33.0); Mean Corpuscular Volume 80.4 fL (80.0-98.0); Mono%MD 13.3 %; NRBC Abs Auto 0.000 X10*3/uL (0.0-0.012); NRBC Pct Auto 0.0 /100WBC (0.0-0.2); Neut%MD 40.5 %; Platelet Count 595 X10*3/uL (160-400); Red Blood Count 3.47 X10*6/uL (4.20-5.50); White Blood Count 6.0 X10*3/uL (4.8-10.8)
[2025-06-10 18:40] LABS: Alanine Aminotransferase 8 U/L (0-31); Albumin Level 4.1 g/dL (3.5-5.0); Alkaline Phosphatase 108 U/L (39-117); Anion Gap 12 (12-20); Aspartate Amino Transferase 27 U/L (5-31); Blood Urea Nitrogen 16 mg/dL (9-16); Calcium 8.4 mg/dL (8.4-10.2); Carbon Dioxide 25 mmol/L (22-29); Chloride 102 mmol/L (96-108); Estimated Glomerular Filt Rate > 60; Potassium 4.1 mmol/L (3.3-5.1); Sodium 135 mmol/L (135-145); Total Protein 7.1 g/dL (6.5-8.0)
[2025-06-10 18:48] LABS: Alanine Aminotransferase 9 U/L (0-31); Aspartate Amino Transferase 27 U/L (5-31)
[2025-06-10 19:36] LABS: Band Neutrophils Percent 0 % (3-5); Eosinophils Absolute Manual 0.2 X10*3/uL (0.0-0.4); Eosinophils Percent Manual 4 % (0-4); Lymphocytes Absolute Manual 2.2 X10*3/uL (1.2-4.9); Lymphocytes Percent Manual 36 % (20-40); Monocytes Absolute Manual 0.2 X10*3/uL (0.1-1.2); Monocytes Percent Manual 4 % (2-11); Neutrophils Absolute Manual 3.4 X10*3/uL (2.0-8.3); Neutrophils Percent Manual 56 % (45-73)
[2025-06-10 19:37] LABS: RBC Morphology NOTED
[2025-06-10 19:38] LABS: Hypochromasia 2+ (15-30) /OIF
[2025-06-10 19:39] LABS: Microcytosis 1+ (5-14) /OIF; Polychromasia 1+ (0-2) /OIF
[2025-06-10 19:40] LABS: Large Platelet PRESENT
== END 2025-06-10 15:59 | disposition home or self-care (01) ==
LOC: HO.CHCLDS 15:58
PROVIDERS: Internal Medicine Rheumatology; Visit Provider Student in an Organized Health Care Education/Training Program
DX: M81.0 Age-related osteoporosis without current pathological fracture (principal); M06.9 Rheumatoid arthritis, unspecified; Z79.899 Other long term (current) drug therapy
CPT/HCPCS: 36415; 80053; 82306; 84450; 84460; 85007; 85027; 85652; 86140

== ENCOUNTER 2025-06-18 08:20 | Outpatient (RCR) | payer MEDICARE, SELFPAY ==
[2025-06-18 08:26] VITALS: BP 140/61; PULSE 72; RESP 16; TEMP 36.4; O2SAT 100
[2025-06-18] MEDS: 0.9 % Sodium Chloride Flush 10 ML SYRINGE 5 ML IVFLUSH (08:51)
== END 2025-06-18 08:56 | disposition home or self-care (01) ==
LOC: HO.INF 08:20
PROVIDERS: Visit Provider Internal Medicine Rheumatology
DX: M81.0 Age-related osteoporosis without current pathological fracture (principal)
CPT/HCPCS: 96374; J3489

== ENCOUNTER 2025-07-29 14:45 | Outpatient (AMB) | payer MEDICARE, SELFPAY ==
--- OUTSIDE RECORDS SUMMARY | 2025-07-29 14:25 | XMS_ITS | Encounter Summary ---
Author Organization [facility] Address [address] [place] [address] Care Team Providers Care Hide Measuring Machine Operator Name Role Phone Elsy Sloan MD Primary Care Pr ovider Encounter Details Date Type Department Care Team (Late st Contact Info) Description 07/29/2025 2:25 PM EST Lab Draw Station - [facility] [place] [address] [facility] [address] [place] [address] Iron deficiency anemia, unspecified iron deficiency anemia [...] for your loved ones. For example, child abuse worker or elderly care for an older adult? [...] Upcoming Encounters Date Type Department Care Team ([facility] st Contact Info) Description 07/30/2025 8:00 AM EST Appointment [facility] [address] [facility] [address] [place] [address] 09/12/2025 5:00 PM EST Office Visit Adult Medicine [address] [phone] Milady Muniz PA [address] [place] [address] 09/27/2025 9:00 AM EST Telemedicine [facility] [address] [facility] [address] [place] [phone] Katelynn Le PA [address] [place] [address] 05/20/2026 9:00 AM EDT Office Visit [facility] Hematology Oncology [address] [place] [phone] Krishan Cope MD [address] [place] [address] Pending Results Name Type Priority Associated Diagnoses Date /Time CBC and differential Lab Routine Iron deficiency anemia, unspecified iron deficiency anemia type 07/29/2025 2:22 PM EST Type and screen Lab Routine Iron deficiency anemia, unspecified iron deficiency anemia type 07/29/2025 2:22 PM EST CBC auto differential Lab Routine Iron deficiency anemia, unspecified iron deficiency anemia type 07/29/2025 2:22 PM EST documented as of this encounter Visit Diagnoses Diagnosis Iron deficiency anemia, unspecified iron deficiency anemia type documented in this encounter Additional Health Concerns Assessment Noted Time PHQ-9 Depression Total Score: 1 03/01/20 8:14 AM EDT A fall risk assessment has been complete d for the patient 12/27/2024 9:02 AM EDT documented as of this encounter Care Teams Hide Measuring Machine Operator Relationship Specialty Start Date End Date Elsy Sloan MD [address] [facility], [place] PCP - General Internal Medicine 03/16/22 documented as of this encounter
--- NOTE | 2025-07-29 14:59 | A.PHYSOV ---
Vital Signs 07/29/25 15:01 Height 5 ft 4 in Weight 160 lb BMI 27.5 Intake Visit Reasons: Follow up after injection 02/05/25 Intake Note: Patient is a 80 year old here for follow up after Bilateral C2-C3,C3-C4,C4-C5,C5-C6,C6-C7 facet injections on 02/25/2025. Weight Yardage Checker Required: No Allergies Latex, Natural Rubber Allergy (Mild, Verified 07/29/25 15:00) rash, itching morphine Allergy (Unknown, Verified 07/29/25 15:00) Unknown pregabalin (From Lyrica) Allergy (Unknown, Verified 07/29/25 15:00) Unknown Penicillins Adverse Reaction (Unknown, Verified 07/29/25 15:00) Unknown warfarin Adverse Reaction (Unknown, Verified 07/29/25 15:00) Unknown bee stings Allergy (Intermediate, Uncoded 07/29/25 15:00) Anaphylaxis lovonox Allergy (Mild, Uncoded 07/29/25 15:00) Hives HPI Comments Details: History of Present Illness The patient is a 80 year old female presenting for management of chronic neck pain. She has a history of severe cervical arthritis and reports her neck pain has worsened recently, describing it as burning and nerve-like. ` The pain is so severe that she has difficulty lifting her head to see while walking and finds riding in a car to be very painful. She also reports experiencing pain that radiates down both of her arms. Her last treatment was in February, which consisted of bilateral facet injections from C2-3 through C6-7, she reports 50% reduction of her pain for 3 months. Patient's pain has returned despite performing her physician directed home exercise plan and medications as prescribed. She is requesting repeat cervical facet injection. She has had epidural injections in the past as well. For pain management at home, she uses Tylenol and avoids stronger medications like Lortab due to concerns about the risk of falling. The patient's relevant medical history includes chronic anemia secondary to a bleeding hiatal hernia, for which she is scheduled for a blood transfusion. She also has a history of vertigo, migraines, psoriatic arthritis with visible joint deformities in her hands, and osteoporosis requiring infusions. She reports her back pain has improved since getting a new mattress and she is not currently seeking an injection for it. Pain Description - Onset and Timing: The patient reports a worsening of her chronic neck pain. - Quality and Character: Pain is described as sharp and burning, suggestive of nerve involvement. - Location: Pain is located in the neck, with particular issues in the lower vertebrae and the C2-C3 region. - Radiation: The pain radiates down both arms. - Severity and Impact: The pain is described as super painful and interferes with her ability to lift her head while walking. - Exacerbating Factors: Riding in a car makes the pain worse. [facility] Medical History History of blood transfusion Fibromyalgia Rheumatoid arthritis TIA (transient ischemic attack) Hypercholesterolemia Hypothyroid Systemic primary arterial hypertension Surgical History Hx of colonoscopy H/O: hysterectomy H/O total knee replacement History of total hip replacement Hx of cholecystectomy Social History Alcohol intake: current Patient Tobacco Use Status: Never used Tobacco Review of Systems Narrative Review of Systems - General: Reports being anemic and feeling a lack of energy, and notes she appears pale. - Neurological: Reports migraines, vertigo, and pain that radiates down both arms. - Musculoskeletal: Reports severe, worsening neck pain with burning quality. - Gastrointestinal: Reports having a hiatal hernia that bleeds. - Cardiovascular: Denies issues, stating her heart is good. - Respiratory: Denies issues, stating her lungs are good. Physical Exam Exam Exam: Physical Exam Cervical Spine: She has forward head position. She is tender to the cervical spine throughout palpation. Limited range of motion at end range throughout. Special Tests: Axial Compression test: Negative Spurlings test: Negative Lhermitte's sign is Negative Upper Extremities: Full range of motion bilateral upper extremities. Equal lockstitch machine operator strength bilaterally. Neuro: Sensation: Intact to upper extremities bilateral to light touch Strength C5 (Elbow Flexion): 5/5 on the left and 5/5 on the right. C6 (Elbow Ext): 5/5 on the left and 5/5 on the right. C7 (Elbow Ext): 5/5 on the left and 5/5 on the right. C8 (Finger Flex): 5/5 on the left and 5/5 on the right. T1 (Finger Abd/Add): 5/5 on the left and 5/5 on the right. DTR: C5 (Biceps): Left 2 Right 2 C6 (Brachioradialis): Left 1 Right 1 C7 (Triceps): Left 2 Right 2 Farr sign: Negative No pathologic clonus. No involuntary movement. Vital Signs: BMI result Body Mass Index 27.5 Assessment & Plan Assessment & Plan (1) Cervicalgia: Code(s): M54.2 - Cervicalgia Category: Medical Plan Pain Management - Analgesia: The patient currently uses Tylenol for pain. - Activities of Daily Living: Her pain is severe enough that she cannot lift her head to see where she is going while walking, and riding in a car is very painful. - Adverse Effects: She chooses to avoid stronger medications, such as Lortab which she took in the past, due to concerns about the risk of falling. - Affect: The patient describes her current situation as rough and acknowledges that her neck problem is a significant burden on her overall health. - Aberrant Drug-Related Behaviors: None noted; the patient actively avoids stronger pain medications. Plan Patient was informed and verbally consented to the use of an ambient scribe for clinic note documentation during this visit. 1. Chronic Neck Pain The patient's chronic neck pain has worsened and now has a burning, neuropathic quality in addition to her known severe arthritis, with radiation down both arms. Her previous bilateral facet injections from C2-C7, performed in February, are no longer providing adequate relief. Treatment options were discussed, including a cervical epidural steroid injection to target nerve and disc inflammation or repeating the cervical facet injections. The patient elected to proceed with repeating the facet injections, as she has had a known positive response to this procedure in the past. An order will be placed for bilateral cervical facet injections from C2-3 through C6-7. The plan is to consider a cervical epidural injection in the future if her burning pain persists. The procedure will now be performed at [facility], and it is anticipated to be scheduled for early August, pending insurance authorization. Discussion Notes I discussed with the patient that her chronic neck pain has worsened, with new burning and nerve-like symptoms radiating down her arms. We reviewed the options of repeating her previous treatment of bilateral cervical facet injections versus trying a cervical epidural steroid injection to specifically target the nerve inflammation. I explained that an epidural would be placed at C6-7 and the medication would spread upward to treat the inflamed nerves. The patient expressed a preference to proceed with the facet injections, as she is familiar with the procedure and knows it provides some benefit. We agreed to order bilateral cervical facet injections from C2-3 through C6-7. I informed the patient that we will obtain authorization from her insurance and that the procedure will now be performed at [facility]. I provided an estimated timeline for the procedure in early August. We discussed that if her symptoms are not adequately controlled, we can consider the epidural injection at a later date. Patient Instructions - My office will place an order for you to receive another set of facet injections in your neck to help with your pain. - We will contact your insurance company to get approval for the procedure. - Once approved, our staff will call you to schedule the appointment. - Please be aware that this procedure will now take place at [facility]. - We expect the procedure to be scheduled in early August. - If the burning pain in your neck and arms does not improve after this procedure, we can discuss trying a different type of injection (an epidural) in the future. Orders: Referrals Physiatry Procedure Notification M54.2 - Cervicalgia Coding Level of Care Code Tele Est Pt Level 3 (48869) Diagnoses Cervicalgia M54.2
[2025-07-29 15:01] VITALS: BMI 27.5
--- OUTSIDE RECORDS SUMMARY | 2025-07-29 18:00 | XMS_ITS | Clinical Summary ---
Author Organization [facility] Prior to 01/05/25 Address [address] [place] [address] Care Team Providers Care Car Storer Name Role Phone Elsy Sloan MD Primary [...] specified 02/05 Obstructive sleep apnea 10/06/2019 Overview: [facility] Home Sleep Apnea Test: Date [...] 1-dose 75+ series) 2022 COVID-19 Vaccine ( - 2024- season) 2025 12/02/2021, 05/26/2021, 09/14/2020, Additional history [...] age to complete this topic Care Teams Car Storer Relationship Specialty Start Date End Date Elsy Sloan MD [address] [place] [address] PCP - General 01/19/24
--- OUTSIDE RECORDS SUMMARY | 2025-07-29 18:01 | XMS_ITS ---
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 Stenosis. Mod-severe R MCA stenosis 12/2010 Assessment & Plan (12/27/2024 4:53 PM EDT): Continue Aggrenox daily CKD (chronic kidney disease) stage 3, GFR 30-59 ml/min 07/07/2018 Assessment & Plan (12/27/2024 4:53 PM [...] having a bone marrow biopsy done in [place] stating it was normal. Hematology advised her to follow with gastroenterology and they are monitoring her labs Assessment & Plan (12/27/2024 4:53 PM EDT): Status post iron infusions. Due for repeat CBC which she will complete RA (rheumatoid arthritis) 07/07/2018 Assessment & Plan (12/27/2024 4:53 PM [...]
--- OUTSIDE RECORDS SUMMARY | 2025-07-29 18:01 | XMS_ITS | Clinical Summary ---
Author Organization [facility] [place] [address] [place] [address] [place] [phone] Phone Care Team Providers Care Retort Forker Name Role Phone Elsy Sloan MD Primary [...] (one) time each day. 01/03/20 24 Active pravastatin (PRAVACHOL) 40 mg [...] day. Active EPINEPHrine (EPIPEN) 0.3 mg/0.3 mL injectionIndica tions:Allergy to bee sting Inject 0.3 mL (0.3 mg total) into the thigh if needed for anaphylaxis. 1 each 2 12/28/19 25 Active Simponi 50 mg/0.5 mL pen injector injection Inject 0.5 mL (50 mg total) under the skin. 12/27/19 25 Active busPIRone (BUSPAR) 5 mg tabletIndicatio ns:Anxiety Take 1 tablet (5 mg total) by mouth 2 (two) times a day. 180 each 1 12/28/19 25 Active baclofen (LIORESAL) 10 [...] breakfast. 90 tablet 1 02/27/20 25 Active galcanezumab-gn lm (EMGALITY) 120 mg/mL injection pen Inject 1 mL (120 mg total) under the skin every 28 (twenty-eight) days. 3 Pen 3 03/01/20 25 Active ubrogepant (UBRELVY) 100 mg tablet Take 1 tablet (100 mg total) by mouth 1 (one) time if needed for migraine. 9 tablet 2 03/14/20 25 Active meclizine (ANTIVERT) 12.5 mg tablet Take 1 tablet (12.5 mg total) by mouth 3 (three) times a day if needed for dizziness (vertigo). 30 tablet 5 03/27/20 25 Active DULoxetine (CYMBALTA) [address] capsuleIndicati ons:Fibromyalgi a,Anxiety and depression,Anxi ety Take 1 capsule (60 mg total) by mouth 1 (one) time each day. Do not crush or chew. 90 capsule 06/05/20 25 Active losartan (Cozaar) 50 mg tabletIndicatio ns:Primary hypertension Take 1 tablet (50 mg total) by mouth 1 (one) time each day. 90 each 07/23/20 25 2025 Active cholecalciferol (VITAMIN D-3) 1,250 mcg (50,000 unit) capsule Take 1 capsule (50,000 Units total) by mouth 1 (one) time per week. Active romosozumab-aqq g (Evenity) 01/03/20 24 2024 Discontinued losartan (Cozaar) 50 mg tabletIndicatio ns:Primary hypertension Take 1 tablet (50 mg total) by mouth 1 (one) time each day. 90 each 1 12/28/19 25 2024 Discontinued(R eojamieer) cyanocobalamin (Vitamin B-12) 500 mcg tablet Take 1 tablet (500 mcg total) by mouth 1 (one) time each day. 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 Hematology advised her [...] Encounters Date Type Department Care Team Description 07/29/2025 2:25 PM EST Lab Draw Station - [facility] [address] [facility] [address] [place] [phone] Iron deficiency anemia, unspecified iron deficiency anemia type 07/26/[address] [facility] Hematology Oncology [address] [place] [address] Krishan Cope MD 07/23/2025 9:35 AM EST Lab Draw Station - [facility] [address] [facility] [address] [place] [phone] Iron deficiency anemia due to chronic blood loss 07/23/2025 9:00 AM EST Office Visit [facility] Hematology Oncology [address] [place] [address] Krishan Cope MD Iron deficiency anemia due to chronic blood loss (Primary Dx) 07/23/2025 Telephone Adult Medicine [address] [phone] Ericka Jaramillo MA 06/26/2025 3:00 PM EST Office Visit [facility] [address] [facility] [address] [place] [phone] Katelynn Le PA Intractable migraine with aura without status migrainosus (Primary Dx); History of transient ischemic attack (TIA) from Last 3 Months Immunizations Immunization Administration Dates Next Due Influenza Quadravalent, MDCK , 0.5ml, preservative free (Flucelvax) 6mo and older 08/17/2018 Influenza trivalent, 0.5mL ( Fluzone High-dose) 65yo and older 07/11/2023,06/28/2019,06/10/2017 Pfizer SARS-CoV-2 COVID-19, mRNA, LNP-S, preservative free [...] kidney disease) stage 3, GFR 30-59 ml/min ([facility]/HCC V24, CMS/HCC V28) 07/07/2018 DX:CKD (chronic kidney [...] for your loved ones. For example, child development assistant or elderly care for an older adult? [...] not to disclose 2024 1:47 PM EDT Last Filed Vital Signs Vital Sign Reading Time Taken Comments Blood Pressure 125/59 07/23/2025 9:17 AM EST Pulse 87 07/23/2025 9:17 AM EST Temperature 36.6 C (97.9 F) 07/23/2025 9:17 AM EST Respiratory Rate 16 12/27/2024 9:02 AM EDT Oxygen Saturation 100% 07/23/2025 9:17 AM EST Inhaled Oxygen Concentration - - Weight 70.3 kg (155 lb) 07/23/2025 9:17 AM EST Height 162.6 cm (5' 4 ) 04/09/2025 3:34 PM EDT Body Mass Index 26.61 04/09/2025 3:34 PM EDT Plan of Treatment Upcoming Encounters Date Type Department Care Team (Late st Contact Info) Description 07/30/2025 8:[address] [facility] Infusion Center [address] [phone] 09/12/2025 5:00 PM EST Office Visit Adult Medicine [address] [phone] Milady Muniz PA [address] [place] [address] 09/27/2025 9:00 AM EST Telemedicine [facility] 175 [facility] [address] [place] [phone] Katelynn Le PA [address] [place] [phone] 05/20/2026 9:00 AM EDT Office Visit [facility] Hematology Oncology [address] [place] [phone] Krishan Cope MD [address] [place] [address] Health Maintenance Due Date Last Done Comments [...] 12/27/2025 12/27/2024 Hypertension/CHF/CAD Annual BMP Blood Test 05/21/2026 05/21/2025, 01/29/2025, 11/29/2024, Additional history exists Cholesterol Screening (Lipid Panel) 01/29/2030 01/29/2025, 01/03/2024 [...] Procedure Name Priority Date/Time Associated Diagnosis Comments CBC WITH AUTO DIFFERENTIAL Routine 07/23/2025 9:32 AM EST Iron deficiency anemia due to chronic blood loss IRON AND TIBC Routine 07/23/2025 9:32 AM EST Iron deficiency anemia due to chronic blood loss FERRITIN Routine 07/23/2025 9:32 AM EST Iron deficiency anemia due to chronic blood loss CBC AND DIFFERENTIAL Routine 07/23/2025 9:32 AM EST Iron deficiency anemia due to chronic blood loss HEPATITIS C ANTIBODY Routine 01/29/2025 10:24 AM [...] Relevant to Health Maintenance Results * (ABNORMAL) CBC auto differential (07/23/2025 9:32 AM EST) WBC 6.8 4.8 - 10.8 K/mcL LAB HEMETOLOGY METHOD 07/23/2025 12:09 PM [facility] RBC 3.00(L) 3.80 - 4.80 M/mcL LAB HEMETOLOGY METHOD 07/23/2025 12:09 PM [facility] Hemoglobin 6.8(L) 11.5 - 16.0 g/dL LAB HEMETOLOGY METHOD 07/23/2025 12:09 PM [facility] Hematocrit 23.6(L) 35.0 - 47.0 % LAB HEMETOLOGY METHOD 07/23/2025 12:09 PM [facility] MCV 79.2 79.0 - 98.0 FL LAB HEMETOLOGY METHOD 07/23/2025 12:09 PM [facility] MCH 22.8(L) 27.0 - 32.0 pcg LAB HEMETOLOGY METHOD 07/23/2025 12:09 PM [facility] MCHC 28.8(L) 32.0 - 37.0 g/dL LAB HEMETOLOGY METHOD 07/23/2025 12:09 PM [facility] RDW 16.8(H) 11.0 - 15.0 % LAB HEMETOLOGY METHOD 07/23/2025 12:09 PM [facility] Platelets 614(H) 130 - 400 K/mcL LAB HEMETOLOGY METHOD 07/23/2025 12:09 PM [facility] MPV 8.7 7.0 - 11.0 FL LAB HEMETOLOGY METHOD 07/23/2025 12:09 PM [facility] NRBC 0.0 <1.0 % LAB HEMETOLOGY METHOD 07/23/2025 12:09 PM [facility] NRBC Absolute 0.00 <0.10 K/mcL LAB HEMETOLOGY METHOD 07/23/2025 12:09 PM [facility] Neutrophils Relative 60.5 % LAB HEMETOLOGY METHOD 07/23/2025 12:09 PM [facility] Lymphocytes Relative 23.4 % LAB HEMETOLOGY METHOD 07/23/2025 12:09 PM [facility] Monocytes Relative 12.3 % LAB HEMETOLOGY METHOD 07/23/2025 12:09 PM [facility] Eosinophils Relative 2.2 % LAB HEMETOLOGY METHOD 07/23/2025 12:09 PM [facility] Basophils Relative 1.3 % LAB HEMETOLOGY METHOD 07/23/2025 12:09 PM [facility] Immature Granulocytes Relative 0.3 % LAB HEMETOLOGY METHOD 07/23/2025 12:09 PM [facility] Neutrophils Absolute 4.14 1.50 - 7.00 K/mcL LAB HEMETOLOGY METHOD 07/23/2025 12:09 PM [facility] Lymphocytes Absolute 1.60 1.00 - 5.00 K/mcL LAB HEMETOLOGY METHOD 07/23/2025 12:09 PM [facility] Monocytes Absolute 0.84 0.20 - 1.00 K/mcL LAB HEMETOLOGY METHOD 07/23/2025 12:09 PM [facility] Eosinophils Absolute 0.15 0.00 - 0.50 K/mcL LAB HEMETOLOGY METHOD 07/23/2025 12:09 PM [facility] Basophils Absolute 0.09 0.00 - 0.20 K/mcL LAB HEMETOLOGY METHOD 07/23/2025 12:09 PM [facility] Immature Granulocytes Absolute 0.02 0.00 - 0.03 K/mcL LAB HEMETOLOGY METHOD 07/23/2025 12:09 PM [facility] Blood Venous blood specimen / Unknown Venipuncture / Unknown 07/23/2025 9:32 AM EST 07/23/2025 11:41 AM EST us Krishan Cope MD LAB BLOOD ORDERABLES Final R esult [facility] [address] [place] [address], * (ABNORMAL) Iron and TIBC (07/23/2025 9:32 AM EST) Iron 10(L) 40 - 150 mcg/dL 07/23/2025 12:02 PM EST [facility] TIBC 389 250 - 450 mcg/dL 07/23/2025 12:02 PM EST [facility] Iron Saturation 3(L) 15 - 50 % 12:02 PM EST [facility] Blood Venous blood specimen / Unknown Venipuncture / Unknown 07/23/2025 9:32 AM EST 07/23/2025 11:42 AM EST Krishan Cope MD LAB BLOOD ORDERABLES Final R esult Performing Organization Address City/[facility]/ZIP Co de Phone Number [facility] [address] [place] [address], [place] [phone] * Ferritin (07/23/2025 9:32 AM EST) Pathologist [facility] Ferritin 8 7 - 271 ng/mL 07/23/2025 12:08 PM EST [facility] Blood Venous blood specimen / Unknown Venipuncture / Unknown 07/23/2025 9:32 AM EST 07/23/2025 11:42 AM EST Krishan Cope MD LAB BLOOD ORDERABLES Final R esult Performing Organization Address [facility] Co de Phone Number [facility] [address] [place] [address], [place] [phone] * Hepatitis C antibody (01/29/2025 10:24 AM EDT) [facility] Hepatitis C Antibody Negative Negative LAB CHEMISTRY METHOD 01/29/2025 5:33 PM EDT [facility] Blood Venous blood specimen / Unknown Venipuncture / Unknown 01/29/2025 10:24 AM EDT 01/29/2025 10:24 AM EDT Elsy Sloan MD LAB BLOOD ORDERA BLES Final Result [facility] [address] [place] [address], [place] [phone] * (ABNORMAL) Lipid panel with reflex to direct LDL (01/29/2025 10:24 AM EDT) Cholesterol 191 0 - 200 mg/dL LAB CHEMISTRY METHOD 01/29/2025 2:56 PM EDT [facility] Triglycerides 105 0 - 150 mg/dL LAB CHEMISTRY METHOD 01/29/2025 2:56 PM EDT [facility] HDL 63 >=40 mg/dL LAB CHEMISTRY METHOD 01/29/2025 2:56 PM EDT [facility] LDL Calculated 107(H) 0 - 100 mg/dL LAB CHEMISTRY METHOD 01/29/2025 2:56 PM EDT [facility] VLDL Cholesterol Oren 21 mg/dL LAB CHEMISTRY METHOD 01/29/2025 2:56 PM EDT [facility] Non HDL Chol. (LDL+VLDL) 128 <145 mg/dL LAB CHEMISTRY METHOD 01/29/2025 2:56 PM EDT [facility] Chol/HDL Ratio 3.0 0.0 - 4.4 LAB CHEMISTRY METHOD 01/29/2025 2:56 PM EDT [facility] Blood Venous blood specimen / Unknown Venipuncture / Unknown 01/29/2025 10:24 AM EDT 01/29/2025 10:24 AM EDT us Milady ADAM LAB BLOOD ORDERABLES Final Re sult [facility] [address] [place] [address], [place] [phone] * Basic metabolic panel (01/29/2025 10:24 AM EDT) Sodium 136 133 - 145 mmol/L LAB CHEMISTRY METHOD 01/29/2025 2:56 PM EDT [facility] Potassium 4.6 3.5 - 5.5 mmol/L LAB CHEMISTRY METHOD 01/29/2025 2:56 PM T [facility] Chloride 103 96 - 110 mmol/L LAB CHEMISTRY METHOD 01/29/2025 2:56 PM [facility] CO2 25 21 - 32 mmol/L LAB CHEMISTRY METHOD 01/29/2025 2:56 PM T [facility] Anion Gap 8 3 - 11 LAB CHEMISTRY METHOD 01/29/2025 2:56 PM [facility] Glucose 99 70 - 100 mg/dL LAB CHEMISTRY METHOD 01/29/2025 2:56 PM [facility] BUN 14 5 - 25 mg/dL LAB CHEMISTRY METHOD 01/29/2025 2:56 PM [facility] Creatinine 0.90 0.50 - 1.10 mg/dL LAB CHEMISTRY METHOD 01/29/2025 2:56 PM T [facility] eGFR 66 >=60 mL/min/1. 73m2 LAB CHEMISTRY METHOD 01/29/2025 2:56 PM T [facility] Comment:Calculation based on the Chronic Kidney Disease Epidemiology Collaboration (CKD-EPI) equation refit without adjustment for race. BUN/Creatinine Ratio 15.6 LAB CHEMISTRY METHOD 01/29/2025 2:56 PM [facility] Calcium 8.8 8.5 - 10.5 mg/dL LAB CHEMISTRY METHOD 01/29/2025 2:56 PM [facility] Blood Venous blood specimen / Unknown Venipuncture / Unknown 01/29/2025 10:24 AM EDT 01/29/2025 10:24 AM EDT us Milady ADAM LAB BLOOD ORDERABLES Final Re sult [facility] [address] [place] [address], [place] [phone] from Last 3 Months or Most Recently Relevant to Health Maintenance Insurance [employer] Advance Directives Documents on File Type Date Recorded Patient Scrap Stripper Hand Expl anation Health Care Decision (hx) 03/23/2021 [...] (hx) 02/18/2021 AD MEYER DIRECTIVE Care Teams Retort Forker Relationship Specialty Start Date End Date Elsy Sloan MD [address] [facility], [place] PCP - General Internal Medicine 03/16/22
--- OUTSIDE RECORDS SUMMARY | 2025-07-29 18:01 | XMS_ITS | Patient Health Record ---
Author Organization [facility] Address [address] [place] [address] Care Team Providers Care Supervisor Shipfitters Name Role Phone ABNER PEÑA MD, ROLLA Primary Care Provider Un available ALLISON Merida Unavailable [phone] Allergies Allergen (clinical drug ingredient) Drug/Non Drug Allergy documented on EMR Reaction Allergy Type Onset Date Status chlorthalidone Chlorthalidone Unknown Drug Allergy Active atorvastatin Lipitor Unknown Drug Allergy Acti ve Potassium Unknown Drug Allergy Active Bee Sting hives Allergy Active morphine Morphine Unknown Drug Allergy Active Penicillin Unknown Drug Allergy Active Reason For Referral No Information Medications Medication SIG (Take, Route, Frequency, Duration) Notes Start Date End Date Status Baclofen 10 MG Tablet 1 tab(s) orally twice a day Active Pravastatin Sodium 40 MG Tablet 1 tab(s) orally once a day; Duration: 30 day(s) Active amLODIPine Besylate 5 MG Tablet 1 tab(s) orally once a day; Duration: 30 day(s) Active Telmisartan 40 MG Tablet 1 tab(s) orally once a day; Duration: 30 day(s) Active Dipyridamole 25 MG Tablet 1 tab(s) orally 2 times a day Active Trimethoprim 100 MG Tablet 1 tab(s) orally every 12 hours; Duration: 10 day(s) Active EPINEPHrine 0.3 MG KIT DIRECTED INTRAMUSCULARLY ONCE; Duration: 1 DOSE(S) NAME ONLY Conversion from Multum Review and pick correct strength-formulat ion from Medispan options. If intended option is not shown, discontinue and re-order from Quick Search. Active Ergocalciferol 44184 INTL UNITS/ML CAPULE 1 ORALLY ONCE A WEEK NAME ONLY Conversion from Multum Review and pick correct strength-formulat ion from Healthcare IT options. If intended option is not shown, discontinue and re-order from Quick Search. Active Esomeprazole Magnesium 40 MG Capsule Delayed Release 1 cap(s) orally once a day; Duration: 30 day(s) Active Fluticasone Propionate (Inhal) 50 MCG/INH POWDER 1 PUFF(S) INHALED ONCE DAY NAME ONLY Conversion from Multum Review and pick correct strength-formulat ion from Healthcare IT options. If intended option is not shown, discontinue and re-order from Quick Search. Active Celecoxib 200 MG Capsule 1 cap(s) orally once a day Active Levothyroxine Sodium 25 MCG Tablet 1 tab(s) orally once a day; Duration: 30 day(s) Active Acetaminophen 500 MG Tablet 2 tab(s) orally every 6 hours Active Levothyroxine Sodium 200 MCG Tablet 1 tab(s) orally once a day; Duration: 30 day(s) Active Lidocaine 4 % Cream 1 rocky applied topically 3 times a day Active Multivitamin 1 TAB ONCE DAILY NAME ONLY Conversion from Multum Review and pick correct strength-formulat ion from Healthcare IT options. If intended option is not shown, discontinue and re-order from Quick Search. Active Social History Tobacco Use: Social History Observation Description Date Details (start date - stop date) Never Smoker NA - NA Social History Tobacco Use: Social Info Question Answer Notes Smoking Are you a: never smoker Additional Details Category Social Info Options Details General Occupation: Retired alcohol use: yes occ drug use: no Coffee/Tea/Soda: yes 1 cup of coffee daily smokers in household no Problems Problem Type SNOMED Code ICD Code Onset Dates Problem Status W/U Status Risk Notes Problem Medication monitoring (137902016) Medication monitoring encounter (Z51.81) Active confirmed Problem Rheumatoid arthritis (57585661) Rheumatoid arthritis of multiple sites with negative rheumatoid factor (M06.09) Active confirmed Problem Primary osteoarthritis (607523354) Primary osteoarthritis involving multiple joints (M15.0) Active confirmed Plan Of Treatment No Information Insurance Providers Payer Name Payer Address Payer Phone Subscriber Number Group Number Insured Name Patient Relationship to Insured Coverage Start Date Coverage End Date MEDICARE [employer] [address] [place] [phone] [id number] MILLI BERNABE Self - patient is the insured [facility] [address] [place] [address] [id number] MILLI BERNABE Self - patient is the insured Medical (General) History Medical History History ICD Code allergy anemia arthritis high cholesterol fibromyalgia gallbladder disease gerd high blood pressure osteoarthritis raynauds disease rheumatoid arthritis seizures thyroid disease ( hypo) Surgical History Surgery Date(Month/Year) azul knee replacement azul hip replacement patellectomy left knee 1986 torn cartilage left knee 1984 right wrist surgery 1976 azul femoral inquinal hernias 1977 hysterectomy 1979 gallbladder 1976 Hospitalization History Reason Date(Month/Year) anemia 2017
--- OUTSIDE RECORDS SUMMARY | 2025-07-29 18:01 | XMS_ITS | Encounter Summary ---
Author Organization [facility] Address [address] [place] [address] Care Team Providers Care Greenhouse Transplanter Name Role Phone Elsy Sloan MD Primary Care Pr ovider Encounter Details Date Type Department Care Team (Late st Contact Info) Description 07/26/2025 Telephone [facility] Hematology Oncology [address] [place] [address] Krishan Cope MD [address] [place] [address] Social History Tobacco Use Types Packs/Day Years [...] for your loved ones. For example, children's attendant or elderly care for an older [...] as of this encounter Progress Notes * Heidy Curry MA - 07/26/2025 1:32 PM EST Spoke to Payal let her know Dr Cope would like her to come in Tuesday or Tuesday to the infusion suite and then after the holidays. I let her know will be receiving call from them. * Joannjose juan Hayes - 07/26/2025 9:53 AM EST Patient had labs drawn last week and reviewed her results via Revneticst. She noticed that her iron and rbc levels are low and asking what the next steps may be. [phone] documented in this encounter Plan of Treatment Upcoming Encounters Date Type Department Care Team (Late st Contact Info) Description 07/30/2025 8:00 AM EST Appointment [facility] Infusion Center [address] [phone] 09/12/2025 5:00 PM EST Office Visit Adult Medicine [address] [address] Milady Muniz PA [address] [place] [address] 09/27/2025 9:00 AM EST Telemedicine [facility] 175 [facility] [address] [place] [phone] Katelynn Le PA [address] [place] [address] 05/20/2026 9:00 AM EDT Office Visit [facility] Hematology Oncology [address] [place] [phone] Krishan Cope MD [address] [place] [address] documented as of this encounter Visit Diagnoses Not on filedocumented in this encounter Additional Health Concerns Assessment Noted Time PHQ-9 Depression Total Score: 1 03/01/20 8:14 AM EDT A fall risk assessment has been complete d for the patient 12/27/2024 9:02 AM EDT documented as of this encounter Care Teams Greenhouse Transplanter Relationship Specialty Start Date End Date Elsy Sloan MD [address] [facility], [place] PCP - General Internal Medicine 03/16/22 documented as of this encounter
--- OUTSIDE RECORDS SUMMARY | 2025-07-29 18:01 | XMS_ITS | Encounter Summary ---
Author Organization [facility] Address [address] [place] [address] Phone Care Team Providers Care Air Battle Manager Name Role Phone Lynsey Sloanmaximopete Primary Care Provider [phone] Encounter Details Date Type Department Care Team (Late Contact Info) Description 07/26/2022 Telephone [facility] [address] [facility] [address] [place] [address] Shaheed Hough MD [address] [place] [address], [address] [address] Social History Tobacco Use Types Packs/Day Years [...] of the [facility] [address] [address] Kelley Cordova ARNP [address] [address] documented as of this encounter Visit Diagnoses Not on filedocumented in this encounter Care Teams Air Battle Manager Relationship Specialty Start Date End Date Elsy Sloan PCP - General 10/27/22 documented as of this encounter
--- OUTSIDE RECORDS SUMMARY | 2025-07-29 18:01 | XMS_ITS | Encounter Summary ---
Author Organization [facility] Address [address] [place] [address] Phone Care Team Providers Care Warehouse Team Leader Name Role Phone Srikanthchristo Omayravincentrasta Primary Care Provider [phone] Encounter Details Date Type Department Care Team (Late st Contact Info) Description 12/02/2022 Telephone [facility] [address] [place] [address] Kelley Figueroa Social History Tobacco [...] Office Visit [facility] [address] [address] Kelley Cordova ARNP [address] [address] documented as of this encounter Visit Diagnoses Not on filedocumented in this encounter Care Teams Warehouse Team Leader Relationship Specialty Start Date End Date Elsy Sloan PCP - General 10/27/22 documented as of this encounter
--- OUTSIDE RECORDS SUMMARY | 2025-07-29 18:01 | XMS_ITS | Encounter Summary ---
Author Organization [facility] Address [address] [place] [address] Phone Care Team Providers Care Professor Of Environmental Studies Name Role Phone Elsy Sloan Primary Care Provider Encounter Details Date Type Department Care Team (Late Contact Info) Description 11/01/2022 Telephone [facility] [address] [facility] [address] [place] [phone] Sylwia Moore MA Social History Tobacco Use [...] Visit [facility] [address] [facility] [address] [place] [phone] Kelley Cordova ARNP [address] [address] documented as of this encounter Visit Diagnoses Not on filedocumented in this encounter Care Teams Professor Of Environmental Studies Relationship Specialty Start Date End Date Elsy Sloan PCP - General 10/27/22 documented as of this encounter
--- OUTSIDE RECORDS SUMMARY | 2025-07-29 18:01 | XMS_ITS | Encounter Summary ---
Author Organization [facility] Address [address] [place] [address] Phone Care Team Providers Care Medical Doctor Md/Medical Director Name Role Phone Lynsey Sloanmaximopete Primary Care Provider Encounter Details Date Type Department Care Team (Late st Contact Info) Description 07/21/2022 Telephone [facility] [address] [facility] [address] [place] [address] Shaheed Hough MD [address] [place] [address], [address] [address] Social History Tobacco Use Types Packs/Day Years [...] Visit [facility]. [address] [address] Kelley Cordova ARNP [address] [address] documented as of this encounter Visit Diagnoses Not on filedocumented in this encounter Care Teams Medical Doctor Md/Medical Director Relationship Specialty Start Date End Date Elsy Sloan PCP - General 10/27/22 documented as of this encounter
--- OUTSIDE RECORDS SUMMARY | 2025-07-29 18:01 | XMS_ITS | Continuity of Care Document ---
Author Organization [facility] Address [address] [facility] [address] [place] [address] Phone [phone] Care Team Providers Care Frame Nailer Name Role Phone Elsy Sloan Care Team Information Rece iver [phone] Social History Type Date Description Comments Sex Female Sex Unknown Procedures Date Code Description Status 07/17/2025 NSHOWOFF No Show Office Visit Complet ed Medical Devices Description No Information Available Encounters Description No Information Available Assessments Description No Information Available Plan of Treatment No Information Available Functional Status Description No Information Available Mental Status Description No Information Available Referrals Description No Information Available
--- OUTSIDE RECORDS SUMMARY | 2025-07-29 18:01 | XMS_ITS | Encounter Summary ---
Author Organization [facility] Prior to 01/05/25 Address [address] [place] [address] Care Team Providers Care Belt Loop Machine Operator Name Role Phone Elsy Sloan MD Primary Care Pr ovider Encounter Details Date Type Department Care Team Description 02/21/2024 Social Work [facility] Oncology Services [address] [place] [address] [facility] Social History Tobacco Use Types [...] on filedocumented in this encounter Care Teams Belt Loop Machine Operator Relationship Specialty Start Date End Date Elsy Sloan MD [address] [place] [address] PCP - General 01/19/24 documented as of this encounter
--- OUTSIDE RECORDS SUMMARY | 2025-07-29 18:01 | XMS_ITS | Encounter Summary ---
Author Organization [facility] Address [address] [place] [address] Care Team Providers Care Offbearer Sewer Pipe Name Role Phone Elsy Sloan MD Primary Care Pr ovider Encounter Details Date Type Department Care Team ([facility] st Contact Info) Description 07/23/2025 Telephone Adult Medicine [address] [address] Ericka Jaramillo [place] Social History Tobacco Use Types Packs/Day [...] as of this encounter Progress Notes * JAIR Redmond - 07/26/2025 2:38 PM EST Noted, thanks. Looks like hematology is arranging infusion (see tele enc hematology 07/26) * Velma Car RN - 07/26/2025 8:42 AM EST Called pt and informed her she would need to be seen in the office for her appointment on 08/06/25. Pt then requested to reschedule the appointment as her ride, her daughter, will be out of town. Appointment rescheduled for 09/12/24 at 5:00 pm with Milady Muniz and she is in agreement with this plan. She states her RBC's are low and she is to have an iron infusion next week on Tuesday or Tuesday with Dr. Montenegro. Her most recent H&H is 6.8 & 23.6. She was instructed to call the office if she develops any new or worsening symptoms prior to her appointment. * Ericka Jaramillo MA - 07/23/2025 9:48 AM EST Pt needs to come in office for upcoming scheduled appt for Follow up on echocardiogram, status of migraines, vertigo. This was scheduled as a telehealth needs to be in office, tried contacting pt, I couldn't reach her at either numbers. If pt calls back please inform her. documented in this encounter Plan of Treatment Upcoming Encounters Date Type Department Care Team (Late st Contact Info) Description 07/30/2025 8:00 AM EST Appointment [facility] In[facility] [address] [place] [phone] 09/12/2025 5:00 PM EST Office Visit Adult Medicine [address] [address] Milady Muniz PA [address] [place] [address] 09/27/2025 9:00 AM EST Telemedicine [facility] [address] [place] [phone] Katelynn Le PA [address] [place] [address] 05/20/2026 9:00 AM EDT Office Visit [facility] Hematology Oncology [address] [place] [phone] Krishan Cope MD [address] [place] [address] documented as of this encounter Visit Diagnoses Not on filedocumented in this encounter Additional Health Concerns Assessment Noted Time PHQ-9 Depression Total Score: 1 03/01/20 8:14 AM EDT A fall risk assessment has been complete d for the patient 12/27/2024 9:02 AM EDT documented as of this encounter Care Teams Offbearer Sewer Pipe Relationship Specialty Start Date End Date Elsy Sloan MD [address] [facility], [place] PCP - General Internal Medicine 03/16/22 documented as of this encounter
--- OUTSIDE RECORDS SUMMARY | 2025-07-29 18:01 | XMS_ITS | Clinical Summary ---
Author Organization [facility] Address [address] [facility] [address] [place] [address] Phone Care Team Providers Care Risk Compliance Manager Name Role Phone Valeriodot Elsy Primary [...] hours or as directed by MD. Active levothyroxine sodium (TIROSINT) 137 MCG capsule [...] and 5 mg in the evening. 5 Active Active Problems Problem Noted Date [...] Obstructive sleep apnea 10/06/2019 Overview (04/28/2021): [facility] Home Sleep Apnea Test: Date [...] by 2019 home sleep apnea test. 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 Chronic kidney disease, stage 2 (mild); Hypertension [...] Visit [facility] [address] [address] Kelley Cordova [place] [address] [address] Health Maintenance Due Date Last Done Comments Influenza Vaccine (#1) 2025 4, 07/11/2023, 06/28/2019, Additional history exists Pneumococcal Vaccine: 50+ Years Completed 06/02/2015, 06/14/2014 Hepatitis B Vaccine Aged Out No longe r eligible based on patient's age to complete this topic Procedures Procedure Name Priority Date/Time Associated Diagnosis Comments CBC Routine 05/21/2025 9:11 AM EDT Chronic kidney disease, stage 2 (mild) BASIC METABOLIC PANEL Routine 05/21/2025 9:11 AM EDT Chronic kidney disease, stage 2 (mild) Hypo-osmolality and hyponatremia Hypertension from Last 3 Months Results * (ABNORMAL) CBC (05/21/2025 9:11 AM EDT) WBC 6.7 3.4 - 10.8 x10E3/uL [facility] RBC 3.69(L) 3.77 - 5.28 x10E6/uL [facility] Hemoglobin 9.3(L) 11.1 - 15.9 g/dL [facility] Hematocrit 31.6(L) 34.0 - 46.6 % [facility] MCV 86 79 - 97 fL [facility] MCH 25.2(L) 26.6 - 33.0 pg [facility] MCHC 29.4(L) 31.5 - 35.7 g/dL [facility] RDW 15.2 11.7 - 15.4 % [facility] Platelets 597(H) 150 - 450 x10E3/uL [facility] Blood Venous blood / Unknown 05/21/2025 9:11 AM EDT 05/21/2025 Kelley Cordova [facility] BLOOD ORDERABLES Final Result [facility] [address] [place] [address] * (ABNORMAL) Basic metabolic panel (05/21/2025 9:11 AM EDT) Glucose 91 70 - 99 mg/dL [facility] BUN 17 8 - 27 mg/dL [facility] Sodium 133(L) 134 - 144 mmol/L [facility] Potassium 4.5 3.5 - 5.2 mmol/L [facility] Chloride 98 96 - 106 mmol/L [facility] Bicarbonate (CO2) 19(L) 20 - 29 mmol/L [facility] Calcium 8.9 8.7 - 10.3 mg/dL [facility] Creatinine 0.92 0.57 - 1.00 mg/dL [facility] eGFR CKD-EPI CR 2020 64 >59 mL/min/1.7 3 [facility] BUN/Creatinine Ratio 18 12 - 28 [facility] Blood Venous blood / Unknown 05/21/2025 9:11 AM EDT 05/21/2025 Kelley Cordova [facility] BLOOD ORDERABLES Final Result [facility] [address] [place] [address] from Last 3 Months Insurance [facility] [employer] Care Teams Risk Compliance Manager Relationship Specialty Start Date End Date Ogundipe, Oyinkansola PCP - General 10/27/22
== END 2025-07-29 15:40 | disposition home or self-care (01) ==
LOC: HO.HPHYS 14:45
PROVIDERS: PCP Family Medicine; Visit Provider Physician Assistant
DX: M54.2 Cervicalgia (principal)
CPT/HCPCS: 99213

== ENCOUNTER → 2025-07-29 14:45 | Outpatient (BNVA) | payer MEDICARE, SELFPAY | PROVIDERS: PCP Family Medicine; Visit Provider Physician Assistant | DX: M54.2 Cervicalgia (principal); G89.29 Other chronic pain | CPT/HCPCS: 99212 ==